=== PATIENT | male | born 1955 | race American Indian/Alaskan Native ===

== ENCOUNTER 2021-04-23 15:33 | Inpatient (IN) | payer MEDICARE ==
[2021-04-23] MEDS ORDERED: SODIUM CHLORIDE 0.9% 1000 ML 1,000 ML IV ONE (15:43)
[2021-04-23] MEDS ORDERED: cefTRIAXone/NS 1 GM/50 ML 1 GM/50 ML BAG IV ONE (15:44)
[2021-04-23] MEDS ORDERED: SODIUM CHLORIDE 0.9% 1000 ML 2,000 ML ONE (15:47)
--- NOTE | 2021-04-23 16:21 | XRay Report ---
CHEST 1 VIEW 04/23/2021 3:14 PM INDICATION / CLINICAL INFORMATION: Altered Mental Status. COMPARISON: None available. FINDINGS: SUPPORT DEVICES: None. HEART / MEDIASTINUM: No significant abnormality. LUNGS / PLEURA: Increased bilateral pulmonary vascularity. There is some prominence of the louie on th e left. No pneumothorax. ADDITIONAL FINDINGS: No significant additional findings. IMPRESSION: 1. Increased bilateral pulmonary vascularity. Mild prominence of the louie could represent pulmonary v ascularity however underlying nodule on the left left cannot be excluded. Follow-up recommended. Signer Name: Sotero Bourne MD Signed: 04/23/2021 4:16 PM Workstation Name: [id number]
[2021-04-23 16:36] LABS: Hematocrit 39.4 % (35.5-45.6); Hemoglobin 12.5 gm/dl (11.8-15.2); Mean Corpuscular HGB Conc 32 % (32-34); Mean Corpuscular Volume 81 fl (84-94); Platelet Count 96 K/mm3 (140-440); Red Blood Count 4.87 M/mm3 (3.65-5.03); Red Cell Distribution Width 15.5 % (13.2-15.2)
[2021-04-23 16:47] LABS: INR 1.12 (0.87-1.13)
[2021-04-23] MEDS ORDERED: VANCOMYCIN 1,750 MG in SODIUM CHLORIDE 0.9% 500 ML 500 ML IV ONE (16:48)
[2021-04-23 16:59] LABS: Albumin 3.4 g/dL (3.9-5); Calcium 9.7 mg/dL (8.4-10.2)
[2021-04-23] MEDS ORDERED: VANCOMYCIN PHARMACY TO DOSE IV SCH (17:00)
--- NOTE | 2021-04-23 17:10 | Emergency Department Report ---
ED Fever HPI - General Chief Complaint: Altered Mental Status Stated Complaint: SEPSIS PUI?: Yes Time Seen by Provider: 04/23/21 16:41 Source: family, EMS Exam Limitations: other (altered mental status) - History of Present Illness Initial Comments: CC: fever, altered mental status HPI: This is a 65 yo male with hx of quadriplegia, hyperlipidemia, dysphagia, GERD, major depressive disorder, seborrheic dermatitis who presents with fever and altered mental status. Patient currently resides at [facility]. Reported to have hypoxia 84% on nonrebreather. Patient here is febrile 103 F. Patient is nonverbal. Normally he is verbal. I spoke with Gabi Rabago per phone. Cell number provided per SNF documentation 6 10/12/1958 [id number] Patient was admitted at [facility] from 04/18/2019 to 10/18/2019 according to [facility] records. At that time he was diagnosed with spinal injury which led to quadriplegia. He fell at home. He has been a resident at [facility] since October 2019. He has not had recent hospitalizations. He has been vaccinated against COVID-19. Timing/Duration: other (At least 1 day of illness) Fever Severity/Quality: greater than 102 F Fever Therapy PUBLIC HEALTH CLINICAL NURSE SPECIALIST: none Associated Symptoms: other (Hypoxia) ED Review of Systems ROS: Stated complaint: SEPSIS Other details as noted in HPI Comment: Unobtainable due to pts medical conditions (Altered mental status) ED Past Medical Hx - Past Medical History Previous Medical History?: Yes Additional medical history: Major depressive disorder, quadriplegia, spinal cord injury - Surgical History Past Surgical History?: Yes Additional Surgical History: Spine surgery - Social History Smoking Status: Former Smoker Substance Use Type: None ED Physical Exam - General Limitations: Altered Mental Status General appearance: lethargic, other (Ill-appearing very warm to touch withdrawal some pain, yells out during transfer to) - Head Head exam: Present: atraumatic, normocephalic - Eye Eye exam: Present: normal appearance. Absent: scleral icterus, conjunctival injection, nystagmus, periorbital swelling, periorbital tenderness - ENT ENT exam: Present: mucous membranes dry, other (Poor dental hygiene) - Neck Neck exam: Present: normal inspection, full ROM. Absent: tenderness, meningismus - Respiratory Respiratory exam: Present: rhonchi, decreased breath sounds, other (Loud rales rhonchi heard loudest on the right side.). Absent: wheezes, rales, chest wall tenderness, accessory muscle use - Cardiovascular Cardiovascular Exam: Present: normal rhythm, tachycardia, normal heart sounds. Absent: systolic murmur, diastolic murmur, rubs, gallop - GI/Abdominal GI/Abdominal exam: Present: soft, normal bowel sounds. Absent: distended, tenderness, guarding, rebound - Rectal Rectal exam: Present: deferred - Extremities Exam Extremities exam: Present: normal inspection, other (heel cushions in place without skin breakdown) - Back Exam Back exam: Present: normal inspection, other (healed sacral decubitus wound) - Neurological Exam Neurological exam: Present: altered - Psychiatric Psychiatric exam: Present: flat affect - Skin Skin exam: Present: intact, other ED Course Vital Signs 04/23/21 04/23/21 04/23/21 15:38 17:28 17:30 Temperature 103 F H Pulse Rate 112 H 108 H 105 H Respiratory 16 17 20 Rate Blood Pressure 59/36 59/36 Blood Pressure 61/37 [Right] O2 Sat by Pulse 98 99 100 Oximetry 04/23/21 04/23/21 04/23/21 17:46 17:51 18:24 Temperature Pulse Rate 109 H 115 H Respiratory 17 18 Rate Blood Pressure 72/47 Blood Pressure [Right] O2 Sat by Pulse 100 100 100 Oximetry 04/23/21 04/23/21 04/23/21 18:30 18:46 19:00 Temperature Pulse Rate 115 H 104 H 103 H Respiratory 18 15 16 Rate Blood Pressure 81/43 71/39 Blood Pressure [Right] O2 Sat by Pulse 99 100 100 Oximetry 04/23/21 19:16 Temperature Pulse Rate 103 H Respiratory 18 Rate Blood Pressure 68/26 Blood Pressure [Right] O2 Sat by Pulse 99 Oximetry ED Medical Decision Making - Lab Data Result diagrams: 04/23/21 15:58 04/23/21 17:30 - Radiology Data Radiology results: report reviewed Study Comments [facility] [address] [place] [address] Cat Scan Report Signed Patient: NEO RABAGO MR#: [id number] 2 : 1955 Acct:[id number] Age/Sex: 65 / M ADM Date: 04/23/21 Loc: ED Attending Dr: Ordering Physician: Gela Lassiter MD Date of Service: 04/23/21 Procedure(s): CT chest wo con Accession Number(s): [id number] cc: Gela Lassiter MD CT CHEST WITHOUT CONTRAST INDICATION / CLINICAL INFORMATION: septic shock fever hypoxia. TECHNIQUE: Axial CT images were obtained through the chest without contrast. All CT scans at this location are performed using CT dose reduction for ALARA by means of automated exposure con trol. COMPARISON: None available. FINDINGS: Mild increased interstitial prominence within the lungs. There is bilateral lower lung atelectasis with some dependent atelectasis noted. No dominant nodule or mass heart and aorta appear normal. No definite mediastinal or hilar adenopathy. Visualized portions of the upper abdomen appear normal. Advanced degenerative change with dish like changes throughout the spine. IMPRESSION: 1. Mild increased interstitial prominence within the lungs. Density/atelectasis in the right lung..Lower lobe atelectasis is noted. 2. [facility] like changes throughout the spine with degenerative change throughout Signer Name: Sotero Bourne MD Signed: 04/23/2021 6:24 PM Workstation Name: [id number] Transcribed By: CW Dictated By: VALDEZ BOURNE MD Electronically Authenticated By: VALDEZ BOURNE MD Signed Date/Time: 04/23/211823 Other Patient ID My Comment(s) Study Comments [facility] [address] [place] [address] Cat Scan Report Signed Patient: NEO RABAGO MR#: [id number] 2 : 1955 Acct:[id number] Age/Sex: 65 / M ADM Date: 04/23/21 Loc: CC1 [id number]: REJI COLEMAN MD Ordering Physician: Gela Lassiter MD Date of Service: 04/23/21 Procedure(s): CT abdomen pelvis wo con Accession Number(s): [id number] cc: Gela Lassiter MD CT ABDOMEN AND PELVIS WITHOUT CONTRAST HISTORY: septic shock abnormal liver function. COMPARISON: None. TECHNIQUE: CT images of the abdomen and pelvis were obtained without administration of intravenous contrast. All CT scans at this location are performed using CT dose reduction for ALARA by means of automated exposure control. FINDINGS: Lungs/bones: There is atelectasis in bilateral lower lungs Abdomen/pelvis: Within limits of a noncontrast examination the liver, spleen, adrenal glands, pancreas and gallbladder appear normal. Distention of the bowel loops seen. There is marked distention of the sigmoid colon into the rectum with fecal material and gas. Thickening of the distal sigmoid colon and rectum. Contrast is seen in bilateral kidneys. No fluid collection or abscess is definitely seen. Mild inflammation retroperitoneum without focal collection. [facility] like changes are seen throughout spine. No subluxation. There is slight changes are most significant in the thoracic spine urinary bladder wall appears thickened sclerosis and fusion SI joints. IMPRESSION: 1. Bilateral lower lobe atelectasis 2. There is marked dilatation of the distal descending colon and sigmoid colon measuring up to 11 cm. There is marked thickening of the distal sigmoid colon and rectal wall. No perforation is seen in this time however follow-up colonoscopy GI is recommended 3. Mild inflammation of the retroperitoneum however no fluid collection or abscess is seen Signer Name: Sotero Bourne MD Signed: 04/23/2021 7:32 PM Workstation Name: [id number] Transcribed By: CW Dictated By: VALDEZ BOURNE MD Electronically Authenticated By: VALDEZ BOURNE MD Signed Date/Time: 04/23/211931 DD/DT: DD/ 18 - Medical Decision Making 1. Acute respiratory failure hypoxia with septic shock due to healthcare associated pneumonia and UTI: Treatment in the ED included IV broad-spectrum antibiotics cefepime vancomycin, 30mL/kg/min, normal saline bolus, sepsis protocol. Patient is vaccinated against COVID-19. Will need to rule out COVID- 19 infection. Suspect bacterial organism as the cause of pneumonia with significant leukocytosis and septic shock. 2. Acute toxic metabolic encephalopathy due to sepsis and hypoxia. I expect lethargy to resolve once patient is resuscitated and treated for infection. Do not suspect meningitis at this time. 3. Acute kidney injury: Vasomotor nephropathy due to septic shock lack of perfusion. IVF resuscitation initiated with sepsis protocol 4. Type II NSTEMI due to demand ischemia, will trend troponin 5. Abnormal hepatic panel: CT abdomen pelvis ordered to rule out biliary obstruction and infectious process 6. Patient has both healthcare associated pneumonia and urinary tract infection 7. colitis: ddx: ileus, impaction, diverticulitis, malignancy, will need GI evaluation I have kept informed. Work-up notable for UTI downtrending lactic acid, elevated COVID markers including D-dimer ferritin LDH CRP. D-dimer will need to be trended in order to rule in or rule out VTE. Critical Care Time: Yes Critical care time in (mins) excluding proc time.: 40 Critical care attestation.: If time is entered above; I have spent that time in minutes in the direct care of this critically ill patient, excluding procedure time. 40 minutes of critical care time excluding procedures were used in the care of the patient. I came immediately to the bedside upon patient's arrival. I discussed treatment plan with the nursing team members. I reviewed electronic record. I kept Gabi Rabago informed. Patient required multiple interventions and reassessments. ED Disposition Clinical Impression: Acute respiratory failure with hypoxia, Acute metabolic encephalopathy, Septic shock, HCAP (healthcare-associated pneumonia), Suspected COVID-19 virus infection, Acute kidney injury, Non-ST elevation NH (NSTEMI), Urinary tract infection, Colitis Disposition: ADMITTED INPATIENT Is pt being admited?: Yes Does the pt Need Aspirin: No Condition: Critical
--- NOTE | 2021-04-23 17:16 | History and Physical Report ---
History of Present Illness Chief complaint: He is weak and now is not talking History of present illness: 65 YO Male [facility] Resident at [facility] with MDD, GERD, HLD, Quadraplegia S/P Spine Injury, Seborrheic Dermatitis, Encephalopathy presents to ED for evaluation. Patient has diminished cognition at the time of my evaluation and is unable to provide history. Patient history taken from EMS staff, ED staff, as well as retirement facility staff. As per staff the patient has experienced increased weakness and decreased responsiveness over the past 3 days. Patient was found to be febrile to 103 F. EMS was notified and upon arrival the patient was found to be in distress and subsequent transported to [facility] for further care and evaluation of the aforementioned symptoms. The patient was seen and evaluated in the emergency department. All lab and imaging studies reviewed. The patient was found to have a pulse oximetry of 84% on nonrebreather mask which is consistent with acute hypoxemic respiratory failure. Chest x-ray reveals evidence of pneumonia. Patient also found to have sepsis complicated by shock as well as shock liver, acute kidney injury, metabolic acidosis, toxic metabolic encephalopathy. Patient found to be critically ill and admitted to ICU and initiated on sepsis protocol, pneumonia protocol as well as coronavirus protocol. No further history is obtainable. No prior admission for review. No medication listed at time of admission for reconciliation. Advanced care planning conducted in the ED. Critical care team consulted in ED. Past History Past Medical History: GERD, hyperlipidemia, other (See HPI) Past Surgical History: Other (Spine surgery) Social history: . denies: smoking, alcohol abuse, prescription drug abuse Family history: diabetes, hypertension Medications and Allergies Allergies Allergy/AdvReac Type Severity Reaction Status Date / Time No Known Allergies Allergy Verified 04/23/21 17:09 Active Meds: Active Medications Dexamethasone (Dexamethasone 4 Mg/Ml Vial) 6 mg IV ONCE ONE Stop: 04/23/21 16:53 Vancomycin HCl 1,750 mg/ (Sodium Chloride) 535 mls @ 333 mls/hr IV ONCE ONE; Protocol Stop: 04/23/21 18:24 Cefepime HCl (Cefepime/Ns 2 Gm/100 Ml) 2 gm in 100 mls @ 200 mls/hr IV ONCE ONE; Protocol Stop: 04/23/21 17:17 Sodium Chloride (Sodium Chloride 0.9% 1000 Ml Iv Soln) 2,720 ml 30 ml/kg (2720 ml) IV ONCE ONE Stop: 04/23/21 16:49 Review of Systems ROS unobtainable: due to mental status Exam - Constitutional Vitals: Temp Pulse Resp BP Pulse Ox 103 F H 112 H 16 61/37 98 04/23/21 15:38 04/23/21 15:38 04/23/21 15:38 04/23/21 15:38 04/23/21 15:38 General appearance: Present: severe distress - EENT Eyes: Present: PERRL ENT: clear oral mucosa, hearing decreased - Neck Neck: Present: supple, normal ROM - Respiratory Respiratory effort: labored Respiratory: bilateral: diminished - Cardiovascular Rhythm: other (Tachycardia) - Extremities Extremities: pulses symmetrical Extremity abnormal: edema Peripheral Pulses: abnormal (Capillary refill greater than 3.5 seconds) - Abdominal General gastrointestinal: Present: soft, non-tender, non-distended, normal bowel sounds Male genitourinary: Present: normal - Integumentary Integumentary: Present: clear, dry, clammy, decreased turgor - Musculoskeletal Musculoskeletal: generalized weakness - Psychiatric Psychiatric: no appropriate mood/affect, no intact judgment & insight, no memory intact - Neurologic Neurologic: CNII-XII intact, focal deficits, no moves all extremities, no gait normal HEART Score - HEART Score Troponin: Troponin T 0.124 ng/mL (0.00-0.029) H* 04/23/21 15:58 Results - Labs CBC & Chem 7: 04/23/21 15:58 04/23/21 17:30 Labs: Abnormal lab results 04/23/21 04/23/21 04/23/21 Range/Units 15:58 15:58 15:58 WBC 17.9 H (4.5-11.0) K/mm3 MCV 81 L (84-94) fl MCH 26 L (28-32) pg RDW 15.5 H (13.2-15.2) % Plt Count 96 L (140-440) K/mm3 PT 15.6 H (12.2-14.9) Sec. Potassium (3.6-5.0) mmol/L BUN (9-20) mg/dL Creatinine (0.8-1.3) mg/dL Glucose (75-100) mg/dL Lactic Acid 2.50 H* (0.7-2.0) mmol/L Total Bilirubin (0.1-1.2) mg/dL AST (5-40) units/L ALT (7-56) units/L Alkaline Phosphatase (35-129) units/L Total Creatine Kinase (55-170) units/L Troponin T (0.00-0.029) ng/mL Albumin (3.9-5) g/dL 04/23/21 Range/Units 15:58 WBC (4.5-11.0) K/mm3 MCV (84-94) fl MCH (28-32) pg RDW (13.2-15.2) % Plt Count (140-440) K/mm3 PT (12.2-14.9) Sec. Potassium 3.4 L (3.6-5.0) mmol/L BUN 38 H (9-20) mg/dL Creatinine 2.8 H (0.8-1.3) mg/dL Glucose 117 H (75-100) mg/dL Lactic Acid (0.7-2.0) mmol/L Total Bilirubin 3.10 H (0.1-1.2) mg/dL AST 340 H (5-40) units/L ALT 360 H (7-56) units/L Alkaline Phosphatase 345 H (35-129) units/L Total Creatine Kinase 1763 H (55-170) units/L Troponin T 0.124 H* (0.00-0.029) ng/mL Albumin 3.4 L (3.9-5) g/dL Assessment and Plan - Patient Problems (1) Septic shock Current Visit: No Status: Acute Plan to address problem: Sepsis protocol: CBC, CMP, IV fluid resuscitation therapy, IV antibiotic therapy, serial lactic acid level, maintain mean arterial pressure greater than or equal to 65, IV pressor support as clinically indicated, monitor fluid balance, blood culture, chest x-ray, urinalysis. The high probability of a clinically significant, sudden or life threatening deterioration of the [cardiac, pulmonary, renal, infectious disease, pulmonary] system(s) required my full and direct attention, intervention and personal management. The aggregate critical care time was [95] minutes. This time is in addition to time spent performing reported procedures but includes the foll owing: [x] Data Review and interpretation [x] Patient assessment and monitoring of vital signs [x] Documentation [x] Medication orders and management (2) Acute kidney injury Current Visit: No Status: Acute Plan to address problem: IV fluid resuscitation therapy, BMP, repeat BMP in a.m. to monitor serum creatinine as well as GFR. (3) Acute metabolic encephalopathy Current Visit: No Status: Acute Plan to address problem: Supportive care, treat sepsis, neuro check (4) Acute respiratory failure with hypoxia Current Visit: No Status: Acute Plan to address problem: Chest x-ray, supplemental oxygen, supplemental oxygen via nonrebreather mask. Will consider noninvasive positive pressure ventilation if patient is unable to maintain pulse oximetry on supplemental oxygen as currently delivered on nonreb reather mask. (5) HCAP (healthcare-associated pneumonia) Current Visit: No Status: Acute Plan to address problem: CBC, chest x-ray, IV antibiotic therapy, supplemental oxygen, pulse oximetry, nebulizer therapy, supportive care. (6) Suspected COVID-19 virus infection Current Visit: No Status: Acute Plan to address problem: Coronavirus protocol: IV antibiotic therapy, IV steroid therapy, vitamin C therapy, vitamin D therapy, zinc therapy, supplemental oxygen, pulse oximetry, pulmonary toilet. Prophylactic anticoagulation. (7) DVT prophylaxis Current Visit: No Status: Acute Plan to address problem: SCDs bilateral lower extremities while in bed, prophylactic anticoagulation (8) Advance care planning Current Visit: No Status: Acute Plan to address problem: Disease education conducted, care plan discussed, diagnosis discussed, prognosis discussed, patient is full code, +30 minutes.
[2021-04-23] MEDS ORDERED: oxyCODONE /ACETAMINOPHEN 5-325MG TAB PO PRN (17:18)
[2021-04-23] MEDS ORDERED: ALBUTEROL 2.5 MG/3 ML NEBU IH PRN (17:18)
[2021-04-23] MEDS ORDERED: HYDROmorphone 1 MG/1 ML INJ IV PRN ×2 (17:18)
[2021-04-23] MEDS ORDERED: ACETAMINOPHEN 325 MG TAB PO PRN (17:18)
[2021-04-23 17:29] LABS: Band Neutrophils # (Manual) 1.4 K/mm3; Basophils % (Manual) 0 % (0.0-1.8); Eosinophils % (Manual) 0 % (0.0-4.3); Total Cells Counted 100
[2021-04-23 17:30] LABS: Anisocytosis 1+; Dohle Bodies Rare; Platelet Estimate Consistent w Auto; Toxic Granulation 2+; Toxic Vacuolation 1+
[2021-04-23] MEDS ORDERED: SODIUM CHLORIDE 0.9% 1000 ML IV SOLN IV ONE (17:52)
--- NOTE | 2021-04-23 17:53 | XRay Report ---
CHEST 1 VIEW 04/23/2021 5:14 PM INDICATION / CLINICAL INFORMATION: central line placement. COMPARISON: 04/23/2021, 1601 hours FINDINGS: SUPPORT DEVICES: Right neck central venous line tip projects the level the superior aspect of the sup erior vena cava HEART / MEDIASTINUM: Unchanged LUNGS / PLEURA: There are patchy airspace opacities noted in the lung bases. There is mild venous con gestion. No pneumothorax. ADDITIONAL FINDINGS: No significant additional findings. IMPRESSION: 1. Central line in expected position. Signer Name: Ross Barker MD Signed: 04/23/2021 5:49 PM Workstation Name: [id number]
[2021-04-23] MEDS ORDERED: CEFEPIME/NS 2 GM/100 ML 2 GM/100 ML BAG IV SCH (18:00)
[2021-04-23] MEDS ORDERED: methylPREDNISolone Sod Succinate 40 MG/1 ML INJ IV SCH (18:00)
[2021-04-23] MEDS ORDERED: dexAMETHasone 4 MG/ML VIAL IV ONE (18:00)
[2021-04-23] MEDS ORDERED: CEFEPIME/NS 2 GM/100 ML 2 GM/100 ML BAG IV ONE (18:00)
[2021-04-23 18:18] LABS: Bacteria,Urine 2+ /HPF (Negative); Bilirubin,Urine NEG (Negative); Blood,Urine LG (Negative); Color,Urine Amber (Yellow); Mucus,Urine FEW /HPF; Protein,Urine >500 mg/dL (Negative); Urobilinogen,Urine < 2.0 mg/dL (<2.0); WBC,Urine > 182.0 /HPF (0.0-6.0)
[2021-04-23] MEDS: NORepinephrine/NS 8 MG-250 ML 8 MG/250 ML INFUS..BTL IV SCH (18:27)
--- NOTE | 2021-04-23 18:28 | Cat Scan Report ---
CT CHEST WITHOUT CONTRAST INDICATION / CLINICAL INFORMATION: septic shock fever hypoxia. TECHNIQUE: Axial CT images were obtained through the chest without contrast. All CT scans at this location are p erformed using CT dose reduction for ALARA by means of automated exposure control. COMPARISON: None available. FINDINGS: Mild increased interstitial prominence within the lungs. There is bilateral lower lung atelectasis wi th some dependent atelectasis noted. No dominant nodule or mass heart and aorta appear normal. No def inite mediastinal or hilar adenopathy. Visualized portions of the upper abdomen appear normal. Advanced degenerative change with dish like changes throughout the spine. IMPRESSION: 1. Mild increased interstitial prominence within the lungs. Density/atelectasis in the right lung..Lo wer lobe atelectasis is noted. 2. [facility] like changes throughout the spine with degenerative change throughout Signer Name: Sotero Bourne MD Signed: 04/23/2021 6:24 PM Workstation Name: [id number]
[2021-04-23] MEDS ORDERED: VANCOMYCIN/NS 1 GM/250 ML 1 GM/250 ML BAG IV SCH (18:30)
--- NOTE | 2021-04-23 19:36 | Cat Scan Report ---
CT ABDOMEN AND PELVIS WITHOUT CONTRAST HISTORY: septic shock abnormal liver function. COMPARISON: None. TECHNIQUE: CT images of the abdomen and pelvis were obtained without administration of intravenous co ntrast. All CT scans at this location are performed using CT dose reduction for ALARA by means of au tomated exposure control. FINDINGS: Lungs/bones: There is atelectasis in bilateral lower lungs Abdomen/pelvis: Within limits of a noncontrast examination the liver, spleen, adrenal glands, pancre as and gallbladder appear normal. Distention of the bowel loops seen. There is marked distention of t he sigmoid colon into the rectum with fecal material and gas. Thickening of the distal sigmoid colon and rectum. Contrast is seen in bilateral kidneys. No fluid collection or abscess is definitely seen. Mild inflammation retroperitoneum without focal collection. [facility] like changes are seen throughout sp ine. No subluxation. There is slight changes are most significant in the thoracic spine urinary bladd er wall appears thickened sclerosis and fusion SI joints. IMPRESSION: 1. Bilateral lower lobe atelectasis 2. There is marked dilatation of the distal descending colon and sigmoid colon measuring up to 11 cm. There is marked thickening of the distal sigmoid colon and rectal wall. No perforation is seen in th is time however follow-up colonoscopy GI is recommended 3. Mild inflammation of the retroperitoneum however no fluid collection or abscess is seen Signer Name: Sotero Bourne MD Signed: 04/23/2021 7:32 PM Workstation Name: [id number]
--- NOTE | 2021-04-23 21:01 | Procedure Note ---
Date of procedure: 04/23/21 Pre-op diagnosis: Sepsis Post-op diagnosis: same Procedure: Right internal jugular vein triple-lumen catheter. Under ultrasound guidance A timeout was taken to verify the correct patient, procedure, and correct operative site. Patient nurse at bedside to witness. The patient was prepped and draped in the usual sterile fashion. Local anesthesia was obtained with 1% lidocaine. The Seldinger technique was utilized to access the right internal jugular vein under ultrasound guidance. A seeker needle was utilized to access the right internal jugular vein under ultrasound guidance without difficulty. A guidewire was then advanced through the seeker needle into the right internal jugular vein without difficulty and the seeker needle subsequently removed over the guidewire. A scalpel was used to incise the skin. A dilator was then dilated over the guidewire into the right internal jugular vein and subsequently removed. A preflush triple-lumen catheter was then placed into the right internal jugular vein and the guidewire removed from the triple-lumen catheter. All 3 ports flush and drawl with ease. A Biopatch was placed at the insertion site. 3-0 nylon suture was utilized to secure the triple-lumen catheter in place. Estimated blood loss minimal, specimens none, complications none. Postoperative chest x-ray revealed triple-lumen catheter in good position in the superior vena cava without evidence of pneumothorax. Anesthesia: local Estimated blood loss: minimal Pathology: none Condition: critical Disposition: ICU
[2021-04-23] MEDS: ZINC SULFATE 220 MG CAP PO SCH (22:54)
[2021-04-23] MEDS: ASCORBIC ACID 500 MG TAB PO SCH (22:54)
[2021-04-23] MEDS: HEPARIN 5,000 UNIT/1 ML VIAL SUB-Q SCH (22:57)
[2021-04-23] MEDS: methylPREDNISolone Sod Succinate 40 MG/1 ML INJ IV SCH (22:57)
[2021-04-24 05:35] LABS: Hematocrit 35.5 % (35.5-45.6); Hemoglobin 10.9 gm/dl (11.8-15.2); Mean Corpuscular HGB Conc 31 % (32-34); Mean Corpuscular Volume 81 fl (84-94); Red Blood Count 4.36 M/mm3 (3.65-5.03); Red Cell Distribution Width 15.9 % (13.2-15.2)
[2021-04-24 05:38] LABS: Platelet Count 93 K/mm3 (140-440)
[2021-04-24 05:55] LABS: Albumin 3.4 g/dL (3.9-5); Calcium 8.5 mg/dL (8.4-10.2)
[2021-04-24] MEDS ORDERED: CEFEPIME/NS 2 GM/100 ML 2 GM/100 ML BAG IV SCH (06:00)
[2021-04-24] MEDS: NORepinephrine/NS 8 MG-250 ML 8 MG/250 ML INFUS..BTL IV SCH (06:11)
[2021-04-24 06:21] LABS: Basophils % (Manual) 0 % (0.0-1.8); Eosinophils % (Manual) 0 % (0.0-4.3); Monocytes % (Manual) 0 % (0.0-7.3); Total Cells Counted 100
[2021-04-24 06:22] LABS: Anisocytosis 1+; Platelet Estimate Consistent w Auto
[2021-04-24] MEDS: methylPREDNISolone Sod Succinate 40 MG/1 ML INJ IV SCH ×3 (07:15→22:03)
--- NOTE | 2021-04-24 07:18 | Consultation ---
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 Patient has diminished cognition at the time of my evaluation and is unable to provide histo ry. Patient history taken from EMS staff, ED staff, as well as [facility]. As per staff the patient has experienced increased weakness and decreased responsiveness over the past 3 days. Patient was found to be febrile to 103 F. EMS was notified and upon arrival the patient was found to be in distress and subsequent transported to [facility] for further care and evaluation of the aforementioned symptoms. Patient was admitted at [facility] from 04/18/2019 to 10/18/2019 according to SNF records. At that time he was diagnosed with spinal injury which led to quadriplegia. He fell at home. He has been a resident at [facility] since October 2019. He has not had recent hospitalizations. He has been vaccinated against COVID-19. The patient was found to have a pulse oximetry of 84% on nonrebreather mask which is consistent with acute hypoxemic respiratory failure. Chest x-ray reveals evidence of pneumonia. Patient also found to have sepsis complicated by shock as well as shock liver, acute kidney injury, metabolic acidosis, toxic metabolic encephalopathy. Patient found to be critically ill and admitted to ICU and initiated on sepsis protocol, pneumonia protocol as well as coronavirus protocol. A critical care consult was placed for septic shock. Patient seen and examined in the ED. He is on Norepinephrine with blood pressure of 160/100- notified RN to discontinue vasopressor support. The patient is mumbling Past History Past Medical History: GERD, hyperlipidemia, other (See HPI) Past Surgical History: Other (Spine surgery) Social history: . denies: smoking, alcohol abuse, prescription drug abuse Family history: diabetes, hypertension Medications and Allergies Allergies Allergy/AdvReac Type Severity Reaction Status Date / Time No Known Allergies Allergy Verified 04/23/21 17:09 Active Meds: Active Medications Acetaminophen (Acetaminophen 325 Mg Tab) 650 mg PO Q6H PRN PRN Reason: Pain, Mild (1-3) Albuterol (Albuterol 2.5 Mg/3 Ml Nebu) 2.5 mg IH Q3HRT PRN PRN Reason: Shortness Of Breath Ascorbic Acid (Ascorbic Acid 500 Mg Tab) 500 mg PO BID [facility] Last Admin: 04/23/21 22:54 Dose: 500 mg Cholecalciferol (Cholecalciferol (Vit D3) 1000 Unit (25 Mcg) Tab) 1,000 unit PO QDAY [facility] Heparin Sodium (Porcine) (Heparin 5,000 Unit/1 Ml Vial) 5,000 unit SUB-Q Q12HR [facility] Last Admin: 04/23/21 22:57 Dose: 5,000 unit Hydromorphone HCl (Hydromorphone 1 Mg/1 Ml Inj) 0.25 mg IV Q4H PRN PRN Reason: Pain, Moderate (4-6) Hydromorphone HCl (Hydromorphone 1 Mg/1 Ml Inj) 0.5 mg IV Q23H PRN PRN Reason: Pain , Severe (7-10) NORepinephrine/NS 8 MG-250 ML (Norepinephrine/Ns 8 Mg-250 Ml (Double Conc)) 8 mg in 250 mls @ 3.75 mls/hr IV TITRATE [facility]; Protocol Last Titration: 04/24/21 06:11 Dose: 10 mcg/min, 18.75 mls/hr Vancomycin HCl (Vancomycin/Ns 1 Gm/250 Ml) 1 gm in 250 mls @ 155.602 mls/hr IV Q24H [facility]; Protocol Last Infusion: 04/23/21 22:57 Dose: Infused Cefepime HCl (Cefepime/Ns 2 Gm/100 Ml) 2 gm in 100 mls @ 200 mls/hr IV Q12H [facility]; Protocol Methylprednisolone Sodium Succinate (Methylprednisolone Sod Succinate 40 Mg/1 Ml Inj) 40 mg IV Q8HR [facility] Last Admin: 04/23/21 22:57 Dose: 40 mg Oxycodone/Acetaminophen (Oxycodone /Acetaminophen 5-325mg Tab) 1 tab PO Q16H PRN PRN Reason: Pain, Moderate (4-6) Sodium Chloride (Sodium Chloride 0.9% 10 Ml Flush Syringe) 10 ml IV BID [facility] Last Admin: 04/23/21 22:55 Dose: 10 ml Sodium Chloride (Sodium Chloride 0.9% 10 Ml Flush Syringe) 10 ml IV PRN PRN PRN Reason: LINE FLUSH Zinc Sulfate (Zinc Sulfate 220 Mg Cap) 220 mg PO BID [facility] Last Admin: 04/23/21 22:54 Dose: Not Given Review of Systems ROS unobtainable: due to mental status Physical Examination Vital signs: Vital Signs Temp Pulse Resp BP Pulse Ox 103 F H 112 H 16 61/37 98 04/23/21 15:38 04/23/21 15:38 04/23/21 15:38 04/23/21 15:38 04/23/21 15:38 General appearance: no acute distress, other (chronically ill looking, RIJ CVL) Eyes: non-icteric ENT: oropharynx dry Neck: supple, no lymphadenopathy, no JVD Effort: mildly labored Ascultation: Bilateral: diminished breath sounds Cardiovascular: regular rate and rhythm, other (S1,S2) Gastrointestinal: normoactive bowel sounds, soft, non-tender, non-distended Integumentary: normal Extremities: no cyanosis, no edema pupils equal and round Results - Laboratory Findings CBC and BMP: 04/24/21 04:48 04/24/21 04:48 PT/INR, D-dimer PT 15.6 Sec. (12.2-14.9) H 04/23/21 15:58 INR 1.12 (0.87-1.13) 04/23/21 15:58 D-Dimer 6397.32 ng/mlDDU (0-234) H 04/23/21 17:30 Abnormal lab findings: Abnormal Labs 04/23/21 04/23/21 04/23/21 15:58 15:58 15:58 WBC 17.9 H Hgb MCV 81 L MCH 26 L MCHC RDW 15.5 H Plt Count 96 L Seg Neuts % (Manual) 88.0 H Lymphocytes % (Manual) 2.0 L Seg Neutrophils # Man 15.8 H Lymphocytes # (Manual) 0.4 L PT 15.6 H D-Dimer Sodium Potassium Chloride Carbon Dioxide BUN Creatinine Glucose Lactic Acid 2.50 H* Ferritin Total Bilirubin AST ALT Alkaline Phosphatase Lactate Dehydrogenase Total Creatine Kinase Troponin T C-Reactive Protein Albumin Urine pH Urine WBC (Auto) 04/23/21 04/23/21 04/23/21 15:58 17:30 17:30 WBC Hgb MCV MCH MCHC RDW Plt Count Seg Neuts % (Manual) Lymphocytes % (Manual) Seg Neutrophils # Man Lymphocytes # (Manual) PT D-Dimer 6397.32 H Sodium Potassium 3.4 L Chloride Carbon Dioxide BUN 38 H Creatinine 2.8 H Glucose 117 H 116 H Lactic Acid Ferritin Total Bilirubin 3.10 H AST 340 H ALT 360 H Alkaline Phosphatase 345 H Lactate Dehydrogenase 346 H Total Creatine Kinase 1763 H Troponin T 0.124 H* C-Reactive Protein 27.00 H Albumin 3.4 L Urine pH Urine WBC (Auto) 04/23/21 04/23/21 04/24/21 17:30 Unknown 04:48 WBC 19.7 H Hgb 10.9 L MCV 81 L MCH 25 L MCHC 31 L RDW 15.9 H Plt Count 93 L Seg Neuts % (Manual) 99.0 H Lymphocytes % (Manual) 1.0 L Seg Neutrophils # Man 19.5 H Lymphocytes # (Manual) 0.2 L PT D-Dimer Sodium Potassium Chloride Carbon Dioxide BUN Creatinine Glucose Lactic Acid Ferritin 812.8 H Total Bilirubin AST ALT Alkaline Phosphatase Lactate Dehydrogenase Total Creatine Kinase Troponin T C-Reactive Protein Albumin Urine pH 8.0 H Urine WBC (Auto) > 182.0 H 04/24/21 04:48 WBC Hgb MCV MCH MCHC RDW Plt Count Seg Neuts % (Manual) Lymphocytes % (Manual) Seg Neutrophils # Man Lymphocytes # (Manual) PT D-Dimer Sodium 148 H Potassium 3.3 L Chloride 109.7 H Carbon Dioxide 19 L BUN 45 H Creatinine 3.0 H Glucose 123 H Lactic Acid Ferritin Total Bilirubin 2.70 H AST 171 H ALT 233 H Alkaline Phosphatase 294 H Lactate Dehydrogenase Total Creatine Kinase Troponin T C-Reactive Protein Albumin 3.4 L Urine pH Urine WBC (Auto) - Diagnostic Findings Chest x-ray: image reviewed (Bilateral infiltrates, large stomach bubble, RIJ in good position) CT scan - chest: image reviewed (Basilar atelectasis) Assessment and Plan Septic shock (resolving) COVID positive Acute kidney injury Acute metabolic encephalopathy Acute respiratory failure with hypoxia (resolved) HCAP (healthcare-associated pneumonia) Hypernatremia Transaminitis -Wean vasopressor support for MAP>65, once he is off vasopressor support - he will no longer need ICU admission -Titrate supplemental oxygen to keep SPo2 88-90% -Empiric antibiotics for HAP- deescalate based on culture data and clinical response -Volume resuscitate per sepsis protocol guidelines -Avoid nephrotoxins, adjust all medications fro CrCL and GFR -VTE prophylaxis-Heparin -Mobility, off loading, frequent turning per facility protocol to prevent pressure ulcers -Avoid delirium, maintain sleep-wake cycle -[employer] ENGINEER to evaluate for dysphagia -Aspiration precautions -Trend temperature curve and WCC -Isolation precautions for COVID per facility protocol -Currently not hypoxic, no indication for Dexamethasone. -With acute renal failure, monitor renal function- may start Remdesivir in the next 24 hours -Trend liver enzymes, avoid hepatotoxins -Get MRSA nasal PCR, if negative can discontinue Vancomcyin Discussed care plan with RN and with the hospital medicine service The high probability of a clinically significant, sudden or life threatening deterioration of the cardiovascular, pulmonary, renal system(s) required my full and direct attention, intervention and personal management. The aggregate critical care time was 35 minutes. This time is in addition to time spent performing reported procedures but includes the following: [x] Data Review and interpretation [x] Patient assessment and monitoring of vital signs [x] Documentation [x] Medication orders and management
--- NOTE | 2021-04-24 07:57 | Progress Note ---
Assessment and Plan Assessment and plan: History of present illness: 65 YO Male Intermediate Facility Resident at [facility] Intermediate Facility with MDD, GERD, HLD, Quadraplegia S/P Spine Injury, Seborrheic Dermatitis, Encephalopathy presents to ED for evaluation. Patient has diminished cognition at the time of my evaluation and is unable to provide history. Patient history taken from EMS staff, ED staff, as well as [facility] facility staff. As per staff the patient has experienced increased weakness and decreased responsiveness over the past 3 days. Patient was found to be febrile to 103 F. EMS was notified and upon arrival the patient was found to be in distress and subsequent transported to [facility] for further care and evaluation of the aforementioned symptoms. The patient was seen and evaluated in the emergency department. All lab and imaging studies reviewed. The patient was found to have a pulse oximetry of 84% on nonrebreather mask which is consistent with acute hypoxemic respiratory failure. Chest x-ray reveals evidence of pneumonia. Patient also found to have sepsis complicated by shock as well as shock liver, acute kidney injury, metabolic acidosis, toxic metabolic encephalopathy. Patient found to be critically ill and admitted to ICU and initiated on sepsis protocol, pneumonia protocol as well as coronavirus protocol. No further history is obtainable. No prior admission for review. No medication listed at time of admission for reconciliation. Advanced care planning conducted in the ED. Critical care team consulted in ED. DISPO: MED/SURG bed Hospital Course: 04/24: Remains altered, likely secondary to sepsis. BP improved, off of levophed gtt. Currently on RA. COVID +, continue Cefepime IV, steroids. ID following. Nephrology following. Will follow [facility] recs. Downgrade to MED/SURG floor. Assessment and Plan: (1) Septic shock (resolving) Current Visit: No Status: Acute Plan to address problem: - WBC: 19K, Tmax: 103 F, source likely pulmonary - COVID RT PCR + - BCx; GNR 2/4 - UCx pending - Cefepime IV, d/c vanco IV - Solumedrol - off of levophed gtt (2) Acute kidney injury Current Visit: No Status: Acute Plan to address problem: Cr: 2.8 on admission, worsening IVF Monitor UOP Avoid nephrotoxic agents, renally adjust [facility] nephrology consultation (3) Acute metabolic encephalopathy Current Visit: No Status: Acute Plan to address problem: Supportive care, treat sepsis, neuro checks If no improvement, imaging+neuro work up/consultation (4) Acute respiratory failure with hypoxia (resolved) Current Visit: No Status: Acute Plan to address problem: - was on supplmental O2, now on room air (5) HCAP (healthcare-associated pneumonia) Current Visit: No Status: Acute Plan to address problem: CBC, chest x-ray, IV antibiotic therapy, supplemental oxygen, pulse oximetry, nebulizer therapy, supportive care. (6) Covid 19 pneumonia Current Visit: No Status: Acute Plan to address problem: Coronavirus protocol: IV antibiotic therapy, IV steroid therapy, vitamin C therapy, vitamin D therapy, zinc therapy, supplemental oxygen, pulse oximetry, pulmonary toilet. Prophylactic anticoagulation. RT PCR Positive (6) Transaminitis Current Visit: No Status: Acute Plan to address problem: Likely 2/2 to sepsis Trend on daily hepatic panel (7) DVT prophylaxis Current Visit: No Status: Acute Plan to address problem: SCDs bilateral lower extremities while in bed, prophylactic anticoagulation (8) Advance care planning Current Visit: No Status: Acute Plan to address problem: Disease education conducted, care plan discussed, diagnosis discussed, prognosis discussed, patient is full code, +30 minutes. The high probability of a clinically significant, sudden or life threatening deterioration of the [cardiac, pulmonary, renal, infectious disease, pulmonary] system(s) required my full and direct attention, intervention and personal management. The aggregate critical care time was [60] minutes. This time is in addition to time spent performing reported procedures but includes the following: [x] Data Review and interpretation [x] Patient assessment and monitoring of vital signs [x] Documentation [x] Medication orders and management History Interval history: ALtered on examination. On levophed, MAP improved. Hospitalist Physical - Physical exam Narrative exam: General appearance: Present: severe distress - EENT Eyes: Present: PERRL ENT: clear oral mucosa, hearing decreased - Neck Neck: Present: supple, normal ROM - Respiratory Respiratory effort: labored Respiratory: bilateral: diminished - Cardiovascular Rhythm: other (Tachycardia) - Extremities Extremities: pulses symmetrical Extremity abnormal: edema Peripheral Pulses: abnormal (Capillary refill greater than 3.5 seconds) - Abdominal General gastrointestinal: Present: soft, non-tender, non-distended, normal bowel sounds Male genitourinary: Present: normal - Integumentary Integumentary: Present: clear, dry, clammy, decreased turgor - Musculoskeletal Musculoskeletal: generalized weakness - Psychiatric Psychiatric: no appropriate mood/affect, no intact judgment & insight, no memory intact - Neurologic Neurologic: CNII-XII intact, focal deficits, no moves all extremities, no gait normal - Constitutional Vitals: Temp Pulse Resp BP Pulse Ox 103 F H 105 H 12 149/91 99 04/23/21 15:38 04/24/21 06:30 04/24/21 06:30 04/24/21 06:30 04/24/21 06:30 General appearance: Present: severe distress HEART Score - HEART Score Troponin: Troponin T 0.124 ng/mL (0.00-0.029) H* 04/23/21 15:58 Results - Labs CBC & Chem 7: 04/24/21 04:48 04/24/21 04:48 Labs: Laboratory Last Values WBC 19.7 K/mm3 (4.5-11.0) H 04/24/21 04:48 RBC 4.36 M/mm3 (3.65-5.03) 04/24/21 04:48 Hgb 10.9 gm/dl (11.8-15.2) L 04/24/21 04:48 Hct 35.5 % (35.5-45.6) 04/24/21 04:48 MCV 81 fl (84-94) L 04/24/21 04:48 MCH 25 pg (28-32) L 04/24/21 04:48 MCHC 31 % (32-34) L 04/24/21 04:48 RDW 15.9 % (13.2-15.2) H 04/24/21 04:48 Plt Count 93 K/mm3 (140-440) L 04/24/21 04:48 Add Manual Diff Complete 04/24/21 04:48 Total Counted 100 04/24/21 04:48 Seg Neutrophils % [employer] 04/24/21 04:48 Seg Neuts % (Manual) 99.0 % (40.0-70.0) H 04/24/21 04:48 Band Neutrophils % 0 % 04/24/21 04:48 Lymphocytes % (Manual) 1.0 % (13.4-35.0) L 04/24/21 04:48 Reactive Lymphs % (Man) 0 % 04/24/21 04:48 Monocytes % (Manual) 0 % (0.0-7.3) 04/24/21 04:48 Eosinophils % (Manual) 0 % (0.0-4.3) 04/24/21 04:48 Basophils % (Manual) 0 % (0.0-1.8) 04/24/21 04:48 Metamyelocytes % 0 % 04/24/21 04:48 Myelocytes % 0 % 04/24/21 04:48 Promyelocytes % 0 % 04/24/21 04:48 Blast Cells % 0 % 04/24/21 04:48 Nucleated RBC % Not Reportable 04/24/21 04:48 Seg Neutrophils # Man 19.5 K/mm3 (1.8-7.7) H 04/24/21 04:48 Band Neutrophils # 0.0 K/mm3 04/24/21 04:48 Lymphocytes # (Manual) 0.2 K/mm3 (1.2-5.4) L 04/24/21 04:48 Abs React Lymphs (Man) 0.0 K/mm3 04/24/21 04:48 Monocytes # (Manual) 0.0 K/mm3 (0.0-0.8) 04/24/21 04:48 Eosinophils # (Manual) 0.0 K/mm3 (0.0-0.4) 04/24/21 04:48 Basophils # (Manual) 0.0 K/mm3 (0.0-0.1) 04/24/21 04:48 Metamyelocytes # 0.0 K/mm3 04/24/21 04:48 Myelocytes # 0.0 K/mm3 04/24/21 04:48 Promyelocytes # 0.0 K/mm3 04/24/21 04:48 Blast Cells # 0.0 K/mm3 04/24/21 04:48 WBC Morphology Not Reportable 04/24/21 04:48 Hypersegmented Neuts Not Reportable 04/24/21 04:48 Hyposegmented Neuts Not Reportable 04/24/21 04:48 Hypogranular Neuts Not Reportable 04/24/21 04:48 Smudge Cells Not Reportable 04/24/21 04:48 Toxic Granulation Not Reportable 04/24/21 04:48 Toxic Vacuolation Not Reportable 04/24/21 04:48 Dohle Bodies Not Reportable 04/24/21 04:48 Pelger-Huet Anomaly Not Reportable 04/24/21 04:48 Perry Rods Not Reportable 04/24/21 04:48 Platelet Estimate Consistent w auto 04/24/21 04:48 Clumped Platelets Not Reportable 04/24/21 04:48 Plt Clumps, EDTA Not Reportable 04/24/21 04:48 Large Platelets Not Reportable 04/24/21 04:48 Giant Platelets Not Reportable 04/24/21 04:48 Platelet Satelliting Not Reportable 04/24/21 04:48 Plt Morphology Comment Not Reportable 04/24/21 04:48 RBC Morphology Not Reportable 04/24/21 04:48 Dimorphic RBCs Not Reportable 04/24/21 04:48 Polychromasia Not Reportable 04/24/21 04:48 Hypochromasia Not Reportable 04/24/21 04:48 Poikilocytosis Not Reportable 04/24/21 04:48 Anisocytosis 1+ 04/24/21 04:48 Microcytosis Not Reportable 04/24/21 04:48 Macrocytosis Not Reportable 04/24/21 04:48 Spherocytes Not Reportable 04/24/21 04:48 Pappenheimer Bodies Not Reportable 04/24/21 04:48 Sickle Cells Not Reportable 04/24/21 04:48 Target Cells Not Reportable 04/24/21 04:48 Tear Drop Cells Not Reportable 04/24/21 04:48 Ovalocytes Not Reportable 04/24/21 04:48 Helmet Cells Not Reportable 04/24/21 04:48 [place] Bodies Not Reportable 04/24/21 04:48 [place] Rings Not Reportable 04/24/21 04:48 [place] Cells Not Reportable 04/24/21 04:48 Bite Cells Not Reportable 04/24/21 04:48 Crenated Cell Not Reportable 04/24/21 04:48 Elliptocytes Not Reportable 04/24/21 04:48 Acanthocytes (Spur) Not Reportable 04/24/21 04:48 Rouleaux Not Reportable 04/24/21 04:48 Hemoglobin C Crystals Not Reportable 04/24/21 04:48 Schistocytes Not Reportable 04/24/21 04:48 Malaria parasites Not Reportable 04/24/21 04:48 [place] Bodies Not Reportable 04/24/21 04:48 Hem Pathologist Commnt No 04/24/21 04:48 PT 15.6 Sec. (12.2-14.9) H 04/23/21 15:58 INR 1.12 (0.87-1.13) 04/23/21 15:58 APTT 35.0 Sec. (24.2-36.6) 04/23/21 15:58 D-Dimer 6397.32 ng/mlDDU (0-234) H 04/23/21 17:30 Sodium 148 mmol/L (137-145) H 04/24/21 04:48 Potassium 3.3 mmol/L (3.6-5.0) L 04/24/21 04:48 Chloride 109.7 mmol/L (98-107) H 04/24/21 04:48 Carbon Dioxide 19 mmol/L (22-30) L 04/24/21 04:48 Anion Gap 23 mmol/L 04/24/21 04:48 BUN 45 mg/dL (9-20) H 04/24/21 04:48 Creatinine 3.0 mg/dL (0.8-1.3) H 04/24/21 04:48 Estimated GFR 26 ml/min 04/24/21 04:48 BUN/Creatinine Ratio 15 % 04/24/21 04:48 Glucose 123 mg/dL (75-100) H 04/24/21 04:48 Lactic Acid 1.20 mmol/L (0.7-2.0) 04/24/21 01:01 Calcium 8.5 mg/dL (8.4-10.2) 04/24/21 04:48 Ferritin 812.8 ng/mL (30.0-300.0) H 04/23/21 17:30 Total Bilirubin 2.70 mg/dL (0.1-1.2) H 04/24/21 04:48 AST 171 units/L (5-40) H 04/24/21 04:48 ALT 233 units/L (7-56) H 04/24/21 04:48 Alkaline Phosphatase 294 units/L (35-129) H 04/24/21 04:48 Ammonia 26.0 umol/L (25-60) 04/23/21 15:58 Lactate Dehydrogenase 346 units/L (91-180) H 04/23/21 17:30 Total Creatine Kinase 1763 units/L (55-170) H 04/23/21 15:58 Troponin T 0.124 ng/mL (0.00-0.029) H* 04/23/21 15:58 C-Reactive Protein 27.00 mg/dL (0.00-1.30) H 04/23/21 17:30 Total Protein 6.6 g/dL (6.3-8.2) 04/24/21 04:48 Albumin 3.4 g/dL (3.9-5) L 04/24/21 04:48 Albumin/Globulin Ratio 1.1 % 04/24/21 04:48 Urine Color Jacque (Yellow) 04/23/21 Unknown Urine Turbidity Cloudy (Clear) 04/23/21 Unknown Urine pH 8.0 (5.0-7.0) H 04/23/21 Unknown Ur Specific [place] 1.012 (1.003-1.030) 04/23/21 Unknown Urine Protein >500 mg/dL (Negative) 04/23/21 Unknown Urine Glucose (UA) Neg mg/dL (Negative) 04/23/21 Unknown Urine Ketones Neg mg/dL (Negative) 04/23/21 Unknown Urine Blood Lg (Negative) 04/23/21 Unknown Urine Nitrite Neg (Negative) 04/23/21 Unknown Urine Bilirubin Neg (Negative) 04/23/21 Unknown Urine Urobilinogen < 2.0 mg/dL (<2.0) 04/23/21 Unknown Ur Leukocyte Esterase Lg (Negative) 04/23/21 Unknown Urine WBC (Auto) > 182.0 /HPF (0.0-6.0) H 04/23/21 Unknown Urine RBC (Auto) 93.0 /HPF (0.0-6.0) 04/23/21 Unknown U Epithel Cells (Auto) 4.0 /HPF (0-13.0) 04/23/21 Unknown Urine Bacteria (Auto) 2+ /HPF (Negative) 04/23/21 Unknown Urine Mucus Few /HPF 04/23/21 Unknown Microbiology: Microbiology 04/23/21 16:01 Peripheral/Venous Blood Culture - Preliminary Culture in Progress 04/23/21 15:58 Peripheral/Venous Blood Culture - Preliminary Culture in Progress Active Medications - Current Medications Current Medications: Generic Name Dose Route Start Last Admin Trade Name Freq PRN Reason Stop Dose Admin Acetaminophen 650 mg 04/23/21 17:18 Acetaminophen 325 Mg Tab PO Q6H PRN Pain, Mild (1-3) Albuterol 2.5 mg 04/23/21 17:18 Albuterol 2.5 Mg/3 Ml Nebu IH Q3HRT PRN Shortness Of Breath Ascorbic Acid 500 mg 04/23/21 22:00 04/23/21 22:54 Ascorbic Acid 500 Mg Tab PO 500 mg BID [facility] Administration Cholecalciferol 1,000 unit 04/24/21 10:00 Cholecalciferol (Vit D3) 1000 Unit (25 Mcg) Tab PO QDAY [facility] Heparin Sodium (Porcine) 5,000 unit 04/23/21 22:00 04/23/21 22:57 Heparin 5,000 Unit/1 Ml Vial SUB-Q 5,000 unit Q12HR [facility] Administration Hydromorphone HCl 0.25 mg 04/23/21 17:18 Hydromorphone 1 Mg/1 Ml Inj IV Q4H PRN Pain, Moderate (4-6) Hydromorphone HCl 0.5 mg 04/23/21 17:18 Hydromorphone 1 Mg/1 Ml Inj IV Q23H PRN Pain , Severe (7-10) NORepinephrine/NS 8 MG-250 ML 8 mg in 250 mls @ 3.75 mls/hr 04/23/21 18:00 04/24/21 06:11 Norepinephrine/Ns 8 Mg-250 Ml (Double Conc) IV 10 mcg/min TITRATE [facility] 18.75 mls/hr Titration Protocol 2 MCG/MIN Vancomycin HCl 1 gm in 250 mls @ 155.602 mls/hr 04/23/21 18:30 04/23/21 22:57 Vancomycin/Ns 1 Gm/250 Ml IV Infused Q24H [facility] Infusion Protocol Cefepime HCl 2 gm in 100 mls @ 200 mls/hr 04/24/21 06:00 Cefepime/Ns 2 Gm/100 Ml IV Q12H [facility] Protocol Methylprednisolone Sodium Succinate 40 mg 04/23/21 22:00 04/23/21 22:57 Methylprednisolone Sod Succinate 40 Mg/1 Ml Inj IV 40 mg Q8HR [facility] Administration Oxycodone/Acetaminophen 1 tab 04/23/21 17:18 Oxycodone /Acetaminophen 5-325mg Tab PO Q16H PRN Pain, Moderate (4-6) Sodium Chloride 10 ml 04/23/21 22:00 04/23/21 22:55 Sodium Chloride 0.9% 10 Ml Flush Syringe IV 10 ml BID [facility] Administration Sodium Chloride 10 ml 04/23/21 17:18 Sodium Chloride 0.9% 10 Ml Flush Syringe IV PRN PRN LINE FLUSH Zinc Sulfate 220 mg 04/23/21 22:00 04/23/21 22:54 Zinc Sulfate 220 Mg Cap PO Not Given BID [facility]
--- NOTE | 2021-04-24 09:55 | Progress Note ---
Assessment and Plan Impression: * Acute kidney injury secondary to prerenal azotemia vs sepsis related ATN * Septic shock * Acute hypoxic respiratory failure secondary to PNA * COVID 19 PNA * Hypokalemia * Metabolic acidosis * Quadriplegia Plan: * Resume IVF - NS 100ml/hour * Abd/Pelvis CT reviewed - no hydro * Management of COVID 19 per primary team/ID * Obtain urine lytes * Strict I/O ordered * Dose medications for renal function * Avoid potential nephrotoxins Subjective Date of service: 04/24/21 Interval history: This is a 65 yo male with hx of quadriplegia, hyperlipidemia, dysphagia, GERD, major depressive disorder, seborrheic dermatitis who presents with fever and altered mental status. Patient currently resides at [facility]. Reported to have hypoxia 84% on nonrebreather. Patient here is febrile 103 F. Patient is nonverbal. Normally he is verbal. Objective - Vital Signs Vital signs: Vital Signs - 12hr 04/23/21 04/23/21 04/23/21 22:00 22:16 22:30 Pulse Rate 120 H 122 H 119 H Respiratory 16 16 15 Rate Blood Pressure 125/62 132/63 126/60 O2 Sat by Pulse 97 98 98 Oximetry 04/23/21 04/23/21 04/23/21 22:46 22:50 23:00 Pulse Rate 108 H 105 H 113 H Respiratory 17 16 19 Rate Blood Pressure 123/57 110/47 114/39 O2 Sat by Pulse 97 98 98 Oximetry 04/23/21 04/23/21 04/23/21 23:16 23:30 23:46 Pulse Rate 112 H 102 H 88 Respiratory 21 18 14 Rate Blood Pressure 106/42 109/39 109/43 O2 Sat by Pulse 99 99 98 Oximetry 04/24/21 04/24/21 04/24/21 00:00 00:16 00:30 Pulse Rate 115 H 106 H 97 H Respiratory 23 19 21 Rate Blood Pressure 143/63 128/55 108/42 O2 Sat by Pulse 97 98 99 Oximetry 04/24/21 04/24/21 04/24/21 00:46 01:00 01:16 Pulse Rate 97 H 97 H 114 H Respiratory 16 21 21 Rate Blood Pressure 118/46 119/46 147/65 O2 Sat by Pulse 99 99 97 Oximetry 04/24/21 04/24/21 04/24/21 01:30 01:46 02:00 Pulse Rate 113 H 111 H 99 H Respiratory 17 19 16 Rate Blood Pressure 148/62 139/59 143/60 O2 Sat by Pulse 97 96 97 Oximetry 04/24/21 04/24/21 04/24/21 02:16 02:30 02:46 Pulse Rate 100 H 99 H 94 H Respiratory 20 18 18 Rate Blood Pressure 135/56 130/55 129/55 O2 Sat by Pulse 98 98 98 Oximetry 04/24/21 04/24/21 04/24/21 03:00 03:16 03:30 Pulse Rate 92 H 115 H 113 H Respiratory 18 15 16 Rate Blood Pressure 129/59 131/59 158/80 O2 Sat by Pulse 99 98 97 Oximetry 04/24/21 04/24/21 04/24/21 03:46 04:00 04:16 Pulse Rate 111 H 116 H 100 H Respiratory 18 15 19 Rate Blood Pressure 158/84 117/67 124/71 O2 Sat by Pulse 97 96 96 Oximetry 04/24/21 04/24/21 04/24/21 04:30 04:46 05:00 Pulse Rate 98 H 89 106 H Respiratory 11 L 19 15 Rate Blood Pressure 150/76 126/65 161/83 O2 Sat by Pulse 96 98 97 Oximetry 04/24/21 04/24/21 04/24/21 05:16 05:30 05:46 Pulse Rate 105 H 106 H 101 H Respiratory 14 13 14 Rate Blood Pressure 162/79 164/82 163/80 O2 Sat by Pulse 98 97 96 Oximetry 04/24/21 04/24/21 04/24/21 06:00 06:16 06:30 Pulse Rate 101 H 104 H 105 H Respiratory 15 21 12 Rate Blood Pressure 160/95 147/89 149/91 O2 Sat by Pulse 98 98 99 Oximetry - General Appearance General appearance: frail EENT: ATNC Respiratory: Present: Clear to Ascultation Cardiology: regular, S1S2 Gastrointestinal: no tenderness, no distended Neurologic: other (oriented to person) Musculoskeletal: other (no edema) - Lab 04/24/21 04:48 04/24/21 04:48 Most recent lab results Calcium 8.5 mg/dL (8.4-10.2) 04/24/21 04:48 Medications & Allergies - Medications Allergies/Adverse Reactions: Allergies No Known Allergies Allergy (Verified 04/23/21 17:09) Active Medications: Generic Name Dose Route Start Last Admin Trade Name Freq PRN Reason Stop Dose Admin Acetaminophen 650 mg 04/23/21 17:18 Acetaminophen 325 Mg Tab PO Q6H PRN Pain, Mild (1-3) Albuterol 2.5 mg 04/23/21 17:18 Albuterol 2.5 Mg/3 Ml Nebu IH Q3HRT PRN Shortness Of Breath Ascorbic Acid 500 mg 04/23/21 22:00 04/23/21 22:54 Ascorbic Acid 500 Mg Tab PO 500 mg BID CARROL Administration Cholecalciferol 1,000 unit 04/24/21 10:00 Cholecalciferol (Vit D3) 1000 Unit (25 Mcg) Tab PO QDAY CARROL Heparin Sodium (Porcine) 5,000 unit 04/23/21 22:00 04/23/21 22:57 Heparin 5,000 Unit/1 Ml Vial SUB-Q 5,000 unit Q12HR CARROL Administration Hydromorphone HCl 0.25 mg 04/23/21 17:18 Hydromorphone 1 Mg/1 Ml Inj IV Q4H PRN Pain, Moderate (4-6) Hydromorphone HCl 0.5 mg 04/23/21 17:18 Hydromorphone 1 Mg/1 Ml Inj IV Q23H PRN Pain , Severe (7-10) NORepinephrine/NS 8 MG-250 ML 8 mg in 250 mls @ 3.75 mls/hr 04/23/21 18:00 04/24/21 08:51 Norepinephrine/Ns 8 Mg-250 Ml (Double Conc) IV 6 mcg/min TITRATE CARROL 11.25 mls/hr Titration Protocol 2 MCG/MIN Vancomycin HCl 1 gm in 250 mls @ 155.602 mls/hr 04/23/21 18:30 04/23/21 22:57 Vancomycin/Ns 1 Gm/250 Ml IV Infused Q24H CARROL Infusion Protocol Cefepime HCl 2 gm in 100 mls @ 200 mls/hr 04/24/21 06:00 Cefepime/Ns 2 Gm/100 Ml IV Q12H CARROL Protocol Methylprednisolone Sodium Succinate 40 mg 04/23/21 22:00 04/23/21 22:57 Methylprednisolone Sod Succinate 40 Mg/1 Ml Inj IV 40 mg Q8HR CARROL Administration Oxycodone/Acetaminophen 1 tab 04/23/21 17:18 Oxycodone /Acetaminophen 5-325mg Tab PO Q16H PRN Pain, Moderate (4-6) Sodium Chloride 10 ml 04/23/21 22:00 04/23/21 22:55 Sodium Chloride 0.9% 10 Ml Flush Syringe IV 10 ml BID CARROL Administration Sodium Chloride 10 ml 04/23/21 17:18 Sodium Chloride 0.9% 10 Ml Flush Syringe IV PRN PRN LINE FLUSH Zinc Sulfate 220 mg 04/23/21 22:00 04/23/21 22:54 Zinc Sulfate 220 Mg Cap PO Not Given BID CARROL
[2021-04-24] MEDS: ZINC SULFATE 220 MG CAP PO SCH ×2 (10:00→22:03)
[2021-04-24] MEDS ORDERED: SODIUM CHLORIDE 0.9% 1000 ML 1,000 ML IV SCH (10:00)
[2021-04-24] MEDS: ASCORBIC ACID 500 MG TAB PO SCH ×2 (10:00→22:03)
[2021-04-24] MEDS: CHOLECALCIFEROL (VIT D3) 1000 UNIT (25 mcg) TAB PO SCH (10:00)
[2021-04-24] MEDS: HEPARIN 5,000 UNIT/1 ML VIAL SUB-Q SCH ×2 (10:00→22:03)
[2021-04-25] MEDS ORDERED: CEFEPIME/NS 2 GM/100 ML 2 GM/100 ML BAG IV SCH (06:00)
[2021-04-25] MEDS: methylPREDNISolone Sod Succinate 40 MG/1 ML INJ IV SCH ×3 (06:14→23:41)
--- NOTE | 2021-04-25 07:49 | Consultation ---
History of Present Illness - Reason for Consult Consult date: 04/24/21 acute renal failure - History of Present Illness This is a 65 yo male with hx of quadriplegia, hyperlipidemia, dysphagia, GERD, major depressive disorder, seborrheic dermatitis who presents with fever and altered mental status. Patient currently resides at [facility]. Reported to have hypoxia 84% on nonrebreather. Patient here is febrile 103 F. Patient is nonverbal. Normally he is verbal. Past History Past Medical History: GERD, hyperlipidemia, other (See HPI) Past Surgical History: Other (Spine surgery) Social history: . denies: smoking, alcohol abuse, prescription drug abuse Family history: diabetes, hypertension Medications and Allergies Allergies Allergy/AdvReac Type Severity Reaction Status Date / Time No Known Allergies Allergy Verified 04/23/21 17:09 Active Meds: Active Medications Acetaminophen (Acetaminophen 325 Mg Tab) 650 mg PO Q6H PRN PRN Reason: Pain, Mild (1-3) Albuterol (Albuterol 2.5 Mg/3 Ml Nebu) 2.5 mg IH Q3HRT PRN PRN Reason: Shortness Of Breath Ascorbic Acid (Ascorbic Acid 500 Mg Tab) 500 mg PO BID [facility] Last Admin: 04/24/21 22:03 Dose: 500 mg Cholecalciferol (Cholecalciferol (Vit D3) 1000 Unit (25 Mcg) Tab) 1,000 unit PO QDAY [facility] Last Admin: 04/24/21 10:00 Dose: 1,000 unit Heparin Sodium (Porcine) (Heparin 5,000 Unit/1 Ml Vial) 5,000 unit SUB-Q Q12HR [facility] Last Admin: 04/24/21 22:03 Dose: 5,000 unit Hydromorphone HCl (Hydromorphone 1 Mg/1 Ml Inj) 0.25 mg IV Q4H PRN PRN Reason: Pain, Moderate (4-6) Hydromorphone HCl (Hydromorphone 1 Mg/1 Ml Inj) 0.5 mg IV Q23H PRN PRN Reason: Pain , Severe (7-10) NORepinephrine/NS 8 MG-250 ML (Norepinephrine/Ns 8 Mg-250 Ml (Double Conc)) 8 mg in 250 mls @ 3.75 mls/hr IV TITRATE CARROL; Protocol Last Titration: 04/24/21 11:44 Dose: 0 mcg/min, 0 mls/hr Sodium Chloride (Nacl 0.9% 1000 Ml) 1,000 mls @ 100 mls/hr IV DIRECT [facility] Last Admin: 04/25/21 03:02 Dose: 100 mls/hr Cefepime HCl (Cefepime/Ns 2 Gm/100 Ml) 2 gm in 100 mls @ 200 mls/hr IV Q24H [facility]; Protocol Last Admin: 04/25/21 06:13 Dose: 200 mls/hr Methylprednisolone Sodium Succinate (Methylprednisolone Sod Succinate 40 Mg/1 Ml Inj) 40 mg IV Q8HR [facility] Last Admin: 04/25/21 06:14 Dose: 40 mg Oxycodone/Acetaminophen (Oxycodone /Acetaminophen 5-325mg Tab) 1 tab PO Q16H PRN PRN Reason: Pain, Moderate (4-6) Sodium Chloride (Sodium Chloride 0.9% 10 Ml Flush Syringe) 10 ml IV BID [facility] Last Admin: 04/24/21 22:03 Dose: 10 ml Sodium Chloride (Sodium Chloride 0.9% 10 Ml Flush Syringe) 10 ml IV PRN PRN PRN Reason: LINE FLUSH Zinc Sulfate (Zinc Sulfate 220 Mg Cap) 220 mg PO BID [facility] Last Admin: 04/24/21 22:03 Dose: 220 mg Review of Systems ROS unobtainable: due to mental status Exam - Vital Signs Vital signs: Vital Signs Temp Pulse Resp BP Pulse Ox 103 F H 112 H 16 61/37 98 04/23/21 15:38 04/23/21 15:38 04/23/21 15:38 04/23/21 15:38 04/23/21 15:38 - Physical Exam Narrative exam: General appearance: frail EENT: ATNC Respiratory: Present: Clear to Ascultation Cardiology: regular, S1S2 Gastrointestinal: no tenderness, no distended Neurologic: other (oriented to person) Musculoskeletal: other (no edema) Results - Lab Results 04/24/21 04:48 04/24/21 04:48 Most recent lab results Calcium 8.5 mg/dL (8.4-10.2) 04/24/21 04:48 Assessment and Plan Impression: * Acute kidney injury secondary to prerenal azotemia vs sepsis related ATN * Septic shock * Acute hypoxic respiratory failure secondary to PNA * COVID 19 PNA * Hypokalemia * Metabolic acidosis * Quadriplegia Plan: * Resume IVF - NS 100ml/hour * Abd/Pelvis CT reviewed - no hydro * Management of COVID 19 per primary team/ID * Obtain urine lytes * Strict I/O ordered * Dose medications for renal function * Avoid potential nephrotoxins
--- NOTE | 2021-04-25 07:51 | Progress Note ---
Assessment and Plan Impression: * Acute kidney injury secondary to prerenal azotemia vs sepsis related ATN * Septic shock * Acute hypoxic respiratory failure secondary to PNA * COVID 19 PNA * Hypokalemia * Metabolic acidosis * Quadriplegia Plan: * AM labs are pending at time of visit * Continue NS 100ml/hour * Blood pressure is now elevated - start Amlodipine 5mg daily * Abd/Pelvis CT reviewed - no hydro * Management of COVID 19 per primary team/ID * Await urine lytes - * Strict I/O ordered * Dose medications for renal function * Avoid potential nephrotoxins Subjective Date of service: 04/25/21 Interval history: Chart, vitals,labs reviewed Objective - Exam Narrative Exam: To reduce transmission in setting of pandemic, physical exam deferred. - Vital Signs Vital signs: Vital Signs - 12hr 04/24/21 04/24/21 04/24/21 20:01 20:31 20:51 Pulse Rate 95 H 99 H 88 Respiratory 15 18 16 Rate Blood Pressure 157/101 168/111 168/111 O2 Sat by Pulse 96 98 98 Oximetry 04/24/21 04/24/21 04/24/21 21:01 21:31 22:01 Pulse Rate 88 95 H 100 H Respiratory 14 15 11 L Rate Blood Pressure 163/109 160/105 159/109 O2 Sat by Pulse 97 97 97 Oximetry 04/24/21 04/24/21 04/24/21 22:31 23:01 23:31 Pulse Rate 91 H 89 92 H Respiratory 14 13 15 Rate Blood Pressure 169/106 158/109 169/106 O2 Sat by Pulse 97 97 97 Oximetry 04/25/21 04/25/21 04/25/21 00:01 00:31 01:01 Pulse Rate 89 91 H 91 H Respiratory 14 11 L 13 Rate Blood Pressure 168/109 164/104 167/112 O2 Sat by Pulse 96 95 96 Oximetry 04/25/21 03:10 Pulse Rate Respiratory Rate Blood Pressure O2 Sat by Pulse 98 Oximetry - Lab 04/26/21 05:15 04/26/21 05:15 Most recent lab results Calcium 8.5 mg/dL (8.4-10.2) 04/24/21 04:48 Medications & Allergies - Medications Allergies/Adverse Reactions: Allergies No Known Allergies Allergy (Verified 04/23/21 17:09) Home Medications: Home Medications Medication Instructions Recorded Confirmed Last Taken Type No Known Home Medications [No 04/25/21 04/25/21 Unknown History Reported Home Medications] Active Medications: Generic Name Dose Route Start Last Admin Trade Name Med PRN Reason Stop Dose Admin Acetaminophen 650 mg 04/23/21 17:18 Acetaminophen 325 Mg Tab PO Q6H PRN Pain, Mild (1-3) Albuterol 2.5 mg 04/23/21 17:18 Albuterol 2.5 Mg/3 Ml Nebu IH Q3HRT PRN Shortness Of Breath Ascorbic Acid 500 mg 04/23/21 22:00 04/24/21 22:03 Ascorbic Acid 500 Mg Tab PO 500 mg BID CARROL Administration Cholecalciferol 1,000 unit 04/24/21 10:00 04/24/21 10:00 Cholecalciferol (Vit D3) 1000 Unit (25 Mcg) Tab PO 1,000 unit QDAY CARROL Administration Heparin Sodium (Porcine) 5,000 unit 04/23/21 22:00 04/24/21 22:03 Heparin 5,000 Unit/1 Ml Vial SUB-Q 5,000 unit Q12HR CARROL Administration Hydromorphone HCl 0.25 mg 04/23/21 17:18 Hydromorphone 1 Mg/1 Ml Inj IV Q4H PRN Pain, Moderate (4-6) Hydromorphone HCl 0.5 mg 04/23/21 17:18 Hydromorphone 1 Mg/1 Ml Inj IV Q23H PRN Pain , Severe (7-10) NORepinephrine/NS 8 MG-250 ML 8 mg in 250 mls @ 3.75 mls/hr 04/23/21 18:00 0 04/24/21 11:44 Norepinephrine/Ns 8 Mg-250 Ml (Double Conc) IV 0 mcg/min TITRATE CARROL 0 mls/hr Titration Protocol 2 MCG/MIN Sodium Chloride 1,000 mls @ 100 mls/hr 04/24/21 10:00 04/25/21 03:02 Nacl 0.9% 1000 Ml IV 100 mls/hr DIRECT CARROL Administration Cefepime HCl 2 gm in 100 mls @ 200 mls/hr 04/25/21 06:00 04/25/21 06:13 Cefepime/Ns 2 Gm/100 Ml IV 200 mls/hr Q24H CARROL Administration Protocol Methylprednisolone Sodium Succinate 40 mg 04/23/21 22:00 04/25/21 06:14 Methylprednisolone Sod Succinate 40 Mg/1 Ml Inj IV 40 mg Q8HR CARROL Administration Oxycodone/Acetaminophen 1 tab 04/23/21 17:18 Oxycodone /Acetaminophen 5-325mg Tab PO Q16H PRN Pain, Moderate (4-6) Sodium Chloride 10 ml 04/23/21 22:00 04/24/21 22:03 Sodium Chloride 0.9% 10 Ml Flush Syringe IV 10 ml BID CARROL Administration Sodium Chloride 10 ml 04/23/21 17:18 Sodium Chloride 0.9% 10 Ml Flush Syringe IV PRN PRN LINE FLUSH Zinc Sulfate 220 mg 04/23/21 22:00 04/24/21 22:03 Zinc Sulfate 220 Mg Cap PO 220 mg BID CARROL Administration
--- NOTE | 2021-04-25 08:01 | Progress Note ---
Assessment and Plan Assessment and plan: #Septic shock-resolved #Gram-negative bacteremia -Longer requiring pressors -Blood cultures 04/23 4/ GNR; repeat collected -continue cefepime, vancomycin discontinued -Likely secondary pneumonia versus gram-negative bacteremia #Acute kidney injury -Creatinine downtrending, currently 1.8 -Nephrology following, assistance appreciated -Likely secondary to vasomotor nephropathy from hypotension #Acute metabolic encephalopathy -Resolved, likely secondary to shock #Healthcare associated pneumonia #COVID-19 pneumonia -CT chest showed prominence bilaterally with atelectasis -Patient is from care home -Treated empirically with Vanco and cefepime, vancomycin discontinued -COVID PCR positive 04/24 #Elevated liver enzymes -Secondary to shock #Elevated D-dimer -VQ scan ordered to evaluate for PE #Hypokalemia -will replete and monitor #Quadriplegia s/p spinal injury -Bedbound and resident of [facility] #Advance care planning -Disease education, care plan, diagnosis, prognosis discussed with next of kin. Family understands and acknowledges current plan. -Time: +30 minutes Disposition Plan: continue medical management History Interval history: Patient reports feeling comfortable but hungry. No complaints at this time. Hospitalist Physical - Physical exam Narrative exam: GENERAL: Well-developed well-nourished. In no acute distress. HEENT: Normocephalic. Atraumatic. NECK: Right IJ triple-lumen catheter in place. CHEST/LUNGS: CTAB on room air HEART/CARDIOVASCULAR: Tachycardic. No murmur, rubs or gallops appreciated. ABDOMEN: +BS. NT/ND. NEURO: Quadriplegic EXTREMITIES: No cyanosis, clubbing or edema. PSYCH: Cooperative. - Constitutional Vitals: Temp Pulse Resp BP Pulse Ox 99.8 F H 91 H 13 167/112 98 04/24/21 18:35 04/25/21 01:01 04/25/21 01:01 04/25/21 01:01 04/25/21 03:10 General appearance: Present: severe distress HEART Score - HEART Score Troponin: Troponin T 0.124 ng/mL (0.00-0.029) H* 04/23/21 15:58 Results - Labs CBC & Chem 7: 04/26/21 05:15 04/26/21 05:15 Labs: Laboratory Last Values WBC 19.7 K/mm3 (4.5-11.0) H 04/24/21 04:48 RBC 4.36 M/mm3 (3.65-5.03) 04/24/21 04:48 Hgb 10.9 gm/dl (11.8-15.2) L 04/24/21 04:48 Hct 35.5 % (35.5-45.6) 04/24/21 04:48 MCV 81 fl (84-94) L 04/24/21 04:48 MCH 25 pg (28-32) L 04/24/21 04:48 MCHC 31 % (32-34) L 04/24/21 04:48 RDW 15.9 % (13.2-15.2) H 04/24/21 04:48 Plt Count 93 K/mm3 (140-440) L 04/24/21 04:48 Add Manual Diff Complete 04/24/21 04:48 Total Counted 100 04/24/21 04:48 Seg Neutrophils % Delivery Agent 04/24/21 04:48 Seg Neuts % (Manual) 99.0 % (40.0-70.0) H 04/24/21 04:48 Band Neutrophils % 0 % 04/24/21 04:48 Lymphocytes % (Manual) 1.0 % (13.4-35.0) L 04/24/21 04:48 Reactive Lymphs % (Man) 0 % 04/24/21 04:48 Monocytes % (Manual) 0 % (0.0-7.3) 04/24/21 04:48 Eosinophils % (Manual) 0 % (0.0-4.3) 04/24/21 04:48 Basophils % (Manual) 0 % (0.0-1.8) 04/24/21 04:48 Metamyelocytes % 0 % 04/24/21 04:48 Myelocytes % 0 % 04/24/21 04:48 Promyelocytes % 0 % 04/24/21 04:48 Blast Cells % 0 % 04/24/21 04:48 Nucleated RBC % Not Reportable 04/24/21 04:48 Seg Neutrophils # Man 19.5 K/mm3 (1.8-7.7) H 04/24/21 04:48 Band Neutrophils # 0.0 K/mm3 04/24/21 04:48 Lymphocytes # (Manual) 0.2 K/mm3 (1.2-5.4) L 04/24/21 04:48 Abs React Lymphs (Man) 0.0 K/mm3 04/24/21 04:48 Monocytes # (Manual) 0.0 K/mm3 (0.0-0.8) 04/24/21 04:48 Eosinophils # (Manual) 0.0 K/mm3 (0.0-0.4) 04/24/21 04:48 Basophils # (Manual) 0.0 K/mm3 (0.0-0.1) 04/24/21 04:48 Metamyelocytes # 0.0 K/mm3 04/24/21 04:48 Myelocytes # 0.0 K/mm3 04/24/21 04:48 Promyelocytes # 0.0 K/mm3 04/24/21 04:48 Blast Cells # 0.0 K/mm3 04/24/21 04:48 WBC Morphology Not Reportable 04/24/21 04:48 Hypersegmented Neuts Not Reportable 04/24/21 04:48 Hyposegmented Neuts Not Reportable 04/24/21 04:48 Hypogranular Neuts Not Reportable 04/24/21 04:48 Smudge Cells Not Reportable 04/24/21 04:48 Toxic Granulation Not Reportable 04/24/21 04:48 Toxic Vacuolation Not Reportable 04/24/21 04:48 Dohle Bodies Not Reportable 04/24/21 04:48 Pelger-Huet Anomaly Not Reportable 04/24/21 04:48 Perry Rods Not Reportable 04/24/21 04:48 Platelet Estimate Consistent w auto 04/24/21 04:48 Clumped Platelets Not Reportable 04/24/21 04:48 Plt Clumps, EDTA Not Reportable 04/24/21 04:48 Large Platelets Not Reportable 04/24/21 04:48 Giant Platelets Not Reportable 04/24/21 04:48 Platelet Satelliting Not Reportable 04/24/21 04:48 Plt Morphology Comment Not Reportable 04/24/21 04:48 RBC Morphology Not Reportable 04/24/21 04:48 Dimorphic RBCs Not Reportable 04/24/21 04:48 Polychromasia Not Reportable 04/24/21 04:48 Hypochromasia Not Reportable 04/24/21 04:48 Poikilocytosis Not Reportable 04/24/21 04:48 Anisocytosis 1+ 04/24/21 04:48 Microcytosis Not Reportable 04/24/21 04:48 Macrocytosis Not Reportable 04/24/21 04:48 Spherocytes Not Reportable 04/24/21 04:48 Pappenheimer Bodies Not Reportable 04/24/21 04:48 Sickle Cells Not Reportable 04/24/21 04:48 Target Cells Not Reportable 04/24/21 04:48 Tear Drop Cells Not Reportable 04/24/21 04:48 Ovalocytes Not Reportable 04/24/21 04:48 Helmet Cells Not Reportable 04/24/21 04:48 Morel-Woodfin Bodies Not Reportable 04/24/21 04:48 [place]field Rings Not Reportable 04/24/21 04:48 Esau Cells Not Reportable 04/24/21 04:48 Bite Cells Not Reportable 04/24/21 04:48 Crenated Cell Not Reportable 04/24/21 04:48 Elliptocytes Not Reportable 04/24/21 04:48 Acanthocytes (Spur) Not Reportable 04/24/21 04:48 Rouleaux Not Reportable 04/24/21 04:48 Hemoglobin C Crystals Not Reportable 04/24/21 04:48 Schistocytes Not Reportable 04/24/21 04:48 Malaria parasites Not Reportable 04/24/21 04:48 Joshua Bodies Not Reportable 04/24/21 04:48 Hem Pathologist Commnt No 04/24/21 04:48 PT 15.6 Sec. (12.2-14.9) H 04/23/21 15:58 INR 1.12 (0.87-1.13) 04/23/21 15:58 APTT 35.0 Sec. (24.2-36.6) 04/23/21 15:58 D-Dimer 6397.32 ng/mlDDU (0-234) H 04/23/21 17:30 Sodium 148 mmol/L (137-145) H 04/24/21 04:48 Potassium 3.3 mmol/L (3.6-5.0) L 04/24/21 04:48 Chloride 109.7 mmol/L (98-107) H 04/24/21 04:48 Carbon Dioxide 19 mmol/L (22-30) L 04/24/21 04:48 Anion Gap 23 mmol/L 04/24/21 04:48 BUN 45 mg/dL (9-20) H 04/24/21 04:48 Creatinine 3.0 mg/dL (0.8-1.3) H 04/24/21 04:48 Estimated GFR 26 ml/min 04/24/21 04:48 BUN/Creatinine Ratio 15 % 04/24/21 04:48 Glucose 123 mg/dL (75-100) H 04/24/21 04:48 Lactic Acid 1.20 mmol/L (0.7-2.0) 04/24/21 01:01 Calcium 8.5 mg/dL (8.4-10.2) 04/24/21 04:48 Ferritin 812.8 ng/mL (30.0-300.0) H 04/23/21 17:30 Total Bilirubin 2.70 mg/dL (0.1-1.2) H 04/24/21 04:48 AST 171 units/L (5-40) H 04/24/21 04:48 ALT 233 units/L (7-56) H 04/24/21 04:48 Alkaline Phosphatase 294 units/L (35-129) H 04/24/21 04:48 Ammonia 26.0 umol/L (25-60) 04/23/21 15:58 Lactate Dehydrogenase 346 units/L (91-180) H 04/23/21 17:30 Total Creatine Kinase 1763 units/L (55-170) H 04/23/21 15:58 Troponin T 0.124 ng/mL (0.00-0.029) H* 04/23/21 15:58 C-Reactive Protein 27.00 mg/dL (0.00-1.30) H 04/23/21 17:30 Total Protein 6.6 g/dL (6.3-8.2) 04/24/21 04:48 Albumin 3.4 g/dL (3.9-5) L 04/24/21 04:48 Albumin/Globulin Ratio 1.1 % 04/24/21 04:48 Procalcitonin > 200.00 ng/mL (<0.15) 04/23/21 17:37 Urine Color Jacque (Yellow) 04/23/21 Unknown Urine Turbidity Cloudy (Clear) 04/23/21 Unknown Urine pH 8.0 (5.0-7.0) H 04/23/21 Unknown Ur Specific Davis 1.012 (1.003-1.030) 04/23/21 Unknown Urine Protein >500 mg/dL (Negative) 04/23/21 Unknown Urine Glucose (UA) Neg mg/dL (Negative) 04/23/21 Unknown Urine Ketones Neg mg/dL (Negative) 04/23/21 Unknown Urine Blood Lg (Negative) 04/23/21 Unknown Urine Nitrite Neg (Negative) 04/23/21 Unknown Urine Bilirubin Neg (Negative) 04/23/21 Unknown Urine Urobilinogen < 2.0 mg/dL (<2.0) 04/23/21 Unknown Ur Leukocyte Esterase Lg (Negative) 04/23/21 Unknown Urine WBC (Auto) > 182.0 /HPF (0.0-6.0) H 04/23/21 Unknown Urine RBC (Auto) 93.0 /HPF (0.0-6.0) 04/23/21 Unknown U Epithel Cells (Auto) 4.0 /HPF (0-13.0) 04/23/21 Unknown Urine Bacteria (Auto) 2+ /HPF (Negative) 04/23/21 Unknown Urine Mucus Few /HPF 04/23/21 Unknown Coronavirus (PCR) Positive (Negative) A 04/24/21 08:00 Microbiology: Microbiology 04/24/21 20:23 Peripheral/Venous Blood Culture - Preliminary Culture in Progress 04/24/21 20:23 Peripheral/Venous Blood Culture - Preliminary Culture in Progress 04/23/21 16:01 Peripheral/Venous Blood Culture - Preliminary Gram Negative Tyler 04/23/21 15:58 Peripheral/Venous Blood Culture - Preliminary Active Medications - Current Medications Current Medications: Generic Name Dose Route Start Last Admin Trade Name Freq PRN Reason Stop Dose Admin Acetaminophen 650 mg 04/23/21 17:18 Acetaminophen 325 Mg Tab PO Q6H PRN Pain, Mild (1-3) Albuterol 2.5 mg 04/23/21 17:18 Albuterol 2.5 Mg/3 Ml Nebu IH Q3HRT PRN Shortness Of Breath Amlodipine Besylate 5 mg 04/25/21 10:00 Amlodipine 5 Mg Tab PO QDAY CARROL Ascorbic Acid 500 mg 04/23/21 22:00 01/19/22 22:03 Ascorbic Acid 500 Mg Tab PO 500 mg BID CARROL Administration Cholecalciferol 1,000 unit 04/24/21 10:00 04/24/21 10:00 Cholecalciferol (Vit D3) 1000 Unit (25 Mcg) Tab PO 1,000 unit QDAY CARROL Administration Heparin Sodium (Porcine) 5,000 unit 04/23/21 22:00 04/24/21 22:03 Heparin 5,000 Unit/1 Ml Vial SUB-Q 5,000 unit Q12HR CARROL Administration Hydromorphone HCl 0.25 mg 04/23/21 17:18 Hydromorphone 1 Mg/1 Ml Inj IV Q4H PRN Pain, Moderate (4-6) Hydromorphone HCl 0.5 mg 04/23/21 17:18 Hydromorphone 1 Mg/1 Ml Inj IV Q23H PRN Pain , Severe (7-10) Sodium Chloride 1,000 mls @ 100 mls/hr 04/24/21 10:00 04/25/21 03:02 Nacl 0.9% 1000 Ml IV 100 mls/hr DIRECT CARROL Administration Cefepime HCl 2 gm in 100 mls @ 200 mls/hr 04/25/21 06:00 04/25/21 06:13 Cefepime/Ns 2 Gm/100 Ml IV 200 mls/hr Q24H CARROL Administration Protocol Methylprednisolone Sodium Succinate 40 mg 04/23/21 22:00 04/25/21 06:14 Methylprednisolone Sod Succinate 40 Mg/1 Ml Inj IV 40 mg Q8HR CARROL Administration Oxycodone/Acetaminophen 1 tab 04/23/21 17:18 Oxycodone /Acetaminophen 5-325mg Tab PO Q16H PRN Pain, Moderate (4-6) Sodium Chloride 10 ml 04/23/21 22:00 04/24/21 22:03 Sodium Chloride 0.9% 10 Ml Flush Syringe IV 10 ml BID CARROL Administration Sodium Chloride 10 ml 04/23/21 17:18 Sodium Chloride 0.9% 10 Ml Flush Syringe IV PRN PRN LINE FLUSH Zinc Sulfate 220 mg 04/23/21 22:00 04/24/21 22:03 Zinc Sulfate 220 Mg Cap PO 220 mg BID CARROL Administration
--- NOTE | 2021-04-25 08:09 | Progress Note ---
Assessment and Plan Septic shock (resolving) COVID positive Acute kidney injury Acute metabolic encephalopathy Acute respiratory failure with hypoxia (resolved) HCAP (healthcare-associated pneumonia) Hypernatremia Transaminitis Speech language pathologist to evaluate for dysphasia prior to initiation of oral feeding. 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 -With acute renal failure, monitor renal function -Trend liver enzymes, avoid hepatotoxins -Follow up MRSA nasal PCR, if negative can discontinue Vancomcyin Discussed care plan with RN and with the hospital medicine service Subjective Date of service: 04/25/21 Interval history: Follow up: Septic shock (resolving); COVID positive; Acute kidney injury; Acute metabolic encephalopathy; HCAP (healthcare-associated pneumonia) Seen and examined. Vitals, labs, medications, chart reviewed. He is awake and alert, interactive with appropriate responses to questions No adverse overnight events. Discussed with respiratory and nursing care staff. He remains off supplemental oxygen Objective Vital Signs - 12hr 04/24/21 04/24/21 04/24/21 20:31 20:51 21:01 Pulse Rate 99 H 88 88 Respiratory 18 16 14 Rate Blood Pressure 168/111 168/111 163/109 O2 Sat by Pulse 98 98 97 Oximetry 04/24/21 04/24/21 04/24/21 21:31 22:01 22:31 Pulse Rate 95 H 100 H 91 H Respiratory 15 11 L 14 Rate Blood Pressure 160/105 159/109 169/106 O2 Sat by Pulse 97 97 97 Oximetry 04/24/21 04/24/21 04/25/21 23:01 23:31 00:01 Pulse Rate 89 92 H 89 Respiratory 13 15 14 Rate Blood Pressure 158/109 169/106 168/109 O2 Sat by Pulse 97 97 96 Oximetry 04/25/21 04/25/21 04/25/21 00:31 01:01 03:10 Pulse Rate 91 H 91 H Respiratory 11 L 13 Rate Blood Pressure 164/104 167/112 O2 Sat by Pulse 95 96 98 Oximetry Constitutional: no acute distress, other (chronically ill looking, RIJ CVL) Eyes: non-icteric ENT: oropharynx dry Neck: supple, no lymphadenopathy, no JVD Effort: mildly labored Ascultation: Bilateral: diminished breath sounds Cardiovascular: regular rate and rhythm, other (S1,S2) Gastrointestinal: normoactive bowel sounds, soft, non-tender, non-distended Integumentary: normal Extremities: no cyanosis, no edema, other (bilateral hand splints) Neurologic: pupils equal and round, other (bilateral lower extemity and upper extremity weakness) Psychiatric: mood appropriate, affect normal CBC and BMP: 04/26/21 05:15 04/26/21 05:15 ABG, PT/INR, D-dimer: PT/INR, D-dimer PT 15.6 Sec. (12.2-14.9) H 04/23/21 15:58 INR 1.12 (0.87-1.13) 04/23/21 15:58 D-Dimer 6397.32 ng/mlDDU (0-234) H 04/23/21 17:30 Abnormal lab findings: Abnormal Labs 04/23/21 04/23/21 04/23/21 15:58 15:58 15:58 WBC 17.9 H Hgb MCV 81 L MCH 26 L MCHC RDW 15.5 H Plt Count 96 L Seg Neuts % (Manual) 88.0 H Lymphocytes % (Manual) 2.0 L Seg Neutrophils # Man 15.8 H Lymphocytes # (Manual) 0.4 L PT 15.6 H D-Dimer Sodium Potassium Chloride Carbon Dioxide BUN Creatinine Glucose Lactic Acid 2.50 H* Ferritin Total Bilirubin AST ALT Alkaline Phosphatase Lactate Dehydrogenase Total Creatine Kinase Troponin T C-Reactive Protein Albumin Urine pH Urine WBC (Auto) Coronavirus (PCR) 04/23/21 04/23/21 04/23/21 15:58 17:30 17:30 WBC Hgb MCV MCH MCHC RDW Plt Count Seg Neuts % (Manual) Lymphocytes % (Manual) Seg Neutrophils # Man Lymphocytes # (Manual) PT D-Dimer 6397.32 H Sodium Potassium 3.4 L Chloride Carbon Dioxide BUN 38 H Creatinine 2.8 H Glucose 117 H 116 H Lactic Acid Ferritin Total Bilirubin 3.10 H AST 340 H ALT 360 H Alkaline Phosphatase 345 H Lactate Dehydrogenase 346 H Total Creatine Kinase 1763 H Troponin T 0.124 H* C-Reactive Protein 27.00 H Albumin 3.4 L Urine pH Urine WBC (Auto) Coronavirus (PCR) 04/23/21 04/23/21 04/24/21 17:30 Unknown 04:48 WBC 19.7 H Hgb 10.9 L MCV 81 L MCH 25 L MCHC 31 L RDW 15.9 H Plt Count 93 L Seg Neuts % (Manual) 99.0 H Lymphocytes % (Manual) 1.0 L Seg Neutrophils # Man 19.5 H Lymphocytes # (Manual) 0.2 L PT D-Dimer Sodium Potassium Chloride Carbon Dioxide BUN Creatinine Glucose Lactic Acid Ferritin 812.8 H Total Bilirubin AST ALT Alkaline Phosphatase Lactate Dehydrogenase Total Creatine Kinase Troponin T C-Reactive Protein Albumin Urine pH 8.0 H Urine WBC (Auto) > 182.0 H Coronavirus (PCR) 04/24/21 04/24/21 04:48 08:00 WBC Hgb MCV MCH MCHC RDW Plt Count Seg Neuts % (Manual) Lymphocytes % (Manual) Seg Neutrophils # Man Lymphocytes # (Manual) PT D-Dimer Sodium 148 H Potassium 3.3 L Chloride 109.7 H Carbon Dioxide 19 L BUN 45 H Creatinine 3.0 H Glucose 123 H Lactic Acid Ferritin Total Bilirubin 2.70 H AST 171 H ALT 233 H Alkaline Phosphatase 294 H Lactate Dehydrogenase Total Creatine Kinase Troponin T C-Reactive Protein Albumin 3.4 L Urine pH Urine WBC (Auto) Coronavirus (PCR) Positive A Chest x-ray: image reviewed
[2021-04-25 09:12] LABS: Hematocrit 36.9 % (35.5-45.6); Hemoglobin 11.4 gm/dl (11.8-15.2); Mean Corpuscular HGB Conc 31 % (32-34); Mean Corpuscular Volume 81 fl (84-94); Platelet Count 106 K/mm3 (140-440); Red Blood Count 4.58 M/mm3 (3.65-5.03); Red Cell Distribution Width 15.9 % (13.2-15.2)
[2021-04-25 09:26] LABS: Calcium 9.3 mg/dL (8.4-10.2)
[2021-04-25] MEDS: HEPARIN 5,000 UNIT/1 ML VIAL SUB-Q SCH ×2 (10:00→23:41)
[2021-04-25] MEDS: ZINC SULFATE 220 MG CAP PO SCH ×2 (10:00→23:41)
[2021-04-25] MEDS ORDERED: amLODIPine 5 MG TAB PO SCH (10:00)
[2021-04-25] MEDS: CHOLECALCIFEROL (VIT D3) 1000 UNIT (25 mcg) TAB PO SCH (10:00)
[2021-04-25] MEDS: ASCORBIC ACID 500 MG TAB PO SCH ×2 (10:00→23:40)
[2021-04-25 12:05] LABS: Total Cells Counted 100
[2021-04-25 12:06] LABS: Anisocytosis 1+; Basophils % (Manual) 0 % (0.0-1.8); Eosinophils % (Manual) 0 % (0.0-4.3); Hypochromasia 1+; Platelet Estimate Consistent w Auto; Poikilocytosis 1+
[2021-04-25] MEDS: CEFEPIME/NS 2 GM/100 ML 2 GM/100 ML BAG IV SCH (19:30)
[2021-04-26] MEDS: hydrALAZINE 20 MG/1 ML INJ IV PRN ×3 (02:57→22:09)
[2021-04-26] MEDS: methylPREDNISolone Sod Succinate 40 MG/1 ML INJ IV SCH ×2 (05:19→17:57)
[2021-04-26] MEDS: CEFEPIME/NS 2 GM/100 ML 2 GM/100 ML BAG IV SCH ×2 (05:19→17:57)
[2021-04-26 06:05] LABS: Hematocrit 38.2 % (35.5-45.6); Hemoglobin 11.9 gm/dl (11.8-15.2); Mean Corpuscular HGB Conc 31 % (32-34); Mean Corpuscular Volume 82 fl (84-94); Platelet Count 110 K/mm3 (140-440); Red Blood Count 4.69 M/mm3 (3.65-5.03); Red Cell Distribution Width 15.5 % (13.2-15.2)
[2021-04-26 06:23] LABS: BUN/Creatinine Ratio 39; Blood Urea Nitrogen 55 mg/dL (9-20); Calcium 9.9 mg/dL (8.4-10.2); Hemolysis Index 2
--- NOTE | 2021-04-26 07:08 | Progress Note ---
Assessment and Plan Impression: * Acute kidney injury secondary to prerenal azotemia vs sepsis related ATN * Septic shock * Acute hypoxic respiratory failure secondary to PNA * COVID 19 PNA * Hypokalemia * Metabolic acidosis * Quadriplegia Plan: * Na level is increasing - resume IVF - start D5W 100ml/hour * Blood pressure remains uncontrolled - increase Amlodipine 10mg daily * Renal function improved - SCr trending down * Abd/Pelvis CT reviewed - no hydro * Management of COVID 19 per primary team/ID * Await urine lytes - * Strict I/O ordered * Dose medications for renal function * Avoid potential nephrotoxins Subjective Date of service: 04/26/21 Interval history: Chart, vitals,labs reviewed Objective - Exam Narrative Exam: To reduce transmission in setting of pandemic, physical exam deferred. - Vital Signs Vital signs: Vital Signs - 12hr 04/25/21 04/25/21 04/25/21 19:10 20:35 20:41 Pulse Rate 179 H Respiratory 20 Rate Blood Pressure 113/65 113/65 O2 Sat by Pulse 77 L 94 94 Oximetry 04/25/21 04/25/21 04/25/21 20:51 21:01 21:25 Pulse Rate 182 H 141 H 150 H Respiratory 30 H 34 H 20 Rate Blood Pressure 114/76 109/60 O2 Sat by Pulse 93 94 93 Oximetry 04/25/21 04/25/21 04/25/21 21:31 21:41 21:51 Pulse Rate 155 H 164 H 130 H Respiratory 24 36 H 27 H Rate Blood Pressure O2 Sat by Pulse 94 94 93 Oximetry 04/25/21 04/25/21 04/25/21 22:00 22:01 22:11 Pulse Rate 136 H 115 H Respiratory 18 30 H 28 H Rate Blood Pressure O2 Sat by Pulse 94 90 93 Oximetry 04/25/21 04/25/21 04/25/21 22:21 22:31 22:41 Pulse Rate 119 H 140 H 178 H Respiratory 30 H 22 33 H Rate Blood Pressure O2 Sat by Pulse 89 93 94 Oximetry 04/26/21 04/26/21 02:57 06:28 Pulse Rate 89 93 H Respiratory Rate Blood Pressure 168/113 172/114 O2 Sat by Pulse Oximetry - Lab 04/26/21 05:15 04/26/21 05:15 Most recent lab results Calcium 9.9 mg/dL (8.4-10.2) 04/26/21 05:15 Medications & Allergies - Medications Allergies/Adverse Reactions: Allergies No Known Allergies Allergy (Verified 04/23/21 17:09) Home Medications: Home Medications Medication Instructions Recorded Confirmed Last Taken Type No Known Home Medications [No 04/25/21 04/25/21 Unknown History Reported Home Medications] Active Medications: Generic Name Dose Route Start Last Admin Trade Name Freq PRN Reason Stop Dose Admin Acetaminophen 650 mg 04/23/21 17:18 Acetaminophen 325 Mg Tab PO Q6H PRN Pain, Mild (1-3) Albuterol 2.5 mg 04/23/21 17:18 Albuterol 2.5 Mg/3 Ml Nebu IH Q3HRT PRN Shortness Of Breath Amlodipine Besylate 5 mg 04/25/21 10:00 04/25/21 10:00 Amlodipine 5 Mg Tab PO 5 mg QDAY CARROL Administration Ascorbic Acid 500 mg 04/23/21 22:00 04/25/21 23:40 Ascorbic Acid 500 Mg Tab PO 500 mg BID CARROL Administration Cholecalciferol 1,000 unit 04/24/21 10:00 04/25/21 10:00 Cholecalciferol (Vit D3) 1000 Unit (25 Mcg) Tab PO 1,000 unit QDAY CARROL Administration Heparin Sodium (Porcine) 5,000 unit 04/23/21 22:00 04/25/21 23:41 Heparin 5,000 Unit/1 Ml Vial SUB-Q 5,000 unit Q12HR CARROL Administration Hydralazine HCl 10 mg 04/25/21 19:36 04/26/21 06:28 Hydralazine 20 Mg/1 Ml Inj IV 10 mg Q4HR PRN Administration Blood Pressure Hydromorphone HCl 0.25 mg 04/23/21 17:18 Hydromorphone 1 Mg/1 Ml Inj IV Q4H PRN Pain, Moderate (4-6) Hydromorphone HCl 0.5 mg 04/23/21 17:18 Hydromorphone 1 Mg/1 Ml Inj IV Q23H PRN Pain , Severe (7-10) Cefepime HCl 2 gm in 100 mls @ 200 mls/hr 04/25/21 18:00 04/26/21 05:19 Cefepime/Ns 2 Gm/100 Ml IV 200 mls/hr Q12H CARROL Administration Protocol Methylprednisolone Sodium Succinate 40 mg 04/23/21 22:00 04/26/21 05:19 Methylprednisolone Sod Succinate 40 Mg/1 Ml Inj IV 40 mg Q8HR CARROL Administration Oxycodone/Acetaminophen 1 tab 04/23/21 17:18 Oxycodone /Acetaminophen 5-325mg Tab PO Q16H PRN Pain, Moderate (4-6) Sodium Chloride 10 ml 04/23/21 22:00 04/25/21 23:41 Sodium Chloride 0.9% 10 Ml Flush Syringe IV 10 ml BID CARROL Administration Sodium Chloride 10 ml 04/23/21 17:18 Sodium Chloride 0.9% 10 Ml Flush Syringe IV PRN PRN LINE FLUSH Zinc Sulfate 220 mg 04/23/21 22:00 04/25/21 23:41 Zinc Sulfate 220 Mg Cap PO 220 mg BID CARROL Administration
[2021-04-26 07:36] LABS: Band Neutrophils # (Manual) 0.2 K/mm3; Basophils % (Manual) 0 % (0.0-1.8); Eosinophils % (Manual) 0 % (0.0-4.3); Total Cells Counted 100
[2021-04-26 07:37] LABS: Anisocytosis 1+; Hypochromasia 1+; Platelet Estimate Consistent w Auto
--- NOTE | 2021-04-26 07:42 | Progress Note ---
Assessment and Plan Assessment and plan: #Septic shock-resolved #Gram-negative bacteremia -Longer requiring pressors -Blood cultures 04/23 4 GNR; repeat 04/24 no growth to date -continue cefepime, vancomycin discontinued -Likely secondary to gram-negative bacteremia #Acute kidney injury -Creatinine downtrending -Nephrology following, assistance appreciated -Likely secondary to vasomotor nephropathy from hypotension #Acute metabolic encephalopathy -Resolved, likely secondary to shock #Healthcare associated pneumonia #COVID-19 pneumonia -CT chest showed prominence bilaterally with atelectasis -Patient is from alf -Treated empirically with Vanco and cefepime, vancomycin discontinued -COVID PCR positive 04/24 #Elevated liver enzymes -Secondary to shock #Elevated D-dimer -VQ scan low probability for PE -Likely elevated secondary to COVID-19 infection #Hypokalemia -will replete and monitor #Quadriplegia s/p spinal injury -Bedbound and resident of [facility] #Advance care planning -Disease education, care plan, diagnosis, prognosis discussed with next of kin. Family understands and acknowledges current plan. -Time: +30 minutes Disposition Plan: Continue medical management History Interval history: No acute events overnight. Patient denies shortness of breath, cough and chest pain. No complaints at this time. Hospitalist Physical - Physical exam Narrative exam: GENERAL: Well-developed well-nourished. In no acute distress. HEENT: Normocephalic. Atraumatic. NECK: Right IJ triple-lumen catheter in place. CHEST/LUNGS: CTAB on room air HEART/CARDIOVASCULAR: Tachycardic. No murmur, rubs or gallops appreciated. ABDOMEN: +BS. NT/ND. NEURO: Quadriplegic EXTREMITIES: No cyanosis, clubbing or edema. PSYCH: Cooperative. - Constitutional Vitals: Temp Pulse Resp BP Pulse Ox 98.0 F 93 H 33 H 172/114 94 04/25/21 16:46 04/26/21 06:28 04/25/21 22:41 04/26/21 06:28 04/25/21 22:41 General appearance: Present: severe distress HEART Score - HEART Score Troponin: Troponin T 0.124 ng/mL (0.00-0.029) H* 04/23/21 15:58 Results - Labs CBC & Chem 7: 04/26/21 05:15 04/26/21 05:15 Labs: Laboratory Last Values WBC 16.8 K/mm3 (4.5-11.0) H 04/26/21 05:15 RBC 4.69 M/mm3 (3.65-5.03) 04/26/21 05:15 Hgb 11.9 gm/dl (11.8-15.2) 04/26/21 05:15 Hct 38.2 % (35.5-45.6) 04/26/21 05:15 MCV 82 fl (84-94) L 04/26/21 05:15 MCH 25 pg (28-32) L 04/26/21 05:15 MCHC 31 % (32-34) L 04/26/21 05:15 RDW 15.5 % (13.2-15.2) H 04/26/21 05:15 Plt Count 110 K/mm3 (140-440) L 04/26/21 05:15 Add Manual Diff Complete 04/26/21 05:15 Total Counted 100 04/26/21 05:15 Seg Neutrophils % [employer] 04/26/21 05:15 Seg Neuts % (Manual) 96.0 % (40.0-70.0) H 04/26/21 05:15 Band Neutrophils % 1.0 % 04/26/21 05:15 Lymphocytes % (Manual) 2.0 % (13.4-35.0) L 04/26/21 05:15 Reactive Lymphs % (Man) 0 % 04/26/21 05:15 Monocytes % (Manual) 1.0 % (0.0-7.3) 04/26/21 05:15 Eosinophils % (Manual) 0 % (0.0-4.3) 04/26/21 05:15 Basophils % (Manual) 0 % (0.0-1.8) 04/26/21 05:15 Metamyelocytes % 0 % 04/26/21 05:15 Myelocytes % 0 % 04/26/21 05:15 Promyelocytes % 0 % 04/26/21 05:15 Blast Cells % 0 % 04/26/21 05:15 Nucleated RBC % Not Reportable 04/26/21 05:15 Seg Neutrophils # Man 16.1 K/mm3 (1.8-7.7) H 04/26/21 05:15 Band Neutrophils # 0.2 K/mm3 04/26/21 05:15 Lymphocytes # (Manual) 0.3 K/mm3 (1.2-5.4) L 04/26/21 05:15 Abs React Lymphs (Man) 0.0 K/mm3 04/26/21 05:15 Monocytes # (Manual) 0.2 K/mm3 (0.0-0.8) 04/26/21 05:15 Eosinophils # (Manual) 0.0 K/mm3 (0.0-0.4) 04/26/21 05:15 Basophils # (Manual) 0.0 K/mm3 (0.0-0.1) 04/26/21 05:15 Metamyelocytes # 0.0 K/mm3 04/26/21 05:15 Myelocytes # 0.0 K/mm3 04/26/21 05:15 Promyelocytes # 0.0 K/mm3 04/26/21 05:15 Blast Cells # 0.0 K/mm3 04/26/21 05:15 WBC Morphology Not Reportable 04/26/21 05:15 Hypersegmented Neuts Not Reportable 04/26/21 05:15 Hyposegmented Neuts Not Reportable 04/26/21 05:15 Hypogranular Neuts Not Reportable 04/26/21 05:15 Smudge Cells Not Reportable 04/26/21 05:15 Toxic Granulation Not Reportable 04/26/21 05:15 Toxic Vacuolation Not Reportable 04/26/21 05:15 Dohle Bodies Not Reportable 04/26/21 05:15 Pelger-Huet Anomaly Not Reportable 04/26/21 05:15 Perry Rods Not Reportable 04/26/21 05:15 Platelet Estimate Consistent w auto 04/26/21 05:15 Clumped Platelets Not Reportable 04/26/21 05:15 Plt Clumps, EDTA Not Reportable 04/26/21 05:15 Large Platelets Not Reportable 04/26/21 05:15 Giant Platelets Not Reportable 04/26/21 05:15 Platelet Satelliting Not Reportable 04/26/21 05:15 Plt Morphology Comment Not Reportable 04/26/21 05:15 RBC Morphology Not Reportable 04/26/21 05:15 Dimorphic RBCs Not Reportable 04/26/21 05:15 Polychromasia Not Reportable 04/26/21 05:15 Hypochromasia 1+ 04/26/21 05:15 Poikilocytosis Not Reportable 04/26/21 05:15 Anisocytosis 1+ 04/26/21 05:15 Microcytosis Few 04/26/21 05:15 Macrocytosis Not Reportable 04/26/21 05:15 Spherocytes Not Reportable 04/26/21 05:15 Pappenheimer Bodies Not Reportable 04/26/21 05:15 Sickle Cells Not Reportable 04/26/21 05:15 Target Cells Not Reportable 04/26/21 05:15 Tear Drop Cells Not Reportable 04/26/21 05:15 Ovalocytes Not Reportable 04/26/21 05:15 Helmet Cells Not Reportable 04/26/21 05:15 [place] Bodies Not Reportable 04/26/21 05:15 [place] Rings Not Reportable 04/26/21 05:15 [place] Cells Not Reportable 04/26/21 05:15 Bite Cells Not Reportable 04/26/21 05:15 Crenated Cell Not Reportable 04/26/21 05:15 Elliptocytes Not Reportable 04/26/21 05:15 Acanthocytes (Spur) Few 04/26/21 05:15 Rouleaux Not Reportable 04/26/21 05:15 Hemoglobin C Crystals Not Reportable 04/26/21 05:15 Schistocytes Not Reportable 04/26/21 05:15 Malaria parasites Not Reportable 04/26/21 05:15 Joshua Bodies Not Reportable 04/26/21 05:15 Hem Pathologist Commnt No 04/26/21 05:15 PT 15.6 Sec. (12.2-14.9) H 04/23/21 15:58 INR 1.12 (0.87-1.13) 04/23/21 15:58 APTT 35.0 Sec. (24.2-36.6) 04/23/21 15:58 D-Dimer 6397.32 ng/mlDDU (0-234) H 04/23/21 17:30 Sodium 151 mmol/L (137-145) H 04/26/21 05:15 Potassium 3.5 mmol/L (3.6-5.0) L 04/26/21 05:15 Chloride 114.7 mmol/L (98-107) H 04/26/21 05:15 Carbon Dioxide 22 mmol/L (22-30) 04/26/21 05:15 Anion Gap 18 mmol/L 04/26/21 05:15 BUN 55 mg/dL (9-20) H 04/26/21 05:15 Creatinine 1.4 mg/dL (0.8-1.3) H 04/26/21 05:15 Estimated GFR > 60 ml/min 04/26/21 05:15 BUN/Creatinine Ratio 39 % 04/26/21 05:15 Glucose 169 mg/dL (75-100) H 04/26/21 05:15 Lactic Acid 1.20 mmol/L (0.7-2.0) 04/24/21 01:01 Calcium 9.9 mg/dL (8.4-10.2) 04/26/21 05:15 Ferritin 812.8 ng/mL (30.0-300.0) H 04/23/21 17:30 Total Bilirubin 2.70 mg/dL (0.1-1.2) H 04/24/21 04:48 AST 171 units/L (5-40) H 04/24/21 04:48 ALT 233 units/L (7-56) H 04/24/21 04:48 Alkaline Phosphatase 294 units/L (35-129) H 04/24/21 04:48 Ammonia 26.0 umol/L (25-60) 04/23/21 15:58 Lactate Dehydrogenase 346 units/L (91-180) H 04/23/21 17:30 Total Creatine Kinase 1763 units/L (55-170) H 04/23/21 15:58 Troponin T 0.124 ng/mL (0.00-0.029) H* 04/23/21 15:58 C-Reactive Protein 27.00 mg/dL (0.00-1.30) H 04/23/21 17:30 Total Protein 6.6 g/dL (6.3-8.2) 04/24/21 04:48 Albumin 3.4 g/dL (3.9-5) L 04/24/21 04:48 Albumin/Globulin Ratio 1.1 % 04/24/21 04:48 Procalcitonin > 200.00 ng/mL (<0.15) 04/23/21 17:37 Urine Color Jacque (Yellow) 04/23/21 Unknown Urine Turbidity Cloudy (Clear) 04/23/21 Unknown Urine pH 8.0 (5.0-7.0) H 04/23/21 Unknown Ur Specific [place] 1.012 (1.003-1.030) 04/23/21 Unknown Urine Protein >500 mg/dL (Negative) 04/23/21 Unknown Urine Glucose (UA) Neg mg/dL (Negative) 04/23/21 Unknown Urine Ketones Neg mg/dL (Negative) 04/23/21 Unknown Urine Blood Lg (Negative) 04/23/21 Unknown Urine Nitrite Neg (Negative) 04/23/21 Unknown Urine Bilirubin Neg (Negative) 04/23/21 Unknown Urine Urobilinogen < 2.0 mg/dL (<2.0) 04/23/21 Unknown Ur Leukocyte Esterase Lg (Negative) 04/23/21 Unknown Urine WBC (Auto) > 182.0 /HPF (0.0-6.0) H 04/23/21 Unknown Urine RBC (Auto) 93.0 /HPF (0.0-6.0) 04/23/21 Unknown U Epithel Cells (Auto) 4.0 /HPF (0-13.0) 04/23/21 Unknown Urine Bacteria (Auto) 2+ /HPF (Negative) 04/23/21 Unknown Urine Mucus Few /HPF 04/23/21 Unknown Random Vancomycin 4.2 ug/mL (0-40.0) 04/25/21 08:50 Coronavirus (PCR) Positive (Negative) A 04/24/21 08:00 Microbiology: Microbiology 04/24/21 20:23 Peripheral/Venous Blood Culture - Preliminary NO GROWTH AFTER 24 HOURS 04/24/21 20:23 Peripheral/Venous Blood Culture - Preliminary NO GROWTH AFTER 24 HOURS 04/23/21 16:01 Peripheral/Venous Blood Culture - Preliminary Gram Negative [place] 04/23/21 15:58 Peripheral/Venous Blood Culture - Preliminary Gram Negative Tyler Bobby/IV: Voiding Method Condom Catheter Active Medications - Current Medications Current Medications: Generic Name Dose Route Start Last Admin Trade Name Freq PRN Reason Stop Dose Admin Acetaminophen 650 mg 04/23/21 17:18 Acetaminophen 325 Mg Tab PO Q6H PRN Pain, Mild (1-3) Albuterol 2.5 mg 04/23/21 17:18 Albuterol 2.5 Mg/3 Ml Nebu IH Q3HRT PRN Shortness Of Breath Amlodipine Besylate 10 mg 04/26/21 10:00 Amlodipine 10 Mg Tab PO QDAY CARROL Ascorbic Acid 500 mg 04/23/21 22:00 04/25/21 23:40 Ascorbic Acid 500 Mg Tab PO 500 mg BID CARROL Administration Cholecalciferol 1,000 unit 04/24/21 10:00 04/25/21 10:00 Cholecalciferol (Vit D3) 1000 Unit (25 Mcg) Tab PO 1,000 unit QDAY CARROL Administration Heparin Sodium (Porcine) 5,000 unit 04/23/21 22:00 04/25/21 23:41 Heparin 5,000 Unit/1 Ml Vial SUB-Q 5,000 unit Q12HR CARROL Administration Hydralazine HCl 10 mg 04/25/21 19:36 04/26/21 06:28 Hydralazine 20 Mg/1 Ml Inj IV 10 mg Q4HR PRN Administration Blood Pressure Hydromorphone HCl 0.25 mg 04/23/21 17:18 Hydromorphone 1 Mg/1 Ml Inj IV Q4H PRN Pain, Moderate (4-6) Hydromorphone HCl 0.5 mg 04/23/21 17:18 Hydromorphone 1 Mg/1 Ml Inj IV Q23H PRN Pain , Severe (7-10) Cefepime HCl 2 gm in 100 mls @ 200 mls/hr 04/25/21 18:00 04/26/21 05:19 Cefepime/Ns 2 Gm/100 Ml IV 200 mls/hr Q12H [facility] Administration Protocol Dextrose 1,000 mls @ 100 mls/hr 04/26/21 08:00 D5w IV DIRECT [facility] Methylprednisolone Sodium Succinate 40 mg 04/26/21 08:00 Methylprednisolone Sod Succinate 40 Mg/1 Ml Inj IV Q12H [facility] Oxycodone/Acetaminophen 1 tab 04/23/21 17:18 Oxycodone /Acetaminophen 5-325mg Tab PO Q16H PRN Pain, Moderate (4-6) Sodium Chloride 10 ml 04/23/21 22:00 04/25/21 23:41 Sodium Chloride 0.9% 10 Ml Flush Syringe IV 10 ml BID CARROL Administration Sodium Chloride 10 ml 04/23/21 17:18 Sodium Chloride 0.9% 10 Ml Flush Syringe IV PRN PRN LINE FLUSH Zinc Sulfate 220 mg 04/23/21 22:00 04/25/21 23:41 Zinc Sulfate 220 Mg Cap PO 220 mg BID CARROL Administration
[2021-04-26] MEDS ORDERED: VANCOMYCIN PHARMACY TO DOSE IV SCH (08:00)
[2021-04-26] MEDS ORDERED: VANCOMYCIN 1,500 MG in SODIUM CHLORIDE 0.9% 500 ML 500 ML IV SCH (10:00)
--- NOTE | 2021-04-26 10:44 | Nuclear Medicine Report ---
NUCLEAR MEDICINE PERFUSION LUNG SCAN INDICATION / CLINICAL INFORMATION: Shortness of breath. Quadriplegic and positive Covid 19 TECHNIQUE: 5.2 mCi of Tc-99m MAA were given by IV. COMPARISON: Chest radiograph dated . FINDINGS: PERFUSION: No significant perfusion defects. ADDITIONAL FINDINGS: None. IMPRESSION: 1. Low probability for pulmonary embolism. Signer Name: Ross Barker MD Signed: 04/26/2021 10:39 AM Workstation Name: [id number]
[2021-04-26] MEDS: DEXTROSE 5% IN WATER 1,000 ML IV SCH ×2 (10:49→22:22)
[2021-04-26] MEDS: HEPARIN 5,000 UNIT/1 ML VIAL SUB-Q SCH ×2 (10:50→22:10)
[2021-04-26] MEDS: ZINC SULFATE 220 MG CAP PO SCH ×2 (10:51→22:10)
[2021-04-26] MEDS: amLODIPine 10 MG TAB PO SCH (10:51)
[2021-04-26] MEDS: CHOLECALCIFEROL (VIT D3) 1000 UNIT (25 mcg) TAB PO SCH (10:51)
[2021-04-26] MEDS: ASCORBIC ACID 500 MG TAB PO SCH ×2 (10:51→22:10)
--- NOTE | 2021-04-26 14:10 | Progress Note ---
Assessment and Plan Septic shock (resolving) COVID positive Acute kidney injury Acute metabolic encephalopathy Acute respiratory failure with hypoxia (resolved) HCAP (healthcare-associated pneumonia) Hypernatremia Transaminitis Place peripheral IVs and discontinue RIJ CVL -Titrate supplemental oxygen to keep SPo2 88-90% -Empiric antibiotics for HAP- deescalate based on culture data and clinical response -Avoid nephrotoxins, adjust all medications fro CrCL and GFR -VTE prophylaxis-Heparin -Mobility, off loading, frequent turning per facility protocol to prevent pressure ulcers -Avoid delirium, maintain sleep-wake cycle -Continue with aspiration precautions -Continue to trend temperature curve and WCC -Isolation precautions for COVID per facility protocol -Currently not hypoxic, no indication for Dexamethasone. -With acute renal failure, monitor renal function -Trend liver enzymes, avoid hepatotoxins -Follow up MRSA nasal PCR, if negative can discontinue Vancomcyin Subjective Date of service: 04/26/21 Interval history: Follow up: Septic shock (resolving); COVID positive; Acute kidney injury; Acute metabolic encephalopathy; HCAP (healthcare-associated pneumonia) Seen and examined. Vitals, labs, medications, chart reviewed. He is awake and alert, interactive with appropriate responses to questions No adverse overnight events. He denies any chest pain, no shortness of breath Discussed with nursing care staff. He remains off supplemental oxygen Objective Vital Signs - 12hr 04/26/21 04/26/21 04/26/21 02:57 05:43 06:28 Temperature 98.3 F Pulse Rate 89 93 H 93 H Respiratory 16 Rate Blood Pressure 168/113 172/114 172/114 O2 Sat by Pulse 97 Oximetry 04/26/21 04/26/21 10:00 12:45 Temperature 98.2 F Pulse Rate 101 H Respiratory 18 Rate Blood Pressure 156/98 O2 Sat by Pulse 97 97 Oximetry Constitutional: no acute distress, other (chronically ill looking, RIJ CVL) Eyes: non-icteric ENT: oropharynx dry Neck: supple, no lymphadenopathy, no JVD Effort: mildly labored Ascultation: Bilateral: diminished breath sounds Cardiovascular: regular rate and rhythm, other (S1,S2) Gastrointestinal: normoactive bowel sounds, soft, non-tender, non-distended Integumentary: normal Extremities: no cyanosis, no edema, other (bilateral hand splints) Neurologic: pupils equal and round, other (bilateral lower extemity and upper extremity weakness) Psychiatric: mood appropriate, affect normal CBC and BMP: 04/26/21 05:15 04/26/21 05:15 ABG, PT/INR, D-dimer: PT/INR, D-dimer PT 15.6 Sec. (12.2-14.9) H 04/23/21 15:58 INR 1.12 (0.87-1.13) 04/23/21 15:58 D-Dimer 6397.32 ng/mlDDU (0-234) H 04/23/21 17:30 Abnormal lab findings: Abnormal Labs 04/23/21 04/23/21 04/23/21 15:58 15:58 15:58 WBC 17.9 H Hgb MCV 81 L MCH 26 L MCHC RDW 15.5 H Plt Count 96 L Seg Neuts % (Manual) 88.0 H Lymphocytes % (Manual) 2.0 L Seg Neutrophils # Man 15.8 H Lymphocytes # (Manual) 0.4 L PT 15.6 H D-Dimer Sodium Potassium Chloride Carbon Dioxide BUN Creatinine Glucose Lactic Acid 2.50 H* Ferritin Total Bilirubin AST ALT Alkaline Phosphatase Lactate Dehydrogenase Total Creatine Kinase Troponin T C-Reactive Protein Albumin Urine pH Urine WBC (Auto) Coronavirus (PCR) 04/23/21 04/23/21 04/23/21 15:58 17:30 17:30 WBC Hgb MCV MCH MCHC RDW Plt Count Seg Neuts % (Manual) Lymphocytes % (Manual) Seg Neutrophils # Man Lymphocytes # (Manual) PT D-Dimer 6397.32 H Sodium Potassium 3.4 L Chloride Carbon Dioxide BUN 38 H Creatinine 2.8 H Glucose 117 H 116 H Lactic Acid Ferritin Total Bilirubin 3.10 H AST 340 H ALT 360 H Alkaline Phosphatase 345 H Lactate Dehydrogenase 346 H Total Creatine Kinase 1763 H Troponin T 0.124 H* C-Reactive Protein 27.00 H Albumin 3.4 L Urine pH Urine WBC (Auto) Coronavirus (PCR) 04/23/21 04/23/21 04/24/21 17:30 Unknown 04:48 WBC 19.7 H Hgb 10.9 L MCV 81 L MCH 25 L MCHC 31 L RDW 15.9 H Plt Count 93 L Seg Neuts % (Manual) 99.0 H Lymphocytes % (Manual) 1.0 L Seg Neutrophils # Man 19.5 H Lymphocytes # (Manual) 0.2 L PT D-Dimer Sodium Potassium Chloride Carbon Dioxide BUN Creatinine Glucose Lactic Acid Ferritin 812.8 H Total Bilirubin AST ALT Alkaline Phosphatase Lactate Dehydrogenase Total Creatine Kinase Troponin T C-Reactive Protein Albumin Urine pH 8.0 H Urine WBC (Auto) > 182.0 H Coronavirus (PCR) 04/24/21 04/24/21 04/25/21 04:48 07:54 08:50 WBC 15.7 H Hgb 11.4 L MCV 81 L MCH 25 L MCHC 31 L RDW 15.9 H Plt Count 106 L Seg Neuts % (Manual) 93.0 H Lymphocytes % (Manual) 6.0 L Seg Neutrophils # Man 14.6 H Lymphocytes # (Manual) 0.9 L PT D-Dimer Sodium 148 H Potassium 3.3 L Chloride 109.7 H Carbon Dioxide 19 L BUN 45 H Creatinine 3.0 H Glucose 123 H Lactic Acid Ferritin Total Bilirubin 2.70 H AST 171 H ALT 233 H Alkaline Phosphatase 294 H Lactate Dehydrogenase Total Creatine Kinase Troponin T C-Reactive Protein Albumin 3.4 L Urine pH Urine WBC (Auto) Coronavirus (PCR) Positive A 04/25/21 04/26/21 04/26/21 08:50 05:15 05:15 WBC 16.8 H Hgb MCV 82 L MCH 25 L MCHC 31 L RDW 15.5 H Plt Count 110 L Seg Neuts % (Manual) 96.0 H Lymphocytes % (Manual) 2.0 L Seg Neutrophils # Man 16.1 H Lymphocytes # (Manual) 0.3 L PT D-Dimer Sodium 153 H 151 H Potassium 3.4 L 3.5 L Chloride 115.3 H 114.7 H Carbon Dioxide 20 L BUN 57 H 55 H Creatinine 1.8 H 1.4 H Glucose 160 H 169 H Lactic Acid Ferritin Total Bilirubin AST ALT Alkaline Phosphatase Lactate Dehydrogenase Total Creatine Kinase Troponin T C-Reactive Protein Albumin Urine pH Urine WBC (Auto) Coronavirus (PCR) Allied health notes reviewed: nursing
[2021-04-26] MEDS ORDERED: DEXAMETHASONE 4 MG TAB PO SCH (17:00)
[2021-04-27] MEDS: CEFEPIME/NS 2 GM/100 ML 2 GM/100 ML BAG IV SCH ×2 (05:04→18:01)
[2021-04-27] MEDS: methylPREDNISolone Sod Succinate 40 MG/1 ML INJ IV SCH (05:05)
--- NOTE | 2021-04-27 05:56 | Progress Note ---
Assessment and Plan Septic shock (resolving) COVID positive Acute kidney injury Acute metabolic encephalopathy Acute respiratory failure with hypoxia (resolved) HCAP (healthcare-associated pneumonia) Hypernatremia Transaminitis Place peripheral IVs and discontinue RIJ CVL Blood cultures on 04/23 positive fro Proteus, sensitive to Cefepime and Ceftriaxone Follow up cultures 04/24 No growth to date De- escalate antibiotics- defer primary service Modified oral diet with aspiration precautions -Avoid nephrotoxins, adjust all medications fro CrCL and GFR -VTE prophylaxis-Heparin -Mobility, off loading, frequent turning per facility protocol to prevent pressure ulcers -Avoid delirium, maintain sleep-wake cycle -Continue to trend temperature curve and WCC -Isolation precautions for COVID per facility protocol -Currently not hypoxic, no indication for Dexamethasone. -With acute renal failure, monitor renal function -Trend liver enzymes, avoid hepatotoxins Subjective Date of service: 04/27/21 Interval history: Follow up: Septic shock (resolving); COVID positive; Acute kidney injury; Acute metabolic encephalopathy; HCAP (healthcare-associated pneumonia) Seen and examined. Vitals, labs, medications, chart reviewed. He is awake and alert, interactive with appropriate responses to questions No adverse overnight events. He denies any chest pain, no shortness of breath Discussed with nursing care staff. He remains off supplemental oxygen Objective Vital Signs - 12hr 04/26/21 04/26/21 22:00 22:09 Pulse Rate 99 H Blood Pressure 169/110 O2 Sat by Pulse 97 Oximetry Constitutional: no acute distress, alert, other (chronically ill looking, RIJ CVL) Eyes: non-icteric ENT: oropharynx dry Neck: supple, no lymphadenopathy, no JVD Effort: mildly labored Ascultation: Bilateral: diminished breath sounds Cardiovascular: regular rate and rhythm, other (S1,S2) Gastrointestinal: normoactive bowel sounds, soft, non-tender, non-distended Integumentary: normal Extremities: no cyanosis, no edema, other (bilateral hand splints) Neurologic: pupils equal and round, other (bilateral lower extemity and upper extremity weakness) Psychiatric: mood appropriate, affect normal CBC and BMP: 04/28/21 06:10 04/28/21 06:10 ABG, PT/INR, D-dimer: PT/INR, D-dimer PT 15.6 Sec. (12.2-14.9) H 04/23/21 15:58 INR 1.12 (0.87-1.13) 04/23/21 15:58 D-Dimer 6397.32 ng/mlDDU (0-234) H 04/23/21 17:30 Abnormal lab findings: Abnormal Labs 04/23/21 04/23/21 04/23/21 15:58 15:58 15:58 WBC 17.9 H Hgb MCV 81 L MCH 26 L MCHC RDW 15.5 H Plt Count 96 L Seg Neuts % (Manual) 88.0 H Lymphocytes % (Manual) 2.0 L Seg Neutrophils # Man 15.8 H Lymphocytes # (Manual) 0.4 L PT 15.6 H D-Dimer Sodium Potassium Chloride Carbon Dioxide BUN Creatinine Glucose Lactic Acid 2.50 H* Ferritin Total Bilirubin AST ALT Alkaline Phosphatase Lactate Dehydrogenase Total Creatine Kinase Troponin T C-Reactive Protein Albumin Urine pH Urine WBC (Auto) Coronavirus (PCR) 04/23/21 04/23/21 04/23/21 15:58 17:30 17:30 WBC Hgb MCV MCH MCHC RDW Plt Count Seg Neuts % (Manual) Lymphocytes % (Manual) Seg Neutrophils # Man Lymphocytes # (Manual) PT D-Dimer 6397.32 H Sodium Potassium 3.4 L Chloride Carbon Dioxide BUN 38 H Creatinine 2.8 H Glucose 117 H 116 H Lactic Acid Ferritin Total Bilirubin 3.10 H AST 340 H ALT 360 H Alkaline Phosphatase 345 H Lactate Dehydrogenase 346 H Total Creatine Kinase 1763 H Troponin T 0.124 H* C-Reactive Protein 27.00 H Albumin 3.4 L Urine pH Urine WBC (Auto) Coronavirus (PCR) 04/23/21 04/23/21 04/24/21 17:30 Unknown 04:48 WBC 19.7 H Hgb 10.9 L MCV 81 L MCH 25 L MCHC 31 L RDW 15.9 H Plt Count 93 L Seg Neuts % (Manual) 99.0 H Lymphocytes % (Manual) 1.0 L Seg Neutrophils # Man 19.5 H Lymphocytes # (Manual) 0.2 L PT D-Dimer Sodium Potassium Chloride Carbon Dioxide BUN Creatinine Glucose Lactic Acid Ferritin 812.8 H Total Bilirubin AST ALT Alkaline Phosphatase Lactate Dehydrogenase Total Creatine Kinase Troponin T C-Reactive Protein Albumin Urine pH 8.0 H Urine WBC (Auto) > 182.0 H Coronavirus (PCR) 04/24/21 04/24/21 04/25/21 04:48 07:54 08:50 WBC 15.7 H Hgb 11.4 L MCV 81 L MCH 25 L MCHC 31 L RDW 15.9 H Plt Count 106 L Seg Neuts % (Manual) 93.0 H Lymphocytes % (Manual) 6.0 L Seg Neutrophils # Man 14.6 H Lymphocytes # (Manual) 0.9 L PT D-Dimer Sodium 148 H Potassium 3.3 L Chloride 109.7 H Carbon Dioxide 19 L BUN 45 H Creatinine 3.0 H Glucose 123 H Lactic Acid Ferritin Total Bilirubin 2.70 H AST 171 H ALT 233 H Alkaline Phosphatase 294 H Lactate Dehydrogenase Total Creatine Kinase Troponin T C-Reactive Protein Albumin 3.4 L Urine pH Urine WBC (Auto) Coronavirus (PCR) Positive A 04/25/21 04/26/21 04/26/21 08:50 05:15 05:15 WBC 16.8 H Hgb MCV 82 L MCH 25 L MCHC 31 L RDW 15.5 H Plt Count 110 L Seg Neuts % (Manual) 96.0 H Lymphocytes % (Manual) 2.0 L Seg Neutrophils # Man 16.1 H Lymphocytes # (Manual) 0.3 L PT D-Dimer Sodium 153 H 151 H Potassium 3.4 L 3.5 L Chloride 115.3 H 114.7 H Carbon Dioxide 20 L BUN 57 H 55 H Creatinine 1.8 H 1.4 H Glucose 160 H 169 H Lactic Acid Ferritin Total Bilirubin AST ALT Alkaline Phosphatase Lactate Dehydrogenase Total Creatine Kinase Troponin T C-Reactive Protein Albumin Urine pH Urine WBC (Auto) Coronavirus (PCR) Allied health notes reviewed: nursing
[2021-04-27 05:57] LABS: Hematocrit 36.1 % (35.5-45.6); Hemoglobin 11.3 gm/dl (11.8-15.2); Mean Corpuscular HGB Conc 31 % (32-34); Mean Corpuscular Volume 81 fl (84-94); Red Blood Count 4.43 M/mm3 (3.65-5.03); Red Cell Distribution Width 15.5 % (13.2-15.2)
[2021-04-27 06:01] LABS: Platelet Count 84 K/mm3 (140-440)
[2021-04-27 06:10] LABS: BUN/Creatinine Ratio 36; Blood Urea Nitrogen 40 mg/dL (9-20); Calcium 8.9 mg/dL (8.4-10.2); Hemolysis Index 0
--- NOTE | 2021-04-27 07:40 | Progress Note ---
Assessment and Plan Assessment and plan: #Septic shock-resolved #Gram-negative bacteremia -s/p pressors -Blood cultures 04/23 07/08 proteus vulgaris ; repeat 04/24 no growth to date -continue cefepime, vancomycin -MRSA PCR pending -ID consulted, assistance appreciated -Likely secondary to gram-negative bacteremia #Acute kidney injury -Creatinine downtrending -Nephrology following, assistance appreciated -Likely secondary to vasomotor nephropathy from hypotension #Acute metabolic encephalopathy -Resolved, likely secondary to shock #Healthcare associated pneumonia #COVID-19 pneumonia -CT chest showed prominence bilaterally with atelectasis -Patient is from [facility] -Treated empirically with Vanco and cefepime, vancomycin discontinued -COVID PCR positive 04/24 #Elevated liver enzymes -Secondary to shock #Elevated D-dimer -VQ scan low probability for PE -Likely elevated secondary to COVID-19 infection #Hypokalemia -will replete and monitor #Quadriplegia s/p spinal injury -Bedbound and resident of [facility] Disposition Plan: continue medical management History Interval history: No acute events overnight. Patient denies shortness of breath, cough and chest pain. No complaints at this time. Hospitalist Physical - Physical exam Narrative exam: GENERAL: Well-developed well-nourished. In no acute distress. HEENT: Normocephalic. Atraumatic. NECK: Right IJ triple-lumen catheter in place. CHEST/LUNGS: CTAB on room air HEART/CARDIOVASCULAR: Tachycardic. No murmur, rubs or gallops appreciated. ABDOMEN: +BS. NT/ND. NEURO: Quadriplegic EXTREMITIES: No cyanosis, clubbing or edema. PSYCH: Cooperative. - Constitutional Vitals: Temp Pulse Resp BP Pulse Ox 98.2 F 99 H 18 169/110 97 04/26/21 12:45 04/26/21 22:09 04/26/21 12:45 04/26/21 22:09 04/26/21 22:00 General appearance: Present: severe distress HEART Score - HEART Score Troponin: Troponin T 0.124 ng/mL (0.00-0.029) H* 04/23/21 15:58 Results - Labs CBC & Chem 7: 04/27/21 04:00 04/27/21 04:00 Labs: Laboratory Last Values WBC 19.8 K/mm3 (4.5-11.0) H 04/27/21 04:00 RBC 4.43 M/mm3 (3.65-5.03) 04/27/21 04:00 Hgb 11.3 gm/dl (11.8-15.2) L 04/27/21 04:00 Hct 36.1 % (35.5-45.6) 04/27/21 04:00 MCV 81 fl (84-94) L 04/27/21 04:00 MCH 26 pg (28-32) L 04/27/21 04:00 MCHC 31 % (32-34) L 04/27/21 04:00 RDW 15.5 % (13.2-15.2) H 04/27/21 04:00 Plt Count 84 K/mm3 (140-440) L 04/27/21 04:00 Add Manual Diff Complete 04/26/21 05:15 Total Counted 100 04/26/21 05:15 Seg Neutrophils % Note Taker 04/27/21 04:00 Seg Neuts % (Manual) 96.0 % (40.0-70.0) H 04/26/21 05:15 Band Neutrophils % 1.0 % 04/26/21 05:15 Lymphocytes % (Manual) 2.0 % (13.4-35.0) L 04/26/21 05:15 Reactive Lymphs % (Man) 0 % 04/26/21 05:15 Monocytes % (Manual) 1.0 % (0.0-7.3) 04/26/21 05:15 Eosinophils % (Manual) 0 % (0.0-4.3) 04/26/21 05:15 Basophils % (Manual) 0 % (0.0-1.8) 04/26/21 05:15 Metamyelocytes % 0 % 04/26/21 05:15 Myelocytes % 0 % 04/26/21 05:15 Promyelocytes % 0 % 04/26/21 05:15 Blast Cells % 0 % 04/26/21 05:15 Nucleated RBC % Not Reportable 04/26/21 05:15 Seg Neutrophils # Man 16.1 K/mm3 (1.8-7.7) H 04/26/21 05:15 Band Neutrophils # 0.2 K/mm3 04/26/21 05:15 Lymphocytes # (Manual) 0.3 K/mm3 (1.2-5.4) L 04/26/21 05:15 Abs React Lymphs (Man) 0.0 K/mm3 04/26/21 05:15 Monocytes # (Manual) 0.2 K/mm3 (0.0-0.8) 04/26/21 05:15 Eosinophils # (Manual) 0.0 K/mm3 (0.0-0.4) 04/26/21 05:15 Basophils # (Manual) 0.0 K/mm3 (0.0-0.1) 04/26/21 05:15 Metamyelocytes # 0.0 K/mm3 04/26/21 05:15 Myelocytes # 0.0 K/mm3 04/26/21 05:15 Promyelocytes # 0.0 K/mm3 04/26/21 05:15 Blast Cells # 0.0 K/mm3 04/26/21 05:15 WBC Morphology Not Reportable 04/26/21 05:15 Hypersegmented Neuts Not Reportable 04/26/21 05:15 Hyposegmented Neuts Not Reportable 04/26/21 05:15 Hypogranular Neuts Not Reportable 04/26/21 05:15 Smudge Cells Not Reportable 04/26/21 05:15 Toxic Granulation Not Reportable 04/26/21 05:15 Toxic Vacuolation Not Reportable 04/26/21 05:15 Dohle Bodies Not Reportable 04/26/21 05:15 Pelger-Huet Anomaly Not Reportable 04/26/21 05:15 Perry Rods Not Reportable 04/26/21 05:15 Platelet Estimate Consistent w auto 04/26/21 05:15 Clumped Platelets Not Reportable 04/26/21 05:15 Plt Clumps, EDTA Not Reportable 04/26/21 05:15 Large Platelets Not Reportable 04/26/21 05:15 Giant Platelets Not Reportable 04/26/21 05:15 Platelet Satelliting Not Reportable 04/26/21 05:15 Plt Morphology Comment Not Reportable 04/26/21 05:15 RBC Morphology Not Reportable 04/26/21 05:15 Dimorphic RBCs Not Reportable 04/26/21 05:15 Polychromasia Not Reportable 04/26/21 05:15 Hypochromasia 1+ 04/26/21 05:15 Poikilocytosis Not Reportable 04/26/21 05:15 Anisocytosis 1+ 04/26/21 05:15 Microcytosis Few 04/26/21 05:15 Macrocytosis Not Reportable 04/26/21 05:15 Spherocytes Not Reportable 04/26/21 05:15 Pappenheimer Bodies Not Reportable 04/26/21 05:15 Sickle Cells Not Reportable 04/26/21 05:15 Target Cells Not Reportable 04/26/21 05:15 Tear Drop Cells Not Reportable 04/26/21 05:15 Ovalocytes Not Reportable 04/26/21 05:15 Helmet Cells Not Reportable 04/26/21 05:15 [place] Bodies Not Reportable 04/26/21 05:15 [place] Rings Not Reportable 04/26/21 05:15 Esau Cells Not Reportable 04/26/21 05:15 Bite Cells Not Reportable 04/26/21 05:15 Crenated Cell Not Reportable 04/26/21 05:15 Elliptocytes Not Reportable 04/26/21 05:15 Acanthocytes (Spur) Few 04/26/21 05:15 Rouleaux Not Reportable 04/26/21 05:15 Hemoglobin C Crystals Not Reportable 04/26/21 05:15 Schistocytes Not Reportable 04/26/21 05:15 Malaria parasites Not Reportable 04/26/21 05:15 Joshua Bodies Not Reportable 04/26/21 05:15 Hem Pathologist Commnt No 04/26/21 05:15 PT 15.6 Sec. (12.2-14.9) H 04/23/21 15:58 INR 1.12 (0.87-1.13) 04/23/21 15:58 APTT 35.0 Sec. (24.2-36.6) 04/23/21 15:58 D-Dimer 6397.32 ng/mlDDU (0-234) H 04/23/21 17:30 Sodium 149 mmol/L (137-145) H 04/27/21 04:00 Potassium 3.3 mmol/L (3.6-5.0) L 04/27/21 04:00 Chloride 113.0 mmol/L (98-107) H 04/27/21 04:00 Carbon Dioxide 24 mmol/L (22-30) 04/27/21 04:00 Anion Gap 15 mmol/L 04/27/21 04:00 BUN 40 mg/dL (9-20) H 04/27/21 04:00 Creatinine 1.1 mg/dL (0.8-1.3) 04/27/21 04:00 Estimated GFR > 60 ml/min 04/27/21 04:00 BUN/Creatinine Ratio 36 % 04/27/21 04:00 Glucose 196 mg/dL (75-100) H 04/27/21 04:00 Lactic Acid 1.20 mmol/L (0.7-2.0) 04/24/21 01:01 Calcium 8.9 mg/dL (8.4-10.2) 04/27/21 04:00 Ferritin 812.8 ng/mL (30.0-300.0) H 04/23/21 17:30 Total Bilirubin 2.70 mg/dL (0.1-1.2) H 04/24/21 04:48 AST 171 units/L (5-40) H 04/24/21 04:48 ALT 233 units/L (7-56) H 04/24/21 04:48 Alkaline Phosphatase 294 units/L (35-129) H 04/24/21 04:48 Ammonia 26.0 umol/L (25-60) 04/23/21 15:58 Lactate Dehydrogenase 346 units/L (91-180) H 04/23/21 17:30 Total Creatine Kinase 1763 units/L (55-170) H 04/23/21 15:58 Troponin T 0.124 ng/mL (0.00-0.029) H* 04/23/21 15:58 C-Reactive Protein 27.00 mg/dL (0.00-1.30) H 04/23/21 17:30 Total Protein 6.6 g/dL (6.3-8.2) 04/24/21 04:48 Albumin 3.4 g/dL (3.9-5) L 04/24/21 04:48 Albumin/Globulin Ratio 1.1 % 04/24/21 04:48 Procalcitonin > 200.00 ng/mL (<0.15) 04/23/21 17:37 Urine Color Jacque (Yellow) 04/23/21 Unknown Urine Turbidity Cloudy (Clear) 04/23/21 Unknown Urine pH 8.0 (5.0-7.0) H 04/23/21 Unknown Ur Specific [place] 1.012 (1.003-1.030) 04/23/21 Unknown Urine Protein >500 mg/dL (Negative) 04/23/21 Unknown Urine Glucose (UA) Neg mg/dL (Negative) 04/23/21 Unknown Urine Ketones Neg mg/dL (Negative) 04/23/21 Unknown Urine Blood Lg (Negative) 04/23/21 Unknown Urine Nitrite Neg (Negative) 04/23/21 Unknown Urine Bilirubin Neg (Negative) 04/23/21 Unknown Urine Urobilinogen < 2.0 mg/dL (<2.0) 04/23/21 Unknown Ur Leukocyte Esterase Lg (Negative) 04/23/21 Unknown Urine WBC (Auto) > 182.0 /HPF (0.0-6.0) H 04/23/21 Unknown Urine RBC (Auto) 93.0 /HPF (0.0-6.0) 04/23/21 Unknown U Epithel Cells (Auto) 4.0 /HPF (0-13.0) 04/23/21 Unknown Urine Bacteria (Auto) 2+ /HPF (Negative) 04/23/21 Unknown Urine Mucus Few /HPF 04/23/21 Unknown Random Vancomycin 4.2 ug/mL (0-40.0) 04/25/21 08:50 Coronavirus (PCR) Positive (Negative) A 04/24/21 07:54 SARS-CoV-2 (PCR) Cancelled 04/24/21 07:54 Microbiology: Microbiology 04/24/21 20:23 Peripheral/Venous Blood Culture - Preliminary NO GROWTH AFTER 48 HOURS 04/24/21 20:23 Peripheral/Venous Blood Culture - Preliminary NO GROWTH AFTER 48 HOURS 04/23/21 15:58 Peripheral/Venous Blood Culture - Final Proteus Vulgaris 04/23/21 16:01 Peripheral/Venous Blood Culture - Final Proteus Vulgaris Bobby/IV: Voiding Method Condom Catheter Active Medications - Current Medications Current Medications: Generic Name Dose Route Start Last Admin Trade Name Freq PRN Reason Stop Dose Admin Acetaminophen 650 mg 04/23/21 17:18 Acetaminophen 325 Mg Tab PO Q6H PRN Pain, Mild (1-3) Albuterol 2.5 mg 04/23/21 17:18 Albuterol 2.5 Mg/3 Ml Nebu IH Q3HRT PRN Shortness Of Breath Amlodipine Besylate 10 mg 04/26/21 10:00 04/26/21 10:51 Amlodipine 10 Mg Tab PO 10 mg QDAY CARROL Administration Ascorbic Acid 500 mg 04/23/21 22:00 04/26/21 22:10 Ascorbic Acid 500 Mg Tab PO 500 mg BID CARROL Administration Cholecalciferol 1,000 unit 04/24/21 10:00 04/26/21 10:51 Cholecalciferol (Vit D3) 1000 Unit (25 Mcg) Tab PO 1,000 unit QDAY CARROL Administration Heparin Sodium (Porcine) 5,000 unit 04/23/21 22:00 04/26/21 22:10 Heparin 5,000 Unit/1 Ml Vial SUB-Q 5,000 unit Q12HR CARROL Administration Hydralazine HCl 10 mg 04/25/21 19:36 04/26/21 22:09 Hydralazine 20 Mg/1 Ml Inj IV 10 mg Q4HR PRN Administration Blood Pressure Hydromorphone HCl 0.25 mg 04/23/21 17:18 Hydromorphone 1 Mg/1 Ml Inj IV Q4H PRN Pain, Moderate (4-6) Hydromorphone HCl 0.5 mg 04/23/21 17:18 Hydromorphone 1 Mg/1 Ml Inj IV Q23H PRN Pain , Severe (7-10) Cefepime HCl 2 gm in 100 mls @ 200 mls/hr 04/25/21 18:00 04/27/21 05:04 Cefepime/Ns 2 Gm/100 Ml IV 200 mls/hr Q12H CARROL Administration Protocol Dextrose 1,000 mls @ 100 mls/hr 04/26/21 08:00 04/26/21 22:22 D5w IV 100 mls/hr DIRECT CARROL Administration Methylprednisolone Sodium Succinate 40 mg 04/27/21 10:00 Methylprednisolone Sod Succinate 40 Mg/1 Ml Inj IV QDAY CARROL Oxycodone/Acetaminophen 1 tab 04/23/21 17:18 Oxycodone /Acetaminophen 5-325mg Tab PO Q16H PRN Pain, Moderate (4-6) Potassium Chloride 40 meq 04/27/21 08:00 Potassium Chloride Er 20 Meq Tab PO 04/27/21 12:01 Q4H CARROL Sodium Chloride 10 ml 04/23/21 22:00 04/26/21 22:10 Sodium Chloride 0.9% 10 Ml Flush Syringe IV 10 ml BID CARROL Administration Sodium Chloride 10 ml 04/23/21 17:18 Sodium Chloride 0.9% 10 Ml Flush Syringe IV PRN PRN LINE FLUSH Zinc Sulfate 220 mg 04/23/21 22:00 04/26/21 22:10 Zinc Sulfate 220 Mg Cap PO 220 mg BID CARROL Administration
[2021-04-27] MEDS: POTASSIUM CHLORIDE ER 20 MEQ TAB PO SCH ×4 (08:00→22:50)
[2021-04-27] MEDS ORDERED: methylPREDNISolone Sod Succinate 40 MG/1 ML INJ IV SCH (10:00)
[2021-04-27 11:41] LABS: Basophils % (Manual) 0 % (0.0-1.8); Eosinophils % (Manual) 0 % (0.0-4.3); Total Cells Counted 100
[2021-04-27 11:42] LABS: Platelet Estimate Consistent w Auto; Spherocytes Few; Target Cells Few
[2021-04-27] MEDS: ASCORBIC ACID 500 MG TAB PO SCH ×2 (12:13→22:50)
[2021-04-27] MEDS: CHOLECALCIFEROL (VIT D3) 1000 UNIT (25 mcg) TAB PO SCH (12:13)
[2021-04-27] MEDS: ZINC SULFATE 220 MG CAP PO SCH ×2 (12:13→22:51)
[2021-04-27] MEDS: amLODIPine 10 MG TAB PO SCH (12:13)
[2021-04-27] MEDS: HEPARIN 5,000 UNIT/1 ML VIAL SUB-Q SCH ×2 (12:13→22:51)
[2021-04-27] MEDS: DEXTROSE 5% IN WATER 1,000 ML IV SCH (14:58)
--- NOTE | 2021-04-27 15:38 | Progress Note ---
Assessment and Plan Impression: * Acute kidney injury secondary to prerenal azotemia vs sepsis related ATN * Septic shock * Acute hypoxic respiratory failure secondary to PNA * COVID 19 PNA * Hypokalemia * Metabolic acidosis * Quadriplegia Plan: * Na level improved - continue D5W 100ml/hour * Continue Amlodipine 10mg daily * Renal function improved - SCr trending down; now wnl * Abd/Pelvis CT reviewed - no hydro * Management of COVID 19 per primary team/ID * Strict I/O ordered * Dose medications for renal function * Avoid potential nephrotoxins Subjective Date of service: 04/27/21 Interval history: Chart, vitals,labs reviewed Objective - Exam Narrative Exam: To reduce transmission in setting of pandemic, physical exam deferred. - Lab 04/27/21 04:00 04/27/21 04:00 Most recent lab results Calcium 8.9 mg/dL (8.4-10.2) 04/27/21 04:00 Medications & Allergies - Medications Allergies/Adverse Reactions: Allergies No Known Allergies Allergy (Verified 04/23/21 17:09) Home Medications: Home Medications Medication Instructions Recorded Confirmed Last Taken Type No Known Home Medications [No 04/25/21 04/25/21 Unknown History Reported Home Medications] Active Medications: Generic Name Dose Route Start Last Admin Trade Name Freq PRN Reason Stop Dose Admin Acetaminophen 650 mg 04/23/21 17:18 Acetaminophen 325 Mg Tab PO Q6H PRN Pain, Mild (1-3) Albuterol 2.5 mg 04/23/21 17:18 Albuterol 2.5 Mg/3 Ml Nebu IH Q3HRT PRN Shortness Of Breath Amlodipine Besylate 10 mg 04/26/21 10:00 04/27/21 12:13 Amlodipine 10 Mg Tab PO 10 mg QDAY CARROL Administration Ascorbic Acid 500 mg 04/23/21 22:00 04/27/21 12:13 Ascorbic Acid 500 Mg Tab PO 500 mg BID CARROL Administration Cholecalciferol 1,000 unit 04/24/21 10:00 04/27/21 12:13 Cholecalciferol (Vit D3) 1000 Unit (25 Mcg) Tab PO 1,000 unit QDAY CARROL Administration Heparin Sodium (Porcine) 5,000 unit 04/23/21 22:00 04/27/21 12:13 Heparin 5,000 Unit/1 Ml Vial SUB-Q 5,000 unit Q12HR CARROL Administration Hydralazine HCl 10 mg 04/25/21 19:36 04/26/21 22:09 Hydralazine 20 Mg/1 Ml Inj IV 10 mg Q4HR PRN Administration Blood Pressure Hydromorphone HCl 0.25 mg 04/23/21 17:18 Hydromorphone 1 Mg/1 Ml Inj IV Q4H PRN Pain, Moderate (4-6) Hydromorphone HCl 0.5 mg 04/23/21 17:18 Hydromorphone 1 Mg/1 Ml Inj IV Q23H PRN Pain , Severe (7-10) Cefepime HCl 2 gm in 100 mls @ 200 mls/hr 04/25/21 18:00 04/27/21 05:04 Cefepime/Ns 2 Gm/100 Ml IV 200 mls/hr Q12H CARROL Administration Protocol Dextrose 1,000 mls @ 75 mls/hr 04/26/21 08:00 04/27/21 14:58 D5w IV 100 mls/hr DIRECT CARROL Administration Oxycodone/Acetaminophen 1 tab 04/23/21 17:18 Oxycodone /Acetaminophen 5-325mg Tab PO Q16H PRN Pain, Moderate (4-6) Potassium Chloride 40 meq 04/27/21 17:00 Potassium Chloride Er 20 Meq Tab PO 04/27/21 21:01 Q4H CARROL Sodium Chloride 10 ml 04/23/21 22:00 04/27/21 12:14 Sodium Chloride 0.9% 10 Ml Flush Syringe IV 10 ml BID CARROL Administration Sodium Chloride 10 ml 04/23/21 17:18 Sodium Chloride 0.9% 10 Ml Flush Syringe IV PRN PRN LINE FLUSH Zinc Sulfate 220 mg 04/23/21 22:00 04/27/21 12:13 Zinc Sulfate 220 Mg Cap PO 220 mg BID CARROL Administration
[2021-04-27] MEDS: hydrALAZINE 20 MG/1 ML INJ IV PRN (23:05)
[2021-04-28] MEDS: CEFEPIME/NS 2 GM/100 ML 2 GM/100 ML BAG IV SCH (05:57)
[2021-04-28] MEDS: DEXTROSE 5% IN WATER 1,000 ML IV SCH (05:59)
[2021-04-28 06:30] LABS: Basophils % (Auto) 0.1 % (0.0-1.8); Hematocrit 36.2 % (35.5-45.6); Hemoglobin 11.3 gm/dl (11.8-15.2); Lymphocytes # (Auto) 1.6 K/mm3 (1.2-5.4); Mean Corpuscular HGB Conc 31 % (32-34); Mean Corpuscular Volume 81 fl (84-94); Monocytes # (Auto) 1.1 K/mm3 (0.0-0.8); Monocytes % (Auto) 7.3 % (0.0-7.3); Red Blood Count 4.47 M/mm3 (3.65-5.03); Red Cell Distribution Width 15.7 % (13.2-15.2)
[2021-04-28 06:40] LABS: Platelet Count 96 K/mm3 (140-440)
[2021-04-28 06:45] LABS: BUN/Creatinine Ratio 38; Blood Urea Nitrogen 34 mg/dL (9-20); Calcium 9.1 mg/dL (8.4-10.2); Hemolysis Index 12
--- NOTE | 2021-04-28 08:13 | Progress Note ---
Assessment and Plan Assessment and plan: #Septic shock-resolved #Gram-negative bacteremia -s/p pressors -Blood cultures 04/23 07/08 proteus vulgaris ; repeat 04/24 no growth to date -continue cefepime, vancomycin -MRSA PCR pending -ID consulted, assistance appreciated -Likely secondary to gram-negative bacteremia #Acute kidney injury -Creatinine downtrending -Nephrology following, assistance appreciated -Likely secondary to vasomotor nephropathy from hypotension #Acute metabolic encephalopathy -Resolved, likely secondary to shock #Healthcare associated pneumonia #COVID-19 pneumonia -CT chest showed prominence bilaterally with atelectasis -Patient is from half-way -Treated empirically with Vanco and cefepime, vancomycin discontinued -COVID PCR positive 04/24 #Elevated liver enzymes -Secondary to shock #Elevated D-dimer -VQ scan low probability for PE -Likely elevated secondary to COVID-19 infection #Hypokalemia -will replete and monitor #Quadriplegia s/p spinal injury -Bedbound and resident of [facility] Disposition Plan: Return to prior facility once medically stable. History Interval history: No acute events overnight. No complaints at this time. Patient updated about current care plan, voiced understanding. Hospitalist Physical - Physical exam Narrative exam: GENERAL: Well-developed well-nourished. In no acute distress. HEENT: Normocephalic. Atraumatic. NECK: Right IJ triple-lumen catheter in place. CHEST/LUNGS: CTAB on room air HEART/CARDIOVASCULAR: Tachycardic. No murmur, rubs or gallops appreciated. ABDOMEN: +BS. NT/ND. NEURO: Quadriplegic EXTREMITIES: No cyanosis, clubbing or edema. PSYCH: Cooperative. - Constitutional Vitals: Temp Pulse Resp BP Pulse Ox 98.2 F 103 H 20 160/100 98 04/28/21 06:50 04/28/21 06:50 04/28/21 06:50 04/28/21 06:50 04/28/21 06:50 General appearance: Present: severe distress HEART Score - HEART Score Troponin: Troponin T 0.124 ng/mL (0.00-0.029) H* 04/23/21 15:58 Results - Labs CBC & Chem 7: 04/28/21 06:10 04/28/21 06:10 Labs: Laboratory Last Values WBC 15.0 K/mm3 (4.5-11.0) H 04/28/21 06:10 RBC 4.47 M/mm3 (3.65-5.03) 04/28/21 06:10 Hgb 11.3 gm/dl (11.8-15.2) L 04/28/21 06:10 Hct 36.2 % (35.5-45.6) 04/28/21 06:10 MCV 81 fl (84-94) L 04/28/21 06:10 MCH 25 pg (28-32) L 04/28/21 06:10 MCHC 31 % (32-34) L 04/28/21 06:10 RDW 15.7 % (13.2-15.2) H 04/28/21 06:10 Plt Count 96 K/mm3 (140-440) L 04/28/21 06:10 Lymph % (Auto) 11.0 % (13.4-35.0) L 04/28/21 06:10 Williams % (Auto) 7.3 % (0.0-7.3) 04/28/21 06:10 Eos % (Auto) 0.0 % (0.0-4.3) 04/28/21 06:10 Baso % (Auto) 0.1 % (0.0-1.8) 04/28/21 06:10 Lymph # (Auto) 1.6 K/mm3 (1.2-5.4) 04/28/21 06:10 [place] # (Auto) 1.1 K/mm3 (0.0-0.8) H 04/28/21 06:10 Eos # (Auto) 0.0 K/mm3 (0.0-0.4) 04/28/21 06:10 Baso # (Auto) 0.0 K/mm3 (0.0-0.1) 04/28/21 06:10 Add Manual Diff Complete 04/27/21 04:00 Total Counted 100 04/27/21 04:00 Seg Neutrophils % 81.6 % (40.0-70.0) H 04/28/21 06:10 Seg Neuts % (Manual) 96.0 % (40.0-70.0) H 04/27/21 04:00 Band Neutrophils % 0 % 04/27/21 04:00 Lymphocytes % (Manual) 3.0 % (13.4-35.0) L 04/27/21 04:00 Reactive Lymphs % (Man) 0 % 04/27/21 04:00 Monocytes % (Manual) 1.0 % (0.0-7.3) 04/27/21 04:00 Eosinophils % (Manual) 0 % (0.0-4.3) 04/27/21 04:00 Basophils % (Manual) 0 % (0.0-1.8) 04/27/21 04:00 Metamyelocytes % 0 % 04/27/21 04:00 Myelocytes % 0 % 04/27/21 04:00 Promyelocytes % 0 % 04/27/21 04:00 Blast Cells % 0 % 04/27/21 04:00 Nucleated RBC % Not Reportable 04/27/21 04:00 Seg Neutrophils # 12.3 K/mm3 (1.8-7.7) H 04/28/21 06:10 Seg Neutrophils # Man 19.0 K/mm3 (1.8-7.7) H 04/27/21 04:00 Band Neutrophils # 0.0 K/mm3 04/27/21 04:00 Lymphocytes # (Manual) 0.6 K/mm3 (1.2-5.4) L 04/27/21 04:00 Abs React Lymphs (Man) 0.0 K/mm3 04/27/21 04:00 Monocytes # (Manual) 0.2 K/mm3 (0.0-0.8) 04/27/21 04:00 Eosinophils # (Manual) 0.0 K/mm3 (0.0-0.4) 04/27/21 04:00 Basophils # (Manual) 0.0 K/mm3 (0.0-0.1) 04/27/21 04:00 Metamyelocytes # 0.0 K/mm3 04/27/21 04:00 Myelocytes # 0.0 K/mm3 04/27/21 04:00 Promyelocytes # 0.0 K/mm3 04/27/21 04:00 Blast Cells # 0.0 K/mm3 04/27/21 04:00 WBC Morphology Not Reportable 04/27/21 04:00 Hypersegmented Neuts Not Reportable 04/27/21 04:00 Hyposegmented Neuts Not Reportable 04/27/21 04:00 Hypogranular Neuts Not Reportable 04/27/21 04:00 Smudge Cells Not Reportable 04/27/21 04:00 Toxic Granulation Not Reportable 04/27/21 04:00 Toxic Vacuolation Not Reportable 04/27/21 04:00 Dohle Bodies Not Reportable 04/27/21 04:00 Pelger-Huet Anomaly Not Reportable 04/27/21 04:00 Perry Rods Not Reportable 04/27/21 04:00 Platelet Estimate Consistent w auto 04/27/21 04:00 Clumped Platelets Not Reportable 04/27/21 04:00 Plt Clumps, EDTA Not Reportable 04/27/21 04:00 Large Platelets Not Reportable 04/27/21 04:00 Giant Platelets Not Reportable 04/27/21 04:00 Platelet Satelliting Not Reportable 04/27/21 04:00 Plt Morphology Comment Not Reportable 04/27/21 04:00 RBC Morphology Not Reportable 04/27/21 04:00 Dimorphic RBCs Not Reportable 04/27/21 04:00 Polychromasia Not Reportable 04/27/21 04:00 Hypochromasia Not Reportable 04/27/21 04:00 Poikilocytosis Not Reportable 04/27/21 04:00 Anisocytosis Not Reportable 04/27/21 04:00 Microcytosis Not Reportable 04/27/21 04:00 Macrocytosis Not Reportable 04/27/21 04:00 Spherocytes Few 04/27/21 04:00 Pappenheimer Bodies Not Reportable 04/27/21 04:00 Sickle Cells Not Reportable 04/27/21 04:00 Target Cells Few 04/27/21 04:00 Tear Drop Cells Not Reportable 04/27/21 04:00 Ovalocytes Not Reportable 04/27/21 04:00 Helmet Cells Not Reportable 04/27/21 04:00 Mroel-Menasha Bodies Not Reportable 04/27/21 04:00 Baker Rings Not Reportable 04/27/21 04:00 Esau Cells Not Reportable 04/27/21 04:00 Bite Cells Not Reportable 04/27/21 04:00 Crenated Cell Not Reportable 04/27/21 04:00 Elliptocytes Not Reportable 04/27/21 04:00 Acanthocytes (Spur) Not Reportable 04/27/21 04:00 Rouleaux Not Reportable 04/27/21 04:00 Hemoglobin C Crystals Not Reportable 04/27/21 04:00 Schistocytes Not Reportable 04/27/21 04:00 Malaria parasites Not Reportable 04/27/21 04:00 Joshua Bodies Not Reportable 04/27/21 04:00 Hem Pathologist Commnt No 04/27/21 04:00 PT 15.6 Sec. (12.2-14.9) H 04/23/21 15:58 INR 1.12 (0.87-1.13) 04/23/21 15:58 APTT 35.0 Sec. (24.2-36.6) 04/23/21 15:58 D-Dimer 6397.32 ng/mlDDU (0-234) H 04/23/21 17:30 Sodium 139 mmol/L (137-145) D 04/28/21 06:10 Potassium 3.8 mmol/L (3.6-5.0) 04/28/21 06:10 Chloride 105.9 mmol/L (98-107) 04/28/21 06:10 Carbon Dioxide 23 mmol/L (22-30) 04/28/21 06:10 Anion Gap 14 mmol/L 04/28/21 06:10 BUN 34 mg/dL (9-20) H 04/28/21 06:10 Creatinine 0.9 mg/dL (0.8-1.3) 04/28/21 06:10 Estimated GFR > 60 ml/min 04/28/21 06:10 BUN/Creatinine Ratio 38 % 04/28/21 06:10 Glucose 110 mg/dL (75-100) H 04/28/21 06:10 Lactic Acid 1.20 mmol/L (0.7-2.0) 04/24/21 01:01 Calcium 9.1 mg/dL (8.4-10.2) 04/28/21 06:10 Ferritin 812.8 ng/mL (30.0-300.0) H 04/23/21 17:30 Total Bilirubin 2.70 mg/dL (0.1-1.2) H 04/24/21 04:48 AST 171 units/L (5-40) H 04/24/21 04:48 ALT 233 units/L (7-56) H 04/24/21 04:48 Alkaline Phosphatase 294 units/L (35-129) H 04/24/21 04:48 Ammonia 26.0 umol/L (25-60) 04/23/21 15:58 Lactate Dehydrogenase 346 units/L (91-180) H 04/23/21 17:30 Total Creatine Kinase 1763 units/L (55-170) H 04/23/21 15:58 Troponin T 0.124 ng/mL (0.00-0.029) H* 04/23/21 15:58 C-Reactive Protein 27.00 mg/dL (0.00-1.30) H 04/23/21 17:30 Total Protein 6.6 g/dL (6.3-8.2) 04/24/21 04:48 Albumin 3.4 g/dL (3.9-5) L 04/24/21 04:48 Albumin/Globulin Ratio 1.1 % 04/24/21 04:48 Procalcitonin > 200.00 ng/mL (<0.15) 04/23/21 17:37 Urine Color Jacque (Yellow) 04/23/21 Unknown Urine Turbidity Cloudy (Clear) 04/23/21 Unknown Urine pH 8.0 (5.0-7.0) H 04/23/21 Unknown Ur Specific [place] 1.012 (1.003-1.030) 04/23/21 Unknown Urine Protein >500 mg/dL (Negative) 04/23/21 Unknown Urine Glucose (UA) Neg mg/dL (Negative) 04/23/21 Unknown Urine Ketones Neg mg/dL (Negative) 04/23/21 Unknown Urine Blood Lg (Negative) 04/23/21 Unknown Urine Nitrite Neg (Negative) 04/23/21 Unknown Urine Bilirubin Neg (Negative) 04/23/21 Unknown Urine Urobilinogen < 2.0 mg/dL (<2.0) 04/23/21 Unknown Ur Leukocyte Esterase Lg (Negative) 04/23/21 Unknown Urine WBC (Auto) > 182.0 /HPF (0.0-6.0) H 04/23/21 Unknown Urine RBC (Auto) 93.0 /HPF (0.0-6.0) 04/23/21 Unknown U Epithel Cells (Auto) 4.0 /HPF (0-13.0) 04/23/21 Unknown Urine Bacteria (Auto) 2+ /HPF (Negative) 04/23/21 Unknown Urine Mucus Few /HPF 04/23/21 Unknown Random Vancomycin 4.2 ug/mL (0-40.0) 04/25/21 08:50 Coronavirus (PCR) Positive (Negative) A 04/24/21 07:54 SARS-CoV-2 (PCR) Cancelled 04/24/21 07:54 Microbiology: Microbiology 04/24/21 20:23 Peripheral/Venous Blood Culture - Preliminary NO GROWTH AFTER 72 HOURS 04/24/21 20:23 Peripheral/Venous Blood Culture - Preliminary NO GROWTH AFTER 72 HOURS Bobby/IV: Voiding Method Indwelling Catheter Active Medications - Current Medications Current Medications: Generic Name Dose Route Start Last Admin Trade Name Freq PRN Reason Stop Dose Admin Acetaminophen 650 mg 04/23/21 17:18 Acetaminophen 325 Mg Tab PO Q6H PRN Pain, Mild (1-3) Albuterol 2.5 mg 04/23/21 17:18 Albuterol 2.5 Mg/3 Ml Nebu IH Q3HRT PRN Shortness Of Breath Amlodipine Besylate 10 mg 04/26/21 10:00 04/27/21 12:13 Amlodipine 10 Mg Tab PO 10 mg QDAY CARROL Administration Ascorbic Acid 500 mg 04/23/21 22:00 04/27/21 22:50 Ascorbic Acid 500 Mg Tab PO 500 mg BID CARROL Administration Cholecalciferol 1,000 unit 04/24/21 10:00 04/27/21 12:13 Cholecalciferol (Vit D3) 1000 Unit (25 Mcg) Tab PO 1,000 unit QDAY CARROL Administration Heparin Sodium (Porcine) 5,000 unit 04/23/21 22:00 04/27/21 22:51 Heparin 5,000 Unit/1 Ml Vial SUB-Q 5,000 unit Q12HR CARROL Administration Hydralazine HCl 10 mg 04/25/21 19:36 04/27/21 23:05 Hydralazine 20 Mg/1 Ml Inj IV 10 mg Q4HR PRN Administration Blood Pressure Hydromorphone HCl 0.25 mg 04/23/21 17:18 Hydromorphone 1 Mg/1 Ml Inj IV Q4H PRN Pain, Moderate (4-6) Hydromorphone HCl 0.5 mg 04/23/21 17:18 Hydromorphone 1 Mg/1 Ml Inj IV Q23H PRN Pain , Severe (7-10) Cefepime HCl 2 gm in 100 mls @ 200 mls/hr 04/25/21 18:00 04/28/21 05:57 Cefepime/Ns 2 Gm/100 Ml IV 200 mls/hr Q12H CARROL Administration Protocol Dextrose 1,000 mls @ 75 mls/hr 04/26/21 08:00 04/28/21 05:59 D5w IV 75 mls/hr DIRECT CARROL Administration Oxycodone/Acetaminophen 1 tab 04/23/21 17:18 Oxycodone /Acetaminophen 5-325mg Tab PO Q16H PRN Pain, Moderate (4-6) Sodium Chloride 10 ml 04/23/21 22:00 04/27/21 22:51 Sodium Chloride 0.9% 10 Ml Flush Syringe IV 10 ml BID CARROL Administration Sodium Chloride 10 ml 04/23/21 17:18 Sodium Chloride 0.9% 10 Ml Flush Syringe IV PRN PRN LINE FLUSH Zinc Sulfate 220 mg 04/23/21 22:00 04/27/21 22:51 Zinc Sulfate 220 Mg Cap PO 220 mg BID CARROL Administration
[2021-04-28] MEDS: ZINC SULFATE 220 MG CAP PO SCH ×2 (11:56→21:12)
[2021-04-28] MEDS: CHOLECALCIFEROL (VIT D3) 1000 UNIT (25 mcg) TAB PO SCH (11:56)
[2021-04-28] MEDS: amLODIPine 10 MG TAB PO SCH (11:56)
[2021-04-28] MEDS: HEPARIN 5,000 UNIT/1 ML VIAL SUB-Q SCH ×2 (11:57→21:11)
[2021-04-28] MEDS: ASCORBIC ACID 500 MG TAB PO SCH ×2 (11:57→21:12)
--- NOTE | 2021-04-28 14:34 | Progress Note ---
Assessment and Plan Impression: * Acute kidney injury secondary to prerenal azotemia vs sepsis related ATN * Septic shock * Acute hypoxic respiratory failure secondary to PNA * COVID 19 PNA * Hypokalemia * Metabolic acidosis * Quadriplegia Plan: * Na now wnl and JENY resolved s/p D5W * IVF as needed * Continue Amlodipine 10mg daily * Abd/Pelvis CT reviewed - no hydro * Management of COVID 19 per primary team/ID * Strict I/O ordered * Dose medications for renal function * Avoid potential nephrotoxins Subjective Date of service: 04/28/21 Interval history: Chart, vitals,labs reviewed Objective - Exam Narrative Exam: To reduce transmission in setting of pandemic, physical exam deferred. - Vital Signs Vital signs: Vital Signs - 12hr 04/28/21 04/28/21 04/28/21 06:50 08:46 14:04 Temperature 98.2 F 98.2 F Pulse Rate 103 H 95 H Respiratory 20 20 Rate Blood Pressure 160/100 126/83 O2 Sat by Pulse 98 98 97 Oximetry - Lab 04/28/21 06:10 04/28/21 06:10 Most recent lab results Calcium 9.1 mg/dL (8.4-10.2) 04/28/21 06:10 Medications & Allergies - Medications Allergies/Adverse Reactions: Allergies No Known Allergies Allergy (Verified 04/23/21 17:09) Home Medications: Home Medications Medication Instructions Recorded Confirmed Last Taken Type No Known Home Medications [No 04/25/21 04/25/21 Unknown History Reported Home Medications] Active Medications: Generic Name Dose Route Start Last Admin Trade Name Freq PRN Reason Stop Dose Admin Acetaminophen 650 mg 04/23/21 17:18 Acetaminophen 325 Mg Tab PO Q6H PRN Pain, Mild (1-3) Albuterol 2.5 mg 04/23/21 17:18 Albuterol 2.5 Mg/3 Ml Nebu IH Q3HRT PRN Shortness Of Breath Amlodipine Besylate 10 mg 04/26/21 10:00 04/28/21 11:56 Amlodipine 10 Mg Tab PO 10 mg QDAY CARROL Administration Ascorbic Acid 500 mg 04/23/21 22:00 04/28/21 11:57 Ascorbic Acid 500 Mg Tab PO 500 mg BID CARROL Administration Cholecalciferol 1,000 unit 04/24/21 10:00 01/23/22 11:56 Cholecalciferol (Vit D3) 1000 Unit (25 Mcg) Tab PO 1,000 unit QDAY CARROL Administration Heparin Sodium (Porcine) 5,000 unit 04/23/21 22:00 04/28/21 11:57 Heparin 5,000 Unit/1 Ml Vial SUB-Q 5,000 unit Q12HR CARROL Administration Hydralazine HCl 10 mg 04/25/21 19:36 04/27/21 23:05 Hydralazine 20 Mg/1 Ml Inj IV 10 mg Q4HR PRN Administration Blood Pressure Hydromorphone HCl 0.25 mg 04/23/21 17:18 Hydromorphone 1 Mg/1 Ml Inj IV Q4H PRN Pain, Moderate (4-6) Hydromorphone HCl 0.5 mg 04/23/21 17:18 Hydromorphone 1 Mg/1 Ml Inj IV Q23H PRN Pain , Severe (7-10) Cefepime HCl 2 gm in 100 mls @ 200 mls/hr 04/25/21 18:00 04/28/21 05:57 Cefepime/Ns 2 Gm/100 Ml IV 200 mls/hr Q12H CARROL Administration Protocol Oxycodone/Acetaminophen 1 tab 04/23/21 17:18 Oxycodone /Acetaminophen 5-325mg Tab PO Q16H PRN Pain, Moderate (4-6) Sodium Chloride 10 ml 04/23/21 22:00 04/28/21 11:57 Sodium Chloride 0.9% 10 Ml Flush Syringe IV 10 ml BID CARROL Administration Sodium Chloride 10 ml 04/23/21 17:18 Sodium Chloride 0.9% 10 Ml Flush Syringe IV PRN PRN LINE FLUSH Zinc Sulfate 220 mg 04/23/21 22:00 04/28/21 11:56 Zinc Sulfate 220 Mg Cap PO 220 mg BID CARROL Administration
--- NOTE | 2021-04-28 19:00 | Progress Note ---
Assessment and Plan Septic shock (resolving) COVID positive Acute kidney injury Acute metabolic encephalopathy Acute respiratory failure with hypoxia (resolved) HCAP (healthcare-associated pneumonia) Hypernatremia Transaminitis Place peripheral IVs and discontinue RIJ CVL Blood cultures on 04/23 positive fro Proteus, sensitive to Cefepime and Ceftriaxone Follow up cultures 04/24 No growth to date De- escalate antibiotics- defer primary service Modified oral diet with aspiration precautions -Avoid nephrotoxins, adjust all medications fro CrCL and GFR -VTE prophylaxis-Heparin -Mobility, off loading, frequent turning per facility protocol to prevent pressure ulcers -Avoid delirium, maintain sleep-wake cycle -Continue to trend temperature curve and WCC -Isolation precautions for COVID per facility protocol -Currently not hypoxic, no indication for Dexamethasone. -With acute renal failure, monitor renal function -Trend liver enzymes, avoid hepatotoxins Subjective Date of service: 04/28/21 Interval history: Follow up: Septic shock (resolving); COVID positive; Acute kidney injury; Acute metabolic encephalopathy; HCAP (healthcare-associated pneumonia) Seen and examined. Vitals, labs, medications, chart reviewed. He is awake and alert, interactive with appropriate responses to questions No adverse overnight events. He denies any chest pain, no shortness of breath Discussed with nursing care staff. He remains off supplemental oxygen Objective Vital Signs - 12hr 04/28/21 04/28/21 08:46 14:04 Temperature 98.2 F Pulse Rate 95 H Respiratory 20 Rate Blood Pressure 126/83 O2 Sat by Pulse 98 97 Oximetry Constitutional: no acute distress, alert, other (chronically ill looking) Eyes: non-icteric ENT: oropharynx dry Neck: supple, no lymphadenopathy, no JVD Effort: mildly labored Ascultation: Bilateral: diminished breath sounds Cardiovascular: regular rate and rhythm, other (S1,S2) Gastrointestinal: normoactive bowel sounds, soft, non-tender, non-distended Integumentary: normal Extremities: no cyanosis, no edema, other (bilateral hand splints) Neurologic: pupils equal and round, other (bilateral lower extemity and upper extremity weakness) Psychiatric: mood appropriate, affect normal CBC and BMP: 04/28/21 06:10 04/28/21 06:10 ABG, PT/INR, D-dimer: PT/INR, D-dimer PT 15.6 Sec. (12.2-14.9) H 04/23/21 15:58 INR 1.12 (0.87-1.13) 04/23/21 15:58 D-Dimer 6397.32 ng/mlDDU (0-234) H 04/23/21 17:30 Abnormal lab findings: Abnormal Labs 04/23/21 04/23/21 04/23/21 15:58 15:58 15:58 WBC 17.9 H Hgb MCV 81 L MCH 26 L MCHC RDW 15.5 H Plt Count 96 L Lymph % (Auto) [place] # (Auto) Seg Neutrophils % Seg Neuts % (Manual) 88.0 H Lymphocytes % (Manual) 2.0 L Seg Neutrophils # Seg Neutrophils # Man 15.8 H Lymphocytes # (Manual) 0.4 L PT 15.6 H D-Dimer Sodium Potassium Chloride Carbon Dioxide BUN Creatinine Glucose Lactic Acid 2.50 H* Ferritin Total Bilirubin AST ALT Alkaline Phosphatase Lactate Dehydrogenase Total Creatine Kinase Troponin T C-Reactive Protein Albumin Urine pH Urine WBC (Auto) Coronavirus (PCR) 04/23/21 04/23/21 04/23/21 15:58 17:30 17:30 WBC Hgb MCV MCH MCHC RDW Plt Count Lymph % (Auto) [place] # (Auto) Seg Neutrophils % Seg Neuts % (Manual) Lymphocytes % (Manual) Seg Neutrophils # Seg Neutrophils # Man Lymphocytes # (Manual) PT D-Dimer 6397.32 H Sodium Potassium 3.4 L Chloride Carbon Dioxide BUN 38 H Creatinine 2.8 H Glucose 117 H 116 H Lactic Acid Ferritin Total Bilirubin 3.10 H AST 340 H ALT 360 H Alkaline Phosphatase 345 H Lactate Dehydrogenase 346 H Total Creatine Kinase 1763 H Troponin T 0.124 H* C-Reactive Protein 27.00 H Albumin 3.4 L Urine pH Urine WBC (Auto) Coronavirus (PCR) 04/23/21 04/23/21 04/24/21 17:30 Unknown 04:48 WBC 19.7 H Hgb 10.9 L MCV 81 L MCH 25 L MCHC 31 L RDW 15.9 H Plt Count 93 L Lymph % (Auto) [place] # (Auto) Seg Neutrophils % Seg Neuts % (Manual) 99.0 H Lymphocytes % (Manual) 1.0 L Seg Neutrophils # Seg Neutrophils # Man 19.5 H Lymphocytes # (Manual) 0.2 L PT D-Dimer Sodium Potassium Chloride Carbon Dioxide BUN Creatinine Glucose Lactic Acid Ferritin 812.8 H Total Bilirubin AST ALT Alkaline Phosphatase Lactate Dehydrogenase Total Creatine Kinase Troponin T C-Reactive Protein Albumin Urine pH 8.0 H Urine WBC (Auto) > 182.0 H Coronavirus (PCR) 04/24/21 04/24/21 04/25/21 04:48 07:54 08:50 WBC 15.7 H Hgb 11.4 L MCV 81 L MCH 25 L MCHC 31 L RDW 15.9 H Plt Count 106 L Lymph % (Auto) [place] # (Auto) Seg Neutrophils % Seg Neuts % (Manual) 93.0 H Lymphocytes % (Manual) 6.0 L Seg Neutrophils # Seg Neutrophils # Man 14.6 H Lymphocytes # (Manual) 0.9 L PT D-Dimer Sodium 148 H Potassium 3.3 L Chloride 109.7 H Carbon Dioxide 19 L BUN 45 H Creatinine 3.0 H Glucose 123 H Lactic Acid Ferritin Total Bilirubin 2.70 H AST 171 H ALT 233 H Alkaline Phosphatase 294 H Lactate Dehydrogenase Total Creatine Kinase Troponin T C-Reactive Protein Albumin 3.4 L Urine pH Urine WBC (Auto) Coronavirus (PCR) Positive A 04/25/21 04/26/21 04/26/21 08:50 05:15 05:15 WBC 16.8 H Hgb MCV 82 L MCH 25 L MCHC 31 L RDW 15.5 H Plt Count 110 L Lymph % (Auto) [place] # (Auto) Seg Neutrophils % Seg Neuts % (Manual) 96.0 H Lymphocytes % (Manual) 2.0 L Seg Neutrophils # Seg Neutrophils # Man 16.1 H Lymphocytes # (Manual) 0.3 L PT D-Dimer Sodium 153 H 151 H Potassium 3.4 L 3.5 L Chloride 115.3 H 114.7 H Carbon Dioxide 20 L BUN 57 H 55 H Creatinine 1.8 H 1.4 H Glucose 160 H 169 H Lactic Acid Ferritin Total Bilirubin AST ALT Alkaline Phosphatase Lactate Dehydrogenase Total Creatine Kinase Troponin T C-Reactive Protein Albumin Urine pH Urine WBC (Auto) Coronavirus (PCR) 04/27/21 04/27/21 04/28/21 04:00 04:00 06:10 WBC 19.8 H 15.0 H Hgb 11.3 L 11.3 L MCV 81 L 81 L MCH 26 L 25 L MCHC 31 L 31 L RDW 15.5 H 15.7 H Plt Count 84 L 96 L Lymph % (Auto) 11.0 L [place] # (Auto) 1.1 H Seg Neutrophils % 81.6 H Seg Neuts % (Manual) 96.0 H Lymphocytes % (Manual) 3.0 L Seg Neutrophils # 12.3 H Seg Neutrophils # Man 19.0 H Lymphocytes # (Manual) 0.6 L PT D-Dimer Sodium 149 H Potassium 3.3 L Chloride 113.0 H Carbon Dioxide BUN 40 H Creatinine Glucose 196 H Lactic Acid Ferritin Total Bilirubin AST ALT Alkaline Phosphatase Lactate Dehydrogenase Total Creatine Kinase Troponin T C-Reactive Protein Albumin Urine pH Urine WBC (Auto) Coronavirus (PCR) 04/28/21 06:10 WBC Hgb MCV MCH MCHC RDW Plt Count Lymph % (Auto) [place] # (Auto) Seg Neutrophils % Seg Neuts % (Manual) Lymphocytes % (Manual) Seg Neutrophils # Seg Neutrophils # Man Lymphocytes # (Manual) PT D-Dimer Sodium Potassium Chloride Carbon Dioxide BUN 34 H Creatinine Glucose 110 H Lactic Acid Ferritin Total Bilirubin AST ALT Alkaline Phosphatase Lactate Dehydrogenase Total Creatine Kinase Troponin T C-Reactive Protein Albumin Urine pH Urine WBC (Auto) Coronavirus (PCR) Allied health notes reviewed: nursing
[2021-04-29] MEDS: CEFEPIME/NS 2 GM/100 ML 2 GM/100 ML BAG IV SCH (05:00)
[2021-04-29 07:37] LABS: Hematocrit 37.1 % (35.5-45.6); Hemoglobin 11.8 gm/dl (11.8-15.2); Mean Corpuscular HGB Conc 32 % (32-34); Mean Corpuscular Volume 82 fl (84-94); Platelet Count 122 K/mm3 (140-440); Red Blood Count 4.54 M/mm3 (3.65-5.03); Red Cell Distribution Width 15.3 % (13.2-15.2)
[2021-04-29 08:06] LABS: Blood Urea Nitrogen 28 mg/dL (9-20); Calcium 9.2 mg/dL (8.4-10.2); Hemolysis Index 2
[2021-04-29 08:08] LABS: BUN/Creatinine Ratio 40
[2021-04-29 08:54] LABS: Band Neutrophils # (Manual) 0.1 K/mm3; Basophils % (Manual) 0 % (0.0-1.8); Eosinophils % (Manual) 0 % (0.0-4.3); Total Cells Counted 100
[2021-04-29 08:55] LABS: Large Platelets Few; Platelet Estimate Consistent w Auto; RBC Morphology Normal
[2021-04-29] MEDS: HEPARIN 5,000 UNIT/1 ML VIAL SUB-Q SCH ×2 (09:37→21:16)
[2021-04-29] MEDS: amLODIPine 10 MG TAB PO SCH (09:38)
[2021-04-29] MEDS: CHOLECALCIFEROL (VIT D3) 1000 UNIT (25 mcg) TAB PO SCH (09:38)
[2021-04-29] MEDS: ASCORBIC ACID 500 MG TAB PO SCH (09:38)
[2021-04-29] MEDS: ZINC SULFATE 220 MG CAP PO SCH (09:39)
--- NOTE | 2021-04-29 10:09 | Consultation ---
History of Present Illness - Reason for Consult Consult date: 04/29/21 - History of Present Illness 65-year-old male who is a resident of a long term facility with past medical history GERD, quadriplegia secondary to a spinal injury presented to hospital with altered mental status. Staff at the facility found that he was weak and decreased responsiveness for the past 3 days prior to admission. He was also noted to be febrile to 103 degrees. He has had to be hypoxic on presentation as well. He was initially admitted to the ICU, now on the floors. Febrile on admission which is since improved, white count 19.7 on admission, now normal. Covid positive. Cultures positive for Proteus vulgaris. Currently on cefepime. Now on room air. Imaging personally reviewed: Chest T: Mild increase interstitial prominence in the lungs. CT abdomen pelvis: Dilation of the descending and sigmoid colon, thickening of the distal sigmoid colon rectal wall. Review of systems: Deferred to reduce to the risk of transmission of COVID-19 Past History Past Medical History: GERD, hyperlipidemia, other (See HPI) Past Surgical History: Other (Spine surgery) Social history: . denies: smoking, alcohol abuse, prescription drug abuse Family history: diabetes, hypertension Medications and Allergies Allergies Allergy/AdvReac Type Severity Reaction Status Date / Time No Known Allergies Allergy Verified 04/23/21 17:09 Home Medications Medication Instructions Recorded Confirmed Last Taken Type No Known Home Medications [No 04/25/21 04/25/21 Unknown History Reported Home Medications] Active Meds: Active Medications Acetaminophen (Acetaminophen 325 Mg Tab) 650 mg PO Q6H PRN PRN Reason: Pain, Mild (1-3) Albuterol (Albuterol 2.5 Mg/3 Ml Nebu) 2.5 mg IH Q3HRT PRN PRN Reason: Shortness Of Breath Amlodipine Besylate (Amlodipine 10 Mg Tab) 10 mg PO QDAY [facility] Last Admin: 04/29/21 09:38 Dose: 10 mg Ascorbic Acid (Ascorbic Acid 500 Mg Tab) 500 mg PO BID [facility] Last Admin: 04/29/21 09:38 Dose: 500 mg Cholecalciferol (Cholecalciferol (Vit D3) 1000 Unit (25 Mcg) Tab) 1,000 unit PO QDAY [facility] Last Admin: 04/29/21 09:38 Dose: 1,000 unit Heparin Sodium (Porcine) (Heparin 5,000 Unit/1 Ml Vial) 5,000 unit SUB-Q Q12HR [facility] Last Admin: 04/29/21 09:37 Dose: 5,000 unit Hydralazine HCl (Hydralazine 20 Mg/1 Ml Inj) 10 mg IV Q4HR PRN PRN Reason: Blood Pressure Last Admin: 04/27/21 23:05 Dose: 10 mg Hydromorphone HCl (Hydromorphone 1 Mg/1 Ml Inj) 0.25 mg IV Q4H PRN PRN Reason: Pain, Moderate (4-6) Last Admin: 04/29/21 04:14 Dose: 0.25 mg Hydromorphone HCl (Hydromorphone 1 Mg/1 Ml Inj) 0.5 mg IV Q23H PRN PRN Reason: Pain , Severe (7-10) Cefepime HCl (Cefepime/Ns 2 Gm/100 Ml) 2 gm in 100 mls @ 200 mls/hr IV Q12H [facility]; Protocol Last Infusion: 04/29/21 06:51 Dose: Infused Oxycodone/Acetaminophen (Oxycodone /Acetaminophen 5-325mg Tab) 1 tab PO Q16H PRN PRN Reason: Pain, Moderate (4-6) Sodium Chloride (Sodium Chloride 0.9% 10 Ml Flush Syringe) 10 ml IV BID [facility] Last Admin: 04/29/21 09:38 Dose: 10 ml Sodium Chloride (Sodium Chloride 0.9% 10 Ml Flush Syringe) 10 ml IV PRN PRN PRN Reason: LINE FLUSH Zinc Sulfate (Zinc Sulfate 220 Mg Cap) 220 mg PO BID [facility] Last Admin: 04/29/21 09:39 Dose: 220 mg Physical Examination - Physical Exam Narrative exam: Physical exam deferred to reduce risk of transmission of COVID-19. Please refer to primary team's note. - Constitutional Vitals: Vital Signs Temp Pulse Resp BP Pulse Ox 98.3 F 68 20 160/100 98 04/28/21 21:12 04/29/21 09:38 04/28/21 21:12 04/28/21 21:12 04/29/21 08:44 Temperature -Last 24 Hours Temperature 98.3 F Temperature 98.2 F Results - Labs CBC & Chem 7: 04/29/21 06:49 04/29/21 04:00 Labs: Abnormal lab results 04/29/21 04/29/21 Range/Units 04:00 06:49 MCV 82 L (84-94) fl MCH 26 L (28-32) pg RDW 15.3 H (13.2-15.2) % Plt Count 122 L (140-440) K/mm3 Seg Neuts % (Manual) 84.0 H (40.0-70.0) % Lymphocytes % (Manual) 11.0 L (13.4-35.0) % Seg Neutrophils # Man 8.7 H (1.8-7.7) K/mm3 Lymphocytes # (Manual) 1.1 L (1.2-5.4) K/mm3 Potassium 3.5 L (3.6-5.0) mmol/L BUN 28 H (9-20) mg/dL Creatinine 0.7 L (0.8-1.3) mg/dL Assessment and Plan Cultures: Blood culture 04/23/2021 Proteus vulgaris Blood culture 04/24/2021 no growth A/P: 65-year-old male who is a resident of a long term facility with past medical history GERD, quadriplegia secondary to a spinal injury now with: #Acute sepsis: With fever and leukocytosis on admission, now improving. Secondary to Proteus bacteremia. #Proteus bacteremia: Likely secondary to colitis versus UTI. Resistant to fluoroquinolones #Acute UTI: With sepsis encephalopathy on admission. Unfortunately no urine culture run. #COVID-19: No hypoxia, no need to treat. #JENY: Resolved Recs: -Stop cefepime -Start ceftriaxone 2 g every 24 hours -Okay to discharge on ceftriaxone until 05/08/2021 -Case management consulted as such -Patient is a resident of [facility], okay to place midline if necessary on discharge -No need for acute Covid treatment Thank you for the consult, we will continue to follow. Yobani Gallo MD [facility] ([facility] O: [phone] F: [phone]
--- NOTE | 2021-04-29 11:03 | Progress Note ---
Assessment and Plan Assessment and plan: #Septic shock-resolved #Gram-negative bacteremia -s/p pressors -Blood cultures 04/23 07/08 proteus vulgaris ; repeat 04/24 no growth to date -discontinue cefepime, started rocephin until 05/08/2021 -will need midline prior to discharge -MRSA PCR pending -ID consulted, assistance appreciated -Likely secondary to gram-negative bacteremia #Acute kidney injury-resolved -Creatinine 0.6 -Nephrology following, assistance appreciated -Likely secondary to vasomotor nephropathy from hypotension #Acute metabolic encephalopathy -Resolved, likely secondary to shock #Healthcare associated pneumonia #COVID-19 pneumonia -CT chest showed prominence bilaterally with atelectasis -Patient is from correction -Treated empirically with Vanco and cefepime, vancomycin and cefepime discontinued -COVID PCR positive 04/24 #Elevated liver enzymes -Secondary to shock #Elevated D-dimer -VQ scan low probability for PE -Likely elevated secondary to COVID-19 infection #Hypokalemia -will replete and monitor #Quadriplegia s/p spinal injury -Bedbound and resident of [facility] Disposition Plan: return to [facility] History Interval history: No acute events overnight. Patient wanted to rest and did not participate in the interview. Hospitalist Physical - Physical exam Narrative exam: GENERAL: Well-developed well-nourished. In no acute distress. HEENT: Normocephalic. Atraumatic. NECK: Right IJ triple-lumen catheter in place. CHEST/LUNGS: CTAB on room air HEART/CARDIOVASCULAR: Tachycardic. No murmur, rubs or gallops appreciated. ABDOMEN: +BS. NT/ND. NEURO: Quadriplegic EXTREMITIES: No cyanosis, clubbing or edema. PSYCH: Cooperative. - Constitutional Vitals: Temp Pulse Resp BP Pulse Ox 98.3 F 68 20 160/100 98 04/28/21 21:12 04/29/21 09:38 04/28/21 21:12 04/28/21 21:12 04/29/21 08:44 General appearance: Present: severe distress HEART Score - HEART Score Troponin: Troponin T 0.124 ng/mL (0.00-0.029) H* 04/23/21 15:58 Results - Labs CBC & Chem 7: 04/29/21 06:49 04/29/21 04:00 Labs: Laboratory Last Values WBC 10.4 K/mm3 (4.5-11.0) 04/29/21 06:49 RBC 4.54 M/mm3 (3.65-5.03) 04/29/21 06:49 Hgb 11.8 gm/dl (11.8-15.2) 04/29/21 06:49 Hct 37.1 % (35.5-45.6) 04/29/21 06:49 MCV 82 fl (84-94) L 04/29/21 06:49 MCH 26 pg (28-32) L 04/29/21 06:49 MCHC 32 % (32-34) 04/29/21 06:49 RDW 15.3 % (13.2-15.2) H 04/29/21 06:49 Plt Count 122 K/mm3 (140-440) L 04/29/21 06:49 Lymph % (Auto) 11.0 % (13.4-35.0) L 04/28/21 06:10 [place] % (Auto) 7.3 % (0.0-7.3) 04/28/21 06:10 Eos % (Auto) 0.0 % (0.0-4.3) 04/28/21 06:10 Baso % (Auto) 0.1 % (0.0-1.8) 04/28/21 06:10 Lymph # (Auto) 1.6 K/mm3 (1.2-5.4) 04/28/21 06:10 [place] # (Auto) 1.1 K/mm3 (0.0-0.8) H 04/28/21 06:10 Eos # (Auto) 0.0 K/mm3 (0.0-0.4) 04/28/21 06:10 Baso # (Auto) 0.0 K/mm3 (0.0-0.1) 04/28/21 06:10 Add Manual Diff Complete 04/29/21 06:49 Total Counted 100 04/29/21 06:49 Seg Neutrophils % 81.6 % (40.0-70.0) H 04/28/21 06:10 Seg Neuts % (Manual) 84.0 % (40.0-70.0) H 04/29/21 06:49 Band Neutrophils % 1.0 % 04/29/21 06:49 Lymphocytes % (Manual) 11.0 % (13.4-35.0) L 04/29/21 06:49 Reactive Lymphs % (Man) 0 % 04/29/21 06:49 Monocytes % (Manual) 4.0 % (0.0-7.3) 04/29/21 06:49 Eosinophils % (Manual) 0 % (0.0-4.3) 04/29/21 06:49 Basophils % (Manual) 0 % (0.0-1.8) 04/29/21 06:49 Metamyelocytes % 0 % 04/29/21 06:49 Myelocytes % 0 % 04/29/21 06:49 Promyelocytes % 0 % 04/29/21 06:49 Blast Cells % 0 % 04/29/21 06:49 Nucleated RBC % Not Reportable 04/29/21 06:49 Seg Neutrophils # 12.3 K/mm3 (1.8-7.7) H 04/28/21 06:10 Seg Neutrophils # Man 8.7 K/mm3 (1.8-7.7) H 04/29/21 06:49 Band Neutrophils # 0.1 K/mm3 04/29/21 06:49 Lymphocytes # (Manual) 1.1 K/mm3 (1.2-5.4) L 04/29/21 06:49 Abs React Lymphs (Man) 0.0 K/mm3 04/29/21 06:49 Monocytes # (Manual) 0.4 K/mm3 (0.0-0.8) 04/29/21 06:49 Eosinophils # (Manual) 0.0 K/mm3 (0.0-0.4) 04/29/21 06:49 Basophils # (Manual) 0.0 K/mm3 (0.0-0.1) 04/29/21 06:49 Metamyelocytes # 0.0 K/mm3 04/29/21 06:49 Myelocytes # 0.0 K/mm3 04/29/21 06:49 Promyelocytes # 0.0 K/mm3 04/29/21 06:49 Blast Cells # 0.0 K/mm3 04/29/21 06:49 WBC Morphology Not Reportable 04/29/21 06:49 Hypersegmented Neuts Not Reportable 04/29/21 06:49 Hyposegmented Neuts Not Reportable 04/29/21 06:49 Hypogranular Neuts Not Reportable 04/29/21 06:49 Smudge Cells Not Reportable 04/29/21 06:49 Toxic Granulation Not Reportable 04/29/21 06:49 Toxic Vacuolation Not Reportable 04/29/21 06:49 Dohle Bodies Not Reportable 04/29/21 06:49 Pelger-Huet Anomaly Not Reportable 04/29/21 06:49 [place] Rods Not Reportable 04/29/21 06:49 Platelet Estimate Consistent w auto 04/29/21 06:49 Clumped Platelets Not Reportable 04/29/21 06:49 Plt Clumps, EDTA Not Reportable 04/29/21 06:49 Large Platelets Few 04/29/21 06:49 Giant Platelets Not Reportable 04/29/21 06:49 Platelet Satelliting Not Reportable 04/29/21 06:49 Plt Morphology Comment Not Reportable 04/29/21 06:49 RBC Morphology Normal 04/29/21 06:49 Dimorphic RBCs Not Reportable 04/29/21 06:49 Polychromasia Not Reportable 04/29/21 06:49 Hypochromasia Not Reportable 04/29/21 06:49 Poikilocytosis Not Reportable 04/29/21 06:49 Anisocytosis Not Reportable 04/29/21 06:49 Microcytosis Not Reportable 04/29/21 06:49 Macrocytosis Not Reportable 04/29/21 06:49 Spherocytes Not Reportable 04/29/21 06:49 Pappenheimer Bodies Not Reportable 04/29/21 06:49 Sickle Cells Not Reportable 04/29/21 06:49 Target Cells Not Reportable 04/29/21 06:49 Tear Drop Cells Not Reportable 04/29/21 06:49 Ovalocytes Not Reportable 04/29/21 06:49 Helmet Cells Not Reportable 04/29/21 06:49 Morel-Naselle Bodies Not Reportable 04/29/21 06:49 [place] Rings Not Reportable 04/29/21 06:49 [place] Cells Not Reportable 04/29/21 06:49 Bite Cells Not Reportable 04/29/21 06:49 Crenated Cell Not Reportable 04/29/21 06:49 Elliptocytes Not Reportable 04/29/21 06:49 Acanthocytes (Spur) Not Reportable 04/29/21 06:49 Rouleaux Not Reportable 04/29/21 06:49 Hemoglobin C Crystals Not Reportable 04/29/21 06:49 Schistocytes Not Reportable 04/29/21 06:49 Malaria parasites Not Reportable 04/29/21 06:49 Joshua Bodies Not Reportable 04/29/21 06:49 Hem Pathologist Commnt No 04/29/21 06:49 PT 15.6 Sec. (12.2-14.9) H 04/23/21 15:58 INR 1.12 (0.87-1.13) 04/23/21 15:58 APTT 35.0 Sec. (24.2-36.6) 04/23/21 15:58 D-Dimer 6397.32 ng/mlDDU (0-234) H 04/23/21 17:30 Sodium 140 mmol/L (137-145) 04/29/21 04:00 Potassium 3.5 mmol/L (3.6-5.0) L 04/29/21 04:00 Chloride 105.4 mmol/L (98-107) 04/29/21 04:00 Carbon Dioxide 25 mmol/L (22-30) 04/29/21 04:00 Anion Gap 13 mmol/L 04/29/21 04:00 BUN 28 mg/dL (9-20) H 04/29/21 04:00 Creatinine 0.7 mg/dL (0.8-1.3) L 04/29/21 04:00 Estimated GFR > 60 ml/min 04/29/21 04:00 BUN/Creatinine Ratio 40 % 04/29/21 04:00 Glucose 100 mg/dL (75-100) 04/29/21 04:00 Lactic Acid 1.20 mmol/L (0.7-2.0) 04/24/21 01:01 Calcium 9.2 mg/dL (8.4-10.2) 04/29/21 04:00 Ferritin 812.8 ng/mL (30.0-300.0) H 04/23/21 17:30 Total Bilirubin 2.70 mg/dL (0.1-1.2) H 04/24/21 04:48 AST 171 units/L (5-40) H 04/24/21 04:48 ALT 233 units/L (7-56) H 04/24/21 04:48 Alkaline Phosphatase 294 units/L (35-129) H 04/24/21 04:48 Ammonia 26.0 umol/L (25-60) 04/23/21 15:58 Lactate Dehydrogenase 346 units/L (91-180) H 04/23/21 17:30 Total Creatine Kinase 1763 units/L (55-170) H 04/23/21 15:58 Troponin T 0.124 ng/mL (0.00-0.029) H* 04/23/21 15:58 C-Reactive Protein 27.00 mg/dL (0.00-1.30) H 04/23/21 17:30 Total Protein 6.6 g/dL (6.3-8.2) 04/24/21 04:48 Albumin 3.4 g/dL (3.9-5) L 04/24/21 04:48 Albumin/Globulin Ratio 1.1 % 04/24/21 04:48 Procalcitonin > 200.00 ng/mL (<0.15) 04/23/21 17:37 Urine Color Jacque (Yellow) 04/23/21 Unknown Urine Turbidity Cloudy (Clear) 04/23/21 Unknown Urine pH 8.0 (5.0-7.0) H 04/23/21 Unknown Ur Specific [place] 1.012 (1.003-1.030) 04/23/21 Unknown Urine Protein >500 mg/dL (Negative) 04/23/21 Unknown Urine Glucose (UA) Neg mg/dL (Negative) 04/23/21 Unknown Urine Ketones Neg mg/dL (Negative) 04/23/21 Unknown Urine Blood Lg (Negative) 04/23/21 Unknown Urine Nitrite Neg (Negative) 04/23/21 Unknown Urine Bilirubin Neg (Negative) 04/23/21 Unknown Urine Urobilinogen < 2.0 mg/dL (<2.0) 04/23/21 Unknown Ur Leukocyte Esterase Lg (Negative) 04/23/21 Unknown Urine WBC (Auto) > 182.0 /HPF (0.0-6.0) H 04/23/21 Unknown Urine RBC (Auto) 93.0 /HPF (0.0-6.0) 04/23/21 Unknown U Epithel Cells (Auto) 4.0 /HPF (0-13.0) 04/23/21 Unknown Urine Bacteria (Auto) 2+ /HPF (Negative) 04/23/21 Unknown Urine Mucus Few /HPF 04/23/21 Unknown Random Vancomycin 4.2 ug/mL (0-40.0) 04/25/21 08:50 Coronavirus (PCR) Positive (Negative) A 04/24/21 07:54 SARS-CoV-2 (PCR) Cancelled 04/24/21 07:54 Microbiology: Microbiology 04/24/21 20:23 Peripheral/Venous Blood Culture - Preliminary NO GROWTH AFTER 4 DAYS 04/24/21 20:23 Peripheral/Venous Blood Culture - Preliminary NO GROWTH AFTER 4 DAYS Bobby/IV: Voiding Method Condom Catheter Active Medications - Current Medications Current Medications: Generic Name Dose Route Start Last Admin Trade Name Freq PRN Reason Stop Dose Admin Acetaminophen 650 mg 04/23/21 17:18 Acetaminophen 325 Mg Tab PO Q6H PRN Pain, Mild (1-3) Albuterol 2.5 mg 04/23/21 17:18 Albuterol 2.5 Mg/3 Ml Nebu IH Q3HRT PRN Shortness Of Breath Amlodipine Besylate 10 mg 04/26/21 10:00 04/29/21 09:38 Amlodipine 10 Mg Tab PO 10 mg QDAY [facility] Administration Ascorbic Acid 500 mg 04/23/21 22:00 04/29/21 09:38 Ascorbic Acid 500 Mg Tab PO 500 mg BID [facility] Administration Cholecalciferol 1,000 unit 04/24/21 10:00 04/29/21 09:38 Cholecalciferol (Vit D3) 1000 Unit (25 Mcg) Tab PO 1,000 unit QDAY [facility] Administration Heparin Sodium (Porcine) 5,000 unit 04/23/21 22:00 04/29/21 09:37 Heparin 5,000 Unit/1 Ml Vial SUB-Q 5,000 unit Q12HR [facility] Administration Hydralazine HCl 10 mg 04/25/21 19:36 04/27/21 23:05 Hydralazine 20 Mg/1 Ml Inj IV 10 mg Q4HR PRN Administration Blood Pressure Hydromorphone HCl 0.25 mg 04/23/21 17:18 04/29/21 04:14 Hydromorphone 1 Mg/1 Ml Inj IV 0.25 mg Q4H PRN Administration Pain, Moderate (4-6) Hydromorphone HCl 0.5 mg 04/23/21 17:18 Hydromorphone 1 Mg/1 Ml Inj IV Q23H PRN Pain , Severe (7-10) Ceftriaxone Sodium 2 gm in 100 mls @ 200 mls/hr 04/29/21 12:00 Rocephin/Ns 2 Gm/100 Ml IV 05/08/21 12:29 Q24H [facility] Protocol Oxycodone/Acetaminophen 1 tab 04/23/21 17:18 Oxycodone /Acetaminophen 5-325mg Tab PO Q16H PRN Pain, Moderate (4-6) Sodium Chloride 10 ml 04/23/21 22:00 04/29/21 09:38 Sodium Chloride 0.9% 10 Ml Flush Syringe IV 10 ml BID [facility] Administration Sodium Chloride 10 ml 04/23/21 17:18 Sodium Chloride 0.9% 10 Ml Flush Syringe IV PRN PRN LINE FLUSH Zinc Sulfate 220 mg 04/23/21 22:00 04/29/21 09:39 Zinc Sulfate 220 Mg Cap PO 220 mg BID [facility] Administration
--- NOTE | 2021-04-29 12:40 | Progress Note ---
Assessment and Plan 65 YO Male Assisted Facility Resident at [facility] with MDD, GERD, HLD, Quadraplegia S/P Spine Injury, Seborrheic Dermatitis, Encephalopathy presents to ED for evaluation. Patient has diminished cognition at the time of my evaluation and is unable to provide history. patient has experienced increased weakness and decreased responsiveness over the past 3 days. Patient was found to be febrile to 103 F. EMS was notified and upon arrival the patient was found to be in distress and subsequent transported to [facility] for further care and evaluation of the aforementioned symptoms. The patient was seen and evaluated in the emergency department. All lab and imaging studies reviewed. The patient was found to have a pulse oximetry of 84% on nonrebreather mask which is consistent with acute hypoxemic respiratory failure. Chest x-ray reveals evidence of pneumonia. Patient also found to have sepsis complicated by shock as well as shock liver, acute kidney injury, metabolic acidosis, toxic metabolic encephalopathy. Patient found to be critically ill and admitted to ICU and initiated on sepsis protocol, pneumonia protocol as well as coronavirus protocol. No further history is obtainable. According to the chart, No history of smoking, alcohol or drug abuse. Patients laguna virus PCR Positive. D dimer 6397. Ferritin 812 LDH 346 CRP 27. Patient awake and weak Resting on room air. O2 saturation 98%. Patient afebrile. No leukocytosis. Blood pressure 120/70, pulse 110, respirations 18. Chest xray done 04/23/21 reported There are patchy airspace opacities noted in the lung bases. There is mild venous congestion. No pneumothorax. Patient is on ceftriaxone and S/C Heparin. Patient was dexamethasone, cefepime and vancomycin I spent critical care time of 40 minutes, review the chart, examine the patient, review xrays and lab results, talking to the nursing staff and respiratory therapy and work out plan of treatment in this critically ill Covid 19 positive patient. - Patient Problems (1) Acute respiratory failure with hypoxia Current Visit: Yes Status: Acute Plan to address problem: Improved. Patient resting on room air. O2 saturation 98%. ABGs on room air. (2) Coronavirus infection Current Visit: Yes Status: Acute Plan to address problem: Management as per infectious diseases. Patient was on solumedrol and S/C heparin. (3) 2019 novel coronavirus-infected pneumonia (NCIP) Current Visit: Yes Status: Acute Plan to address problem: Patient presently on ceftriaxone. Antibiotics as per ID. (4) Acute metabolic encephalopathy Current Visit: Yes Status: Acute Plan to address problem: Management as per primary care. Subjective Date of service: 04/29/21 Interval history: 65 YO Male Assisted Facility Resident at [facility] with MDD, GERD, HLD, Quadraplegia S/P Spine Injury, Seborrheic Dermatitis, Encephalopathy presents to ED for evaluation. Patient has diminishe d cognition at the time of my evaluation and is unable to provide history. patient has experienced increased weakness and decreased responsiveness over the past 3 days. Patient was found to be febrile to 103 F. EMS was notified and upon arrival the patient was found to be in distress and subsequent transported to [facility] for further care and evaluation of the aforementioned symptoms. The patient was seen and evaluated in the emergency department. All lab and imaging studies reviewed. The patient was found to have a pulse oximetry of 84% on nonrebreather mask which is consistent with acute hypoxemic respiratory failure. Chest x-ray reveals evidence of pneumonia. Patient also found to have sepsis complicated by shock as well as shock liver, acute kidney injury, metabolic acidosis, toxic metabolic encephalopathy. Patient found to be critically ill and admitted to ICU and initiated on sepsis protocol, pneumonia protocol as well as coronavirus protocol. No further history is obtainable. According to the chart, No history of smoking, alcohol or drug abuse. Patients laguna virus PCR Positive. D dimer 6397. Ferritin 812 LDH 346 CRP 27. Patient awake and weak Resting on room air. O2 saturation 98%. Patient afebrile. No leukocytosis. Blood pressure 120/70, pulse 110, respirations 18. Chest xray done 04/23/21 reported There are patchy airspace opacities noted in the lung bases. There is mild venous congestion. No pneumothorax. Patient is on ceftriaxone and S/C Heparin. Patient was dexamethasone, cefepime and vancomycin Objective Vital Signs - 12hr 04/29/21 04/29/21 08:44 09:38 Pulse Rate 68 O2 Sat by Pulse 98 Oximetry Constitutional: no acute distress, alert, other (chronically ill looking) Eyes: non-icteric ENT: oropharynx dry Neck: supple, no lymphadenopathy, no JVD Effort: mildly labored Ascultation: Bilateral: diminished breath sounds Cardiovascular: regular rate and rhythm, other (S1,S2) Gastrointestinal: normoactive bowel sounds, soft, non-tender, non-distended Integumentary: normal Extremities: no cyanosis, no edema, other (bilateral hand splints) Neurologic: pupils equal and round, other (bilateral lower extemity and upper extremity weakness) Psychiatric: mood appropriate, depressed CBC and BMP: 04/30/21 04:00 04/30/21 04:00 ABG, PT/INR, D-dimer: PT/INR, D-dimer PT 15.6 Sec. (12.2-14.9) H 04/23/21 15:58 INR 1.12 (0.87-1.13) 04/23/21 15:58 D-Dimer 6397.32 ng/mlDDU (0-234) H 04/23/21 17:30 Abnormal lab findings: Abnormal Labs 04/23/21 04/23/21 04/23/21 15:58 15:58 15:58 WBC 17.9 H Hgb MCV 81 L MCH 26 L MCHC RDW 15.5 H Plt Count 96 L Lymph % (Auto) [place] # (Auto) Seg Neutrophils % Seg Neuts % (Manual) 88.0 H Lymphocytes % (Manual) 2.0 L Seg Neutrophils # Seg Neutrophils # Man 15.8 H Lymphocytes # (Manual) 0.4 L PT 15.6 H D-Dimer Sodium Potassium Chloride Carbon Dioxide BUN Creatinine Glucose Lactic Acid 2.50 H* Ferritin Total Bilirubin AST ALT Alkaline Phosphatase Lactate Dehydrogenase Total Creatine Kinase Troponin T C-Reactive Protein Albumin Urine pH Urine WBC (Auto) Coronavirus (PCR) 04/23/21 04/23/21 04/23/21 15:58 17:30 17:30 WBC Hgb MCV MCH MCHC RDW Plt Count Lymph % (Auto) [place] # (Auto) Seg Neutrophils % Seg Neuts % (Manual) Lymphocytes % (Manual) Seg Neutrophils # Seg Neutrophils # Man Lymphocytes # (Manual) PT D-Dimer 6397.32 H Sodium Potassium 3.4 L Chloride Carbon Dioxide BUN 38 H Creatinine 2.8 H Glucose 117 H 116 H Lactic Acid Ferritin Total Bilirubin 3.10 H AST 340 H ALT 360 H Alkaline Phosphatase 345 H Lactate Dehydrogenase 346 H Total Creatine Kinase 1763 H Troponin T 0.124 H* C-Reactive Protein 27.00 H Albumin 3.4 L Urine pH Urine WBC (Auto) Coronavirus (PCR) 04/23/21 04/23/21 04/24/21 17:30 Unknown 04:48 WBC 19.7 H Hgb 10.9 L MCV 81 L MCH 25 L MCHC 31 L RDW 15.9 H Plt Count 93 L Lymph % (Auto) [place] # (Auto) Seg Neutrophils % Seg Neuts % (Manual) 99.0 H Lymphocytes % (Manual) 1.0 L Seg Neutrophils # Seg Neutrophils # Man 19.5 H Lymphocytes # (Manual) 0.2 L PT D-Dimer Sodium Potassium Chloride Carbon Dioxide BUN Creatinine Glucose Lactic Acid Ferritin 812.8 H Total Bilirubin AST ALT Alkaline Phosphatase Lactate Dehydrogenase Total Creatine Kinase Troponin T C-Reactive Protein Albumin Urine pH 8.0 H Urine WBC (Auto) > 182.0 H Coronavirus (PCR) 04/24/21 04/24/21 04/25/21 04:48 07:54 08:50 WBC 15.7 H Hgb 11.4 L MCV 81 L MCH 25 L MCHC 31 L RDW 15.9 H Plt Count 106 L Lymph % (Auto) [place] # (Auto) Seg Neutrophils % Seg Neuts % (Manual) 93.0 H Lymphocytes % (Manual) 6.0 L Seg Neutrophils # Seg Neutrophils # Man 14.6 H Lymphocytes # (Manual) 0.9 L PT D-Dimer Sodium 148 H Potassium 3.3 L Chloride 109.7 H Carbon Dioxide 19 L BUN 45 H Creatinine 3.0 H Glucose 123 H Lactic Acid Ferritin Total Bilirubin 2.70 H AST 171 H ALT 233 H Alkaline Phosphatase 294 H Lactate Dehydrogenase Total Creatine Kinase Troponin T C-Reactive Protein Albumin 3.4 L Urine pH Urine WBC (Auto) Coronavirus (PCR) Positive A 04/25/21 04/26/21 04/26/21 08:50 05:15 05:15 WBC 16.8 H Hgb MCV 82 L MCH 25 L MCHC 31 L RDW 15.5 H Plt Count 110 L Lymph % (Auto) [place] # (Auto) Seg Neutrophils % Seg Neuts % (Manual) 96.0 H Lymphocytes % (Manual) 2.0 L Seg Neutrophils # Seg Neutrophils # Man 16.1 H Lymphocytes # (Manual) 0.3 L PT D-Dimer Sodium 153 H 151 H Potassium 3.4 L 3.5 L Chloride 115.3 H 114.7 H Carbon Dioxide 20 L BUN 57 H 55 H Creatinine 1.8 H 1.4 H Glucose 160 H 169 H Lactic Acid Ferritin Total Bilirubin AST ALT Alkaline Phosphatase Lactate Dehydrogenase Total Creatine Kinase Troponin T C-Reactive Protein Albumin Urine pH Urine WBC (Auto) Coronavirus (PCR) 04/27/21 04/27/21 04/28/21 04:00 04:00 06:10 WBC 19.8 H 15.0 H Hgb 11.3 L 11.3 L MCV 81 L 81 L MCH 26 L 25 L MCHC 31 L 31 L RDW 15.5 H 15.7 H Plt Count 84 L 96 L Lymph % (Auto) 11.0 L [place] # (Auto) 1.1 H Seg Neutrophils % 81.6 H Seg Neuts % (Manual) 96.0 H Lymphocytes % (Manual) 3.0 L Seg Neutrophils # 12.3 H Seg Neutrophils # Man 19.0 H Lymphocytes # (Manual) 0.6 L PT D-Dimer Sodium 149 H Potassium 3.3 L Chloride 113.0 H Carbon Dioxide BUN 40 H Creatinine Glucose 196 H Lactic Acid Ferritin Total Bilirubin AST ALT Alkaline Phosphatase Lactate Dehydrogenase Total Creatine Kinase Troponin T C-Reactive Protein Albumin Urine pH Urine WBC (Auto) Coronavirus (PCR) 04/28/21 04/29/21 04/29/21 06:10 04:00 06:49 WBC Hgb MCV 82 L MCH 26 L MCHC RDW 15.3 H Plt Count 122 L Lymph % (Auto) [place] # (Auto) Seg Neutrophils % Seg Neuts % (Manual) 84.0 H Lymphocytes % (Manual) 11.0 L Seg Neutrophils # Seg Neutrophils # Man 8.7 H Lymphocytes # (Manual) 1.1 L PT D-Dimer Sodium Potassium 3.5 L Chloride Carbon Dioxide BUN 34 H 28 H Creatinine 0.7 L Glucose 110 H Lactic Acid Ferritin Total Bilirubin AST ALT Alkaline Phosphatase Lactate Dehydrogenase Total Creatine Kinase Troponin T C-Reactive Protein Albumin Urine pH Urine WBC (Auto) Coronavirus (PCR) Chest x-ray: report reviewed, image reviewed Additional Studies: CHEST 1 VIEW 04/23/2021 5:14 PM INDICATION / CLINICAL INFORMATION: central line placement. COMPARISON: 04/23/2021, 1601 hours FINDINGS: SUPPORT DEVICES: Right neck central venous line tip projects the level the superior aspect of the superior vena cava HEART / MEDIASTINUM: Unchanged LUNGS / PLEURA: There are patchy airspace opacities noted in the lung bases. There is mild venous congestion. No pneumothorax. ADDITIONAL FINDINGS: No significant additional findings. IMPRESSION: 1. Central line in expected position. Allied health notes reviewed: nursing
--- NOTE | 2021-04-29 13:31 | Progress Note ---
Assessment and Plan Impression: * Acute kidney injury secondary to prerenal azotemia vs sepsis related ATN * Septic shock * Acute hypoxic respiratory failure secondary to PNA * COVID 19 PNA * Hypokalemia * Metabolic acidosis * Quadriplegia Plan: * Na now wnl and JENY resolved * IVF as needed * Continue Amlodipine 10mg daily * Abd/Pelvis CT reviewed - no hydro * Management of COVID 19 per primary team/ID * Strict I/O ordered * Dose medications for renal function * Avoid potential nephrotoxins * Nephrology will sign off, please do not hesitate to reconsult as needed- pl ease call [phone] as needed Subjective Date of service: 04/29/21 Interval history: Chart, vitals,labs reviewed Objective - Exam Narrative Exam: To reduce transmission in setting of pandemic, physical exam deferred. - Vital Signs Vital signs: Vital Signs - 12hr 04/29/21 04/29/21 04/29/21 08:44 09:38 11:59 Temperature 98.0 F Pulse Rate 68 105 H Respiratory 18 Rate Blood Pressure 149/99 O2 Sat by Pulse 98 96 Oximetry - Lab 04/29/21 06:49 04/29/21 04:00 Most recent lab results Calcium 9.2 mg/dL (8.4-10.2) 04/29/21 04:00 Medications & Allergies - Medications Allergies/Adverse Reactions: Allergies No Known Allergies Allergy (Verified 04/23/21 17:09) Home Medications: Home Medications Medication Instructions Recorded Confirmed Last Taken Type No Known Home Medications [No 04/25/21 04/25/21 Unknown History Reported Home Medications] Active Medications: Generic Name Dose Route Start Last Admin Trade Name Freq PRN Reason Stop Dose Admin Acetaminophen 650 mg 04/23/21 17:18 Acetaminophen 325 Mg Tab PO Q6H PRN Pain, Mild (1-3) Albuterol 2.5 mg 04/23/21 17:18 Albuterol 2.5 Mg/3 Ml Nebu IH Q3HRT PRN Shortness Of Breath Amlodipine Besylate 10 mg 04/26/21 10:00 04/29/21 09:38 Amlodipine 10 Mg Tab PO 10 mg QDAY CARROL Administration Heparin Sodium (Porcine) 5,000 unit 04/23/21 22:00 04/29/21 09:37 Heparin 5,000 Unit/1 Ml Vial SUB-Q 5,000 unit Q12HR CARROL Administration Hydralazine HCl 10 mg 04/25/21 19:36 04/27/21 23:05 Hydralazine 20 Mg/1 Ml Inj IV 10 mg Q4HR PRN Administration Blood Pressure Hydromorphone HCl 0.25 mg 04/23/21 17:18 04/29/21 04:14 Hydromorphone 1 Mg/1 Ml Inj IV 0.25 mg Q4H PRN Administration Pain, Moderate (4-6) Hydromorphone HCl 0.5 mg 04/23/21 17:18 Hydromorphone 1 Mg/1 Ml Inj IV Q23H PRN Pain , Severe (7-10) Ceftriaxone Sodium 2 gm in 100 mls @ 200 mls/hr 04/29/21 12:00 Rocephin/Ns 2 Gm/100 Ml IV 05/08/21 12:29 Q24H CARROL Protocol Oxycodone/Acetaminophen 1 tab 04/23/21 17:18 Oxycodone /Acetaminophen 5-325mg Tab PO Q16H PRN Pain, Moderate (4-6) Sodium Chloride 10 ml 04/23/21 22:00 04/29/21 09:38 Sodium Chloride 0.9% 10 Ml Flush Syringe IV 10 ml BID CARROL Administration Sodium Chloride 10 ml 04/23/21 17:18 Sodium Chloride 0.9% 10 Ml Flush Syringe IV PRN PRN LINE FLUSH
[2021-04-29] MEDS ORDERED: SODIUM CHLORIDE 0.9% 50 ML IVPB IV PRN (14:06)
[2021-04-29] MEDS: cefTRIAXone/NS 2 GM/100 ML 2 GM/100 ML BAG IV SCH ×2 (16:03→16:04)
[2021-04-30 05:01] LABS: Mean Corpuscular HGB Conc 32 % (32-34); Mean Corpuscular Volume 81 fl (84-94); Platelet Count 166 K/mm3 (140-440); Red Blood Count 4.71 M/mm3 (3.65-5.03); Red Cell Distribution Width 15.1 % (13.2-15.2)
[2021-04-30 05:09] LABS: Blood Urea Nitrogen 21 mg/dL (9-20); Calcium 9.1 mg/dL (8.4-10.2); Hemolysis Index 3
[2021-04-30 05:15] LABS: BUN/Creatinine Ratio 35
[2021-04-30 06:29] LABS: Basophils % (Manual) 0 % (0.0-1.8); Eosinophils % (Manual) 0 % (0.0-4.3); Hypochromasia 1+; Total Cells Counted 100
[2021-04-30 06:30] LABS: Platelet Estimate Consistent w Auto
[2021-04-30] MEDS ORDERED: POTASSIUM CHLORIDE ER 20 MEQ TAB PO NR (08:30)
--- NOTE | 2021-04-30 10:49 | Progress Note ---
Assessment and Plan Cultures: Blood culture 04/23/2021 Proteus vulgaris Blood culture 04/24/2021 no growth A/P: 65-year-old male who is a resident of a [place] [facility] facility with past medical history GERD, quadriplegia secondary to a spinal injury now with: #Acute sepsis: With fever and leukocytosis on admission, now improving. Secondary to Proteus bacteremia. #Proteus bacteremia: Likely secondary to colitis versus UTI. Resistant to fluoroquinolones #Acute UTI: With sepsis encephalopathy on admission. Unfortunately no urine culture run. #COVID-19: No hypoxia, no need to treat. #JENY: Resolved Recs: -Start ceftriaxone 2 g every 24 hours -Okay to discharge on ceftriaxone until 05/08/2021 -Case management consulted as such -Patient is a resident of [facility], okay to place midline if necessary on discharge -No need for acute Covid treatment Thank you for the consult, we will continue to follow. Yobani Gallo MD [facility] O: [phone] F: [phone] Subjective Date of service: 04/30/21 Interval history: Afebrile normal white count. Objective - Exam Narrative Exam: Physical exam deferred to reduce risk of transmission of COVID-19. Please refer to primary team's note. - Constitutional Vitals: Vital Signs Temp Pulse Resp BP Pulse Ox 97.5 F L 95 H 20 166/107 99 04/30/21 04:25 04/30/21 04:25 04/30/21 04:25 04/30/21 04:25 04/30/21 04:25 Temperature -Last 24 Hours Temperature 97.5 F Temperature 97.9 F Temperature 98.5 F Temperature 98.0 F - Labs CBC & Chem 7: 04/30/21 04:00 04/30/21 04:00 Labs: Abnormal lab results 04/30/21 04/30/21 Range/Units 04:00 04:00 MCV 81 L (84-94) fl MCH 26 L (28-32) pg Seg Neuts % (Manual) 84.0 H (40.0-70.0) % Lymphocytes % (Manual) 12.0 L (13.4-35.0) % Seg Neutrophils # Man 8.8 H (1.8-7.7) K/mm3 Potassium 3.5 L (3.6-5.0) mmol/L BUN 21 H (9-20) mg/dL Creatinine 0.6 L (0.8-1.3) mg/dL Glucose 111 H (75-100) mg/dL
--- NOTE | 2021-04-30 16:23 | Gastroenterology Consultation ---
History of Present Illness - Reason for Consult Consult date: 04/30/21 colon dilation Requesting physician: STEPHANIA ADEN - History of Present Illness This is a 65 yo male quadriplegic [facility] patient admitted on 04/23/2021 for sepsis. Patient being treated for gram negative bacteremia, COVID-19, penumonia. GI consulted for evaluation for colon dilation. Patient had CT a/p on 04/23/2021 which showed dilated descending and sigmoid colon along with thickening of sigmoid and rectum. Patient reports no abdominal pain, nausea/vomiting, or blood in the stools. Tolerating diet. No prior colonoscopy. Medication list reviewed. Past History Past Medical History: GERD, hyperlipidemia, other (See HPI) Past Surgical History: Other (Spine surgery) Social history: . denies: smoking, alcohol abuse, prescription drug abuse Family history: diabetes, hypertension Medications and Allergies Allergies Allergy/AdvReac Type Severity Reaction Status Date / Time No Known Allergies Allergy Verified 04/23/21 17:09 Home Medications Medication Instructions Recorded Confirmed Last Taken Type Acetaminophen [Aphen] 650 mg PO Q6H PRN 04/30/21 04/30/21 Unknown History Ammonium Lactate [Skin Treatment] 1 appful TP BID 04/30/21 04/30/21 Unknown History AtorvaSTATin [Lipitor] 40 mg PO QHS 04/30/21 04/30/21 Unknown History Baclofen 20 mg PO QID 04/30/21 04/30/21 Unknown History Bisacodyl [Laxative Suppository] 10 mg RC Q24H PRN 04/30/21 04/30/21 Unknown History Carboxymethylcellulose Sodium 2 drops OU QID 04/30/21 04/30/21 Unknown History [Artificial Tears] Cholecalciferol (Vitamin D3) 2,000 unit PO QDAY 04/30/21 04/30/21 Unknown History [Vitamin D3 2,000 UNIT CAP] Docusate Sodium [Colace] 100 mg PO BID 04/30/21 04/30/21 Unknown History Famotidine [Acid-Pep] 20 mg PO BID 04/30/21 04/30/21 Unknown History Furosemide [Lasix] 20 mg PO QDAY 04/30/21 04/30/21 Unknown History Gabapentin [Neurontin] 300 mg PO Q8HR 04/30/21 04/30/21 Unknown History Hydrocortisone 2.5% [Hytone 2.5% 1 applic TP BID 04/30/21 04/30/21 Unknown H istory CREAM] Ketoconazole 1 ml TP Q48H 04/30/21 04/30/21 Unknown History Ketoconazole 2% [Nizoral] 1 applicatio TP BID 04/30/21 04/30/21 Unknown History Mirtazapine 7.5 mg PO QHS 04/30/21 04/30/21 Unknown History Ondansetron HCl [Zofran] 4 mg PO TID PRN 04/30/21 04/30/21 Unknown History Polyethylene Glycol 3350 [Miralax] 17 gm PO QDAY 04/30/21 04/30/21 Unknown History Sennosides [Senna] 17.2 mg PO QHS 04/30/21 04/30/21 Unknown History Triamcinolone 0.1% [Kenalog 0.1% 1 applic TP BID 04/30/21 04/30/21 Unknown History CREAM] Active Meds: Active Medications Acetaminophen (Acetaminophen 325 Mg Tab) 650 mg PO Q6H PRN PRN Reason: Pain, Mild (1-3) Albuterol (Albuterol 2.5 Mg/3 Ml Nebu) 2.5 mg IH Q3HRT PRN PRN Reason: Shortness Of Breath Amlodipine Besylate (Amlodipine 10 Mg Tab) 10 mg PO QDAY [facility] Last Admin: 04/29/21 09:38 Dose: 10 mg Heparin Sodium (Porcine) (Heparin 5,000 Unit/1 Ml Vial) 5,000 unit SUB-Q Q12HR [facility] Last Admin: 04/29/21 21:16 Dose: 5,000 unit Hydralazine HCl (Hydralazine 20 Mg/1 Ml Inj) 10 mg IV Q4HR PRN PRN Reason: Blood Pressure Last Admin: 04/27/21 23:05 Dose: 10 mg Ceftriaxone Sodium (Rocephin/Ns 2 Gm/100 Ml) 2 gm in 100 mls @ 200 mls/hr IV Q24H [facility]; Protocol Stop: 05/08/21 12:29 Last Admin: 04/29/21 16:04 Dose: Not Given Sodium Chloride (Sodium Chloride 0.9% 10 Ml Flush Syringe) 10 ml IV BID [facility] Last Admin: 04/29/21 21:16 Dose: 10 ml Sodium Chloride (Sodium Chloride 0.9% 50 Ml Ivpb) 10 ml IV PRN PRN PRN Reason: INT Review of Systems - Review of Systems ROS unobtainable: due to mental status All systems: negative Constitutional: no weight loss, no weight gain Cardiovascular: no chest pain Gastrointestinal: no abdominal pain, no nausea, no vomiting, no diarrhea, no constipation Neurological: paralysis Psychiatric: no anxiety Endocrine: no cold intolerance Hematologic/Lymphatic: no easy bruising Allergic/Immunologic: no wheezing Exam - Constitutional Vital Signs: Temp Pulse Resp BP Pulse Ox 97.5 F L 95 H 20 166/107 99 04/30/21 04:25 04/30/21 04:25 04/30/21 04:25 04/30/21 04:25 04/30/21 04:25 General appearance: no acute distress - EENT Eyes: EOM intact ENT: hearing intact - Neck Neck: supple - Respiratory Respiratory effort: normal - Cardiovascular Rhythm: regular Heart Sounds: Present: S1 & S2 - Gastrointestinal General gastrointestinal: Present: non-tender, distended - Integumentary Integumentary: Present: clear, warm - Neurologic Neurological: alert and oriented x3 - Psychiatric Psychiatric: appropriate mood/affect - Labs CBC & Chem 7: 04/30/21 04:00 04/30/21 04:00 Lab Results: Laboratory Results - last 24 hr 04/27/21 04/30/21 04/30/21 07:38 04:00 04:00 WBC 10.5 RBC 4.71 Hgb 12.0 Hct 38.0 MCV 81 L MCH 26 L MCHC 32 RDW 15.1 Plt Count 166 Add Manual Diff Complete Total Counted 100 Seg Neuts % (Manual) 84.0 H Band Neutrophils % 0 Lymphocytes % (Manual) 12.0 L Reactive Lymphs % (Man) 0 Monocytes % (Manual) 4.0 Eosinophils % (Manual) 0 Basophils % (Manual) 0 Metamyelocytes % 0 Myelocytes % 0 Promyelocytes % 0 Blast Cells % 0 Nucleated RBC % Not Reportable Seg Neutrophils # Man 8.8 H Band Neutrophils # 0.0 Lymphocytes # (Manual) 1.3 Abs React Lymphs (Man) 0.0 Monocytes # (Manual) 0.4 Eosinophils # (Manual) 0.0 Basophils # (Manual) 0.0 Metamyelocytes # 0.0 Myelocytes # 0.0 Promyelocytes # 0.0 Blast Cells # 0.0 WBC Morphology Not Reportable Hypersegmented Neuts Not Reportable Hyposegmented Neuts Not Reportable Hypogranular Neuts Not Reportable Smudge Cells Not Reportable Toxic Granulation Not Reportable Toxic Vacuolation Not Reportable Dohle Bodies Not Reportable Pelger-Huet Anomaly Not Reportable [place] Rods Not Reportable Platelet Estimate Consistent w auto Clumped Platelets Not Reportable Plt Clumps, EDTA Not Reportable Large Platelets Not Reportable Giant Platelets Not Reportable Platelet Satelliting Not Reportable Plt Morphology Comment Not Reportable RBC Morphology Not Reportable Dimorphic RBCs Not Reportable Polychromasia Not Reportable Hypochromasia 1+ Poikilocytosis Not Reportable Anisocytosis Not Reportable Microcytosis Not Reportable Macrocytosis Not Reportable Spherocytes Not Reportable Pappenheimer Bodies Not Reportable Sickle Cells Not Reportable Target Cells Not Reportable Tear Drop Cells Not Reportable Ovalocytes Not Reportable Helmet Cells Not Reportable [place] Tract Bodies Not Reportable [place] Rings Not Reportable [place] Cells Not Reportable Bite Cells Not Reportable Crenated Cell Not Reportable Elliptocytes Not Reportable Acanthocytes (Spur) Not Reportable Rouleaux Not Reportable Hemoglobin C Crystals Not Reportable Schistocytes Not Reportable Malaria parasites Not Reportable Joshua Bodies Not Reportable Hem Pathologist Commnt No Sodium 140 Potassium 3.5 L Chloride 103.5 Carbon Dioxide 26 Anion Gap 14 BUN 21 H Creatinine 0.6 L Estimated GFR > 60 BUN/Creatinine Ratio 35 Glucose 111 H Calcium 9.1 Nasal Screen MRSA (PCR) Positive - Imaging CT Scan: report reviewed Assessment and Plan # Colon dilation - abnormal CT a/p - CT a/p on 04/23/2021 which showed dilated descending and sigmoid colon along with thickening of sigmoid and rectum. - patient with mildly distended abdomen. - suspect this may be chronic with h/o quadruplegia and immobility leading to constipation. rec - will repeat imaging with KUB - bowel regimen. - may need outpatient colonoscopy to rule out malignancy once acute issues resolve.
--- NOTE | 2021-04-30 17:36 | XRay Report ---
ABDOMEN 1 VIEW INDICATION / CLINICAL INFORMATION: colon dilation. COMPARISON: CT abdomen and pelvis 04/23/2021 FINDINGS: TUBES / LINES: None. BOWEL GAS PATTERN: Gaseous prominence of the bowel throughout the abdomen, most notable within the de scending colon which measures 8.2 cm in diameter. No definite evidence of obstruction. FREE AIR / EXTRALUMINAL GAS: None seen. ADDITIONAL FINDINGS: No significant additional findings. IMPRESSION: 1. Gaseous prominence of the colon and small bowel throughout the abdomen without definite evidence o f obstruction. Given differences in modality, this may be only mildly progressed in appearance compar ed to reference CT from April 23. Signer Name: Jama Tomlinson MD Signed: 04/30/2021 5:32 PM Workstation Name: [employer]
[2021-04-30] MEDS: HEPARIN 5,000 UNIT/1 ML VIAL SUB-Q SCH (21:23)
--- NOTE | 2021-04-30 23:13 | Progress Note ---
Assessment and Plan Assessment and plan: 65-year-old male who [facility] with past medical history GERD, quadriplegia secondary to a spinal injury now with: #Septic shock-resolved #Proteus bacteremia -s/p pressors -Blood cultures 04/23 07/08 proteus vulgaris ; repeat 04/24 no growth to date -discontinue cefepime, started rocephin until 05/08/2021 -will need midline prior to discharge -MRSA PCR pending -ID consulted, assistance appreciated -Etiology UTI versus colitis, urine cultures not sent. #Acute kidney injury-resolved -Creatinine 0.6 -Nephrology following, assistance appreciated -Likely secondary to vasomotor nephropathy from hypotension #Acute metabolic encephalopathy -Resolved, likely secondary to shock #Healthcare associated pneumonia #COVID-19 pneumonia -CT chest showed prominence bilaterally with atelectasis -Patient is from [place] [facility] -Treated empirically with Vanco and cefepime, vancomycin and cefepime discontinued -COVID PCR positive 04/24 #Elevated liver enzymes -Secondary to shock #Elevated D-dimer -VQ scan low probability for PE -Likely elevated secondary to COVID-19 infection #Hypokalemia -will replete and monitor Abdominal distention Significant distention of ascending colon on CT, no previous studies to compare Given history of quadriplegia, this could be chronic RN reports patient tolerating diet well when fed, no nausea, vomiting or abdominal pain reported KUB ordered and GI consulted. #Quadriplegia s/p spinal injury -Bedbound and resident of [facility] Discussed with the patient, RN and GI. Disposition: If GI cleared, possible discharge tomorrow with IV antibiotics to be administered at his [place] [facility] History Interval history: He is quadriplegic/bedbound, unable to move any extremity. He is alert, oriented and answers questions appropriately. He has no complaints. RN reports that he is eating well when fed. His abdomen is firm with significant colonic distention on CT. Patient has no abdominal pains nausea. GI consulted. Remains afebrile Rocephin. Potassium 3.5 replenished. Hospitalist Physical - Constitutional Vitals: Temp Pulse Resp BP Pulse Ox 97.9 F 110 H 18 137/94 98 04/30/21 13:20 04/30/21 16:55 04/30/21 13:20 04/30/21 13:20 04/30/21 20:08 General appearance: Present: no acute distress, other (Cardioplegic, alert and answers questions well.) - EENT Eyes: Present: PERRL, EOM intact ENT: hearing intact, other (Moist oral mucosa) - Neck Neck: Present: supple - Respiratory Respiratory effort: normal Respiratory: bilateral: diminished - Cardiovascular Rhythm: regular - Extremities Extremity abnormal: edema (2+ edema in all extremities/anasarca. Quadriplegic, unable to move extremities.) - Abdominal General gastrointestinal: non-tender, distended, other (Firm to palpation) - Integumentary Integumentary: Absent: rash - Psychiatric Psychiatric: appropriate mood/affect - Neurologic Neurologic: other (Quadriplegic, unremarkable in the extremity, orthotics in place in upper extremities, alert and answers appropriately.) HEART Score - HEART Score Troponin: Troponin T 0.124 ng/mL (0.00-0.029) H* 04/23/21 15:58 Results - Labs CBC & Chem 7: 04/30/21 04:00 04/30/21 04:00 Labs: Laboratory Last Values WBC 10.5 K/mm3 (4.5-11.0) 04/30/21 04:00 RBC 4.71 M/mm3 (3.65-5.03) 04/30/21 04:00 Hgb 12.0 gm/dl (11.8-15.2) 04/30/21 04:00 Hct 38.0 % (35.5-45.6) 04/30/21 04:00 MCV 81 fl (84-94) L 04/30/21 04:00 MCH 26 pg (28-32) L 04/30/21 04:00 MCHC 32 % (32-34) 04/30/21 04:00 RDW 15.1 % (13.2-15.2) 04/30/21 04:00 Plt Count 166 K/mm3 (140-440) 04/30/21 04:00 Lymph % (Auto) 11.0 % (13.4-35.0) L 04/28/21 06:10 Ashe % (Auto) 7.3 % (0.0-7.3) 04/28/21 06:10 Eos % (Auto) 0.0 % (0.0-4.3) 04/28/21 06:10 Baso % (Auto) 0.1 % (0.0-1.8) 04/28/21 06:10 Lymph # (Auto) 1.6 K/mm3 (1.2-5.4) 04/28/21 06:10 Ashe # (Auto) 1.1 K/mm3 (0.0-0.8) H 04/28/21 06:10 Eos # (Auto) 0.0 K/mm3 (0.0-0.4) 04/28/21 06:10 Baso # (Auto) 0.0 K/mm3 (0.0-0.1) 04/28/21 06:10 Add Manual Diff Complete 04/30/21 04:00 Total Counted 100 04/30/21 04:00 Seg Neutrophils % 81.6 % (40.0-70.0) H 04/28/21 06:10 Seg Neuts % (Manual) 84.0 % (40.0-70.0) H 04/30/21 04:00 Band Neutrophils % 0 % 04/30/21 04:00 Lymphocytes % (Manual) 12.0 % (13.4-35.0) L 04/30/21 04:00 Reactive Lymphs % (Man) 0 % 04/30/21 04:00 Monocytes % (Manual) 4.0 % (0.0-7.3) 04/30/21 04:00 Eosinophils % (Manual) 0 % (0.0-4.3) 04/30/21 04:00 Basophils % (Manual) 0 % (0.0-1.8) 04/30/21 04:00 Metamyelocytes % 0 % 04/30/21 04:00 Myelocytes % 0 % 04/30/21 04:00 Promyelocytes % 0 % 04/30/21 04:00 Blast Cells % 0 % 04/30/21 04:00 Nucleated RBC % Not Reportable 04/30/21 04:00 Seg Neutrophils # 12.3 K/mm3 (1.8-7.7) H 04/28/21 06:10 Seg Neutrophils # Man 8.8 K/mm3 (1.8-7.7) H 04/30/21 04:00 Band Neutrophils # 0.0 K/mm3 04/30/21 04:00 Lymphocytes # (Manual) 1.3 K/mm3 (1.2-5.4) 04/30/21 04:00 Abs React Lymphs (Man) 0.0 K/mm3 04/30/21 04:00 Monocytes # (Manual) 0.4 K/mm3 (0.0-0.8) 04/30/21 04:00 Eosinophils # (Manual) 0.0 K/mm3 (0.0-0.4) 04/30/21 04:00 Basophils # (Manual) 0.0 K/mm3 (0.0-0.1) 04/30/21 04:00 Metamyelocytes # 0.0 K/mm3 04/30/21 04:00 Myelocytes # 0.0 K/mm3 04/30/21 04:00 Promyelocytes # 0.0 K/mm3 04/30/21 04:00 Blast Cells # 0.0 K/mm3 04/30/21 04:00 WBC Morphology Not Reportable 04/30/21 04:00 Hypersegmented Neuts Not Reportable 04/30/21 04:00 Hyposegmented Neuts Not Reportable 04/30/21 04:00 Hypogranular Neuts Not Reportable 04/30/21 04:00 Smudge Cells Not Reportable 04/30/21 04:00 Toxic Granulation Not Reportable 04/30/21 04:00 Toxic Vacuolation Not Reportable 04/30/21 04:00 Dohle Bodies Not Reportable 04/30/21 04:00 Pelger-Huet Anomaly Not Reportable 04/30/21 04:00 Perry Rods Not Reportable 04/30/21 04:00 Platelet Estimate Consistent w auto 04/30/21 04:00 Clumped Platelets Not Reportable 04/30/21 04:00 Plt Clumps, EDTA Not Reportable 04/30/21 04:00 Large Platelets Not Reportable 04/30/21 04:00 Giant Platelets Not Reportable 04/30/21 04:00 Platelet Satelliting Not Reportable 04/30/21 04:00 Plt Morphology Comment Not Reportable 04/30/21 04:00 RBC Morphology Not Reportable 04/30/21 04:00 Dimorphic RBCs Not Reportable 04/30/21 04:00 Polychromasia Not Reportable 04/30/21 04:00 Hypochromasia 1+ 04/30/21 04:00 Poikilocytosis Not Reportable 04/30/21 04:00 Anisocytosis Not Reportable 04/30/21 04:00 Microcytosis Not Reportable 04/30/21 04:00 Macrocytosis Not Reportable 04/30/21 04:00 Spherocytes Not Reportable 04/30/21 04:00 Pappenheimer Bodies Not Reportable 04/30/21 04:00 Sickle Cells Not Reportable 04/30/21 04:00 Target Cells Not Reportable 04/30/21 04:00 Tear Drop Cells Not Reportable 04/30/21 04:00 Ovalocytes Not Reportable 04/30/21 04:00 Helmet Cells Not Reportable 04/30/21 04:00 Morel-Orwin Bodies Not Reportable 04/30/21 04:00 Edcouch Rings Not Reportable 04/30/21 04:00 Esau Cells Not Reportable 04/30/21 04:00 Bite Cells Not Reportable 04/30/21 04:00 Crenated Cell Not Reportable 04/30/21 04:00 Elliptocytes Not Reportable 04/30/21 04:00 Acanthocytes (Spur) Not Reportable 04/30/21 04:00 Rouleaux Not Reportable 04/30/21 04:00 Hemoglobin C Crystals Not Reportable 04/30/21 04:00 Schistocytes Not Reportable 04/30/21 04:00 Malaria parasites Not Reportable 04/30/21 04:00 Joshua Bodies Not Reportable 04/30/21 04:00 Hem Pathologist Commnt No 04/30/21 04:00 PT 15.6 Sec. (12.2-14.9) H 04/23/21 15:58 INR 1.12 (0.87-1.13) 04/23/21 15:58 APTT 35.0 Sec. (24.2-36.6) 04/23/21 15:58 D-Dimer 6397.32 ng/mlDDU (0-234) H 04/23/21 17:30 Sodium 140 mmol/L (137-145) 04/30/21 04:00 Potassium 3.5 mmol/L (3.6-5.0) L 04/30/21 04:00 Chloride 103.5 mmol/L (98-107) 04/30/21 04:00 Carbon Dioxide 26 mmol/L (22-30) 04/30/21 04:00 Anion Gap 14 mmol/L 04/30/21 04:00 BUN 21 mg/dL (9-20) H 04/30/21 04:00 Creatinine 0.6 mg/dL (0.8-1.3) L 04/30/21 04:00 Estimated GFR > 60 ml/min 04/30/21 04:00 BUN/Creatinine Ratio 35 % 04/30/21 04:00 Glucose 111 mg/dL (75-100) H 04/30/21 04:00 Lactic Acid 1.20 mmol/L (0.7-2.0) 04/24/21 01:01 Calcium 9.1 mg/dL (8.4-10.2) 04/30/21 04:00 Ferritin 812.8 ng/mL (30.0-300.0) H 04/23/21 17:30 Total Bilirubin 2.70 mg/dL (0.1-1.2) H 04/24/21 04:48 AST 171 units/L (5-40) H 04/24/21 04:48 ALT 233 units/L (7-56) H 04/24/21 04:48 Alkaline Phosphatase 294 units/L (35-129) H 04/24/21 04:48 Ammonia 26.0 umol/L (25-60) 04/23/21 15:58 Lactate Dehydrogenase 346 units/L (91-180) H 04/23/21 17:30 Total Creatine Kinase 1763 units/L (55-170) H 04/23/21 15:58 Troponin T 0.124 ng/mL (0.00-0.029) H* 04/23/21 15:58 C-Reactive Protein 27.00 mg/dL (0.00-1.30) H 04/23/21 17:30 Total Protein 6.6 g/dL (6.3-8.2) 04/24/21 04:48 Albumin 3.4 g/dL (3.9-5) L 04/24/21 04:48 Albumin/Globulin Ratio 1.1 % 04/24/21 04:48 Procalcitonin > 200.00 ng/mL (<0.15) 04/23/21 17:37 Urine Color Jacque (Yellow) 04/23/21 Unknown Urine Turbidity Cloudy (Clear) 04/23/21 Unknown Urine pH 8.0 (5.0-7.0) H 04/23/21 Unknown Ur Specific Hoffmeister 1.012 (1.003-1.030) 04/23/21 Unknown Urine Protein >500 mg/dL (Negative) 04/23/21 Unknown Urine Glucose (UA) Neg mg/dL (Negative) 04/23/21 Unknown Urine Ketones Neg mg/dL (Negative) 04/23/21 Unknown Urine Blood Lg (Negative) 04/23/21 Unknown Urine Nitrite Neg (Negative) 04/23/21 Unknown Urine Bilirubin Neg (Negative) 04/23/21 Unknown Urine Urobilinogen < 2.0 mg/dL (<2.0) 04/23/21 Unknown Ur Leukocyte Esterase Lg (Negative) 04/23/21 Unknown Urine WBC (Auto) > 182.0 /HPF (0.0-6.0) H 04/23/21 Unknown Urine RBC (Auto) 93.0 /HPF (0.0-6.0) 04/23/21 Unknown U Epithel Cells (Auto) 4.0 /HPF (0-13.0) 04/23/21 Unknown Urine Bacteria (Auto) 2+ /HPF (Negative) 04/23/21 Unknown Urine Mucus Few /HPF 04/23/21 Unknown Nasal Screen MRSA (PCR) Positive (Negative) 04/27/21 07:38 Random Vancomycin 4.2 ug/mL (0-40.0) 04/25/21 08:50 Coronavirus (PCR) Positive (Negative) A 04/24/21 07:54 SARS-CoV-2 (PCR) Cancelled 04/24/21 07:54 Microbiology: Microbiology 04/24/21 20:23 Peripheral/Venous Blood Culture - Final NO GROWTH AFTER 5 DAYS 04/24/21 20:23 Peripheral/Venous Blood Culture - Final NO GROWTH AFTER 5 DAYS Bobby/IV: Voiding Method Condom Catheter Active Medications - Current Medications Current Medications: Generic Name Dose Route Start Last Admin Trade Name Freq PRN Reason Stop Dose Admin Acetaminophen 650 mg 04/23/21 17:18 Acetaminophen 325 Mg Tab PO Q6H PRN Pain, Mild (1-3) Albuterol 2.5 mg 04/23/21 17:18 Albuterol 2.5 Mg/3 Ml Nebu IH Q3HRT PRN Shortness Of Breath Amlodipine Besylate 10 mg 04/26/21 10:00 04/29/21 09:38 Amlodipine 10 Mg Tab PO 10 mg QDAY CARROL Administration Heparin Sodium (Porcine) 5,000 unit 04/23/21 22:00 04/30/21 21:23 Heparin 5,000 Unit/1 Ml Vial SUB-Q 5,000 unit Q12HR CARROL Administration Hydralazine HCl 10 mg 04/25/21 19:36 04/27/21 23:05 Hydralazine 20 Mg/1 Ml Inj IV 10 mg Q4HR PRN Administration Blood Pressure Ceftriaxone Sodium 2 gm in 100 mls @ 200 mls/hr 04/29/21 12:00 04/29/21 16:04 Rocephin/Ns 2 Gm/100 Ml IV 05/08/21 12:29 Not Given Q24H CARROL Protocol Sodium Chloride 10 ml 04/23/21 22:00 04/30/21 21:23 Sodium Chloride 0.9% 10 Ml Flush Syringe IV 10 ml BID CARROL Administration Sodium Chloride 10 ml 04/29/21 14:06 Sodium Chloride 0.9% 50 Ml Ivpb IV PRN PRN INT Nutrition/Malnutrition Assess - Dietary Evaluation Nutrition/Malnutrition Findings: Nutrition Notes Start: 04/30/21 16:39 Freq: Status: Active Protocol: Document 04/30/21 16:39 CATIE (Rec: 04/30/21 16:55 CATIE [id number]) Nutrition Notes Current Diagnosis Sepsis Other Pertinent Diagnosis COVID-19, Colon dilation, Proteus bacteremia, UTI, Current Diet Regular Diet (since L 04/25). Labs/Tests 04/30: K 3.5, BUN 21, Crea 0.6 , Glu 111. Pertinent Medications 04/30: Nutritionally unremarkable. 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 Weight Status Overweight Subjective/Other Information RD consult for LOS assessment. Pt's PO intake of meals has been Neglible (0-25%), according to ADL notes. Pt is quadriplegic. Percent of energy/protein needs met: Prescribed Regular Diet provides for energy/protein needs (2,289 Kcal/89 g) during LOS; additionally, Dietary Supplements will compensate for possible poor or insufficient PO intake of meals with 1,050 Kcal and 60 g of protein. Burn Absent Trauma Absent GI Symptoms None Food Allergy No Skin Integrity/Comment Unspecified area of concern. Current % PO Negligible Minimum of two criteria No #1 Nutrition Diagnosis Inadequate protein-energy intake Etiology Uncertain at the time As Evidenced by Signs and Symptoms Neglible PO intake of meals, according to ADL notes. Is patient on ventilator? No Is Patient Ambulatory and/or Out of Bed No REE-([facility]-confined to bed) 2366.228 Calculation Used for Recommendations 70-80% of EEN Additional Notes 15-20 Kcal/Kg ABW (3782-0546 Kcal). Protein: 1.2-2 g/Kg; 83-138 g/ day. Fluids: 1 ml/Kcal, or as per MD. Nutrition Intervention Change Diet Order: Continue Regular Diet. Add Supplement/Snack (indicate name/kcal 8 fl oz Ensure Enlive; TID. /protein ) Provides kCal: 1,050 Provides Protein (gm) 60 Goal #1 Compensate, through dietary supplementation, for possible poor or insufficient PO intake of meals during LOS. Follow-Up By: 05/07/21 Additional Comments Continue monitoring food tolerance, %PO intake of meals , and BM.
--- NOTE | 2021-04-30 23:34 | Progress Note ---
Assessment and Plan Assessment and plan: 65-year-old male who [facility] with past medical history GERD, quadriplegia secondary to a spinal injury now with: #Septic shock-resolved #Proteus bacteremia -s/p pressors -Blood cultures 04/23 07/08 proteus vulgaris ; repeat 04/24 no growth to date -discontinue cefepime, started rocephin until 05/08/2021 -will need midline prior to discharge -MRSA PCR pending -ID consulted, assistance appreciated -Etiology UTI versus colitis, urine cultures not sent. #Acute kidney injury-resolved -Creatinine 0.6 -Nephrology following, assistance appreciated -Likely secondary to vasomotor nephropathy from hypotension #Acute metabolic encephalopathy -Resolved, likely secondary to shock #Healthcare associated pneumonia #COVID-19 pneumonia -CT chest showed prominence bilaterally with atelectasis -[facility] -Treated empirically with Vanco and cefepime, vancomycin and cefepime discontinued -COVID PCR positive 04/24 #Elevated liver enzymes -Secondary to shock #Elevated D-dimer -VQ scan low probability for PE -Likely elevated secondary to COVID-19 infection #Hypokalemia -will replete and monitor Abdominal distention Significant distention of ascending colon on CT, no previous studies to compare Given history of quadriplegia, this could be chronic RN reports patient tolerating diet well when fed, no nausea, vomiting or abdominal pain reported KUB ordered and GI consulted. #Quadriplegia s/p spinal injury -Bedbound and resident of [facility] Discussed with the patient, RN and GI. Disposition: If GI cleared, possible discharge tomorrow with IV antibiotics to be administered [facility] History Interval history: He is quadriplegic/bedbound, unable to move any extremity. He is alert, oriented and answers questions appropriately. He has no complaints. RN reports that he is eating well when fed. His abdomen is firm with significant colonic distention on CT. Patient has no abdominal pains nausea. GI consulted. Remains afebrile Rocephin. Potassium 3.5 replenished. Hospitalist Physical - Constitutional Vitals: Temp Pulse Resp BP Pulse Ox 97.9 F 110 H 18 137/94 98 04/30/21 13:20 04/30/21 16:55 04/30/21 13:20 04/30/21 13:20 04/30/21 20:08 General appearance: Present: no acute distress, other (Cardioplegic, alert and answers questions well.) - EENT Eyes: Present: PERRL, EOM intact ENT: other (Oral mucosa moist) - Respiratory Respiratory effort: normal Respiratory: right: wheezing, bilateral: diminished - Cardiovascular Rhythm: regular - Extremities Extremity abnormal: edema (2+ anasarca) - Abdominal General gastrointestinal: non-tender, distended, other (firm to palpation) - Psychiatric Psychiatric: appropriate mood/affect - Neurologic Neurologic: other (Quadriplegic, unable to move any extremity, orthotics placing her extremities, alert and answers appropriately.) HEART Score - HEART Score Troponin: Troponin T 0.124 ng/mL (0.00-0.029) H* 04/23/21 15:58 Results - Labs CBC & Chem 7: 04/30/21 04:00 04/30/21 04:00 Labs: Laboratory Last Values WBC 10.5 K/mm3 (4.5-11.0) 04/30/21 04:00 RBC 4.71 M/mm3 (3.65-5.03) 04/30/21 04:00 Hgb 12.0 gm/dl (11.8-15.2) 04/30/21 04:00 Hct 38.0 % (35.5-45.6) 04/30/21 04:00 MCV 81 fl (84-94) L 04/30/21 04:00 MCH 26 pg (28-32) L 04/30/21 04:00 MCHC 32 % (32-34) 04/30/21 04:00 RDW 15.1 % (13.2-15.2) 04/30/21 04:00 Plt Count 166 K/mm3 (140-440) 04/30/21 04:00 Lymph % (Auto) 11.0 % (13.4-35.0) L 04/28/21 06:10 Luce % (Auto) 7.3 % (0.0-7.3) 04/28/21 06:10 Eos % (Auto) 0.0 % (0.0-4.3) 04/28/21 06:10 Baso % (Auto) 0.1 % (0.0-1.8) 04/28/21 06:10 Lymph # (Auto) 1.6 K/mm3 (1.2-5.4) 04/28/21 06:10 Luce # (Auto) 1.1 K/mm3 (0.0-0.8) H 04/28/21 06:10 Eos # (Auto) 0.0 K/mm3 (0.0-0.4) 04/28/21 06:10 Baso # (Auto) 0.0 K/mm3 (0.0-0.1) 04/28/21 06:10 Add Manual Diff Complete 04/30/21 04:00 Total Counted 100 04/30/21 04:00 Seg Neutrophils % 81.6 % (40.0-70.0) H 04/28/21 06:10 Seg Neuts % (Manual) 84.0 % (40.0-70.0) H 04/30/21 04:00 Band Neutrophils % 0 % 04/30/21 04:00 Lymphocytes % (Manual) 12.0 % (13.4-35.0) L 04/30/21 04:00 Reactive Lymphs % (Man) 0 % 04/30/21 04:00 Monocytes % (Manual) 4.0 % (0.0-7.3) 04/30/21 04:00 Eosinophils % (Manual) 0 % (0.0-4.3) 04/30/21 04:00 Basophils % (Manual) 0 % (0.0-1.8) 04/30/21 04:00 Metamyelocytes % 0 % 04/30/21 04:00 Myelocytes % 0 % 04/30/21 04:00 Promyelocytes % 0 % 04/30/21 04:00 Blast Cells % 0 % 04/30/21 04:00 Nucleated RBC % Not Reportable 04/30/21 04:00 Seg Neutrophils # 12.3 K/mm3 (1.8-7.7) H 04/28/21 06:10 Seg Neutrophils # Man 8.8 K/mm3 (1.8-7.7) H 04/30/21 04:00 Band Neutrophils # 0.0 K/mm3 04/30/21 04:00 Lymphocytes # (Manual) 1.3 K/mm3 (1.2-5.4) 04/30/21 04:00 Abs React Lymphs (Man) 0.0 K/mm3 04/30/21 04:00 Monocytes # (Manual) 0.4 K/mm3 (0.0-0.8) 04/30/21 04:00 Eosinophils # (Manual) 0.0 K/mm3 (0.0-0.4) 04/30/21 04:00 Basophils # (Manual) 0.0 K/mm3 (0.0-0.1) 04/30/21 04:00 Metamyelocytes # 0.0 K/mm3 04/30/21 04:00 Myelocytes # 0.0 K/mm3 04/30/21 04:00 Promyelocytes # 0.0 K/mm3 04/30/21 04:00 Blast Cells # 0.0 K/mm3 04/30/21 04:00 WBC Morphology Not Reportable 04/30/21 04:00 Hypersegmented Neuts Not Reportable 04/30/21 04:00 Hyposegmented Neuts Not Reportable 04/30/21 04:00 Hypogranular Neuts Not Reportable 04/30/21 04:00 Smudge Cells Not Reportable 04/30/21 04:00 Toxic Granulation Not Reportable 04/30/21 04:00 Toxic Vacuolation Not Reportable 04/30/21 04:00 Dohle Bodies Not Reportable 04/30/21 04:00 Pelger-Huet Anomaly Not Reportable 04/30/21 04:00 Perry Rods Not Reportable 04/30/21 04:00 Platelet Estimate Consistent w auto 04/30/21 04:00 Clumped Platelets Not Reportable 04/30/21 04:00 Plt Clumps, EDTA Not Reportable 04/30/21 04:00 Large Platelets Not Reportable 04/30/21 04:00 Giant Platelets Not Reportable 04/30/21 04:00 Platelet Satelliting Not Reportable 04/30/21 04:00 Plt Morphology Comment Not Reportable 04/30/21 04:00 RBC Morphology Not Reportable 04/30/21 04:00 Dimorphic RBCs Not Reportable 04/30/21 04:00 Polychromasia Not Reportable 04/30/21 04:00 Hypochromasia 1+ 04/30/21 04:00 Poikilocytosis Not Reportable 04/30/21 04:00 Anisocytosis Not Reportable 04/30/21 04:00 Microcytosis Not Reportable 04/30/21 04:00 Macrocytosis Not Reportable 04/30/21 04:00 Spherocytes Not Reportable 04/30/21 04:00 Pappenheimer Bodies Not Reportable 04/30/21 04:00 Sickle Cells Not Reportable 04/30/21 04:00 Target Cells Not Reportable 04/30/21 04:00 Tear Drop Cells Not Reportable 04/30/21 04:00 Ovalocytes Not Reportable 04/30/21 04:00 Helmet Cells Not Reportable 04/30/21 04:00 Morel-Media Bodies Not Reportable 04/30/21 04:00 [place] Rings Not Reportable 04/30/21 04:00 Esau Cells Not Reportable 04/30/21 04:00 Bite Cells Not Reportable 04/30/21 04:00 Crenated Cell Not Reportable 04/30/21 04:00 Elliptocytes Not Reportable 04/30/21 04:00 Acanthocytes (Spur) Not Reportable 04/30/21 04:00 Rouleaux Not Reportable 04/30/21 04:00 Hemoglobin C Crystals Not Reportable 04/30/21 04:00 Schistocytes Not Reportable 04/30/21 04:00 Malaria parasites Not Reportable 04/30/21 04:00 Joshua Bodies Not Reportable 04/30/21 04:00 Hem Pathologist Commnt No 04/30/21 04:00 PT 15.6 Sec. (12.2-14.9) H 04/23/21 15:58 INR 1.12 (0.87-1.13) 04/23/21 15:58 APTT 35.0 Sec. (24.2-36.6) 04/23/21 15:58 D-Dimer 6397.32 ng/mlDDU (0-234) H 04/23/21 17:30 Sodium 140 mmol/L (137-145) 04/30/21 04:00 Potassium 3.5 mmol/L (3.6-5.0) L 04/30/21 04:00 Chloride 103.5 mmol/L (98-107) 04/30/21 04:00 Carbon Dioxide 26 mmol/L (22-30) 04/30/21 04:00 Anion Gap 14 mmol/L 04/30/21 04:00 BUN 21 mg/dL (9-20) H 04/30/21 04:00 Creatinine 0.6 mg/dL (0.8-1.3) L 04/30/21 04:00 Estimated GFR > 60 ml/min 04/30/21 04:00 BUN/Creatinine Ratio 35 % 04/30/21 04:00 Glucose 111 mg/dL (75-100) H 04/30/21 04:00 Lactic Acid 1.20 mmol/L (0.7-2.0) 04/24/21 01:01 Calcium 9.1 mg/dL (8.4-10.2) 04/30/21 04:00 Ferritin 812.8 ng/mL (30.0-300.0) H 04/23/21 17:30 Total Bilirubin 2.70 mg/dL (0.1-1.2) H 04/24/21 04:48 AST 171 units/L (5-40) H 04/24/21 04:48 ALT 233 units/L (7-56) H 04/24/21 04:48 Alkaline Phosphatase 294 units/L (35-129) H 04/24/21 04:48 Ammonia 26.0 umol/L (25-60) 04/23/21 15:58 Lactate Dehydrogenase 346 units/L (91-180) H 04/23/21 17:30 Total Creatine Kinase 1763 units/L (55-170) H 04/23/21 15:58 Troponin T 0.124 ng/mL (0.00-0.029) H* 04/23/21 15:58 C-Reactive Protein 27.00 mg/dL (0.00-1.30) H 04/23/21 17:30 Total Protein 6.6 g/dL (6.3-8.2) 04/24/21 04:48 Albumin 3.4 g/dL (3.9-5) L 04/24/21 04:48 Albumin/Globulin Ratio 1.1 % 04/24/21 04:48 Procalcitonin > 200.00 ng/mL (<0.15) 04/23/21 17:37 Urine Color Jacque (Yellow) 04/23/21 Unknown Urine Turbidity Cloudy (Clear) 04/23/21 Unknown Urine pH 8.0 (5.0-7.0) H 04/23/21 Unknown Ur Specific [place] 1.012 (1.003-1.030) 04/23/21 Unknown Urine Protein >500 mg/dL (Negative) 04/23/21 Unknown Urine Glucose (UA) Neg mg/dL (Negative) 04/23/21 Unknown Urine Ketones Neg mg/dL (Negative) 04/23/21 Unknown Urine Blood Lg (Negative) 04/23/21 Unknown Urine Nitrite Neg (Negative) 04/23/21 Unknown Urine Bilirubin Neg (Negative) 04/23/21 Unknown Urine Urobilinogen < 2.0 mg/dL (<2.0) 04/23/21 Unknown Ur Leukocyte Esterase Lg (Negative) 04/23/21 Unknown Urine WBC (Auto) > 182.0 /HPF (0.0-6.0) H 04/23/21 Unknown Urine RBC (Auto) 93.0 /HPF (0.0-6.0) 04/23/21 Unknown U Epithel Cells (Auto) 4.0 /HPF (0-13.0) 04/23/21 Unknown Urine Bacteria (Auto) 2+ /HPF (Negative) 04/23/21 Unknown Urine Mucus Few /HPF 04/23/21 Unknown Nasal Screen MRSA (PCR) Positive (Negative) 04/27/21 07:38 Random Vancomycin 4.2 ug/mL (0-40.0) 04/25/21 08:50 Coronavirus (PCR) Positive (Negative) A 04/24/21 07:54 SARS-CoV-2 (PCR) Cancelled 04/24/21 07:54 Microbiology: Microbiology 04/24/21 20:23 Peripheral/Venous Blood Culture - Final NO GROWTH AFTER 5 DAYS 04/24/21 20:23 Peripheral/Venous Blood Culture - Final NO GROWTH AFTER 5 DAYS Bobby/IV: Voiding Method Condom Catheter Active Medications - Current Medications Current Medications: Generic Name Dose Route Start Last Admin Trade Name Freq PRN Reason Stop Dose Admin Acetaminophen 650 mg 04/23/21 17:18 Acetaminophen 325 Mg Tab PO Q6H PRN Pain, Mild (1-3) Albuterol 2.5 mg 04/23/21 17:18 Albuterol 2.5 Mg/3 Ml Nebu IH Q3HRT PRN Shortness Of Breath Amlodipine Besylate 10 mg 04/26/21 10:00 04/29/21 09:38 Amlodipine 10 Mg Tab PO 10 mg QDAY CARROL Administration Heparin Sodium (Porcine) 5,000 unit 04/23/21 22:00 04/30/21 21:23 Heparin 5,000 Unit/1 Ml Vial SUB-Q 5,000 unit Q12HR CARROL Administration Hydralazine HCl 10 mg 04/25/21 19:36 04/27/21 23:05 Hydralazine 20 Mg/1 Ml Inj IV 10 mg Q4HR PRN Administration Blood Pressure Ceftriaxone Sodium 2 gm in 100 mls @ 200 mls/hr 04/29/21 12:00 04/29/21 16:04 Rocephin/Ns 2 Gm/100 Ml IV 05/08/21 12:29 Not Given Q24H CARROL Protocol Sodium Chloride 10 ml 04/23/21 22:00 04/30/21 21:23 Sodium Chloride 0.9% 10 Ml Flush Syringe IV 10 ml BID CARROL Administration Sodium Chloride 10 ml 04/29/21 14:06 Sodium Chloride 0.9% 50 Ml Ivpb IV PRN PRN INT Nutrition/Malnutrition Assess - Dietary Evaluation Nutrition/Malnutrition Findings: Nutrition Notes Start: 04/30/21 16:39 Freq: Status: Active Protocol: Document 04/30/21 16:39 CATIE (Rec: 04/30/21 16:55 CATIE [id number]) Nutrition Notes Current Diagnosis Sepsis Other Pertinent Diagnosis COVID-19, Colon dilation, Proteus bacteremia, UTI, Current Diet Regular Diet (since L 04/25). Labs/Tests 04/30: K 3.5, BUN 21, Crea 0.6 , Glu 111. Pertinent Medications 04/30: Nutritionally unremarkable. Height 6 ft 1 in Weight 90.71 kg [place] Body Weight (kg) 83.63 BMI 26.4 Intake Prior to Admission Good Weight change and time frame Pt states not having loss body weight [employer]. Weight Status Overweight Subjective/Other Information RD consult for LOS assessment. Pt's PO intake of meals has been Neglible (0-25%), according to ADL notes. Pt is quadriplegic. Percent of energy/protein needs met: Prescribed Regular Diet provides for energy/protein needs (2,289 Kcal/89 g) during LOS; additionally, Dietary Supplements will compensate for possible poor or insufficient PO intake of meals with 1,050 Kcal and 60 g of protein. Burn Absent Trauma Absent GI Symptoms None Food Allergy No Skin Integrity/Comment Unspecified area of concern. Current % PO Negligible Minimum of two criteria No #1 Nutrition Diagnosis Inadequate protein-energy intake Etiology Uncertain at the time As Evidenced by Signs and Symptoms Neglible PO intake of meals, according to ADL notes. Is patient on ventilator? No Is Patient Ambulatory and/or Out of Bed No REE-([facility]-confined to bed) 3575.228 Calculation Used for Recommendations 70-80% of EEN Additional Notes 15-20 Kcal/Kg ABW (4762-7942 Kcal). Protein: 1.2-2 g/Kg; 83-138 g/ day. Fluids: 1 ml/Kcal, or as per MD. Nutrition Intervention Change Diet Order: Continue Regular Diet. Add Supplement/Snack (indicate name/kcal 8 fl oz Ensure Enlive; TID. /protein ) Provides kCal: 1,050 Provides Protein (gm) 60 Goal #1 Compensate, through dietary supplementation, for possible poor or insufficient PO intake of meals during LOS. Follow-Up By: 05/07/21 Additional Comments Continue monitoring food tolerance, %PO intake of meals , and BM.
--- NOTE | 2021-05-01 00:11 | Progress Note ---
Assessment and Plan 65 YO Male Jail Facility Resident at [facility] with MDD, GERD, HLD, Quadraplegia S/P Spine Injury, Seborrheic Dermatitis, Encephalopathy presents to ED for evaluation. Patient has diminished cognition at the time of my evaluation and is unable to provide history. patient has experienced increased weakness and decreased responsiveness over the past 3 days. Patient was found to be febrile to 103 F. EMS was notified and upon arrival the patient was found to be in distress and subsequent transported to [facility] for further care and evaluation of the aforementioned symptoms. The patient was seen and evaluated in the emergency department. All lab and imaging studies reviewed. The patient was found to have a pulse oximetry of 84% on nonrebreather mask which is consistent with acute hypoxemic respiratory failure. Chest x-ray reveals evidence of pneumonia. Patient also found to have sepsis complicated by shock as well as shock liver, acute kidney injury, metabolic acidosis, toxic metabolic encephalopathy. Patient found to be critically ill and admitted to ICU and initiated on sepsis protocol, pneumonia protocol as well as coronavirus protocol. No further history is obtainable. According to the chart, No history of smoking, alcohol or drug abuse. Patients laguna virus PCR Positive. D dimer 6397. Ferritin 812 LDH 346 CRP 27. Patient awake and weak Resting on room air. O2 saturation 98%. Patient afebrile. No leukocytosis. Blood pressure 137/94, pulse 110, respirations 18. Chest xray done 04/23/21 reported There are patchy airspace opacities noted in the lung bases. There is mild venous congestion. No pneumothorax. Nuclear medicine perfusion lung scan done 04/26/21 reported low probabilty for pulmonary emboli. Patient is on ceftriaxone and S/C Heparin albuterol inhaler. Patient was dexamethasone, cefepime and vancomycin I spent critical care time of 35 minutes, review the chart, examine the patient, review xrays and lab results, talking to the nursing staff and respiratory therapy and work out plan of treatment in this critically ill Covid 19 positive patient. - Patient Problems (1) Acute respiratory failure with hypoxia Current Visit: Yes Status: Acute Plan to address problem: Improved. Patient resting on room air. O2 saturation 98%. ABGs on room air. (2) Coronavirus infection Current Visit: Yes Status: Acute Plan to address problem: Management as per infectious diseases. Patient was on solumedrol and S/C heparin. (3) 2019 novel coronavirus-infected pneumonia (NCIP) Current Visit: Yes Status: Acute Plan to address problem: Patient presently on ceftriaxone. Antibiotics as per ID. (4) Acute metabolic encephalopathy Current Visit: Yes Status: Acute Plan to address problem: Management as per primary care. Subjective Date of service: 04/30/21 Interval history: 65 YO Male Jail Facility Resident at [facility] with MDD, GERD, HLD, Quadraplegia S/P Spine Injury, Seborrheic Dermatitis, Encephalopathy presents to ED for evaluation. Patient has diminished cognition at the time of my evaluation and is unable to provide history. patient has experienced increased weakness and decreased responsiveness over the past 3 days. Patient was found to be febrile to 103 F. EMS was notified and upon arrival the patient was found to be in distress and subsequent transported to [facility] for further care and evaluation of the aforementioned symptoms. The patient was seen and evaluated in the emergency department. All lab and imaging studies reviewed. The patient was found to have a pulse oximetry of 84% on nonrebreather mask which is consistent with acute hypoxemic respiratory failure. Chest x-ray reveals evidence of pneumonia. Patient also found to have sepsis complicated by shock as well as shock liver, acute kidney injury, metabolic acidosis, toxic metabolic encephalopathy. Patient found to be critically ill and admitted to ICU and initiated on sepsis protocol, pneumonia protocol as well as coronavirus protocol. No further h istory is obtainable. According to the chart, No history of smoking, alcohol or drug abuse. Patients laguna virus PCR Positive. D dimer 6397. Ferritin 812 LDH 346 CRP 27. Patient awake and weak Resting on room air. O2 saturation 98%. Patient afebrile. No leukocytosis. Blood pressure 137/94, pulse 110, respirations 18. Chest xray done 04/23/21 reported There are patchy airspace opacities noted in the lung bases. There is mild venous congestion. No pneumothorax. Nuclear medicine perfusion lung scan done 04/26/21 reported low probabilty for pulmonary emboli. Patient is on ceftriaxone and S/C Heparin albuterol inhaler. Patient was dexamethasone, cefepime and vancomycin Objective Vital Signs - 12hr 04/30/21 04/30/21 04/30/21 13:20 16:55 20:00 Temperature 97.9 F Pulse Rate 104 H 110 H Respiratory 18 Rate Blood Pressure 137/94 O2 Sat by Pulse 100 100 98 Oximetry 04/30/21 20:08 Temperature Pulse Rate Respiratory Rate Blood Pressure O2 Sat by Pulse 98 Oximetry Constitutional: no acute distress, alert, other (chronically ill looking) Eyes: non-icteric ENT: oropharynx dry Neck: supple, no lymphadenopathy, no JVD Effort: mildly labored Ascultation: Bilateral: diminished breath sounds Cardiovascular: regular rate and rhythm, other (S1,S2) Gastrointestinal: normoactive bowel sounds, soft, non-tender, non-distended Integumentary: normal Extremities: no cyanosis, no edema, other (bilateral hand splints) Neurologic: normal mental status, non-focal exam, pupils equal and round, other (bilateral lower extemity and upper extremity weakness) Psychiatric: mood appropriate, depressed CBC and BMP: 04/30/21 04:00 04/30/21 04:00 ABG, PT/INR, D-dimer: PT/INR, D-dimer PT 15.6 Sec. (12.2-14.9) H 04/23/21 15:58 INR 1.12 (0.87-1.13) 04/23/21 15:58 D-Dimer 6397.32 ng/mlDDU (0-234) H 04/23/21 17:30 Abnormal lab findings: Abnormal Labs 04/23/21 04/23/21 04/23/21 15:58 15:58 15:58 WBC 17.9 H Hgb MCV 81 L MCH 26 L MCHC RDW 15.5 H Plt Count 96 L Lymph % (Auto) Leon # (Auto) Seg Neutrophils % Seg Neuts % (Manual) 88.0 H Lymphocytes % (Manual) 2.0 L Seg Neutrophils # Seg Neutrophils # Man 15.8 H Lymphocytes # (Manual) 0.4 L PT 15.6 H D-Dimer Sodium Potassium Chloride Carbon Dioxide BUN Creatinine Glucose Lactic Acid 2.50 H* Ferritin Total Bilirubin AST ALT Alkaline Phosphatase Lactate Dehydrogenase Total Creatine Kinase Troponin T C-Reactive Protein Albumin Urine pH Urine WBC (Auto) Coronavirus (PCR) 04/23/21 04/23/21 04/23/21 15:58 17:30 17:30 WBC Hgb MCV MCH MCHC RDW Plt Count Lymph % (Auto) Leon # (Auto) Seg Neutrophils % Seg Neuts % (Manual) Lymphocytes % (Manual) Seg Neutrophils # Seg Neutrophils # Man Lymphocytes # (Manual) PT D-Dimer 6397.32 H Sodium Potassium 3.4 L Chloride Carbon Dioxide BUN 38 H Creatinine 2.8 H Glucose 117 H 116 H Lactic Acid Ferritin Total Bilirubin 3.10 H AST 340 H ALT 360 H Alkaline Phosphatase 345 H Lactate Dehydrogenase 346 H Total Creatine Kinase 1763 H Troponin T 0.124 H* C-Reactive Protein 27.00 H Albumin 3.4 L Urine pH Urine WBC (Auto) Coronavirus (PCR) 04/23/21 04/23/21 04/24/21 17:30 Unknown 04:48 WBC 19.7 H Hgb 10.9 L MCV 81 L MCH 25 L MCHC 31 L RDW 15.9 H Plt Count 93 L Lymph % (Auto) Leon # (Auto) Seg Neutrophils % Seg Neuts % (Manual) 99.0 H Lymphocytes % (Manual) 1.0 L Seg Neutrophils # Seg Neutrophils # Man 19.5 H Lymphocytes # (Manual) 0.2 L PT D-Dimer Sodium Potassium Chloride Carbon Dioxide BUN Creatinine Glucose Lactic Acid Ferritin 812.8 H Total Bilirubin AST ALT Alkaline Phosphatase Lactate Dehydrogenase Total Creatine Kinase Troponin T C-Reactive Protein Albumin Urine pH 8.0 H Urine WBC (Auto) > 182.0 H Coronavirus (PCR) 04/24/21 04/24/21 04/25/21 04:48 07:54 08:50 WBC 15.7 H Hgb 11.4 L MCV 81 L MCH 25 L MCHC 31 L RDW 15.9 H Plt Count 106 L Lymph % (Auto) Leon # (Auto) Seg Neutrophils % Seg Neuts % (Manual) 93.0 H Lymphocytes % (Manual) 6.0 L Seg Neutrophils # Seg Neutrophils # Man 14.6 H Lymphocytes # (Manual) 0.9 L PT D-Dimer Sodium 148 H Potassium 3.3 L Chloride 109.7 H Carbon Dioxide 19 L BUN 45 H Creatinine 3.0 H Glucose 123 H Lactic Acid Ferritin Total Bilirubin 2.70 H AST 171 H ALT 233 H Alkaline Phosphatase 294 H Lactate Dehydrogenase Total Creatine Kinase Troponin T C-Reactive Protein Albumin 3.4 L Urine pH Urine WBC (Auto) Coronavirus (PCR) Positive A 04/25/21 04/26/21 04/26/21 08:50 05:15 05:15 WBC 16.8 H Hgb MCV 82 L MCH 25 L MCHC 31 L RDW 15.5 H Plt Count 110 L Lymph % (Auto) Leon # (Auto) Seg Neutrophils % Seg Neuts % (Manual) 96.0 H Lymphocytes % (Manual) 2.0 L Seg Neutrophils # Seg Neutrophils # Man 16.1 H Lymphocytes # (Manual) 0.3 L PT D-Dimer Sodium 153 H 151 H Potassium 3.4 L 3.5 L Chloride 115.3 H 114.7 H Carbon Dioxide 20 L BUN 57 H 55 H Creatinine 1.8 H 1.4 H Glucose 160 H 169 H Lactic Acid Ferritin Total Bilirubin AST ALT Alkaline Phosphatase Lactate Dehydrogenase Total Creatine Kinase Troponin T C-Reactive Protein Albumin Urine pH Urine WBC (Auto) Coronavirus (PCR) 04/27/21 04/27/21 04/28/21 04:00 04:00 06:10 WBC 19.8 H 15.0 H Hgb 11.3 L 11.3 L MCV 81 L 81 L MCH 26 L 25 L MCHC 31 L 31 L RDW 15.5 H 15.7 H Plt Count 84 L 96 L Lymph % (Auto) 11.0 L Leon # (Auto) 1.1 H Seg Neutrophils % 81.6 H Seg Neuts % (Manual) 96.0 H Lymphocytes % (Manual) 3.0 L Seg Neutrophils # 12.3 H Seg Neutrophils # Man 19.0 H Lymphocytes # (Manual) 0.6 L PT D-Dimer Sodium 149 H Potassium 3.3 L Chloride 113.0 H Carbon Dioxide BUN 40 H Creatinine Glucose 196 H Lactic Acid Ferritin Total Bilirubin AST ALT Alkaline Phosphatase Lactate Dehydrogenase Total Creatine Kinase Troponin T C-Reactive Protein Albumin Urine pH Urine WBC (Auto) Coronavirus (PCR) 04/28/21 04/29/21 04/29/21 06:10 04:00 06:49 WBC Hgb MCV 82 L MCH 26 L MCHC RDW 15.3 H Plt Count 122 L Lymph % (Auto) Leon # (Auto) Seg Neutrophils % Seg Neuts % (Manual) 84.0 H Lymphocytes % (Manual) 11.0 L Seg Neutrophils # Seg Neutrophils # Man 8.7 H Lymphocytes # (Manual) 1.1 L PT D-Dimer Sodium Potassium 3.5 L Chloride Carbon Dioxide BUN 34 H 28 H Creatinine 0.7 L Glucose 110 H Lactic Acid Ferritin Total Bilirubin AST ALT Alkaline Phosphatase Lactate Dehydrogenase Total Creatine Kinase Troponin T C-Reactive Protein Albumin Urine pH Urine WBC (Auto) Coronavirus (PCR) 04/30/21 04/30/21 04:00 04:00 WBC Hgb MCV 81 L MCH 26 L MCHC RDW Plt Count Lymph % (Auto) Leon # (Auto) Seg Neutrophils % Seg Neuts % (Manual) 84.0 H Lymphocytes % (Manual) 12.0 L Seg Neutrophils # Seg Neutrophils # Man 8.8 H Lymphocytes # (Manual) PT D-Dimer Sodium Potassium 3.5 L Chloride Carbon Dioxide BUN 21 H Creatinine 0.6 L Glucose 111 H Lactic Acid Ferritin Total Bilirubin AST ALT Alkaline Phosphatase Lactate Dehydrogenase Total Creatine Kinase Troponin T C-Reactive Protein Albumin Urine pH Urine WBC (Auto) Coronavirus (PCR) Additional Studies: NUCLEAR MEDICINE PERFUSION LUNG SCAN 04/26/21 INDICATION / CLINICAL INFORMATION: Shortness of breath. Quadriplegic and positive Covid 19 TECHNIQUE: 5.2 mCi of Tc-99m MAA were given by IV. COMPARISON: Chest radiograph dated . FINDINGS: PERFUSION: No significant perfusion defects. ADDITIONAL FINDINGS: None. IMPRESSION: 1. Low probability for pulmonary embolism. Allied health notes reviewed: nursing
[2021-05-01] MEDS: amLODIPine 10 MG TAB PO SCH ×2 (10:28→10:29)
[2021-05-01] MEDS: HEPARIN 5,000 UNIT/1 ML VIAL SUB-Q SCH ×2 (10:29→21:19)
--- NOTE | 2021-05-01 11:13 | Progress Note ---
Assessment and Plan Cultures: Blood culture 04/23/2021 Proteus vulgaris Blood culture 04/24/2021 no growth A/P: 65-year-old male who is a resident of a long term facility with past medical history GERD, quadriplegia secondary to a spinal injury now with: #Acute sepsis: With fever and leukocytosis on admission, now improving. Secondary to Proteus bacteremia. #Proteus bacteremia: Likely secondary to colitis versus UTI. Resistant to fluoroquinolones #Acute UTI: With sepsis encephalopathy on admission. Unfortunately no urine culture run. #COVID-19: No hypoxia, no need to treat. #JENY: Resolved Recs: -Start ceftriaxone 2 g every 24 hours -Okay to discharge on ceftriaxone until 05/08/2021 -Case management consulted as such -Patient is a resident of SNF, okay to place midline if necessary on discharge -No need for acute Covid treatment Thank you for the consult, we will continue to follow. Yobani Gallo MD [facility] O: [phone] F: [phone] Subjective Date of service: 05/01/21 Interval history: Afebrile, normal white count. Imaging personally reviewed: AXR: gas without evidence of obstruction Objective - Exam Narrative Exam: Physical exam deferred to reduce risk of transmission of COVID-19. Please refer to primary team's note. - Constitutional Vitals: Vital Signs Temp Pulse Resp BP Pulse Ox 97.9 F 110 H 18 137/94 98 04/30/21 13:20 04/30/21 16:55 04/30/21 13:20 04/30/21 13:20 04/30/21 20:08 Temperature -Last 24 Hours Temperature 97.9 F - Labs CBC & Chem 7: 04/30/21 04:00 04/30/21 04:00
[2021-05-01] MEDS: cefTRIAXone/NS 2 GM/100 ML 2 GM/100 ML BAG IV SCH ×2 (12:00)
--- NOTE | 2021-05-01 15:18 | Gastroenterology Progress Note ---
Assessment and Plan # Colon dilation - abnormal CT a/p - CT a/p on 04/23/2021 which showed dilated descending and sigmoid colon along with thickening of sigmoid and rectum. - patient with mildly distended abdomen. - KUB with dilated colon. - suspect this may be chronic with h/o quadruplegia and immobility leading to constipation. rec - will start miralax and dulcolax supp. - repeat imaging tomorrow. - may need outpatient colonoscopy to rule out malignancy once acute issues resolve. Subjective Date of service: 05/01/21 Interval history: No clinical change. Per nursing, patient has not had any BM since 04/26. Patient states "i'm fine". Says no to any symptoms. Objective - Constitutional Vitals: Temp Pulse Resp BP Pulse Ox 97.9 F 110 H 18 137/94 98 04/30/21 13:20 04/30/21 16:55 04/30/21 13:20 04/30/21 13:20 04/30/21 20:08 General appearance: no acute distress - EENT Eyes: EOM intact ENT: hearing intact - Respiratory Respiratory effort: normal - Cardiovascular Rhythm: regular Heart Sounds: Present: S1 & S2 - Gastrointestinal General gastrointestinal: Present: soft, non-tender, distended - Integumentary Integumentary: Present: clear, warm - Psychiatric Psychiatric: appropriate mood/affect - Labs CBC & Chem 7: 04/30/21 04:00 04/30/21 04:00 - Imaging x-ray: report reviewed
--- NOTE | 2021-05-01 16:04 | Progress Note ---
Assessment and Plan 65 YO Male Nursing Home Facility Resident at [facility] with MDD, GERD, HLD, Quadraplegia S/P Spine Injury, Seborrheic Dermatitis, Encephalopathy presents to ED for evaluation. Patient has diminished cognition at the time of my evaluation and is unable to provide history. patient has experienced increased weakness and decreased responsiveness over the past 3 days. Patient was found to be febrile to 103 F. EMS was notified and upon arrival the patient was found to be in distress and subsequent transported to [facility] for further care and evaluation of the aforementioned symptoms. The patient was seen and evaluated in the emergency department. All lab and imaging studies reviewed. The patient was found to have a pulse oximetry of 84% on nonrebreather mask which is consistent with acute hypoxemic respiratory failure. Chest x-ray reveals evidence of pneumonia. Patient also found to have sepsis complicated by shock as well as shock liver, acute kidney injury, metabolic acidosis, toxic metabolic encephalopathy. Patient found to be critically ill and admitted to ICU and initiated on sepsis protocol, pneumonia protocol as well as coronavirus protocol. No further history is obtainable. According to the chart, No history of smoking, alcohol or drug abuse. Patients laguna virus PCR Positive. D dimer 6397. Ferritin 812 LDH 346 CRP 27. Patient awake and weak . Patient appears confused. Patient is on room air. O2 saturation 100%. Patient afebrile. No leukocytosis. Blood pressure 137/94, pulse 110, respirations 18. Chest xray done 04/23/21 reported There are patchy airspace opacities noted in the lung bases. There is mild venous congestion. No pneumothorax. Nuclear medicine perfusion lung scan done 04/26/21 reported low probabilty for pulmonary emboli. Patient is on ceftriaxone and S/C Heparin, albuterol inhaler. Patient was on dexamethasone, cefepime and vancomycin I - Patient Problems (1) Acute respiratory failure with hypoxia Current Visit: Yes Status: Acute Plan to address problem: Improved. Patient resting on room air. O2 saturation 98%. ABGs on room air. (2) Coronavirus infection Current Visit: Yes Status: Acute Plan to address problem: Management as per infectious diseases. Patient was on solumedrol and S/C heparin. (3) 2019 novel coronavirus-infected pneumonia (NCIP) Current Visit: Yes Status: Acute Plan to address problem: Patient presently on ceftriaxone. Antibiotics as per ID. (4) Acute metabolic encephalopathy Current Visit: Yes Status: Acute Plan to address problem: Management as per primary care. Subjective Date of service: 05/01/21 Interval history: 65 YO Male Nursing Home Facility Resident at [facility] with MDD, GERD, HLD, Quadraplegia S/P Spine Injury, Seborrheic Dermatitis, Encephalopathy presents to ED for evaluation. Patient has diminished cognition at the time of my evaluation and is unable to provide history. patient has experienced increased weakness and decreased responsiveness over the past 3 days. Patient was found to be febrile to 103 F. EMS was notified and upon arrival the patient was found to be in distress and subsequent transported to [facility] for further care and evaluation of the aforementioned symptoms. The patient was seen and evaluated in the emergency department. All lab and imaging studies reviewed. The patient was found to have a pulse oximetry of 84% on nonrebreather mask which is consistent with acute hypoxemic respiratory failure. Chest x-ray reveals evidence of pneumonia. Patient also found to have sepsis complicated by shock as well as shock liver, acute kidney injury, metabolic acidosis, toxic metabolic encephalopathy. Patient found to be critically ill and admitted to ICU and initiated on sepsis protocol, pneumonia protocol as well as coronavirus protocol. No further history is obtainable. According to the chart, No history of smoking, alcohol or drug abuse. Patients laguna virus PCR Positive. D dimer 6397. Ferritin 812 LDH 346 CRP 27. Patient awake and weak . Patient appears confused. Patient is on room air. O2 saturation 100%. Patient afebrile. No leukocytosis. Blood pressure 137/94, pulse 110, respirations 18. Chest xray done 04/23/21 reported There are patchy airspace opacities noted in the lung bases. There is mild venous congestion. No pneumothorax. Nuclear medicine perfusion lung scan done 04/26/21 reported low probabilty for pulmonary emboli. Patient is on ceftriaxone and S/C Heparin , albuterol inhaler. Patient was on dexamethasone, cefepime and vancomycin Objective Constitutional: no acute distress, alert, other (chronically ill looking. Appears confused.) Eyes: non-icteric ENT: oropharynx dry Neck: supple, no lymphadenopathy, no JVD Effort: mildly labored Ascultation: Bilateral: diminished breath sounds Cardiovascular: regular rate and rhythm, other (S1,S2) Gastrointestinal: normoactive bowel sounds, soft, non-tender, non-distended Integumentary: normal Extremities: no cyanosis, no edema, other (bilateral hand splints) Neurologic: normal mental status, non-focal exam, pupils equal and round, other (bilateral lower extemity and upper extremity weakness) Psychiatric: mood appropriate, depressed CBC and BMP: 04/30/21 04:00 04/30/21 04:00 ABG, PT/INR, D-dimer: PT/INR, D-dimer PT 15.6 Sec. (12.2-14.9) H 04/23/21 15:58 INR 1.12 (0.87-1.13) 04/23/21 15:58 D-Dimer 6397.32 ng/mlDDU (0-234) H 04/23/21 17:30 Abnormal lab findings: Abnormal Labs 04/23/21 04/23/21 04/23/21 15:58 15:58 15:58 WBC 17.9 H Hgb MCV 81 L MCH 26 L MCHC RDW 15.5 H Plt Count 96 L Lymph % (Auto) [place] # (Auto) Seg Neutrophils % Seg Neuts % (Manual) 88.0 H Lymphocytes % (Manual) 2.0 L Seg Neutrophils # Seg Neutrophils # Man 15.8 H Lymphocytes # (Manual) 0.4 L PT 15.6 H D-Dimer Sodium Potassium Chloride Carbon Dioxide BUN Creatinine Glucose Lactic Acid 2.50 H* Ferritin Total Bilirubin AST ALT Alkaline Phosphatase Lactate Dehydrogenase Total Creatine Kinase Troponin T C-Reactive Protein Albumin Urine pH Urine WBC (Auto) Coronavirus (PCR) 04/23/21 04/23/21 04/23/21 15:58 17:30 17:30 WBC Hgb MCV MCH MCHC RDW Plt Count Lymph % (Auto) [place] # (Auto) Seg Neutrophils % Seg Neuts % (Manual) Lymphocytes % (Manual) Seg Neutrophils # Seg Neutrophils # Man Lymphocytes # (Manual) PT D-Dimer 6397.32 H Sodium Potassium 3.4 L Chloride Carbon Dioxide BUN 38 H Creatinine 2.8 H Glucose 117 H 116 H Lactic Acid Ferritin Total Bilirubin 3.10 H AST 340 H ALT 360 H Alkaline Phosphatase 345 H Lactate Dehydrogenase 346 H Total Creatine Kinase 1763 H Troponin T 0.124 H* C-Reactive Protein 27.00 H Albumin 3.4 L Urine pH Urine WBC (Auto) Coronavirus (PCR) 04/23/21 04/23/21 04/24/21 17:30 Unknown 04:48 WBC 19.7 H Hgb 10.9 L MCV 81 L MCH 25 L MCHC 31 L RDW 15.9 H Plt Count 93 L Lymph % (Auto) [place] # (Auto) Seg Neutrophils % Seg Neuts % (Manual) 99.0 H Lymphocytes % (Manual) 1.0 L Seg Neutrophils # Seg Neutrophils # Man 19.5 H Lymphocytes # (Manual) 0.2 L PT D-Dimer Sodium Potassium Chloride Carbon Dioxide BUN Creatinine Glucose Lactic Acid Ferritin 812.8 H Total Bilirubin AST ALT Alkaline Phosphatase Lactate Dehydrogenase Total Creatine Kinase Troponin T C-Reactive Protein Albumin Urine pH 8.0 H Urine WBC (Auto) > 182.0 H Coronavirus (PCR) 04/24/21 04/24/21 04/25/21 04:48 07:54 08:50 WBC 15.7 H Hgb 11.4 L MCV 81 L MCH 25 L MCHC 31 L RDW 15.9 H Plt Count 106 L Lymph % (Auto) [place] # (Auto) Seg Neutrophils % Seg Neuts % (Manual) 93.0 H Lymphocytes % (Manual) 6.0 L Seg Neutrophils # Seg Neutrophils # Man 14.6 H Lymphocytes # (Manual) 0.9 L PT D-Dimer Sodium 148 H Potassium 3.3 L Chloride 109.7 H Carbon Dioxide 19 L BUN 45 H Creatinine 3.0 H Glucose 123 H Lactic Acid Ferritin Total Bilirubin 2.70 H AST 171 H ALT 233 H Alkaline Phosphatase 294 H Lactate Dehydrogenase Total Creatine Kinase Troponin T C-Reactive Protein Albumin 3.4 L Urine pH Urine WBC (Auto) Coronavirus (PCR) Positive A 04/25/21 04/26/21 04/26/21 08:50 05:15 05:15 WBC 16.8 H Hgb MCV 82 L MCH 25 L MCHC 31 L RDW 15.5 H Plt Count 110 L Lymph % (Auto) [place] # (Auto) Seg Neutrophils % Seg Neuts % (Manual) 96.0 H Lymphocytes % (Manual) 2.0 L Seg Neutrophils # Seg Neutrophils # Man 16.1 H Lymphocytes # (Manual) 0.3 L PT D-Dimer Sodium 153 H 151 H Potassium 3.4 L 3.5 L Chloride 115.3 H 114.7 H Carbon Dioxide 20 L BUN 57 H 55 H Creatinine 1.8 H 1.4 H Glucose 160 H 169 H Lactic Acid Ferritin Total Bilirubin AST ALT Alkaline Phosphatase Lactate Dehydrogenase Total Creatine Kinase Troponin T C-Reactive Protein Albumin Urine pH Urine WBC (Auto) Coronavirus (PCR) 04/27/21 04/27/21 04/28/21 04:00 04:00 06:10 WBC 19.8 H 15.0 H Hgb 11.3 L 11.3 L MCV 81 L 81 L MCH 26 L 25 L MCHC 31 L 31 L RDW 15.5 H 15.7 H Plt Count 84 L 96 L Lymph % (Auto) 11.0 L Ste[place]s # (Auto) 1.1 H Seg Neutrophils % 81.6 H Seg Neuts % (Manual) 96.0 H Lymphocytes % (Manual) 3.0 L Seg Neutrophils # 12.3 H Seg Neutrophils # Man 19.0 H Lymphocytes # (Manual) 0.6 L PT D-Dimer Sodium 149 H Potassium 3.3 L Chloride 113.0 H Carbon Dioxide BUN 40 H Creatinine Glucose 196 H Lactic Acid Ferritin Total Bilirubin AST ALT Alkaline Phosphatase Lactate Dehydrogenase Total Creatine Kinase Troponin T C-Reactive Protein Albumin Urine pH Urine WBC (Auto) Coronavirus (PCR) 04/28/21 04/29/21 04/29/21 06:10 04:00 06:49 WBC Hgb MCV 82 L MCH 26 L MCHC RDW 15.3 H Plt Count 122 L Lymph % (Auto) [place] # (Auto) Seg Neutrophils % Seg Neuts % (Manual) 84.0 H Lymphocytes % (Manual) 11.0 L Seg Neutrophils # Seg Neutrophils # Man 8.7 H Lymphocytes # (Manual) 1.1 L PT D-Dimer Sodium Potassium 3.5 L Chloride Carbon Dioxide BUN 34 H 28 H Creatinine 0.7 L Glucose 110 H Lactic Acid Ferritin Total Bilirubin AST ALT Alkaline Phosphatase Lactate Dehydrogenase Total Creatine Kinase Troponin T C-Reactive Protein Albumin Urine pH Urine WBC (Auto) Coronavirus (PCR) 04/30/21 04/30/21 04:00 04:00 WBC Hgb MCV 81 L MCH 26 L MCHC RDW Plt Count Lymph % (Auto) [place] # (Auto) Seg Neutrophils % Seg Neuts % (Manual) 84.0 H Lymphocytes % (Manual) 12.0 L Seg Neutrophils # Seg Neutrophils # Man 8.8 H Lymphocytes # (Manual) PT D-Dimer Sodium Potassium 3.5 L Chloride Carbon Dioxide BUN 21 H Creatinine 0.6 L Glucose 111 H Lactic Acid Ferritin Total Bilirubin AST ALT Alkaline Phosphatase Lactate Dehydrogenase Total Creatine Kinase Troponin T C-Reactive Protein Albumin Urine pH Urine WBC (Auto) Coronavirus (PCR) Allied health notes reviewed: nursing
[2021-05-01] MEDS: POLYETHYLENE GLYCOL 3350 17 GM POWDER PO SCH ×2 (17:32→21:19)
--- NOTE | 2021-05-01 19:12 | Progress Note ---
Assessment and Plan Assessment and plan: 65-year-old male who is a resident of a senior living facility with past medical history GERD, quadriplegia secondary to a spinal injury now with: #Septic shock-resolved #Proteus bacteremia -s/p pressors -Blood cultures 04/23 07/08 proteus vulgaris ; repeat 04/24 no growth to date -discontinue cefepime, started rocephin until 05/08/2021 -will need midline prior to discharge -MRSA PCR pending -ID consulted, assistance appreciated -Etiology UTI versus colitis, urine cultures not sent. #Acute kidney injury-resolved -Creatinine 0.6 -Nephrology following, assistance appreciated -Likely secondary to vasomotor nephropathy from hypotension #Acute metabolic encephalopathy -Resolved, likely secondary to shock #Healthcare associated pneumonia #COVID-19 pneumonia -CT chest showed prominence bilaterally with atelectasis -Patient is from shelter -Treated empirically with Vanco and cefepime, vancomycin and cefepime discontinued -COVID PCR positive 04/24 #Elevated liver enzymes -Secondary to shock #Elevated D-dimer -VQ scan low probability for PE -Likely elevated secondary to COVID-19 infection #Hypokalemia -will replete and monitor Colonic distention Significant distention of descending and described: Up to 10 cm with significant thickening of buttocks and rectum on CT, no previous studies to compare Given history of quadriplegia, this could be chronic RN reports patient bleeding Check strep, started on bowel regimen on 05/01, having somebody pursue #Quadriplegia s/p spinal injury -Bedbound and resident of [facility] Discussed with the patient, RN and GI. Disposition: Most likely, patient to be discharged back to his shelter and will complete the course of Rocephin History Interval history: According to RN, patient is eating poorly, only some boost and applesauce. Abdomen appears to be more firm. started on a bowel regimen today. Had a liquid BM around the 11 AM. No vomiting. Hemodynamic stable. No fever. Good urine output via condom cath. Colonic distention no better/slightly worse on KUB. Hospitalist Physical - Constitutional Vitals: Temp Pulse Resp BP Pulse Ox 97.9 F 110 H 18 137/94 98 04/30/21 13:20 04/30/21 16:55 04/30/21 13:20 04/30/21 13:20 04/30/21 20:08 General appearance: Present: no acute distress, other (Quadriplegic, alert and answers questions well.) - EENT Eyes: Present: PERRL, EOM intact ENT: hearing intact, other (Moist oral mucosa) - Neck Neck: Present: supple - Respiratory Respiratory effort: normal Respiratory: bilateral: diminished - Cardiovascular Rhythm: regular - Extremities Extremity abnormal: edema - Abdominal General gastrointestinal: soft, distended, normal bowel sounds, other (firm) - Integumentary Integumentary: Absent: rash - Psychiatric Psychiatric: appropriate mood/affect - Neurologic Neurologic: other (Alert and fairly oriented. Answers questions appropriately. Quadriplegic.) HEART Score - HEART Score Troponin: Troponin T 0.124 ng/mL (0.00-0.029) H* 04/23/21 15:58 Results - Labs CBC & Chem 7: 04/30/21 04:00 04/30/21 04:00 Labs: Laboratory Last Values WBC 10.5 K/mm3 (4.5-11.0) 04/30/21 04:00 RBC 4.71 M/mm3 (3.65-5.03) 04/30/21 04:00 Hgb 12.0 gm/dl (11.8-15.2) 04/30/21 04:00 Hct 38.0 % (35.5-45.6) 04/30/21 04:00 MCV 81 fl (84-94) L 04/30/21 04:00 MCH 26 pg (28-32) L 04/30/21 04:00 MCHC 32 % (32-34) 04/30/21 04:00 RDW 15.1 % (13.2-15.2) 04/30/21 04:00 Plt Count 166 K/mm3 (140-440) 04/30/21 04:00 Lymph % (Auto) 11.0 % (13.4-35.0) L 04/28/21 06:10 [place] % (Auto) 7.3 % (0.0-7.3) 04/28/21 06:10 Eos % (Auto) 0.0 % (0.0-4.3) 04/28/21 06:10 Baso % (Auto) 0.1 % (0.0-1.8) 04/28/21 06:10 Lymph # (Auto) 1.6 K/mm3 (1.2-5.4) 04/28/21 06:10 [place] # (Auto) 1.1 K/mm3 (0.0-0.8) H 04/28/21 06:10 Eos # (Auto) 0.0 K/mm3 (0.0-0.4) 04/28/21 06:10 Baso # (Auto) 0.0 K/mm3 (0.0-0.1) 04/28/21 06:10 Add Manual Diff Complete 04/30/21 04:00 Total Counted 100 04/30/21 04:00 Seg Neutrophils % 81.6 % (40.0-70.0) H 04/28/21 06:10 Seg Neuts % (Manual) 84.0 % (40.0-70.0) H 04/30/21 04:00 Band Neutrophils % 0 % 04/30/21 04:00 Lymphocytes % (Manual) 12.0 % (13.4-35.0) L 04/30/21 04:00 Reactive Lymphs % (Man) 0 % 04/30/21 04:00 Monocytes % (Manual) 4.0 % (0.0-7.3) 04/30/21 04:00 Eosinophils % (Manual) 0 % (0.0-4.3) 04/30/21 04:00 Basophils % (Manual) 0 % (0.0-1.8) 04/30/21 04:00 Metamyelocytes % 0 % 04/30/21 04:00 Myelocytes % 0 % 04/30/21 04:00 Promyelocytes % 0 % 04/30/21 04:00 Blast Cells % 0 % 04/30/21 04:00 Nucleated RBC % Not Reportable 04/30/21 04:00 Seg Neutrophils # 12.3 K/mm3 (1.8-7.7) H 04/28/21 06:10 Seg Neutrophils # Man 8.8 K/mm3 (1.8-7.7) H 04/30/21 04:00 Band Neutrophils # 0.0 K/mm3 04/30/21 04:00 Lymphocytes # (Manual) 1.3 K/mm3 (1.2-5.4) 04/30/21 04:00 Abs React Lymphs (Man) 0.0 K/mm3 04/30/21 04:00 Monocytes # (Manual) 0.4 K/mm3 (0.0-0.8) 04/30/21 04:00 Eosinophils # (Manual) 0.0 K/mm3 (0.0-0.4) 04/30/21 04:00 Basophils # (Manual) 0.0 K/mm3 (0.0-0.1) 04/30/21 04:00 Metamyelocytes # 0.0 K/mm3 04/30/21 04:00 Myelocytes # 0.0 K/mm3 04/30/21 04:00 Promyelocytes # 0.0 K/mm3 04/30/21 04:00 Blast Cells # 0.0 K/mm3 04/30/21 04:00 WBC Morphology Not Reportable 04/30/21 04:00 Hypersegmented Neuts Not Reportable 04/30/21 04:00 Hyposegmented Neuts Not Reportable 04/30/21 04:00 Hypogranular Neuts Not Reportable 04/30/21 04:00 Smudge Cells Not Reportable 04/30/21 04:00 Toxic Granulation Not Reportable 04/30/21 04:00 Toxic Vacuolation Not Reportable 04/30/21 04:00 Dohle Bodies Not Reportable 04/30/21 04:00 Pelger-Huet Anomaly Not Reportable 04/30/21 04:00 Perry Rods Not Reportable 04/30/21 04:00 Platelet Estimate Consistent w auto 04/30/21 04:00 Clumped Platelets Not Reportable 04/30/21 04:00 Plt Clumps, EDTA Not Reportable 04/30/21 04:00 Large Platelets Not Reportable 04/30/21 04:00 Giant Platelets Not Reportable 04/30/21 04:00 Platelet Satelliting Not Reportable 04/30/21 04:00 Plt Morphology Comment Not Reportable 04/30/21 04:00 RBC Morphology Not Reportable 04/30/21 04:00 Dimorphic RBCs Not Reportable 04/30/21 04:00 Polychromasia Not Reportable 04/30/21 04:00 Hypochromasia 1+ 04/30/21 04:00 Poikilocytosis Not Reportable 04/30/21 04:00 Anisocytosis Not Reportable 04/30/21 04:00 Microcytosis Not Reportable 04/30/21 04:00 Macrocytosis Not Reportable 04/30/21 04:00 Spherocytes Not Reportable 04/30/21 04:00 Pappenheimer Bodies Not Reportable 04/30/21 04:00 Sickle Cells Not Reportable 04/30/21 04:00 Target Cells Not Reportable 04/30/21 04:00 Tear Drop Cells Not Reportable 04/30/21 04:00 Ovalocytes Not Reportable 04/30/21 04:00 Helmet Cells Not Reportable 04/30/21 04:00 [place] Bodies Not Reportable 04/30/21 04:00 [place] Rings Not Reportable 04/30/21 04:00 [place] Cells Not Reportable 04/30/21 04:00 Bite Cells Not Reportable 04/30/21 04:00 Crenated Cell Not Reportable 04/30/21 04:00 Elliptocytes Not Reportable 04/30/21 04:00 Acanthocytes (Spur) Not Reportable 04/30/21 04:00 Rouleaux Not Reportable 04/30/21 04:00 Hemoglobin C Crystals Not Reportable 04/30/21 04:00 Schistocytes Not Reportable 04/30/21 04:00 Malaria parasites Not Reportable 04/30/21 04:00 Joshua Bodies Not Reportable 04/30/21 04:00 Hem Pathologist Commnt No 04/30/21 04:00 PT 15.6 Sec. (12.2-14.9) H 04/23/21 15:58 INR 1.12 (0.87-1.13) 04/23/21 15:58 APTT 35.0 Sec. (24.2-36.6) 04/23/21 15:58 D-Dimer 6397.32 ng/mlDDU (0-234) H 04/23/21 17:30 Sodium 140 mmol/L (137-145) 04/30/21 04:00 Potassium 3.5 mmol/L (3.6-5.0) L 04/30/21 04:00 Chloride 103.5 mmol/L (98-107) 04/30/21 04:00 Carbon Dioxide 26 mmol/L (22-30) 04/30/21 04:00 Anion Gap 14 mmol/L 04/30/21 04:00 BUN 21 mg/dL (9-20) H 04/30/21 04:00 Creatinine 0.6 mg/dL (0.8-1.3) L 04/30/21 04:00 Estimated GFR > 60 ml/min 04/30/21 04:00 BUN/Creatinine Ratio 35 % 04/30/21 04:00 Glucose 111 mg/dL (75-100) H 04/30/21 04:00 Lactic Acid 1.20 mmol/L (0.7-2.0) 04/24/21 01:01 Calcium 9.1 mg/dL (8.4-10.2) 04/30/21 04:00 Ferritin 812.8 ng/mL (30.0-300.0) H 04/23/21 17:30 Total Bilirubin 2.70 mg/dL (0.1-1.2) H 04/24/21 04:48 AST 171 units/L (5-40) H 04/24/21 04:48 ALT 233 units/L (7-56) H 04/24/21 04:48 Alkaline Phosphatase 294 units/L (35-129) H 04/24/21 04:48 Ammonia 26.0 umol/L (25-60) 04/23/21 15:58 Lactate Dehydrogenase 346 units/L (91-180) H 04/23/21 17:30 Total Creatine Kinase 1763 units/L (55-170) H 04/23/21 15:58 Troponin T 0.124 ng/mL (0.00-0.029) H* 04/23/21 15:58 C-Reactive Protein 27.00 mg/dL (0.00-1.30) H 04/23/21 17:30 Total Protein 6.6 g/dL (6.3-8.2) 04/24/21 04:48 Albumin 3.4 g/dL (3.9-5) L 04/24/21 04:48 Albumin/Globulin Ratio 1.1 % 04/24/21 04:48 Procalcitonin > 200.00 ng/mL (<0.15) 04/23/21 17:37 Urine Color Jacque (Yellow) 04/23/21 Unknown Urine Turbidity Cloudy (Clear) 04/23/21 Unknown Urine pH 8.0 (5.0-7.0) H 04/23/21 Unknown Ur Specific [place] 1.012 (1.003-1.030) 04/23/21 Unknown Urine Protein >500 mg/dL (Negative) 04/23/21 Unknown Urine Glucose (UA) Neg mg/dL (Negative) 04/23/21 Unknown Urine Ketones Neg mg/dL (Negative) 04/23/21 Unknown Urine Blood Lg (Negative) 04/23/21 Unknown Urine Nitrite Neg (Negative) 04/23/21 Unknown Urine Bilirubin Neg (Negative) 04/23/21 Unknown Urine Urobilinogen < 2.0 mg/dL (<2.0) 04/23/21 Unknown Ur Leukocyte Esterase Lg (Negative) 04/23/21 Unknown Urine WBC (Auto) > 182.0 /HPF (0.0-6.0) H 04/23/21 Unknown Urine RBC (Auto) 93.0 /HPF (0.0-6.0) 04/23/21 Unknown U Epithel Cells (Auto) 4.0 /HPF (0-13.0) 04/23/21 Unknown Urine Bacteria (Auto) 2+ /HPF (Negative) 04/23/21 Unknown Urine Mucus Few /HPF 04/23/21 Unknown Nasal Screen MRSA (PCR) Positive (Negative) 04/27/21 07:38 Random Vancomycin 4.2 ug/mL (0-40.0) 04/25/21 08:50 Coronavirus (PCR) Positive (Negative) A 04/24/21 07:54 SARS-CoV-2 (PCR) Cancelled 04/24/21 07:54 Bobby/IV: Voiding Method Condom Catheter Active Medications - Current Medications Current Medications: Generic Name Dose Route Start Last Admin Trade Name Freq PRN Reason Stop Dose Admin Acetaminophen 650 mg 04/23/21 17:18 Acetaminophen 325 Mg Tab PO Q6H PRN Pain, Mild (1-3) Albuterol 2.5 mg 04/23/21 17:18 Albuterol 2.5 Mg/3 Ml Nebu IH Q3HRT PRN Shortness Of Breath Amlodipine Besylate 10 mg 04/26/21 10:00 05/01/21 10:29 Amlodipine 10 Mg Tab PO 10 mg QDAY CARROL Administration Bisacodyl 10 mg 05/01/21 16:00 05/01/21 17:32 Bisacodyl 10 Mg Rect Supp MT 10 mg QDAY CARROL Administration Heparin Sodium (Porcine) 5,000 unit 04/23/21 22:00 05/01/21 10:29 Heparin 5,000 Unit/1 Ml Vial SUB-Q 5,000 unit Q12HR CARROL Administration Hydralazine HCl 10 mg 04/25/21 19:36 04/27/21 23:05 Hydralazine 20 Mg/1 Ml Inj IV 10 mg Q4HR PRN Administration Blood Pressure Ceftriaxone Sodium 2 gm in 100 mls @ 200 mls/hr 04/29/21 12:00 05/01/21 12:00 Rocephin/Ns 2 Gm/100 Ml IV 05/08/21 12:29 200 mls/hr Q24H CARROL Administration Protocol Polyethylene Glycol 17 gm 05/01/21 16:00 05/01/21 17:32 Polyethylene Glycol 3350 17 Gm Powder PO 17 gm BID CARROL Administration Sodium Chloride 10 ml 04/23/21 22:00 05/01/21 10:31 Sodium Chloride 0.9% 10 Ml Flush Syringe IV 10 ml BID CARROL Administration Sodium Chloride 10 ml 04/29/21 14:06 Sodium Chloride 0.9% 50 Ml Ivpb IV PRN PRN INT Nutrition/Malnutrition Assess - Dietary Evaluation Nutrition/Malnutrition Findings: Nutrition Notes Start: 04/30/21 16:39 Freq: Status: Active Protocol: Document 04/30/21 16:39 CATIE (Rec: 04/30/21 16:55 CATIE [id number]) Nutrition Notes Current Diagnosis Sepsis Other Pertinent Diagnosis COVID-19, Colon dilation, Proteus bacteremia, UTI, Current Diet Regular Diet (since L 04/25). Labs/Tests 04/30: K 3.5, BUN 21, Crea 0.6 , Glu 111. Pertinent Medications 04/30: Nutritionally unremarkable. 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 Pt's PO intake of meals has been Neglible (0-25%), according to ADL notes. Pt is quadriplegic. Percent of energy/protein needs met: Prescribed Regular Diet provides for energy/protein needs (2,289 Kcal/89 g) during LOS; additionally, Dietary Supplements will compensate for possible poor or insufficient PO intake of meals with 1,050 Kcal and 60 g of protein. Burn Absent Trauma Absent GI Symptoms None Food Allergy No Skin Integrity/Comment Unspecified area of concern. Current % PO Negligible Minimum of two criteria No #1 Nutrition Diagnosis Inadequate protein-energy intake Etiology Uncertain at the time As Evidenced by Signs and Symptoms Neglible PO intake of meals, according to ADL notes. Is patient on ventilator? No Is Patient Ambulatory and/or Out of Bed No REE-([facility]-confined to bed) 7038.228 Calculation Used for Recommendations 70-80% of EEN Additional Notes 15-20 Kcal/Kg ABW (4213-0917 Kcal). Protein: 1.2-2 g/Kg; 83-138 g/ day. Fluids: 1 ml/Kcal, or as per MD. Nutrition Intervention Change Diet Order: Continue Regular Diet. Add Supplement/Snack (indicate name/kcal 8 fl oz Ensure Enlive; TID. /protein ) Provides kCal: 1,050 Provides Protein (gm) 60 Goal #1 Compensate, through dietary supplementation, for possible poor or insufficient PO intake of meals during LOS. Follow-Up By: 05/07/21 Additional Comments Continue monitoring food tolerance, %PO intake of meals , and BM.
[2021-05-02 06:29] LABS: Basophils # (Auto) 0.1 K/mm3 (0.0-0.1); Basophils % (Auto) 0.6 % (0.0-1.8); Eosinophils % (Auto) 0.3 % (0.0-4.3); Hematocrit 33.7 % (35.5-45.6); Hemoglobin 10.7 gm/dl (11.8-15.2); Lymphocytes # (Auto) 1.9 K/mm3 (1.2-5.4); Lymphocytes % (Auto) 16.7 % (13.4-35.0); Mean Corpuscular HGB Conc 32 % (32-34); Mean Corpuscular Volume 80 fl (84-94); Monocytes % (Auto) 8.6 % (0.0-7.3); Platelet Count 269 K/mm3 (140-440); Red Blood Count 4.19 M/mm3 (3.65-5.03)
[2021-05-02 06:44] LABS: Alanine Aminotransferase 32 units/L (7-56); Albumin 3.3 g/dL (3.9-5); Blood Urea Nitrogen 18 mg/dL (9-20); Calcium 8.9 mg/dL (8.4-10.2); Hemolysis Index 2
[2021-05-02 06:46] LABS: BUN/Creatinine Ratio 30
[2021-05-02] MEDS ORDERED: POTASSIUM CHLORIDE ER 20 MEQ TAB PO SCH (10:00)
[2021-05-02] MEDS: amLODIPine 10 MG TAB PO SCH (10:36)
[2021-05-02] MEDS: POLYETHYLENE GLYCOL 3350 17 GM POWDER PO SCH ×3 (10:37→21:08)
[2021-05-02] MEDS: HEPARIN 5,000 UNIT/1 ML VIAL SUB-Q SCH ×2 (10:37→21:08)
[2021-05-02] MEDS: POTASSIUM CHLORIDE 10 MEQ 10 MEQ/100 ML BAG IV SCH ×4 (11:00→15:10)
--- NOTE | 2021-05-02 11:19 | Progress Note ---
Assessment and Plan Cultures: Blood culture 04/23/2021 Proteus vulgaris Blood culture 04/24/2021 no growth A/P: 65-year-old male who is a resident of a long term facility with past medical history GERD, quadriplegia secondary to a spinal injury now with: #Acute sepsis: With fever and leukocytosis on admission, now improving. Secondary to Proteus bacteremia. #Proteus bacteremia: Likely secondary to colitis versus UTI. Resistant to fluoroquinolones #Acute UTI: With sepsis encephalopathy on admission. Unfortunately no urine culture run. #COVID-19: No hypoxia, no need to treat. #JENY: Resolved Recs: -Start ceftriaxone 2 g every 24 hours -Okay to discharge on ceftriaxone until 05/08/2021 -Case management consulted as such -Patient is a resident of [facility], okay to place midline if necessary on discharge -No need for acute Covid treatment Thank you for the consult, we will continue to follow. Yobani Gallo MD [facility] O: [phone] F: [phone] Subjective Date of service: 05/02/21 Interval history: Afebrile, white count slightly elevated today. No other acute change. Objective - Exam Narrative Exam: Physical exam deferred to reduce risk of transmission of COVID-19. Please refer to primary team's note. - Constitutional Vitals: Vital Signs Temp Pulse Resp BP Pulse Ox 98.3 F 101 H 20 136/68 97 05/02/21 10:29 05/02/21 10:29 05/02/21 10:29 05/02/21 10:36 05/02/21 10:29 Temperature -Last 24 Hours Temperature 98.3 F Temperature 97.8 F - Labs CBC & Chem 7: 05/02/21 05:45 05/02/21 05:45 Labs: Abnormal lab results 05/02/21 05/02/21 Range/Units 05:45 05:45 WBC 11.6 H (4.5-11.0) K/mm3 Hgb 10.7 L (11.8-15.2) gm/dl Hct 33.7 L (35.5-45.6) % MCV 80 L (84-94) fl MCH 26 L (28-32) pg Gray % (Auto) 8.6 H (0.0-7.3) % Gray # (Auto) 1.0 H (0.0-0.8) K/mm3 Seg Neutrophils % 73.8 H (40.0-70.0) % Seg Neutrophils # 8.5 H (1.8-7.7) K/mm3 Potassium 3.0 L (3.6-5.0) mmol/L Creatinine 0.6 L (0.8-1.3) mg/dL Alkaline Phosphatase 164 H (35-129) units/L Albumin 3.3 L (3.9-5) g/dL
[2021-05-02] MEDS ORDERED: MAGNESIUM SULFATE 4 GM/100 ML BAG IV ONE (12:00)
--- NOTE | 2021-05-02 12:04 | XRay Report ---
ABDOMEN 1 VIEW(S) INDICATION / CLINICAL INFORMATION: Abdominal distention. COMPARISON: None available. FINDINGS: TUBES / LINES: None. BOWEL GAS PATTERN: Moderate gaseous distention of small and large bowel loops throughout the abdomen is unchanged. There is decreased fecal matter in the distal colon. FREE AIR / EXTRALUMINAL GAS: None seen. ADDITIONAL FINDINGS: No significant additional findings. IMPRESSION: There is decreased fecal matter in the distal colon, otherwise no overwhelming change. These findings may represent an ileus. Signer Name: Kirby Gates Jr, MD Signed: 05/02/2021 11:59 AM Workstation Name: [id number]
--- NOTE | 2021-05-02 12:53 | Progress Note ---
Assessment and Plan Septic shock COVID positive Acute kidney injury Acute metabolic encephalopathy Acute respiratory failure with hypoxia (resolved) HCAP (healthcare-associated pneumonia) Hypernatremia Transaminitis - get bilateral lower extremity dopplers re: COVID infection and leg swelling - continue care as below otherwise; - prn supplemental oxygen to keep O2 sats > 90% - prm bronchodilators (ALPESH & LABA) with pulm hygiene per RT - continue rocephin; de-escalate per ID recommendations - continue to avoid nephrotoxins, renally dose all medications - continue mobility protocols to prevent pressure ulcers - PT/OT as tolerated - Wound care per RN/WCT- prn analgesia per pain score - continue accuchecks with glycemic control per SSI for target blood glucose < 180 mg/dL - Tobacco abstinence counseling at the bedside - home oxygen evaluation at discharge - GI & VTE prophylaxis - Flu & pneumovax per protocol - follow repeat COVID tests results - zinc and vitamin C supplementation - Continue contact and airborne isolation - continue other care per attending / other consultants ... re-evaluate in am & prn Subjective Date of service: 05/02/21 Principal diagnosis: Septic shock; COVID positive; JENY; AMS; AHRF; HCAP; Transaminitis Interval history: Patient is seen today for: Septic shock; COVID positive; JENY; AMS; AHRF; HCAP; Transaminitis Seen and examined at bedside; 24hour events reviewed; nursing and respiratory care staff consulted; no adverse overnight events reported to me; resting in bed; denies acute chest pain; denies N/V/F/C Objective Vital Signs - 12hr 05/02/21 05/02/21 05/02/21 06:36 07:24 10:29 Temperature 97.8 F 98.3 F Pulse Rate 92 H 101 H Respiratory 20 20 Rate Blood Pressure 153/99 134/74 O2 Sat by Pulse 99 96 97 Oximetry 05/02/21 10:36 Temperature Pulse Rate Respiratory Rate Blood Pressure 136/68 O2 Sat by Pulse Oximetry Constitutional: no acute distress, alert, other (chronically ill looking male with normal respiratory effort at rest) Eyes: non-icteric ENT: oropharynx dry Neck: supple, no lymphadenopathy, no JVD Effort: mildly labored Ascultation: Bilateral: clear, diminished breath sounds Percussion: Bilateral: not dull Cardiovascular: regular rate and rhythm, other (S1,S2) Gastrointestinal: normoactive bowel sounds, soft, non-tender, non-distended Integumentary: normal Extremities: no cyanosis, no edema, other (bilateral hand splints) Neurologic: normal mental status, non-focal exam, pupils equal and round, other (bilateral lower extemity and upper extremity weakness) Psychiatric: mood appropriate, affect normal CBC and BMP: 05/02/21 05:45 05/02/21 05:45 ABG, PT/INR, D-dimer: PT/INR, D-dimer PT 15.6 Sec. (12.2-14.9) H 04/23/21 15:58 INR 1.12 (0.87-1.13) 04/23/21 15:58 D-Dimer 6397.32 ng/mlDDU (0-234) H 04/23/21 17:30 Abnormal lab findings: Abnormal Labs 04/23/21 04/23/21 04/23/21 15:58 15:58 15:58 WBC 17.9 H Hgb Hct MCV 81 L MCH 26 L MCHC RDW 15.5 H Plt Count 96 L Lymph % (Auto) [place] % (Auto) [place] # (Auto) Seg Neutrophils % Seg Neuts % (Manual) 88.0 H Lymphocytes % (Manual) 2.0 L Seg Neutrophils # Seg Neutrophils # Man 15.8 H Lymphocytes # (Manual) 0.4 L PT 15.6 H D-Dimer Sodium Potassium Chloride Carbon Dioxide BUN Creatinine Glucose Lactic Acid 2.50 H* Ferritin Total Bilirubin AST ALT Alkaline Phosphatase Lactate Dehydrogenase Total Creatine Kinase Troponin T C-Reactive Protein Albumin Urine pH Urine WBC (Auto) Coronavirus (PCR) 04/23/21 04/23/21 04/23/21 15:58 17:30 17:30 WBC Hgb Hct MCV MCH MCHC RDW Plt Count Lymph % (Auto) [place] % (Auto) [place] # (Auto) Seg Neutrophils % Seg Neuts % (Manual) Lymphocytes % (Manual) Seg Neutrophils # Seg Neutrophils # Man Lymphocytes # (Manual) PT D-Dimer 6397.32 H Sodium Potassium 3.4 L Chloride Carbon Dioxide BUN 38 H Creatinine 2.8 H Glucose 117 H 116 H Lactic Acid Ferritin Total Bilirubin 3.10 H AST 340 H ALT 360 H Alkaline Phosphatase 345 H Lactate Dehydrogenase 346 H Total Creatine Kinase 1763 H Troponin T 0.124 H* C-Reactive Protein 27.00 H Albumin 3.4 L Urine pH Urine WBC (Auto) Coronavirus (PCR) 04/23/21 04/23/21 04/24/21 17:30 Unknown 04:48 WBC 19.7 H Hgb 10.9 L Hct MCV 81 L MCH 25 L MCHC 31 L RDW 15.9 H Plt Count 93 L Lymph % (Auto) [place] % (Auto) [place] # (Auto) Seg Neutrophils % Seg Neuts % (Manual) 99.0 H Lymphocytes % (Manual) 1.0 L Seg Neutrophils # Seg Neutrophils # Man 19.5 H Lymphocytes # (Manual) 0.2 L PT D-Dimer Sodium Potassium Chloride Carbon Dioxide BUN Creatinine Glucose Lactic Acid Ferritin 812.8 H Total Bilirubin AST ALT Alkaline Phosphatase Lactate Dehydrogenase Total Creatine Kinase Troponin T C-Reactive Protein Albumin Urine pH 8.0 H Urine WBC (Auto) > 182.0 H Coronavirus (PCR) 04/24/21 04/24/21 04/25/21 04:48 07:54 08:50 WBC 15.7 H Hgb 11.4 L Hct MCV 81 L MCH 25 L MCHC 31 L RDW 15.9 H Plt Count 106 L Lymph % (Auto) [place] % (Auto) [place] # (Auto) Seg Neutrophils % Seg Neuts % (Manual) 93.0 H Lymphocytes % (Manual) 6.0 L Seg Neutrophils # Seg Neutrophils # Man 14.6 H Lymphocytes # (Manual) 0.9 L PT D-Dimer Sodium 148 H Potassium 3.3 L Chloride 109.7 H Carbon Dioxide 19 L BUN 45 H Creatinine 3.0 H Glucose 123 H Lactic Acid Ferritin Total Bilirubin 2.70 H AST 171 H ALT 233 H Alkaline Phosphatase 294 H Lactate Dehydrogenase Total Creatine Kinase Troponin T C-Reactive Protein Albumin 3.4 L Urine pH Urine WBC (Auto) Coronavirus (PCR) Positive A 04/25/21 04/26/21 04/26/21 08:50 05:15 05:15 WBC 16.8 H Hgb Hct MCV 82 L MCH 25 L MCHC 31 L RDW 15.5 H Plt Count 110 L Lymph % (Auto) [place] % (Auto) [place] # (Auto) Seg Neutrophils % Seg Neuts % (Manual) 96.0 H Lymphocytes % (Manual) 2.0 L Seg Neutrophils # Seg Neutrophils # Man 16.1 H Lymphocytes # (Manual) 0.3 L PT D-Dimer Sodium 153 H 151 H Potassium 3.4 L 3.5 L Chloride 115.3 H 114.7 H Carbon Dioxide 20 L BUN 57 H 55 H Creatinine 1.8 H 1.4 H Glucose 160 H 169 H Lactic Acid Ferritin Total Bilirubin AST ALT Alkaline Phosphatase Lactate Dehydrogenase Total Creatine Kinase Troponin T C-Reactive Protein Albumin Urine pH Urine WBC (Auto) Coronavirus (PCR) 04/27/21 04/27/21 04/28/21 04:00 04:00 06:10 WBC 19.8 H 15.0 H Hgb 11.3 L 11.3 L Hct MCV 81 L 81 L MCH 26 L 25 L MCHC 31 L 31 L RDW 15.5 H 15.7 H Plt Count 84 L 96 L Lymph % (Auto) 11.0 L [place] % (Auto) [place] # (Auto) 1.1 H Seg Neutrophils % 81.6 H Seg Neuts % (Manual) 96.0 H Lymphocytes % (Manual) 3.0 L Seg Neutrophils # 12.3 H Seg Neutrophils # Man 19.0 H Lymphocytes # (Manual) 0.6 L PT D-Dimer Sodium 149 H Potassium 3.3 L Chloride 113.0 H Carbon Dioxide BUN 40 H Creatinine Glucose 196 H Lactic Acid Ferritin Total Bilirubin AST ALT Alkaline Phosphatase Lactate Dehydrogenase Total Creatine Kinase Troponin T C-Reactive Protein Albumin Urine pH Urine WBC (Auto) Coronavirus (PCR) 04/28/21 04/29/21 04/29/21 06:10 04:00 06:49 WBC Hgb Hct MCV 82 L MCH 26 L MCHC RDW 15.3 H Plt Count 122 L Lymph % (Auto) [place] % (Auto) [place] # (Auto) Seg Neutrophils % Seg Neuts % (Manual) 84.0 H Lymphocytes % (Manual) 11.0 L Seg Neutrophils # Seg Neutrophils # Man 8.7 H Lymphocytes # (Manual) 1.1 L PT D-Dimer Sodium Potassium 3.5 L Chloride Carbon Dioxide BUN 34 H 28 H Creatinine 0.7 L Glucose 110 H Lactic Acid Ferritin Total Bilirubin AST ALT Alkaline Phosphatase Lactate Dehydrogenase Total Creatine Kinase Troponin T C-Reactive Protein Albumin Urine pH Urine WBC (Auto) Coronavirus (PCR) 04/30/21 04/30/21 05/02/21 04:00 04:00 05:45 WBC 11.6 H Hgb 10.7 L Hct 33.7 L MCV 81 L 80 L MCH 26 L 26 L MCHC RDW Plt Count Lymph % (Auto) [place] % (Auto) 8.6 H [place] # (Auto) 1.0 H Seg Neutrophils % 73.8 H Seg Neuts % (Manual) 84.0 H Lymphocytes % (Manual) 12.0 L Seg Neutrophils # 8.5 H Seg Neutrophils # Man 8.8 H Lymphocytes # (Manual) PT D-Dimer Sodium Potassium 3.5 L Chloride Carbon Dioxide BUN 21 H Creatinine 0.6 L Glucose 111 H Lactic Acid Ferritin Total Bilirubin AST ALT Alkaline Phosphatase Lactate Dehydrogenase Total Creatine Kinase Troponin T C-Reactive Protein Albumin Urine pH Urine WBC (Auto) Coronavirus (PCR) 05/02/21 05:45 WBC Hgb Hct MCV MCH MCHC RDW Plt Count Lymph % (Auto) [place] % (Auto) [place] # (Auto) Seg Neutrophils % Seg Neuts % (Manual) Lymphocytes % (Manual) Seg Neutrophils # Seg Neutrophils # Man Lymphocytes # (Manual) PT D-Dimer Sodium Potassium 3.0 L Chloride Carbon Dioxide BUN Creatinine 0.6 L Glucose Lactic Acid Ferritin Total Bilirubin AST ALT Alkaline Phosphatase 164 H Lactate Dehydrogenase Total Creatine Kinase Troponin T C-Reactive Protein Albumin 3.3 L Urine pH Urine WBC (Auto) Coronavirus (PCR) Allied health notes reviewed: nursing
--- NOTE | 2021-05-02 12:56 | Gastroenterology Progress Note ---
Assessment and Plan # Colon dilation - abnormal CT a/p - CT a/p on 04/23/2021 which showed dilated descending and sigmoid colon along with thickening of sigmoid and rectum. - patient with mildly distended abdomen. - KUB with dilated colon. - suspect this may be chronic with h/o quadruplegia and immobility leading to constipation. - suspect ileus. - repeat xray shows mild improvement in bowel dilation. - multiple stools overnight and this morning. rec - continue with miralax and dulcolax supp. - may need outpatient colonoscopy to rule out malignancy once acute issues resolve. Subjective Date of service: 05/02/21 Interval history: Patient had multiple stools overnight and this morning. Feels better. No nausea/vomiting. Objective - Constitutional Vitals: Temp Pulse Resp BP Pulse Ox 98.3 F 101 H 20 136/68 97 05/02/21 10:29 05/02/21 10:29 05/02/21 10:29 05/02/21 10:36 05/02/21 10:29 General appearance: no acute distress - EENT Eyes: EOM intact ENT: hearing intact - Respiratory Respiratory effort: normal - Cardiovascular Rhythm: regular Heart Sounds: Present: S1 & S2 - Extremities Extremities: No edema - Gastrointestinal General gastrointestinal: Present: soft, non-tender, distended, hypoactive bowel sounds - Integumentary Integumentary: Present: clear, warm - Neurologic Neurological: alert and oriented x3 - Psychiatric Psychiatric: appropriate mood/affect - Labs CBC & Chem 7: 05/02/21 05:45 05/02/21 05:45 Labs: Laboratory Results - last 24 hr 05/02/21 05/02/21 05:45 05:45 WBC 11.6 H RBC 4.19 Hgb 10.7 L Hct 33.7 L MCV 80 L MCH 26 L MCHC 32 RDW 15.0 Plt Count 269 Lymph % (Auto) 16.7 Sharp % (Auto) 8.6 H Eos % (Auto) 0.3 Baso % (Auto) 0.6 Lymph # (Auto) 1.9 Sharp # (Auto) 1.0 H Eos # (Auto) 0.0 Baso # (Auto) 0.1 Seg Neutrophils % 73.8 H Seg Neutrophils # 8.5 H Sodium 142 Potassium 3.0 L Chloride 104.7 Carbon Dioxide 25 Anion Gap 15 BUN 18 Creatinine 0.6 L Estimated GFR > 60 BUN/Creatinine Ratio 30 Glucose 92 Calcium 8.9 Magnesium 1.70 Total Bilirubin 0.60 AST 21 ALT 32 Alkaline Phosphatase 164 H Total Protein 6.7 Albumin 3.3 L Albumin/Globulin Ratio 1.0 - Imaging x-ray: report reviewed
[2021-05-02] MEDS: cefTRIAXone/NS 2 GM/100 ML 2 GM/100 ML BAG IV SCH (16:00)
--- NOTE | 2021-05-02 16:37 | Vascular Lab Report ---
DUPLEX DOPPLER LOWER EXTREMITY VEINS, BILATERAL INDICATION / CLINICAL INFORMATION: swelling. TECHNIQUE: Duplex doppler imaging was performed through the veins of both lower extremities using venous aura valdemar and other maneuvers. COMPARISON: None available. FINDINGS: RIGHT COMMON FEMORAL VEIN: Negative. RIGHT FEMORAL VEIN: Negative. RIGHT POPLITEAL VEIN: Negative. RIGHT CALF VEINS: Negative. LEFT COMMON FEMORAL VEIN: Negative. LEFT FEMORAL VEIN: Negative. LEFT POPLITEAL VEIN: Negative. LEFT CALF VEINS: Negative. ADDITIONAL FINDINGS: None. IMPRESSION: 1. No sonographic evidence for DVT in either lower extremity. Signer Name: Jerzy Walker MD Signed: 05/02/2021 4:33 PM Workstation Name: [id number]
--- NOTE | 2021-05-02 18:35 | Progress Note ---
Assessment and Plan Assessment and plan: 65-year-old male who is a [facility] a [facility] with past medical history GERD, quadriplegia secondary to a spinal injury now with: #Septic shock-resolved #Proteus bacteremia -s/p pressors -Blood cultures 04/23 07/08 proteus vulgaris ; repeat 04/24 no growth to date -discontinue cefepime, started rocephin to be continued until 05/08/2021 -will need midline prior to discharge -MRSA PCR pending -ID consulted, assistance appreciated -Etiology UTI versus colitis, urine cultures not sent. #Acute kidney injury-resolved -Creatinine 0.6 -Nephrology following, assistance appreciated -Likely secondary to vasomotor nephropathy from hypotension #Acute metabolic encephalopathy -Resolved, likely secondary to shock #Healthcare associated pneumonia #COVID-19 pneumonia -CT chest showed prominence bilaterally with atelectasis -Patient is from alf -Treated empirically with Vanco and cefepime, vancomycin and cefepime discontinued -COVID PCR positive 04/24 #Elevated liver enzymes -Secondary to shock, resolved #Elevated D-dimer -VQ scan low probability for PE and ultrasound negative for a DVT in lower extremities -Likely elevated secondary to COVID-19 infection #Hypokalemia -will replete and monitor Small bowel and large bowel distention, likely adynamic ileus With significant distention of descending colon: Up to 11 cm and significant thickening of sigmoid and rectum on CT, no previous studies to compare. Significant amount of stool present. Given history of quadriplegia, this could be chronic GI consulted and started on bowel regimen on 05/01, having multiple loose BMs with improvement of abdominal distention and food intake. Persistent hypokalemia This could exacerbate ileus. Replenishing aggressively intravenously #Quadriplegia s/p spinal injury -Bedbound and resident of [facility] Discussed with the patient, RN, CM and GI. Disposition:patient to be discharged back to his alf and will complete the course of Rocephin through 05/08/2021 History Interval history: RN reported patient had several BMs since started on bowel regimen yesterday. Abdomen softer today. KUB shows reduced stool in the distal colon. Moderate distention of small or large bowel. RN reports that patient is eating better today, 4% of his breakfast. Potassium remains persistently low, 3.0 and mag is 1.7. Both replenished intravenously. Hospitalist Physical - Constitutional Vitals: Temp Pulse Resp BP Pulse Ox 98.3 F 101 H 20 136/68 97 05/02/21 10:29 05/02/21 10:29 05/02/21 10:29 05/02/21 10:36 05/02/21 10:29 General appearance: Present: no acute distress, other (Quadriplegic, alert and confused but able to answer simple questions well.) - EENT Eyes: Present: PERRL, EOM intact ENT: hearing intact, other (Moist oral mucosa) - Respiratory Respiratory effort: normal Respiratory: bilateral: diminished - Cardiovascular Rhythm: regular - Extremities Extremity abnormal: edema - Abdominal General gastrointestinal: soft, non-tender, other (Abdomen is distended and soft today) - Integumentary Integumentary: Absent: rash - Psychiatric Psychiatric: cooperative - Neurologic Neurologic: other (Alert, fairly fluent speech, confused but able to answer simple questions. Quadriplegic) HEART Score - HEART Score Troponin: Troponin T 0.124 ng/mL (0.00-0.029) H* 04/23/21 15:58 Results - Labs CBC & Chem 7: 05/02/21 05:45 05/02/21 23:06 Labs: Laboratory Last Values WBC 11.6 K/mm3 (4.5-11.0) H 05/02/21 05:45 RBC 4.19 M/mm3 (3.65-5.03) 05/02/21 05:45 Hgb 10.7 gm/dl (11.8-15.2) L 05/02/21 05:45 Hct 33.7 % (35.5-45.6) L 05/02/21 05:45 MCV 80 fl (84-94) L 05/02/21 05:45 MCH 26 pg (28-32) L 05/02/21 05:45 MCHC 32 % (32-34) 05/02/21 05:45 RDW 15.0 % (13.2-15.2) 05/02/21 05:45 Plt Count 269 K/mm3 (140-440) 05/02/21 05:45 Lymph % (Auto) 16.7 % (13.4-35.0) 05/02/21 05:45 [place] % (Auto) 8.6 % (0.0-7.3) H 05/02/21 05:45 Eos % (Auto) 0.3 % (0.0-4.3) 05/02/21 05:45 Baso % (Auto) 0.6 % (0.0-1.8) 05/02/21 05:45 Lymph # (Auto) 1.9 K/mm3 (1.2-5.4) 05/02/21 05:45 [place] # (Auto) 1.0 K/mm3 (0.0-0.8) H 05/02/21 05:45 Eos # (Auto) 0.0 K/mm3 (0.0-0.4) 05/02/21 05:45 Baso # (Auto) 0.1 K/mm3 (0.0-0.1) 05/02/21 05:45 Add Manual Diff Complete 04/30/21 04:00 Total Counted 100 04/30/21 04:00 Seg Neutrophils % 73.8 % (40.0-70.0) H 05/02/21 05:45 Seg Neuts % (Manual) 84.0 % (40.0-70.0) H 04/30/21 04:00 Band Neutrophils % 0 % 04/30/21 04:00 Lymphocytes % (Manual) 12.0 % (13.4-35.0) L 04/30/21 04:00 Reactive Lymphs % (Man) 0 % 04/30/21 04:00 Monocytes % (Manual) 4.0 % (0.0-7.3) 04/30/21 04:00 Eosinophils % (Manual) 0 % (0.0-4.3) 04/30/21 04:00 Basophils % (Manual) 0 % (0.0-1.8) 04/30/21 04:00 Metamyelocytes % 0 % 04/30/21 04:00 Myelocytes % 0 % 04/30/21 04:00 Promyelocytes % 0 % 04/30/21 04:00 Blast Cells % 0 % 04/30/21 04:00 Nucleated RBC % Not Reportable 04/30/21 04:00 Seg Neutrophils # 8.5 K/mm3 (1.8-7.7) H 05/02/21 05:45 Seg Neutrophils # Man 8.8 K/mm3 (1.8-7.7) H 04/30/21 04:00 Band Neutrophils # 0.0 K/mm3 04/30/21 04:00 Lymphocytes # (Manual) 1.3 K/mm3 (1.2-5.4) 04/30/21 04:00 Abs React Lymphs (Man) 0.0 K/mm3 04/30/21 04:00 Monocytes # (Manual) 0.4 K/mm3 (0.0-0.8) 04/30/21 04:00 Eosinophils # (Manual) 0.0 K/mm3 (0.0-0.4) 04/30/21 04:00 Basophils # (Manual) 0.0 K/mm3 (0.0-0.1) 04/30/21 04:00 Metamyelocytes # 0.0 K/mm3 04/30/21 04:00 Myelocytes # 0.0 K/mm3 04/30/21 04:00 Promyelocytes # 0.0 K/mm3 04/30/21 04:00 Blast Cells # 0.0 K/mm3 04/30/21 04:00 WBC Morphology Not Reportable 04/30/21 04:00 Hypersegmented Neuts Not Reportable 04/30/21 04:00 Hyposegmented Neuts Not Reportable 04/30/21 04:00 Hypogranular Neuts Not Reportable 04/30/21 04:00 Smudge Cells Not Reportable 04/30/21 04:00 Toxic Granulation Not Reportable 04/30/21 04:00 Toxic Vacuolation Not Reportable 04/30/21 04:00 Dohle Bodies Not Reportable 04/30/21 04:00 Pelger-Huet Anomaly Not Reportable 04/30/21 04:00 [place] Rods Not Reportable 04/30/21 04:00 Platelet Estimate Consistent w auto 04/30/21 04:00 Clumped Platelets Not Reportable 04/30/21 04:00 Plt Clumps, EDTA Not Reportable 04/30/21 04:00 Large Platelets Not Reportable 04/30/21 04:00 Giant Platelets Not Reportable 04/30/21 04:00 Platelet Satelliting Not Reportable 04/30/21 04:00 Plt Morphology Comment Not Reportable 04/30/21 04:00 RBC Morphology Not Reportable 04/30/21 04:00 Dimorphic RBCs Not Reportable 04/30/21 04:00 Polychromasia Not Reportable 04/30/21 04:00 Hypochromasia 1+ 04/30/21 04:00 Poikilocytosis Not Reportable 04/30/21 04:00 Anisocytosis Not Reportable 04/30/21 04:00 Microcytosis Not Reportable 04/30/21 04:00 Macrocytosis Not Reportable 04/30/21 04:00 Spherocytes Not Reportable 04/30/21 04:00 Pappenheimer Bodies Not Reportable 04/30/21 04:00 Sickle Cells Not Reportable 04/30/21 04:00 Target Cells Not Reportable 04/30/21 04:00 Tear Drop Cells Not Reportable 04/30/21 04:00 Ovalocytes Not Reportable 04/30/21 04:00 Helmet Cells Not Reportable 04/30/21 04:00 [place] Bodies Not Reportable 04/30/21 04:00 [place] Rings Not Reportable 04/30/21 04:00 [place] Cells Not Reportable 04/30/21 04:00 Bite Cells Not Reportable 04/30/21 04:00 Crenated Cell Not Reportable 04/30/21 04:00 Elliptocytes Not Reportable 04/30/21 04:00 Acanthocytes (Spur) Not Reportable 04/30/21 04:00 Rouleaux Not Reportable 04/30/21 04:00 Hemoglobin C Crystals Not Reportable 04/30/21 04:00 Schistocytes Not Reportable 04/30/21 04:00 Malaria parasites Not Reportable 04/30/21 04:00 [place] Bodies Not Reportable 04/30/21 04:00 Hem Pathologist Commnt No 04/30/21 04:00 PT 15.6 Sec. (12.2-14.9) H 04/23/21 15:58 INR 1.12 (0.87-1.13) 04/23/21 15:58 APTT 35.0 Sec. (24.2-36.6) 04/23/21 15:58 D-Dimer 6397.32 ng/mlDDU (0-234) H 04/23/21 17:30 Sodium 142 mmol/L (137-145) 05/02/21 05:45 Potassium 3.0 mmol/L (3.6-5.0) L 05/02/21 05:45 Chloride 104.7 mmol/L (98-107) 05/02/21 05:45 Carbon Dioxide 25 mmol/L (22-30) 05/02/21 05:45 Anion Gap 15 mmol/L 05/02/21 05:45 BUN 18 mg/dL (9-20) 05/02/21 05:45 Creatinine 0.6 mg/dL (0.8-1.3) L 05/02/21 05:45 Estimated GFR > 60 ml/min 05/02/21 05:45 BUN/Creatinine Ratio 30 % 05/02/21 05:45 Glucose 92 mg/dL (75-100) 05/02/21 05:45 Lactic Acid 1.20 mmol/L (0.7-2.0) 04/24/21 01:01 Calcium 8.9 mg/dL (8.4-10.2) 05/02/21 05:45 Magnesium 1.70 mg/dL (1.7-2.3) 05/02/21 05:45 Ferritin 812.8 ng/mL (30.0-300.0) H 04/23/21 17:30 Total Bilirubin 0.60 mg/dL (0.1-1.2) 05/02/21 05:45 AST 21 units/L (5-40) 05/02/21 05:45 ALT 32 units/L (7-56) 05/02/21 05:45 Alkaline Phosphatase 164 units/L (35-129) H 05/02/21 05:45 Ammonia 26.0 umol/L (25-60) 04/23/21 15:58 Lactate Dehydrogenase 346 units/L (91-180) H 04/23/21 17:30 Total Creatine Kinase 1763 units/L (55-170) H 04/23/21 15:58 Troponin T 0.124 ng/mL (0.00-0.029) H* 04/23/21 15:58 C-Reactive Protein 27.00 mg/dL (0.00-1.30) H 04/23/21 17:30 Total Protein 6.7 g/dL (6.3-8.2) 05/02/21 05:45 Albumin 3.3 g/dL (3.9-5) L 05/02/21 05:45 Albumin/Globulin Ratio 1.0 % 05/02/21 05:45 Procalcitonin > 200.00 ng/mL (<0.15) 04/23/21 17:37 Urine Color [place] (Yellow) 04/23/21 Unknown Urine Turbidity Cloudy (Clear) 04/23/21 Unknown Urine pH 8.0 (5.0-7.0) H 04/23/21 Unknown Ur Specific [place] 1.012 (1.003-1.030) 04/23/21 Unknown Urine Protein >500 mg/dL (Negative) 04/23/21 Unknown Urine Glucose (UA) Neg mg/dL (Negative) 04/23/21 Unknown Urine Ketones Neg mg/dL (Negative) 04/23/21 Unknown Urine Blood Lg (Negative) 04/23/21 Unknown Urine Nitrite Neg (Negative) 04/23/21 Unknown Urine Bilirubin Neg (Negative) 04/23/21 Unknown Urine Urobilinogen < 2.0 mg/dL (<2.0) 04/23/21 Unknown Ur Leukocyte Esterase Lg (Negative) 04/23/21 Unknown Urine WBC (Auto) > 182.0 /HPF (0.0-6.0) H 04/23/21 Unknown Urine RBC (Auto) 93.0 /HPF (0.0-6.0) 04/23/21 Unknown U Epithel Cells (Auto) 4.0 /HPF (0-13.0) 04/23/21 Unknown Urine Bacteria (Auto) 2+ /HPF (Negative) 04/23/21 Unknown Urine Mucus Few /HPF 04/23/21 Unknown Nasal Screen MRSA (PCR) Positive (Negative) 04/27/21 07:38 Random Vancomycin 4.2 ug/mL (0-40.0) 04/25/21 08:50 Coronavirus (PCR) Positive (Negative) A 04/24/21 07:54 SARS-CoV-2 (PCR) Cancelled 04/24/21 07:54 Bobby/IV: Voiding Method Condom Catheter Active Medications - Current Medications Current Medications: Generic Name Dose Route Start Last Admin Trade Name Freq PRN Reason Stop Dose Admin Acetaminophen 650 mg 04/23/21 17:18 Acetaminophen 325 Mg Tab PO Q6H PRN Pain, Mild (1-3) Albuterol 2.5 mg 04/23/21 17:18 Albuterol 2.5 Mg/3 Ml Nebu IH Q3HRT PRN Shortness Of Breath Amlodipine Besylate 10 mg 04/26/21 10:00 05/02/21 10:36 Amlodipine 10 Mg Tab PO 10 mg QDAY CARROL Administration Bisacodyl 10 mg 05/01/21 16:00 05/02/21 10:36 Bisacodyl 10 Mg Rect Supp WI 10 mg QDAY CARROL Administration Heparin Sodium (Porcine) 5,000 unit 04/23/21 22:00 05/02/21 10:37 Heparin 5,000 Unit/1 Ml Vial SUB-Q 5,000 unit Q12HR CARROL Administration Hydralazine HCl 10 mg 04/25/21 19:36 04/27/21 23:05 Hydralazine 20 Mg/1 Ml Inj IV 10 mg Q4HR PRN Administration Blood Pressure Ceftriaxone Sodium 2 gm in 100 mls @ 200 mls/hr 04/29/21 12:00 05/02/21 16:00 Rocephin/Ns 2 Gm/100 Ml IV 05/08/21 12:29 200 mls/hr Q24H CARROL Administration Protocol Polyethylene Glycol 17 gm 05/01/21 16:00 05/02/21 10:37 Polyethylene Glycol 3350 17 Gm Powder PO 17 gm BID CARROL Administration Sodium Chloride 10 ml 04/23/21 22:00 05/02/21 12:23 Sodium Chloride 0.9% 10 Ml Flush Syringe IV 10 ml BID CARROL Administration Sodium Chloride 10 ml 04/29/21 14:06 Sodium Chloride 0.9% 50 Ml Ivpb IV PRN PRN INT Nutrition/Malnutrition Assess - Dietary Evaluation Nutrition/Malnutrition Findings: Nutrition Notes Start: 04/30/21 16:39 Freq: Status: Active Protocol: Document 04/30/21 16:39 CATIE (Rec: 04/30/21 16:55 CATIE [email or web address]) Nutrition Notes Current Diagnosis Sepsis Other Pertinent Diagnosis COVID-19, Colon dilation, Proteus bacteremia, UTI, Current Diet Regular Diet (since L 04/25). Labs/Tests 04/30: K 3.5, BUN 21, Crea 0.6 , Glu 111. Pertinent Medications 04/30: Nutritionally unremarkable. 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 Weight Status Overweight Subjective/Other Information RD consult for LOS assessment. Pt's PO intake of meals has been Neglible (0-25%), according to ADL notes. Pt is quadriplegic. Percent of energy/protein needs met: Prescribed Regular Diet provides for energy/protein needs (2,289 Kcal/89 g) during LOS; additionally, Dietary Supplements will compensate for possible poor or insufficient PO intake of meals with 1,050 Kcal and 60 g of protein. Burn Absent Trauma Absent GI Symptoms None Food Allergy No Skin Integrity/Comment Unspecified area of concern. Current % PO Negligible Minimum of two criteria No #1 Nutrition Diagnosis Inadequate protein-energy intake Etiology Uncertain at the time As Evidenced by Signs and Symptoms Neglible PO intake of meals, according to ADL notes. Is patient on ventilator? No Is Patient Ambulatory and/or Out of Bed No REE-([facility]-confined to bed) [phone] Calculation Used for Recommendations 70-80% of EEN Additional Notes 15-20 Kcal/Kg ABW (6274-0735 Kcal). Protein: 1.2-2 g/Kg; 83-138 g/ day. Fluids: 1 ml/Kcal, or as per MD. Nutrition Intervention Change Diet Order: Continue Regular Diet. Add Supplement/Snack (indicate name/kcal 8 fl oz Ensure Enlive; TID. /protein ) Provides kCal: 1,050 Provides Protein (gm) 60 Goal #1 Compensate, through dietary supplementation, for possible poor or insufficient PO intake of meals during LOS. Follow-Up By: 05/07/21 Additional Comments Continue monitoring food tolerance, %PO intake of meals , and BM.
[2021-05-03 06:45] LABS: BUN/Creatinine Ratio 26; Blood Urea Nitrogen 13 mg/dL (9-20); Hemolysis Index 2
[2021-05-03] MEDS ORDERED: POTASSIUM CHLORIDE ER 20 MEQ TAB PO NR (09:00)
--- NOTE | 2021-05-03 10:20 | Progress Note ---
Assessment and Plan Cultures: Blood culture 04/23/2021 Proteus vulgaris Blood culture 04/24/2021 no growth A/P: 65-year-old male who is a resident of a halfway facility with past medical history GERD, quadriplegia secondary to a spinal injury now with: #Acute sepsis: With fever and leukocytosis on admission, now improving. Secondary to Proteus bacteremia. #Proteus bacteremia: Likely secondary to colitis versus UTI. Resistant to fluoroquinolones #Acute UTI: With sepsis encephalopathy on admission. Unfortunately no urine culture run. #COVID-19: No hypoxia, no need to treat. #JENY: Resolved Recs: -Start ceftriaxone 2 g every 24 hours -Okay to discharge on ceftriaxone until 05/08/2021 -Case management consulted as such -Patient is a resident of [facility], okay to place midline if necessary on discharge -No need for acute Covid treatment Thank you for the consult, we will continue to follow. Yobani Gallo MD [facility] O: [phone] F: [phone] Subjective Date of service: 05/03/21 Principal diagnosis: Septic shock; COVID positive; JENY; AMS; AHRF; HCAP; Transaminitis Interval history: Afebrile, no acute change. Imaging personally reviewed: Dopplers: no evidence of DVT Objective - Exam Narrative Exam: Physical exam deferred to reduce risk of transmission of COVID-19. Please refer to primary team's note. - Constitutional Vitals: Vital Signs Temp Pulse Resp BP Pulse Ox 98.2 F 100 H 18 138/86 98 05/03/21 06:06 05/03/21 06:06 05/03/21 06:06 05/03/21 06:06 05/03/21 06:06 Temperature -Last 24 Hours Temperature 98.2 F Temperature 98.2 F Temperature 98.3 F - Labs CBC & Chem 7: 05/02/21 05:45 05/03/21 06:04 Labs: Abnormal lab results 05/03/21 Range/Units 06:04 Potassium 3.3 L (3.6-5.0) mmol/L Creatinine 0.5 L (0.8-1.3) mg/dL Glucose 104 H (75-100) mg/dL
[2021-05-03] MEDS: amLODIPine 10 MG TAB PO SCH (10:42)
[2021-05-03] MEDS: POLYETHYLENE GLYCOL 3350 17 GM POWDER PO SCH ×2 (10:43→21:30)
[2021-05-03] MEDS: HEPARIN 5,000 UNIT/1 ML VIAL SUB-Q SCH ×2 (10:43→21:29)
[2021-05-03] MEDS: POTASSIUM CHLORIDE 10 MEQ 10 MEQ/100 ML BAG IV SCH ×4 (10:43→14:18)
[2021-05-03] MEDS: cefTRIAXone/NS 2 GM/100 ML 2 GM/100 ML BAG IV SCH (13:04)
--- NOTE | 2021-05-03 13:24 | Progress Note ---
Assessment and Plan Septic shock COVID positive Acute kidney injury Acute metabolic encephalopathy Acute respiratory failure with hypoxia (resolved) HCAP (healthcare-associated pneumonia) Hypernatremia Transaminitis - get bilateral lower extremity dopplers re: COVID infection and leg swelling - continue care as below otherwise; - prn supplemental oxygen to keep O2 sats > 90% - prm bronchodilators (ALPESH & LABA) with pulm hygiene per RT - continue rocephin; de-escalate per ID recommendations - continue to avoid nephrotoxins, renally dose all medications - continue mobility protocols to prevent pressure ulcers - PT/OT as tolerated - Wound care per RN/WCT- prn analgesia per pain score - continue accuchecks with glycemic control per SSI for target blood glucose < 180 mg/dL - Tobacco abstinence counseling at the bedside - home oxygen evaluation at discharge - GI & VTE prophylaxis - Flu & pneumovax per protocol - follow repeat COVID tests results - zinc and vitamin C supplementation - Continue contact and airborne isolation - continue other care per attending / other consultants ... re-evaluate in am & prn Subjective Date of service: 05/03/21 Principal diagnosis: Septic shock; COVID positive; JENY; AMS; AHRF; HCAP; Transaminitis Interval history: Patient is seen today for: Septic shock; COVID positive; JENY; AMS; AHRF; HCAP; Transaminitis Seen and examined at bedside; 24hour events reviewed; nursing and respiratory care staff consulted; no adverse overnight events reported to me; resting in bed; dopplers negative for DVT bilaterally; Objective Vital Signs - 12hr 05/03/21 05/03/21 06:06 07:44 Temperature 98.2 F 97.5 F L Pulse Rate 100 H 95 H Respiratory 18 15 Rate Blood Pressure 138/86 Blood Pressure 145/102 [Right] O2 Sat by Pulse 98 100 Oximetry Constitutional: no acute distress, alert, other (chronically ill looking male with normal respiratory effort at rest) Eyes: non-icteric ENT: oropharynx dry Neck: supple, no lymphadenopathy, no JVD Effort: mildly labored Ascultation: Bilateral: clear, diminished breath sounds Percussion: Bilateral: not dull Cardiovascular: regular rate and rhythm, other (S1,S2) Gastrointestinal: normoactive bowel sounds, soft, non-tender, non-distended Integumentary: normal Extremities: no cyanosis, no edema, other (bilateral hand splints) Neurologic: normal mental status, non-focal exam, pupils equal and round, other (bilateral lower extemity and upper extremity weakness) Psychiatric: mood appropriate, affect normal CBC and BMP: 05/02/21 05:45 05/03/21 06:04 ABG, PT/INR, D-dimer: PT/INR, D-dimer PT 15.6 Sec. (12.2-14.9) H 04/23/21 15:58 INR 1.12 (0.87-1.13) 04/23/21 15:58 D-Dimer 6397.32 ng/mlDDU (0-234) H 04/23/21 17:30 Abnormal lab findings: Abnormal Labs 04/23/21 04/23/21 04/23/21 15:58 15:58 15:58 WBC 17.9 H Hgb Hct MCV 81 L MCH 26 L MCHC RDW 15.5 H Plt Count 96 L Lymph % (Auto) [place] % (Auto) [place] # (Auto) Seg Neutrophils % Seg Neuts % (Manual) 88.0 H Lymphocytes % (Manual) 2.0 L Seg Neutrophils # Seg Neutrophils # Man 15.8 H Lymphocytes # (Manual) 0.4 L PT 15.6 H D-Dimer Sodium Potassium Chloride Carbon Dioxide BUN Creatinine Glucose Lactic Acid 2.50 H* Ferritin Total Bilirubin AST ALT Alkaline Phosphatase Lactate Dehydrogenase Total Creatine Kinase Troponin T C-Reactive Protein Albumin Urine pH Urine WBC (Auto) Coronavirus (PCR) 04/23/21 04/23/21 04/23/21 15:58 17:30 17:30 WBC Hgb Hct MCV MCH MCHC RDW Plt Count Lymph % (Auto) [place] % (Auto) [place] # (Auto) Seg Neutrophils % Seg Neuts % (Manual) Lymphocytes % (Manual) Seg Neutrophils # Seg Neutrophils # Man Lymphocytes # (Manual) PT D-Dimer 6397.32 H Sodium Potassium 3.4 L Chloride Carbon Dioxide BUN 38 H Creatinine 2.8 H Glucose 117 H 116 H Lactic Acid Ferritin Total Bilirubin 3.10 H AST 340 H ALT 360 H Alkaline Phosphatase 345 H Lactate Dehydrogenase 346 H Total Creatine Kinase 1763 H Troponin T 0.124 H* C-Reactive Protein 27.00 H Albumin 3.4 L Urine pH Urine WBC (Auto) Coronavirus (PCR) 04/23/21 04/23/21 04/24/21 17:30 Unknown 04:48 WBC 19.7 H Hgb 10.9 L Hct MCV 81 L MCH 25 L MCHC 31 L RDW 15.9 H Plt Count 93 L Lymph % (Auto) [place] % (Auto) [place] # (Auto) Seg Neutrophils % Seg Neuts % (Manual) 99.0 H Lymphocytes % (Manual) 1.0 L Seg Neutrophils # Seg Neutrophils # Man 19.5 H Lymphocytes # (Manual) 0.2 L PT D-Dimer Sodium Potassium Chloride Carbon Dioxide BUN Creatinine Glucose Lactic Acid Ferritin 812.8 H Total Bilirubin AST ALT Alkaline Phosphatase Lactate Dehydrogenase Total Creatine Kinase Troponin T C-Reactive Protein Albumin Urine pH 8.0 H Urine WBC (Auto) > 182.0 H Coronavirus (PCR) 04/24/21 04/24/21 04/25/21 04:48 07:54 08:50 WBC 15.7 H Hgb 11.4 L Hct MCV 81 L MCH 25 L MCHC 31 L RDW 15.9 H Plt Count 106 L Lymph % (Auto) [place] % (Auto) [place] # (Auto) Seg Neutrophils % Seg Neuts % (Manual) 93.0 H Lymphocytes % (Manual) 6.0 L Seg Neutrophils # Seg Neutrophils # Man 14.6 H Lymphocytes # (Manual) 0.9 L PT D-Dimer Sodium 148 H Potassium 3.3 L Chloride 109.7 H Carbon Dioxide 19 L BUN 45 H Creatinine 3.0 H Glucose 123 H Lactic Acid Ferritin Total Bilirubin 2.70 H AST 171 H ALT 233 H Alkaline Phosphatase 294 H Lactate Dehydrogenase Total Creatine Kinase Troponin T C-Reactive Protein Albumin 3.4 L Urine pH Urine WBC (Auto) Coronavirus (PCR) Positive A 04/25/21 04/26/21 04/26/21 08:50 05:15 05:15 WBC 16.8 H Hgb Hct MCV 82 L MCH 25 L MCHC 31 L RDW 15.5 H Plt Count 110 L Lymph % (Auto) [place] % (Auto) [place] # (Auto) Seg Neutrophils % Seg Neuts % (Manual) 96.0 H Lymphocytes % (Manual) 2.0 L Seg Neutrophils # Seg Neutrophils # Man 16.1 H Lymphocytes # (Manual) 0.3 L PT D-Dimer Sodium 153 H 151 H Potassium 3.4 L 3.5 L Chloride 115.3 H 114.7 H Carbon Dioxide 20 L BUN 57 H 55 H Creatinine 1.8 H 1.4 H Glucose 160 H 169 H Lactic Acid Ferritin Total Bilirubin AST ALT Alkaline Phosphatase Lactate Dehydrogenase Total Creatine Kinase Troponin T C-Reactive Protein Albumin Urine pH Urine WBC (Auto) Coronavirus (PCR) 04/27/21 04/27/21 04/28/21 04:00 04:00 06:10 WBC 19.8 H 15.0 H Hgb 11.3 L 11.3 L Hct MCV 81 L 81 L MCH 26 L 25 L MCHC 31 L 31 L RDW 15.5 H 15.7 H Plt Count 84 L 96 L Lymph % (Auto) 11.0 L [place] % (Auto) [place] # (Auto) 1.1 H Seg Neutrophils % 81.6 H Seg Neuts % (Manual) 96.0 H Lymphocytes % (Manual) 3.0 L Seg Neutrophils # 12.3 H Seg Neutrophils # Man 19.0 H Lymphocytes # (Manual) 0.6 L PT D-Dimer Sodium 149 H Potassium 3.3 L Chloride 113.0 H Carbon Dioxide BUN 40 H Creatinine Glucose 196 H Lactic Acid Ferritin Total Bilirubin AST ALT Alkaline Phosphatase Lactate Dehydrogenase Total Creatine Kinase Troponin T C-Reactive Protein Albumin Urine pH Urine WBC (Auto) Coronavirus (PCR) 04/28/21 04/29/21 04/29/21 06:10 04:00 06:49 WBC Hgb Hct MCV 82 L MCH 26 L MCHC RDW 15.3 H Plt Count 122 L Lymph % (Auto) [place] % (Auto) [place] # (Auto) Seg Neutrophils % Seg Neuts % (Manual) 84.0 H Lymphocytes % (Manual) 11.0 L Seg Neutrophils # Seg Neutrophils # Man 8.7 H Lymphocytes # (Manual) 1.1 L PT D-Dimer Sodium Potassium 3.5 L Chloride Carbon Dioxide BUN 34 H 28 H Creatinine 0.7 L Glucose 110 H Lactic Acid Ferritin Total Bilirubin AST ALT Alkaline Phosphatase Lactate Dehydrogenase Total Creatine Kinase Troponin T C-Reactive Protein Albumin Urine pH Urine WBC (Auto) Coronavirus (PCR) 04/30/21 04/30/21 05/02/21 04:00 04:00 05:45 WBC 11.6 H Hgb 10.7 L Hct 33.7 L MCV 81 L 80 L MCH 26 L 26 L MCHC RDW Plt Count Lymph % (Auto) [place] % (Auto) 8.6 H [place] # (Auto) 1.0 H Seg Neutrophils % 73.8 H Seg Neuts % (Manual) 84.0 H Lymphocytes % (Manual) 12.0 L Seg Neutrophils # 8.5 H Seg Neutrophils # Man 8.8 H Lymphocytes # (Manual) PT D-Dimer Sodium Potassium 3.5 L Chloride Carbon Dioxide BUN 21 H Creatinine 0.6 L Glucose 111 H Lactic Acid Ferritin Total Bilirubin AST ALT Alkaline Phosphatase Lactate Dehydrogenase Total Creatine Kinase Troponin T C-Reactive Protein Albumin Urine pH Urine WBC (Auto) Coronavirus (PCR) 05/02/21 05/03/21 05:45 06:04 WBC Hgb Hct MCV MCH MCHC RDW Plt Count Lymph % (Auto) [place] % (Auto) [place] # (Auto) Seg Neutrophils % Seg Neuts % (Manual) Lymphocytes % (Manual) Seg Neutrophils # Seg Neutrophils # Man Lymphocytes # (Manual) PT D-Dimer Sodium Potassium 3.0 L 3.3 L Chloride Carbon Dioxide BUN Creatinine 0.6 L 0.5 L Glucose 104 H Lactic Acid Ferritin Total Bilirubin AST ALT Alkaline Phosphatase 164 H Lactate Dehydrogenase Total Creatine Kinase Troponin T C-Reactive Protein Albumin 3.3 L Urine pH Urine WBC (Auto) Coronavirus (PCR) Allied health notes reviewed: nursing
--- NOTE | 2021-05-03 15:32 | Gastroenterology Progress Note ---
Assessment and Plan # Colon dilation - abnormal CT a/p - CT a/p on 04/23/2021 which showed dilated descending and sigmoid colon along with thickening of sigmoid and rectum. - patient with mildly distended abdomen. - KUB with dilated colon. - suspect this may be chronic with h/o quadruplegia and immobility leading to constipation and dysmotility. - suspect ileus. - repeat xray shows mild improvement in bowel dilation. - multiple stools overnight and this morning. rec - continue with miralax and dulcolax supp. - recommend rectal tube placement to relieve pressure and for rectal output. - may need outpatient colonoscopy to rule out malignancy once acute issues resolve. Subjective Date of service: 05/03/21 Principal diagnosis: Septic shock; COVID positive; JENY; AMS; AHRF; HCAP; Transaminitis Interval history: No clinical change. Patient denies abdominal pain. Objective - Constitutional Vitals: Temp Pulse Resp BP Pulse Ox 98.5 F 104 H 20 128/78 97 05/03/21 13:41 05/03/21 13:41 05/03/21 13:41 05/03/21 13:41 05/03/21 13:41 General appearance: no acute distress - EENT Eyes: EOM intact ENT: hearing intact - Respiratory Respiratory effort: normal - Cardiovascular Rhythm: regular Heart Sounds: Present: S1 & S2 - Gastrointestinal General gastrointestinal: Present: soft, tender, distended - Integumentary Integumentary: Present: clear, warm - Neurologic Neurological: alert and oriented x3 - Psychiatric Psychiatric: appropriate mood/affect - Labs CBC & Chem 7: 05/02/21 05:45 05/03/21 06:04 Labs: Laboratory Results - last 24 hr 05/02/21 05/03/21 23:06 06:04 Sodium 138 Potassium 3.8 D 3.3 L Chloride 102.0 Carbon Dioxide 26 Anion Gap 13 BUN 13 Creatinine 0.5 L Estimated GFR > 60 BUN/Creatinine Ratio 26 Glucose 104 H Calcium 9.0 Magnesium 2.30 2.10
--- NOTE | 2021-05-03 18:22 | Progress Note ---
Assessment and Plan Assessment and plan: 65-year-old male who is a resident of a long term facility with past medical history GERD, quadriplegia secondary to a spinal injury now with: #Septic shock-resolved #Proteus bacteremia -s/p pressors -Blood cultures 04/23 07/08 proteus vulgaris ; repeat 04/24 no growth to date -discontinue cefepime, started rocephin to be continued until 05/08/2021 -will need midline prior to discharge -MRSA PCR pending -ID consulted, assistance appreciated -Etiology UTI versus colitis, urine cultures not sent. #Acute kidney injury-resolved -Creatinine 0.6 -Nephrology following, assistance appreciated -Likely secondary to vasomotor nephropathy from hypotension #Acute metabolic encephalopathy -Resolved, likely secondary to shock #Healthcare associated pneumonia #COVID-19 pneumonia -CT chest showed prominence bilaterally with atelectasis -Patient is from [facility] -Treated empirically with Vanco and cefepime, vancomycin and cefepime discontinued -COVID PCR positive 04/24 #Elevated liver enzymes -Secondary to shock, resolved #Elevated D-dimer -VQ scan low probability for PE and ultrasound negative for a DVT in lower extremities -Likely elevated secondary to COVID-19 infection #Hypokalemia, persistent -will replete and monitor Small bowel and large bowel distention, likely adynamic ileus With significant distention of descending colon: Up to 11 cm and significant thickening of sigmoid and rectum on CT, no previous studies to compare. Significant amount of stool present. Given history of quadriplegia, this could be chronic GI consulted and started on bowel regimen with MiraLAX twice daily and Dulcolax on 05/01, having multiple loose BMs with improvement of abdominal distention and food intake.. GI recommends rectal tube placement since stool is leaking continuously and also for gaseous distention. Persistent hypokalemia This could exacerbate ileus. Replenishing aggressively intravenously #Quadriplegia s/p spinal injury -Bedbound and resident of [facility] Discussed with the patient, RN, and CM Disposition:patient to be discharged back when ileus and hypokalemia improves to his [facility] and will complete the course of Rocephin through 05/08/2021 History Interval history: Nurse reported patient having continuous loose stool leading me since yesterday, on MiraLAX and Dulcolax. Is tolerating some diet. Patient has no complaints. Is quadriplegic. Potassium remains low, 3.2 today in spite of IV replacement. Hospitalist Physical - Constitutional Vitals: Temp Pulse Resp BP Pulse Ox 98.5 F 104 H 20 128/78 97 05/03/21 13:41 05/03/21 13:41 05/03/21 13:41 05/03/21 13:41 05/03/21 13:41 General appearance: Present: no acute distress, other (Quadriplegic, alert and confused but able to answer simple questions well.) - EENT Eyes: Present: PERRL ENT: other (Moist oral mucosa) - Respiratory Respiratory effort: normal Respiratory: bilateral: diminished - Cardiovascular Rhythm: regular - Extremities Extremity abnormal: edema - Abdominal General gastrointestinal: other (Abdomen is mildly distended,, but soft today, BS present, nontender) - Integumentary Integumentary: Absent: rash - Psychiatric Psychiatric: cooperative - Neurologic Neurologic: other (Awake, verbal, somewhat confused, Cardiologic) HEART Score - HEART Score Troponin: Troponin T 0.124 ng/mL (0.00-0.029) H* 04/23/21 15:58 Results - Labs CBC & Chem 7: 05/02/21 05:45 05/03/21 06:04 Labs: Laboratory Last Values WBC 11.6 K/mm3 (4.5-11.0) H 05/02/21 05:45 RBC 4.19 M/mm3 (3.65-5.03) 05/02/21 05:45 Hgb 10.7 gm/dl (11.8-15.2) L 05/02/21 05:45 Hct 33.7 % (35.5-45.6) L 05/02/21 05:45 MCV 80 fl (84-94) L 05/02/21 05:45 MCH 26 pg (28-32) L 05/02/21 05:45 MCHC 32 % (32-34) 05/02/21 05:45 RDW 15.0 % (13.2-15.2) 05/02/21 05:45 Plt Count 269 K/mm3 (140-440) 05/02/21 05:45 Lymph % (Auto) 16.7 % (13.4-35.0) 05/02/21 05:45 [place] % (Auto) 8.6 % (0.0-7.3) H 05/02/21 05:45 Eos % (Auto) 0.3 % (0.0-4.3) 05/02/21 05:45 Baso % (Auto) 0.6 % (0.0-1.8) 05/02/21 05:45 Lymph # (Auto) 1.9 K/mm3 (1.2-5.4) 05/02/21 05:45 [place] # (Auto) 1.0 K/mm3 (0.0-0.8) H 05/02/21 05:45 Eos # (Auto) 0.0 K/mm3 (0.0-0.4) 05/02/21 05:45 Baso # (Auto) 0.1 K/mm3 (0.0-0.1) 05/02/21 05:45 Add Manual Diff Complete 04/30/21 04:00 Total Counted 100 04/30/21 04:00 Seg Neutrophils % 73.8 % (40.0-70.0) H 05/02/21 05:45 Seg Neuts % (Manual) 84.0 % (40.0-70.0) H 04/30/21 04:00 Band Neutrophils % 0 % 04/30/21 04:00 Lymphocytes % (Manual) 12.0 % (13.4-35.0) L 04/30/21 04:00 Reactive Lymphs % (Man) 0 % 04/30/21 04:00 Monocytes % (Manual) 4.0 % (0.0-7.3) 04/30/21 04:00 Eosinophils % (Manual) 0 % (0.0-4.3) 04/30/21 04:00 Basophils % (Manual) 0 % (0.0-1.8) 04/30/21 04:00 Metamyelocytes % 0 % 04/30/21 04:00 Myelocytes % 0 % 04/30/21 04:00 Promyelocytes % 0 % 04/30/21 04:00 Blast Cells % 0 % 04/30/21 04:00 Nucleated RBC % Not Reportable 04/30/21 04:00 Seg Neutrophils # 8.5 K/mm3 (1.8-7.7) H 05/02/21 05:45 Seg Neutrophils # Man 8.8 K/mm3 (1.8-7.7) H 04/30/21 04:00 Band Neutrophils # 0.0 K/mm3 04/30/21 04:00 Lymphocytes # (Manual) 1.3 K/mm3 (1.2-5.4) 04/30/21 04:00 Abs React Lymphs (Man) 0.0 K/mm3 04/30/21 04:00 Monocytes # (Manual) 0.4 K/mm3 (0.0-0.8) 04/30/21 04:00 Eosinophils # (Manual) 0.0 K/mm3 (0.0-0.4) 04/30/21 04:00 Basophils # (Manual) 0.0 K/mm3 (0.0-0.1) 04/30/21 04:00 Metamyelocytes # 0.0 K/mm3 04/30/21 04:00 Myelocytes # 0.0 K/mm3 04/30/21 04:00 Promyelocytes # 0.0 K/mm3 04/30/21 04:00 Blast Cells # 0.0 K/mm3 04/30/21 04:00 WBC Morphology Not Reportable 04/30/21 04:00 Hypersegmented Neuts Not Reportable 04/30/21 04:00 Hyposegmented Neuts Not Reportable 04/30/21 04:00 Hypogranular Neuts Not Reportable 04/30/21 04:00 Smudge Cells Not Reportable 04/30/21 04:00 Toxic Granulation Not Reportable 04/30/21 04:00 Toxic Vacuolation Not Reportable 04/30/21 04:00 Dohle Bodies Not Reportable 04/30/21 04:00 Pelger-Huet Anomaly Not Reportable 04/30/21 04:00 Perry Rods Not Reportable 04/30/21 04:00 Platelet Estimate Consistent w auto 04/30/21 04:00 Clumped Platelets Not Reportable 04/30/21 04:00 Plt Clumps, EDTA Not Reportable 04/30/21 04:00 Large Platelets Not Reportable 04/30/21 04:00 Giant Platelets Not Reportable 04/30/21 04:00 Platelet Satelliting Not Reportable 04/30/21 04:00 Plt Morphology Comment Not Reportable 04/30/21 04:00 RBC Morphology Not Reportable 04/30/21 04:00 Dimorphic RBCs Not Reportable 04/30/21 04:00 Polychromasia Not Reportable 04/30/21 04:00 Hypochromasia 1+ 04/30/21 04:00 Poikilocytosis Not Reportable 04/30/21 04:00 Anisocytosis Not Reportable 04/30/21 04:00 Microcytosis Not Reportable 04/30/21 04:00 Macrocytosis Not Reportable 04/30/21 04:00 Spherocytes Not Reportable 04/30/21 04:00 Pappenheimer Bodies Not Reportable 04/30/21 04:00 Sickle Cells Not Reportable 04/30/21 04:00 Target Cells Not Reportable 04/30/21 04:00 Tear Drop Cells Not Reportable 04/30/21 04:00 Ovalocytes Not Reportable 04/30/21 04:00 Helmet Cells Not Reportable 04/30/21 04:00 Morel-Grimes Bodies Not Reportable 04/30/21 04:00 [place]ram Rings Not Reportable 04/30/21 04:00 Esau Cells Not Reportable 04/30/21 04:00 Bite Cells Not Reportable 04/30/21 04:00 Crenated Cell Not Reportable 04/30/21 04:00 Elliptocytes Not Reportable 04/30/21 04:00 Acanthocytes (Spur) Not Reportable 04/30/21 04:00 Rouleaux Not Reportable 04/30/21 04:00 Hemoglobin C Crystals Not Reportable 04/30/21 04:00 Schistocytes Not Reportable 04/30/21 04:00 Malaria parasites Not Reportable 04/30/21 04:00 Joshua Bodies Not Reportable 04/30/21 04:00 Hem Pathologist Commnt No 04/30/21 04:00 PT 15.6 Sec. (12.2-14.9) H 04/23/21 15:58 INR 1.12 (0.87-1.13) 04/23/21 15:58 APTT 35.0 Sec. (24.2-36.6) 04/23/21 15:58 D-Dimer 6397.32 ng/mlDDU (0-234) H 04/23/21 17:30 Sodium 138 mmol/L (137-145) 05/03/21 06:04 Potassium 3.3 mmol/L (3.6-5.0) L 05/03/21 06:04 Chloride 102.0 mmol/L (98-107) 05/03/21 06:04 Carbon Dioxide 26 mmol/L (22-30) 05/03/21 06:04 Anion Gap 13 mmol/L 05/03/21 06:04 BUN 13 mg/dL (9-20) 05/03/21 06:04 Creatinine 0.5 mg/dL (0.8-1.3) L 05/03/21 06:04 Estimated GFR > 60 ml/min 05/03/21 06:04 BUN/Creatinine Ratio 26 % 05/03/21 06:04 Glucose 104 mg/dL (75-100) H 05/03/21 06:04 Lactic Acid 1.20 mmol/L (0.7-2.0) 04/24/21 01:01 Calcium 9.0 mg/dL (8.4-10.2) 05/03/21 06:04 Magnesium 2.10 mg/dL (1.7-2.3) 05/03/21 06:04 Ferritin 812.8 ng/mL (30.0-300.0) H 04/23/21 17:30 Total Bilirubin 0.60 mg/dL (0.1-1.2) 05/02/21 05:45 AST 21 units/L (5-40) 05/02/21 05:45 ALT 32 units/L (7-56) 05/02/21 05:45 Alkaline Phosphatase 164 units/L (35-129) H 05/02/21 05:45 Ammonia 26.0 umol/L (25-60) 04/23/21 15:58 Lactate Dehydrogenase 346 units/L (91-180) H 04/23/21 17:30 Total Creatine Kinase 1763 units/L (55-170) H 04/23/21 15:58 Troponin T 0.124 ng/mL (0.00-0.029) H* 04/23/21 15:58 C-Reactive Protein 27.00 mg/dL (0.00-1.30) H 04/23/21 17:30 Total Protein 6.7 g/dL (6.3-8.2) 05/02/21 05:45 Albumin 3.3 g/dL (3.9-5) L 05/02/21 05:45 Albumin/Globulin Ratio 1.0 % 05/02/21 05:45 Procalcitonin > 200.00 ng/mL (<0.15) 04/23/21 17:37 Urine Color Jacque (Yellow) 04/23/21 Unknown Urine Turbidity Cloudy (Clear) 04/23/21 Unknown Urine pH 8.0 (5.0-7.0) H 04/23/21 Unknown Ur Specific [place] 1.012 (1.003-1.030) 04/23/21 Unknown Urine Protein >500 mg/dL (Negative) 04/23/21 Unknown Urine Glucose (UA) Neg mg/dL (Negative) 04/23/21 Unknown Urine Ketones Neg mg/dL (Negative) 04/23/21 Unknown Urine Blood Lg (Negative) 04/23/21 Unknown Urine Nitrite Neg (Negative) 04/23/21 Unknown Urine Bilirubin Neg (Negative) 04/23/21 Unknown Urine Urobilinogen < 2.0 mg/dL (<2.0) 04/23/21 Unknown Ur Leukocyte Esterase Lg (Negative) 04/23/21 Unknown Urine WBC (Auto) > 182.0 /HPF (0.0-6.0) H 04/23/21 Unknown Urine RBC (Auto) 93.0 /HPF (0.0-6.0) 04/23/21 Unknown U Epithel Cells (Auto) 4.0 /HPF (0-13.0) 04/23/21 Unknown Urine Bacteria (Auto) 2+ /HPF (Negative) 04/23/21 Unknown Urine Mucus Few /HPF 04/23/21 Unknown Nasal Screen MRSA (PCR) Positive (Negative) 04/27/21 07:38 Random Vancomycin 4.2 ug/mL (0-40.0) 04/25/21 08:50 Coronavirus (PCR) Positive (Negative) A 04/24/21 07:54 SARS-CoV-2 (PCR) Cancelled 04/24/21 07:54 Bobby/IV: Voiding Method Condom Catheter Active Medications - Current Medications Current Medications: Generic Name Dose Route Start Last Admin Trade Name Freq PRN Reason Stop Dose Admin Acetaminophen 650 mg 04/23/21 17:18 05/03/21 13:05 Acetaminophen 325 Mg Tab PO 650 mg Q6H PRN Administration Pain, Mild (1-3) Albuterol 2.5 mg 04/23/21 17:18 Albuterol 2.5 Mg/3 Ml Nebu IH Q3HRT PRN Shortness Of Breath Amlodipine Besylate 10 mg 04/26/21 10:00 05/03/21 10:42 Amlodipine 10 Mg Tab PO 10 mg QDAY CARROL Administration Bisacodyl 10 mg 05/01/21 16:00 05/03/21 10:38 Bisacodyl 10 Mg Rect Supp IA 10 mg QDAY CARROL Administration Heparin Sodium (Porcine) 5,000 unit 04/23/21 22:00 05/03/21 10:43 Heparin 5,000 Unit/1 Ml Vial SUB-Q 5,000 unit Q12HR CARROL Administration Hydralazine HCl 10 mg 04/25/21 19:36 04/27/21 23:05 Hydralazine 20 Mg/1 Ml Inj IV 10 mg Q4HR PRN Administration Blood Pressure Ceftriaxone Sodium 2 gm in 100 mls @ 200 mls/hr 04/29/21 12:00 05/03/21 13:04 Rocephin/Ns 2 Gm/100 Ml IV 05/08/21 12:29 200 mls/hr Q24H CARROL Administration Protocol Polyethylene Glycol 17 gm 05/01/21 16:00 05/03/21 10:43 Polyethylene Glycol 3350 17 Gm Powder PO 17 gm BID CARROL Administration Sodium Chloride 10 ml 04/23/21 22:00 05/02/21 21:09 Sodium Chloride 0.9% 10 Ml Flush Syringe IV 10 ml BID CARROL Administration Sodium Chloride 10 ml 04/29/21 14:06 Sodium Chloride 0.9% 50 Ml Ivpb IV PRN PRN INT Nutrition/Malnutrition Assess - Dietary Evaluation Nutrition/Malnutrition Findings: Nutrition Notes Start: 04/30/21 16:39 Freq: Status: Active Protocol: Document 04/30/21 16:39 CATIE (Rec: 04/30/21 16:55 CATIE [id number]) Nutrition Notes Current Diagnosis Sepsis Other Pertinent Diagnosis COVID-19, Colon dilation, Proteus bacteremia, UTI, Current Diet Regular Diet (since L 04/25). Labs/Tests 04/30: K 3.5, BUN 21, Crea 0.6 , Glu 111. Pertinent Medications 04/30: Nutritionally unremarkable. Height 6 ft 1 in Weight 90.71 kg [place] Body Weight (kg) 83.63 BMI 26.4 Intake Prior to Admission Good Weight change and time frame Pt states not having loss body weight [employer]. Weight Status Overweight Subjective/Other Information RD consult for LOS assessment. Pt's PO intake of meals has been Neglible (0-25%), according to ADL notes. Pt is quadriplegic. Percent of energy/protein needs met: Prescribed Regular Diet provides for energy/protein needs (2,289 Kcal/89 g) during LOS; additionally, Dietary Supplements will compensate for possible poor or insufficient PO intake of meals with 1,050 Kcal and 60 g of protein. Burn Absent Trauma Absent GI Symptoms None Food Allergy No Skin Integrity/Comment Unspecified area of concern. Current % PO Negligible Minimum of two criteria No #1 Nutrition Diagnosis Inadequate protein-energy intake Etiology Uncertain at the time As Evidenced by Signs and Symptoms Neglible PO intake of meals, according to ADL notes. Is patient on ventilator? No Is Patient Ambulatory and/or Out of Bed No REE-([facility]-confined to bed) [phone] Calculation Used for Recommendations 70-80% of EEN Additional Notes 15-20 Kcal/Kg ABW (6144-4701 Kcal). Protein: 1.2-2 g/Kg; 83-138 g/ day. Fluids: 1 ml/Kcal, or as per MD. Nutrition Intervention Change Diet Order: Continue Regular Diet. Add Supplement/Snack (indicate name/kcal 8 fl oz Ensure Enlive; TID. /protein ) Provides kCal: 1,050 Provides Protein (gm) 60 Goal #1 Compensate, through dietary supplementation, for possible poor or insufficient PO intake of meals during LOS. Follow-Up By: 05/07/21 Additional Comments Continue monitoring food tolerance, %PO intake of meals , and BM.
[2021-05-04 06:36] LABS: Basophils % (Auto) 0.2 % (0.0-1.8); Eosinophils % (Auto) 0.6 % (0.0-4.3); Hematocrit 28.8 % (35.5-45.6); Hemoglobin 9.2 gm/dl (11.8-15.2); Lymphocytes # (Auto) 1.4 K/mm3 (1.2-5.4); Lymphocytes % (Auto) 22.1 % (13.4-35.0); Mean Corpuscular HGB Conc 32 % (32-34); Mean Corpuscular Volume 81 fl (84-94); Monocytes # (Auto) 0.6 K/mm3 (0.0-0.8); Monocytes % (Auto) 8.9 % (0.0-7.3); Platelet Count 279 K/mm3 (140-440); Red Blood Count 3.54 M/mm3 (3.65-5.03); Red Cell Distribution Width 15.3 % (13.2-15.2)
[2021-05-04 06:58] LABS: Blood Urea Nitrogen 11 mg/dL (9-20); Calcium 8.5 mg/dL (8.4-10.2); Hemolysis Index 3
[2021-05-04 07:05] LABS: BUN/Creatinine Ratio 18
--- NOTE | 2021-05-04 11:05 | Progress Note ---
Assessment and Plan 65 YO Male [facility] Facility Resident at [facility] with MDD, GERD, HLD, Quadraplegia S/P Spine Injury, Seborrheic Dermatitis, Encephalopathy presents to ED for evaluation. Patient has diminished cognition at the time of my evaluation and is unable to provide history. patient has experienced increased weakness and decreased responsiveness over the past 3 days. Patient was found to be febrile to 103 F. EMS was notified and upon arrival the patient was found to be in distress and subsequent transported to [facility] for further care and evaluation of the aforementioned symptoms. The patient was seen and evaluated in the emergency department. All lab and imaging studies reviewed. The patient was found to have a pulse oximetry of 84% on nonrebreather mask which is consistent with acute hypoxemic respiratory failure. Chest x-ray reveals evidence of pneumonia. Patient also found to have sepsis complicated by shock as well as shock liver, acute kidney injury, metabolic acidosis, toxic metabolic encephalopathy. Patient found to be critically ill and admitted to ICU and initiated on sepsis protocol, pneumonia protocol as well as coronavirus protocol. No further history is obtainable. According to the chart, No history of smoking, alcohol or drug abuse. Patients laguna virus PCR Positive. D dimer 6397. Ferritin 812 LDH 346 CRP 27. Patient awake and weak . Patient appears confused. Patient is on room air. O2 saturation 97%. Patient running low grade temp at times.. No leukocytosis. Blood pressure 106/66, pulse 104, respirations 20. Chest xray done 04/23/21 reported There are patchy airspace opacities noted in the lung bases. There is mild venous congestion. No pneumothorax. Nuclear medicine perfusion lung scan done 04/26/21 reported low probabilty for pulmonary emboli. Bilateral lower extremity Duplex studies reported No sonographic evidence for DVT in either lower extremity. Patient is on ceftriaxone and S/C Heparin , albuterol inhaler. Patient was on dexamethasone, cefepime and vancomycin I - Patient Problems (1) Acute respiratory failure with hypoxia Current Visit: Yes Status: Acute Plan to address problem: Improved. Patient resting on room air. O2 saturation 97%. Recommend ABGs on room air. (2) Coronavirus infection Current Visit: Yes Status: Acute Plan to address problem: Management as per infectious diseases. Patient was on solumedrol and S/C heparin. (3) 2019 novel coronavirus-infected pneumonia (NCIP) Current Visit: Yes Status: Acute Plan to address problem: Patient presently on ceftriaxone. Antibiotics as per ID. (4) Acute metabolic encephalopathy Current Visit: Yes Status: Acute Plan to address problem: Management as per primary care. Subjective Date of service: 05/04/21 Principal diagnosis: Septic shock; COVID positive; JENY; AMS; AHRF; HCAP; Transaminitis Interval history: 65 YO Male Prison Facility Resident at [facility] with MDD, GERD, HLD, Quadraplegia S/P Spine Injury, Seborrheic Dermatitis, Encephalopathy presents to ED for evaluation. Patient has diminished cognition at the time of my evaluation and is unable to provide history. patient has experienced increased weakness and decreased responsiveness over the past 3 days. Patient was found to be febrile to 103 F. EMS was notified and upon arrival the patient was found to be in distress and subsequent transported to [facility] for further care and evaluation of the aforementioned symptoms. The patient was seen and evaluated in the emergency department. All lab and imaging studies reviewed. The patient was found to have a pulse oximetry of 84% on nonrebreather mask which is consistent with acute hypoxemic respiratory failure. Chest x-ray reveals evidence of pneumonia. Patient also found to have sepsis complicated by shock as well as shock liver, acute kidney injury, metabolic acidosis, toxic metabolic encephalopathy. Pat ient found to be critically ill and admitted to ICU and initiated on sepsis protocol, pneumonia protocol as well as coronavirus protocol. No further history is obtainable. According to the chart, No history of smoking, alcohol or drug abuse. Patients laguna virus PCR Positive. D dimer 6397. Ferritin 812 LDH 346 CRP 27. Patient awake and weak . Patient appears confused. Patient is on room air. O2 saturation 97%. Patient running low grade temp at times.. No leukocytosis. Blood pressure 106/66, pulse 104, respirations 20. Chest xray done 04/23/21 reported There are patchy airspace opacities noted in the lung bases. There is mild venous congestion. No pneumothorax. Nuclear medicine perfusion lung scan done 04/26/21 reported low probabilty for pulmonary emboli. Bilateral lower extremity Duplex studies reported No sonographic evidence for DVT in either lower extremity. Patient is on ceftriaxone and S/C Heparin , albuterol inhaler. Patient was on dexamethasone, cefepime and vancomycin Objective Vital Signs - 12hr 05/04/21 05/04/21 05:51 10:27 Temperature 99.3 F 98.8 F Pulse Rate 104 H 104 H Respiratory 18 20 Rate Blood Pressure 116/70 106/66 O2 Sat by Pulse 94 97 Oximetry Constitutional: no acute distress, alert, other (chronically ill looking male with normal respiratory effort at rest) Eyes: non-icteric ENT: oropharynx dry Neck: supple, no lymphadenopathy, no JVD Effort: mildly labored Ascultation: Bilateral: diminished breath sounds Percussion: Bilateral: not dull Cardiovascular: regular rate and rhythm, other (S1,S2) Gastrointestinal: normoactive bowel sounds, soft, non-tender, non-distended Integumentary: normal Extremities: no cyanosis, no edema, other (bilateral hand splints) Neurologic: normal mental status, non-focal exam, pupils equal and round, other (bilateral lower extemity and upper extremity weakness) Psychiatric: mood appropriate, affect normal CBC and BMP: 05/04/21 06:25 05/04/21 06:25 ABG, PT/INR, D-dimer: PT/INR, D-dimer PT 15.6 Sec. (12.2-14.9) H 04/23/21 15:58 INR 1.12 (0.87-1.13) 04/23/21 15:58 D-Dimer 6397.32 ng/mlDDU (0-234) H 04/23/21 17:30 Abnormal lab findings: Abnormal Labs 04/23/21 04/23/21 04/23/21 15:58 15:58 15:58 WBC 17.9 H RBC Hgb Hct MCV 81 L MCH 26 L MCHC RDW 15.5 H Plt Count 96 L Lymph % (Auto) Laporte % (Auto) Laporte # (Auto) Seg Neutrophils % Seg Neuts % (Manual) 88.0 H Lymphocytes % (Manual) 2.0 L Seg Neutrophils # Seg Neutrophils # Man 15.8 H Lymphocytes # (Manual) 0.4 L PT 15.6 H D-Dimer Sodium Potassium Chloride Carbon Dioxide BUN Creatinine Glucose Lactic Acid 2.50 H* Ferritin Total Bilirubin AST ALT Alkaline Phosphatase Lactate Dehydrogenase Total Creatine Kinase Troponin T C-Reactive Protein Albumin Urine pH Urine WBC (Auto) Coronavirus (PCR) 04/23/21 04/23/21 04/23/21 15:58 17:30 17:30 WBC RBC Hgb Hct MCV MCH MCHC RDW Plt Count Lymph % (Auto) Laporte % (Auto) [place]orte # (Auto) Seg Neutrophils % Seg Neuts % (Manual) Lymphocytes % (Manual) Seg Neutrophils # Seg Neutrophils # Man Lymphocytes # (Manual) PT D-Dimer 6397.32 H Sodium Potassium 3.4 L Chloride Carbon Dioxide BUN 38 H Creatinine 2.8 H Glucose 117 H 116 H Lactic Acid Ferritin Total Bilirubin 3.10 H AST 340 H ALT 360 H Alkaline Phosphatase 345 H Lactate Dehydrogenase 346 H Total Creatine Kinase 1763 H Troponin T 0.124 H* C-Reactive Protein 27.00 H Albumin 3.4 L Urine pH Urine WBC (Auto) Coronavirus (PCR) 04/23/21 04/23/21 04/24/21 17:30 Unknown 04:48 WBC 19.7 H RBC Hgb 10.9 L Hct MCV 81 L MCH 25 L MCHC 31 L RDW 15.9 H Plt Count 93 L Lymph % (Auto) Laporte % (Auto) [place] # (Auto) Seg Neutrophils % Seg Neuts % (Manual) 99.0 H Lymphocytes % (Manual) 1.0 L Seg Neutrophils # Seg Neutrophils # Man 19.5 H Lymphocytes # (Manual) 0.2 L PT D-Dimer Sodium Potassium Chloride Carbon Dioxide BUN Creatinine Glucose Lactic Acid Ferritin 812.8 H Total Bilirubin AST ALT Alkaline Phosphatase Lactate Dehydrogenase Total Creatine Kinase Troponin T C-Reactive Protein Albumin Urine pH 8.0 H Urine WBC (Auto) > 182.0 H Coronavirus (PCR) 04/24/21 04/24/21 04/25/21 04:48 07:54 08:50 WBC 15.7 H RBC Hgb 11.4 L Hct MCV 81 L MCH 25 L MCHC 31 L RDW 15.9 H Plt Count 106 L Lymph % (Auto) Lap[place] % (Auto) [place] # (Auto) Seg Neutrophils % Seg Neuts % (Manual) 93.0 H Lymphocytes % (Manual) 6.0 L Seg Neutrophils # Seg Neutrophils # Man 14.6 H Lymphocytes # (Manual) 0.9 L PT D-Dimer Sodium 148 H Potassium 3.3 L Chloride 109.7 H Carbon Dioxide 19 L BUN 45 H Creatinine 3.0 H Glucose 123 H Lactic Acid Ferritin Total Bilirubin 2.70 H AST 171 H ALT 233 H Alkaline Phosphatase 294 H Lactate Dehydrogenase Total Creatine Kinase Troponin T C-Reactive Protein Albumin 3.4 L Urine pH Urine WBC (Auto) Coronavirus (PCR) Positive A 04/25/21 04/26/21 04/26/21 08:50 05:15 05:15 WBC 16.8 H RBC Hgb Hct MCV 82 L MCH 25 L MCHC 31 L RDW 15.5 H Plt Count 110 L Lymph % (Auto) Lap[place] % (Auto) [place] # (Auto) Seg Neutrophils % Seg Neuts % (Manual) 96.0 H Lymphocytes % (Manual) 2.0 L Seg Neutrophils # Seg Neutrophils # Man 16.1 H Lymphocytes # (Manual) 0.3 L PT D-Dimer Sodium 153 H 151 H Potassium 3.4 L 3.5 L Chloride 115.3 H 114.7 H Carbon Dioxide 20 L BUN 57 H 55 H Creatinine 1.8 H 1.4 H Glucose 160 H 169 H Lactic Acid Ferritin Total Bilirubin AST ALT Alkaline Phosphatase Lactate Dehydrogenase Total Creatine Kinase Troponin T C-Reactive Protein Albumin Urine pH Urine WBC (Auto) Coronavirus (PCR) 04/27/21 04/27/21 04/28/21 04:00 04:00 06:10 WBC 19.8 H 15.0 H RBC Hgb 11.3 L 11.3 L Hct MCV 81 L 81 L MCH 26 L 25 L MCHC 31 L 31 L RDW 15.5 H 15.7 H Plt Count 84 L 96 L Lymph % (Auto) 11.0 L Laporte % (Auto) Laporte # (Auto) 1.1 H Seg Neutrophils % 81.6 H Seg Neuts % (Manual) 96.0 H Lymphocytes % (Manual) 3.0 L Seg Neutrophils # 12.3 H Seg Neutrophils # Man 19.0 H Lymphocytes # (Manual) 0.6 L PT D-Dimer Sodium 149 H Potassium 3.3 L Chloride 113.0 H Carbon Dioxide BUN 40 H Creatinine Glucose 196 H Lactic Acid Ferritin Total Bilirubin AST ALT Alkaline Phosphatase Lactate Dehydrogenase Total Creatine Kinase Troponin T C-Reactive Protein Albumin Urine pH Urine WBC (Auto) Coronavirus (PCR) 04/28/21 04/29/21 04/29/21 06:10 04:00 06:49 WBC RBC Hgb Hct MCV 82 L MCH 26 L MCHC RDW 15.3 H Plt Count 122 L Lymph % (Auto) Laporte % (Auto) [place] # (Auto) Seg Neutrophils % Seg Neuts % (Manual) 84.0 H Lymphocytes % (Manual) 11.0 L Seg Neutrophils # Seg Neutrophils # Man 8.7 H Lymphocytes # (Manual) 1.1 L PT D-Dimer Sodium Potassium 3.5 L Chloride Carbon Dioxide BUN 34 H 28 H Creatinine 0.7 L Glucose 110 H Lactic Acid Ferritin Total Bilirubin AST ALT Alkaline Phosphatase Lactate Dehydrogenase Total Creatine Kinase Troponin T C-Reactive Protein Albumin Urine pH Urine WBC (Auto) Coronavirus (PCR) 04/30/21 04/30/21 05/02/21 04:00 04:00 05:45 WBC 11.6 H RBC Hgb 10.7 L Hct 33.7 L MCV 81 L 80 L MCH 26 L 26 L MCHC RDW Plt Count Lymph % (Auto) Laporte % (Auto) 8.6 H [place] # (Auto) 1.0 H Seg Neutrophils % 73.8 H Seg Neuts % (Manual) 84.0 H Lymphocytes % (Manual) 12.0 L Seg Neutrophils # 8.5 H Seg Neutrophils # Man 8.8 H Lymphocytes # (Manual) PT D-Dimer Sodium Potassium 3.5 L Chloride Carbon Dioxide BUN 21 H Creatinine 0.6 L Glucose 111 H Lactic Acid Ferritin Total Bilirubin AST ALT Alkaline Phosphatase Lactate Dehydrogenase Total Creatine Kinase Troponin T C-Reactive Protein Albumin Urine pH Urine WBC (Auto) Coronavirus (PCR) 05/02/21 05/03/21 05/04/21 05:45 06:04 06:25 WBC RBC 3.54 L Hgb 9.2 L Hct 28.8 L MCV 81 L MCH 26 L MCHC RDW 15.3 H Plt Count Lymph % (Auto) Lap[place] % (Auto) 8.9 H [place] # (Auto) Seg Neutrophils % Seg Neuts % (Manual) Lymphocytes % (Manual) Seg Neutrophils # Seg Neutrophils # Man Lymphocytes # (Manual) PT D-Dimer Sodium Potassium 3.0 L 3.3 L Chloride Carbon Dioxide BUN Creatinine 0.6 L 0.5 L Glucose 104 H Lactic Acid Ferritin Total Bilirubin AST ALT Alkaline Phosphatase 164 H Lactate Dehydrogenase Total Creatine Kinase Troponin T C-Reactive Protein Albumin 3.3 L Urine pH Urine WBC (Auto) Coronavirus (PCR) 05/04/21 06:25 WBC RBC Hgb Hct MCV MCH MCHC RDW Plt Count Lymph % (Auto) Laporte % (Auto) [place] # (Auto) Seg Neutrophils % Seg Neuts % (Manual) Lymphocytes % (Manual) Seg Neutrophils # Seg Neutrophils # Man Lymphocytes # (Manual) PT D-Dimer Sodium Potassium 3.5 L Chloride Carbon Dioxide BUN Creatinine 0.6 L Glucose Lactic Acid Ferritin Total Bilirubin AST ALT Alkaline Phosphatase Lactate Dehydrogenase Total Creatine Kinase Troponin T C-Reactive Protein Albumin Urine pH Urine WBC (Auto) Coronavirus (PCR) Prior PFT's, U/S of legs: report reviewed, image reviewed Additional Studies: DUPLEX DOPPLER LOWER EXTREMITY VEINS, BILATERAL 05/02/21 INDICATION / CLINICAL INFORMATION: swelling. TECHNIQUE: Duplex doppler imaging was performed through the veins of both lower extremities using venous compression and other maneuvers. COMPARISON: None available. FINDINGS: RIGHT COMMON FEMORAL VEIN: Negative. RIGHT FEMORAL VEIN: Negative. RIGHT POPLITEAL VEIN: Negative. RIGHT CALF VEINS: Negative. LEFT COMMON FEMORAL VEIN: Negative. LEFT FEMORAL VEIN: Negative. LEFT POPLITEAL VEIN: Negative. LEFT CALF VEINS: Negative. ADDITIONAL FINDINGS: None. IMPRESSION: 1. No sonographic evidence for DVT in either lower extremity. Allied health notes reviewed: nursing
[2021-05-04] MEDS ORDERED: MAGNESIUM SULFATE 2 GM/50 ML BAG IV ONE (11:20)
[2021-05-04] MEDS: HEPARIN 5,000 UNIT/1 ML VIAL SUB-Q SCH ×2 (12:25→21:42)
[2021-05-04] MEDS: POLYETHYLENE GLYCOL 3350 17 GM POWDER PO SCH ×2 (12:25→21:42)
[2021-05-04] MEDS: amLODIPine 10 MG TAB PO SCH (12:25)
[2021-05-04] MEDS: cefTRIAXone/NS 2 GM/100 ML 2 GM/100 ML BAG IV SCH (12:25)
--- NOTE | 2021-05-04 13:19 | Gastroenterology Progress Note ---
Assessment and Plan # Colon dilation - abnormal CT a/p - CT a/p on 04/23/2021 which showed dilated descending and sigmoid colon along with thickening of sigmoid and rectum. - patient with mildly distended abdomen. - KUB with dilated colon. - suspect this may be chronic with h/o quadruplegia and immobility leading to constipation and dysmotility. - suspect ileus. - repeat xray shows mild improvement in bowel dilation. - s/p rectal tube on 05/04 without much output. rec - continue with miralax - cont with rectal tube. - will add dulcolax PO - may need golytely if no improvement. - may need outpatient colonoscopy to rule out malignancy once acute issues resolve. Subjective Date of service: 05/04/21 Principal diagnosis: Septic shock; COVID positive; JENY; AMS; AHRF; HCAP; Tr ansaminitis Interval history: Patient had rectal tube placed and not much output per nursing. Patient denies any abdominal pain. Objective - Constitutional Vitals: Temp Pulse Resp BP Pulse Ox 98.8 F 104 H 20 106/66 97 05/04/21 10:27 05/04/21 10:27 05/04/21 10:27 05/04/21 10:27 05/04/21 10:27 General appearance: no acute distress - EENT ENT: hearing intact - Respiratory Respiratory effort: normal - Cardiovascular Rhythm: regular Heart Sounds: Present: S1 & S2 - Gastrointestinal General gastrointestinal: Present: tender, distended, normal bowel sounds - Integumentary Integumentary: Present: clear, warm - Neurologic Neurological: alert and oriented x3 - Psychiatric Psychiatric: cooperative - Allied health notes Allied health notes reviewed: nursing - Labs CBC & Chem 7: 05/04/21 06:25 05/04/21 06:25 Labs: Laboratory Results - last 24 hr 05/04/21 05/04/21 06:25 06:25 WBC 6.4 RBC 3.54 L Hgb 9.2 L Hct 28.8 L MCV 81 L MCH 26 L MCHC 32 RDW 15.3 H Plt Count 279 Lymph % (Auto) 22.1 Cecil % (Auto) 8.9 H Eos % (Auto) 0.6 Baso % (Auto) 0.2 Lymph # (Auto) 1.4 Cecil # (Auto) 0.6 Eos # (Auto) 0.0 Baso # (Auto) 0.0 Seg Neutrophils % 68.2 Seg Neutrophils # 4.4 Sodium 140 Potassium 3.5 L Chloride 104.1 Carbon Dioxide 28 Anion Gap 11 BUN 11 Creatinine 0.6 L Estimated GFR > 60 BUN/Creatinine Ratio 18 Glucose 99 Calcium 8.5 Magnesium 1.80 - Imaging x-ray: report reviewed
--- NOTE | 2021-05-04 16:06 | XRay Report ---
ABDOMEN 1 VIEW(S) INDICATION / CLINICAL INFORMATION: colon dilation. COMPARISON: 2 days prior FINDINGS: TUBES / LINES: None. BOWEL GAS PATTERN: There is diffuse gaseous distention of both small and large bowel, similar to the prior. Gas is noted in the rectum. FREE AIR / EXTRALUMINAL GAS: None seen. ADDITIONAL FINDINGS: No significant additional findings. IMPRESSION: 1. No significant change. Probable adynamic ileus. Incompletely included on this exam, there appears to be gaseous distention of the stomach as well. Signer Name: Jerzy Walker MD Signed: 05/04/2021 4:02 PM Workstation Name: [id number]
[2021-05-04] MEDS: POTASSIUM CHLORIDE 10 MEQ 10 MEQ/100 ML BAG IV SCH ×4 (16:30→20:12)
[2021-05-04] MEDS: K-LYTE 25 MEQ TABLET EFF PO SCH (16:30)
--- NOTE | 2021-05-04 18:54 | Progress Note ---
Assessment and Plan Assessment and plan: 65-year-old male who is a [facility] a [facility] with past medical history GERD, quadriplegia secondary to a spinal injury now with: #Septic shock-resolved #Proteus bacteremia -s/p pressors -Blood cultures 04/23 07/08 proteus vulgaris ; repeat 04/24 no growth to date -discontinue cefepime, started rocephin to be continued until 05/08/2021 -will need midline prior to discharge -MRSA PCR pending -ID consulted, assistance appreciated -Etiology UTI versus colitis, urine cultures not sent. #Acute kidney injury-resolved -Creatinine 0.6 -Nephrology following, assistance appreciated -Likely secondary to vasomotor nephropathy from hypotension #Acute metabolic encephalopathy -Resolved, likely secondary to shock #Healthcare associated pneumonia #COVID-19 pneumonia -CT chest showed prominence bilaterally with atelectasis -[facility] -Treated empirically with Vanco and cefepime and discontinued -COVID PCR positive 04/24 #Elevated liver enzymes -Secondary to shock, resolved #Elevated D-dimer -VQ scan low probability for PE and ultrasound negative for a DVT in lower extremities -Likely elevated secondary to COVID-19 infection #Hypokalemia, persistent -will replete and monitor Abdominal distention with small bowel and large bowel distention, likely adynamic ileus With significant distention of descending colon: Up to 11 cm and significant thickening of sigmoid and rectum on CT, no previous studies to compare. Significant amount of stool present. Given history of quadriplegia, this could be chronic GI consulted and started on bowel regimen with MiraLAX twice daily and Dulcolax on 05/01, having multiple loose BMs with improvement of abdominal distention and food intake.. GI recommends rectal tube placement since stool is leaking continuously and also for gaseous distention. Abdominal distention resolved with rectal tube in place Persistent hypokalemia This could exacerbate ileus. Replenishing aggressively intravenously #Quadriplegia s/p spinal injury -Bedbound and resident of [facility] Discussed with the patient and RN Disposition: patient to be [facility] back [facility] when ileus and hypokalemia improve and will complete the course of Rocephin through 05/08/2021 History Interval history: Abdominal distention mostly resolved after placement of rectal tube yesterday. Has liquid stools on Dulcolax and MiraLAX PAD. Remains hypokalemic with aggressive replenishment intravenously as well as orally, potassium today is 3.5. Hemodynamically remained stable. Patient does not complain. Is awake and tolerating diet when fed. He is chronically immobile from quadriplegia. Hospitalist Physical - Constitutional Vitals: Temp Pulse Resp BP Pulse Ox 98.8 F 104 H 20 106/66 97 05/04/21 10:27 05/04/21 10:27 05/04/21 10:27 05/04/21 10:27 05/04/21 10:27 General appearance: Present: no acute distress, other (Quadriplegic, alert and some confused but able to answer simple questions well.) - EENT Eyes: Present: PERRL, EOM intact ENT: hearing intact, clear oral mucosa, other (Moist) - Neck Neck: Present: supple - Respiratory Respiratory effort: normal Respiratory: bilateral: CTA - Cardiovascular Rhythm: regular - Extremities Extremity abnormal: edema (2+) - Abdominal General gastrointestinal: soft, non-tender, non-distended (Abdominal distention now resolved with rectal tube in place), normal bowel sounds - Integumentary Integumentary: Absent: rash - Psychiatric Psychiatric: cooperative - Neurologic Neurologic: other (Awake, some confused but able to answer simple questions. Immobile with quadriplegia.) HEART Score - HEART Score Troponin: Troponin T 0.124 ng/mL (0.00-0.029) H* 04/23/21 15:58 Results - Labs CBC & Chem 7: 05/04/21 06:25 05/04/21 06:25 Labs: Laboratory Last Values WBC 6.4 K/mm3 (4.5-11.0) 05/04/21 06:25 RBC 3.54 M/mm3 (3.65-5.03) L 05/04/21 06:25 Hgb 9.2 gm/dl (11.8-15.2) L 05/04/21 06:25 Hct 28.8 % (35.5-45.6) L 05/04/21 06:25 MCV 81 fl (84-94) L 05/04/21 06:25 MCH 26 pg (28-32) L 05/04/21 06:25 MCHC 32 % (32-34) 05/04/21 06:25 RDW 15.3 % (13.2-15.2) H 05/04/21 06:25 Plt Count 279 K/mm3 (140-440) 05/04/21 06:25 Lymph % (Auto) 22.1 % (13.4-35.0) 05/04/21 06:25 Maverick % (Auto) 8.9 % (0.0-7.3) H 05/04/21 06:25 Eos % (Auto) 0.6 % (0.0-4.3) 05/04/21 06:25 Baso % (Auto) 0.2 % (0.0-1.8) 05/04/21 06:25 Lymph # (Auto) 1.4 K/mm3 (1.2-5.4) 05/04/21 06:25 Maverick # (Auto) 0.6 K/mm3 (0.0-0.8) 05/04/21 06:25 Eos # (Auto) 0.0 K/mm3 (0.0-0.4) 05/04/21 06:25 Baso # (Auto) 0.0 K/mm3 (0.0-0.1) 05/04/21 06:25 Add Manual Diff Complete 04/30/21 04:00 Total Counted 100 04/30/21 04:00 Seg Neutrophils % 68.2 % (40.0-70.0) 05/04/21 06:25 Seg Neuts % (Manual) 84.0 % (40.0-70.0) H 04/30/21 04:00 Band Neutrophils % 0 % 04/30/21 04:00 Lymphocytes % (Manual) 12.0 % (13.4-35.0) L 04/30/21 04:00 Reactive Lymphs % (Man) 0 % 04/30/21 04:00 Monocytes % (Manual) 4.0 % (0.0-7.3) 04/30/21 04:00 Eosinophils % (Manual) 0 % (0.0-4.3) 04/30/21 04:00 Basophils % (Manual) 0 % (0.0-1.8) 04/30/21 04:00 Metamyelocytes % 0 % 04/30/21 04:00 Myelocytes % 0 % 04/30/21 04:00 Promyelocytes % 0 % 04/30/21 04:00 Blast Cells % 0 % 04/30/21 04:00 Nucleated RBC % Not Reportable 04/30/21 04:00 Seg Neutrophils # 4.4 K/mm3 (1.8-7.7) 05/04/21 06:25 Seg Neutrophils # Man 8.8 K/mm3 (1.8-7.7) H 04/30/21 04:00 Band Neutrophils # 0.0 K/mm3 04/30/21 04:00 Lymphocytes # (Manual) 1.3 K/mm3 (1.2-5.4) 04/30/21 04:00 Abs React Lymphs (Man) 0.0 K/mm3 04/30/21 04:00 Monocytes # (Manual) 0.4 K/mm3 (0.0-0.8) 04/30/21 04:00 Eosinophils # (Manual) 0.0 K/mm3 (0.0-0.4) 04/30/21 04:00 Basophils # (Manual) 0.0 K/mm3 (0.0-0.1) 04/30/21 04:00 Metamyelocytes # 0.0 K/mm3 04/30/21 04:00 Myelocytes # 0.0 K/mm3 04/30/21 04:00 Promyelocytes # 0.0 K/mm3 04/30/21 04:00 Blast Cells # 0.0 K/mm3 04/30/21 04:00 WBC Morphology Not Reportable 04/30/21 04:00 Hypersegmented Neuts Not Reportable 04/30/21 04:00 Hyposegmented Neuts Not Reportable 04/30/21 04:00 Hypogranular Neuts Not Reportable 04/30/21 04:00 Smudge Cells Not Reportable 04/30/21 04:00 Toxic Granulation Not Reportable 04/30/21 04:00 Toxic Vacuolation Not Reportable 04/30/21 04:00 Dohle Bodies Not Reportable 04/30/21 04:00 Pelger-Huet Anomaly Not Reportable 04/30/21 04:00 Perry Rods Not Reportable 04/30/21 04:00 Platelet Estimate Consistent w auto 04/30/21 04:00 Clumped Platelets Not Reportable 04/30/21 04:00 Plt Clumps, EDTA Not Reportable 04/30/21 04:00 Large Platelets Not Reportable 04/30/21 04:00 Giant Platelets Not Reportable 04/30/21 04:00 Platelet Satelliting Not Reportable 04/30/21 04:00 Plt Morphology Comment Not Reportable 04/30/21 04:00 RBC Morphology Not Reportable 04/30/21 04:00 Dimorphic RBCs Not Reportable 04/30/21 04:00 Polychromasia Not Reportable 04/30/21 04:00 Hypochromasia 1+ 04/30/21 04:00 Poikilocytosis Not Reportable 04/30/21 04:00 Anisocytosis Not Reportable 04/30/21 04:00 Microcytosis Not Reportable 04/30/21 04:00 Macrocytosis Not Reportable 04/30/21 04:00 Spherocytes Not Reportable 04/30/21 04:00 Pappenheimer Bodies Not Reportable 04/30/21 04:00 Sickle Cells Not Reportable 04/30/21 04:00 Target Cells Not Reportable 04/30/21 04:00 Tear Drop Cells Not Reportable 04/30/21 04:00 Ovalocytes Not Reportable 04/30/21 04:00 Helmet Cells Not Reportable 04/30/21 04:00 Morel-Vanduser Bodies Not Reportable 04/30/21 04:00 [place] Rings Not Reportable 04/30/21 04:00 Esau Cells Not Reportable 04/30/21 04:00 Bite Cells Not Reportable 04/30/21 04:00 Crenated Cell Not Reportable 04/30/21 04:00 Elliptocytes Not Reportable 04/30/21 04:00 Acanthocytes (Spur) Not Reportable 04/30/21 04:00 Rouleaux Not Reportable 04/30/21 04:00 Hemoglobin C Crystals Not Reportable 04/30/21 04:00 Schistocytes Not Reportable 04/30/21 04:00 Malaria parasites Not Reportable 04/30/21 04:00 Joshua Bodies Not Reportable 04/30/21 04:00 Hem Pathologist Commnt No 04/30/21 04:00 PT 15.6 Sec. (12.2-14.9) H 04/23/21 15:58 INR 1.12 (0.87-1.13) 04/23/21 15:58 APTT 35.0 Sec. (24.2-36.6) 04/23/21 15:58 D-Dimer 6397.32 ng/mlDDU (0-234) H 04/23/21 17:30 Sodium 140 mmol/L (137-145) 05/04/21 06:25 Potassium 3.5 mmol/L (3.6-5.0) L 05/04/21 06:25 Chloride 104.1 mmol/L (98-107) 05/04/21 06:25 Carbon Dioxide 28 mmol/L (22-30) 05/04/21 06:25 Anion Gap 11 mmol/L 05/04/21 06:25 BUN 11 mg/dL (9-20) 05/04/21 06:25 Creatinine 0.6 mg/dL (0.8-1.3) L 05/04/21 06:25 Estimated GFR > 60 ml/min 05/04/21 06:25 BUN/Creatinine Ratio 18 % 05/04/21 06:25 Glucose 99 mg/dL (75-100) 05/04/21 06:25 Lactic Acid 1.20 mmol/L (0.7-2.0) 04/24/21 01:01 Calcium 8.5 mg/dL (8.4-10.2) 05/04/21 06:25 Magnesium 1.80 mg/dL (1.7-2.3) 05/04/21 06:25 Ferritin 812.8 ng/mL (30.0-300.0) H 04/23/21 17:30 Total Bilirubin 0.60 mg/dL (0.1-1.2) 05/02/21 05:45 AST 21 units/L (5-40) 05/02/21 05:45 ALT 32 units/L (7-56) 05/02/21 05:45 Alkaline Phosphatase 164 units/L (35-129) H 05/02/21 05:45 Ammonia 26.0 umol/L (25-60) 04/23/21 15:58 Lactate Dehydrogenase 346 units/L (91-180) H 04/23/21 17:30 Total Creatine Kinase 1763 units/L (55-170) H 04/23/21 15:58 Troponin T 0.124 ng/mL (0.00-0.029) H* 04/23/21 15:58 C-Reactive Protein 27.00 mg/dL (0.00-1.30) H 04/23/21 17:30 Total Protein 6.7 g/dL (6.3-8.2) 05/02/21 05:45 Albumin 3.3 g/dL (3.9-5) L 05/02/21 05:45 Albumin/Globulin Ratio 1.0 % 05/02/21 05:45 Procalcitonin > 200.00 ng/mL (<0.15) 04/23/21 17:37 Urine Color Jacque (Yellow) 04/23/21 Unknown Urine Turbidity Cloudy (Clear) 04/23/21 Unknown Urine pH 8.0 (5.0-7.0) H 04/23/21 Unknown Ur Specific Ketchum 1.012 (1.003-1.030) 04/23/21 Unknown Urine Protein >500 mg/dL (Negative) 04/23/21 Unknown Urine Glucose (UA) Neg mg/dL (Negative) 04/23/21 Unknown Urine Ketones Neg mg/dL (Negative) 04/23/21 Unknown Urine Blood Lg (Negative) 04/23/21 Unknown Urine Nitrite Neg (Negative) 04/23/21 Unknown Urine Bilirubin Neg (Negative) 04/23/21 Unknown Urine Urobilinogen < 2.0 mg/dL (<2.0) 04/23/21 Unknown Ur Leukocyte Esterase Lg (Negative) 04/23/21 Unknown Urine WBC (Auto) > 182.0 /HPF (0.0-6.0) H 04/23/21 Unknown Urine RBC (Auto) 93.0 /HPF (0.0-6.0) 04/23/21 Unknown U Epithel Cells (Auto) 4.0 /HPF (0-13.0) 04/23/21 Unknown Urine Bacteria (Auto) 2+ /HPF (Negative) 04/23/21 Unknown Urine Mucus Few /HPF 04/23/21 Unknown Nasal Screen MRSA (PCR) Positive (Negative) 04/27/21 07:38 Random Vancomycin 4.2 ug/mL (0-40.0) 04/25/21 08:50 Coronavirus (PCR) Positive (Negative) A 04/24/21 07:54 SARS-CoV-2 (PCR) Cancelled 04/24/21 07:54 Bobby/IV: Voiding Method Condom Catheter Active Medications - Current Medications Current Medications: Generic Name Dose Route Start Last Admin Trade Name Freq PRN Reason Stop Dose Admin Acetaminophen 650 mg 04/23/21 17:18 05/03/21 13:05 Acetaminophen 325 Mg Tab PO 650 mg Q6H PRN Administration Pain, Mild (1-3) Albuterol 2.5 mg 04/23/21 17:18 Albuterol 2.5 Mg/3 Ml Nebu IH Q3HRT PRN Shortness Of Breath Amlodipine Besylate 10 mg 04/26/21 10:00 05/04/21 12:25 Amlodipine 10 Mg Tab PO 10 mg QDAY CARROL Administration Bisacodyl 10 mg 05/05/21 10:00 Bisacodyl 5 Mg Tab PO QDAY CARROL Heparin Sodium (Porcine) 5,000 unit 04/23/21 22:00 05/04/21 12:25 Heparin 5,000 Unit/1 Ml Vial SUB-Q 5,000 unit Q12HR CARROL Administration Hydralazine HCl 10 mg 04/25/21 19:36 04/27/21 23:05 Hydralazine 20 Mg/1 Ml Inj IV 10 mg Q4HR PRN Administration Blood Pressure Ceftriaxone Sodium 2 gm in 100 mls @ 200 mls/hr 04/29/21 12:00 05/04/21 12:25 Rocephin/Ns 2 Gm/100 Ml IV 05/08/21 12:29 200 mls/hr Q24H CARROL Administration Protocol Polyethylene Glycol 17 gm 05/01/21 16:00 05/04/21 12:25 Polyethylene Glycol 3350 17 Gm Powder PO 17 gm BID CARROL Administration Potassium Bicarbonate 25 meq 05/04/21 12:00 05/04/21 16:30 K-Lyte 25 Meq Tablet Eff PO 25 meq QDAY CARROL Administration Sodium Chloride 10 ml 04/23/21 22:00 05/04/21 10:00 Sodium Chloride 0.9% 10 Ml Flush Syringe IV 10 ml BID CARROL Administration Sodium Chloride 10 ml 04/29/21 14:06 Sodium Chloride 0.9% 50 Ml Ivpb IV PRN PRN INT Nutrition/Malnutrition Assess - Dietary Evaluation Nutrition/Malnutrition Findings: Nutrition Notes Start: 04/30/21 16:39 Freq: Status: Active Protocol: Document 04/30/21 16:39 CATIE (Rec: 04/30/21 16:55 CATIE [id number]) Nutrition Notes Current Diagnosis Sepsis Other Pertinent Diagnosis COVID-19, Colon dilation, Proteus bacteremia, UTI, Current Diet Regular Diet (since L 04/25). Labs/Tests 04/30: K 3.5, BUN 21, Crea 0.6 , Glu 111. Pertinent Medications 04/30: Nutritionally unremarkable. Height 6 ft 1 in Weight 90.71 kg [place] Body Weight (kg) 83.63 BMI 26.4 Intake Prior to Admission Good Weight change and time frame Pt states not having loss body weight [employer]. Weight Status Overweight Subjective/Other Information RD consult for LOS assessment. Pt's PO intake of meals has been Neglible (0-25%), according to ADL notes. Pt is quadriplegic. Percent of energy/protein needs met: Prescribed Regular Diet provides for energy/protein needs (2,289 Kcal/89 g) during LOS; additionally, Dietary Supplements will compensate for possible poor or insufficient PO intake of meals with 1,050 Kcal and 60 g of protein. Burn Absent Trauma Absent GI Symptoms None Food Allergy No Skin Integrity/Comment Unspecified area of concern. Current % PO Negligible Minimum of two criteria No #1 Nutrition Diagnosis Inadequate protein-energy intake Etiology Uncertain at the time As Evidenced by Signs and Symptoms Neglible PO intake of meals, according to ADL notes. Is patient on ventilator? No Is Patient Ambulatory and/or Out of Bed No REE-([facility]-confined to bed) 6660.228 Calculation Used for Recommendations 70-80% of EEN Additional Notes 15-20 Kcal/Kg ABW (3574-7968 Kcal). Protein: 1.2-2 g/Kg; 83-138 g/ day. Fluids: 1 ml/Kcal, or as per MD. Nutrition Intervention Change Diet Order: Continue Regular Diet. Add Supplement/Snack (indicate name/kcal 8 fl oz Ensure Enlive; TID. /protein ) Provides kCal: 1,050 Provides Protein (gm) 60 Goal #1 Compensate, through dietary supplementation, for possible poor or insufficient PO intake of meals during LOS. Follow-Up By: 05/07/21 Additional Comments Continue monitoring food tolerance, %PO intake of meals , and BM.
[2021-05-05 08:00] LABS: Blood Urea Nitrogen 11 mg/dL (9-20); Calcium 9.1 mg/dL (8.4-10.2); Hemolysis Index 22
[2021-05-05 08:02] LABS: BUN/Creatinine Ratio 18
[2021-05-05] MEDS ORDERED: K-LYTE 25 MEQ TABLET EFF PO SCH (10:00)
[2021-05-05] MEDS: HEPARIN 5,000 UNIT/1 ML VIAL SUB-Q SCH ×2 (10:50→21:13)
[2021-05-05] MEDS: K-LYTE 25 MEQ TABLET EFF PO SCH (10:50)
[2021-05-05] MEDS ORDERED: POLYETHYLENE GLYCOL/ELECT SOLN 4000 ML PO ONE (11:30)
--- NOTE | 2021-05-05 11:33 | Gastroenterology Progress Note ---
Assessment and Plan # Colon dilation , abnormal CT colon - suspect this may be chronic with h/o immobility, patient is not clinically obstructed therefore giving GoLYTELY to drink and cleanse the colon - may need outpatient colonoscopy to rule out malignancy once acute issues resolve. - Patient Problems (1) Ileus Current Visit: Yes Status: Acute (2) Abdominal distention Current Visit: Yes Status: Acute (3) Abdominal pain Current Visit: Yes Status: Acute (4) Suspected COVID-19 virus infection Current Visit: Yes Status: Acute Subjective Date of service: 05/05/21 Principal diagnosis: Septic shock; COVID positive; JENY; AMS; AHRF; HCAP; Transaminitis Interval history: Patient reports still with no bowel movements though denies significant abdominal pain Objective - Constitutional Vitals: Temp Pulse Resp BP Pulse Ox 98.0 F 98 H 18 127/82 97 05/05/21 06:25 05/05/21 06:25 05/05/21 06:25 05/05/21 06:25 05/05/21 06:25 General appearance: no acute distress, obese - EENT Eyes: EOM intact ENT: hearing intact - Respiratory Respiratory effort: normal - Gastrointestinal General gastrointestinal: Present: other (Decreased bowel sounds, denies tenderness to palpation) - Labs CBC & Chem 7: 05/04/21 06:25 05/05/21 06:30 Labs: Laboratory Results - last 24 hr 05/05/21 06:30 Sodium 142 Potassium 3.7 Chloride 103.6 Carbon Dioxide 27 Anion Gap 15 BUN 11 Creatinine 0.6 L Estimated GFR > 60 BUN/Creatinine Ratio 18 Glucose 91 Calcium 9.1 Magnesium 1.90
--- NOTE | 2021-05-05 12:39 | Progress Note ---
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 Patient has diminished cognition at the time of my evaluation and is unable to provide history. patient has experienced increased weakness and decreased responsiveness over the past 3 days. Patient was found to be febrile to 103 F. EMS was notified and upon arrival the patient was found to be in distress and subsequent transported to [facility] for further care and evaluation of the aforementioned symptoms. The patient was seen and evaluated in the emergency department. All lab and imaging studies reviewed. The patient was found to have a pulse oximetry of 84% on nonrebreather mask which is consistent with acute hypoxemic respiratory failure. Chest x-ray reveals evidence of pneumonia. Patient also found to have sepsis complicated by shock as well as shock liver, acute kidney injury, metabolic acidosis, toxic metabolic encephalopathy. Patient found to be critically ill and admitted to ICU and initiated on sepsis protocol, pneumonia protocol as well as coronavirus protocol. No further history is obtainable. According to the chart, No history of smoking, alcohol or drug abuse. Patients laguna virus PCR Positive. D dimer 6397. Ferritin 812 LDH 346 CRP 27. Patient awake, Patient is still on high flow O2, Vapotherm FIO2 60%. No acute shortness of breath at rest. O2 saturation 92%. afebrile. No leukocytosis. blood pressure 125/79, Pulse 98, respirations 18. Chest xray done 04/23/21 reported There are patchy airspace opacities noted in the lung bases. There is mild venous congestion. No pneumothorax. Nuclear medicine perfusion lung scan done 04/26/21 reported low probabilty for pulmonary emboli. Bilateral lower extremity Duplex studies reported No sonographic evidence for DVT in either lower extremity. Patient is on ceftriaxone and S/C Heparin , albuterol inhaler. Patient was on dexamethasone, cefepime and vancomycin I - Patient Problems (1) Acute respiratory failure with hypoxia Current Visit: Yes Status: Acute Plan to address problem: Improved. Patient resting on room air. O2 saturation 100%. Recommend ABGs on room air. (2) Coronavirus infection Current Visit: Yes Status: Acute Plan to address problem: Management as per infectious diseases. Patient was on solumedrol and S/C heparin. (3) 2019 novel coronavirus-infected pneumonia (NCIP) Current Visit: Yes Status: Acute Plan to address problem: Patient presently on ceftriaxone. Antibiotics as per ID. (4) Acute metabolic encephalopathy Current Visit: Yes Status: Acute Plan to address problem: Management as per primary care. 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 Patient has diminished cognition at the time of my evaluation and is unable to provide history. patient has experienced increased weakness and decreased responsiveness over the past 3 days. Patient was found to be febrile to 103 F. EMS was notified and upon arrival the patient was found to be in distress and subsequent transported to [facility] for further care and evaluation of the aforementioned symptoms. The patient was seen and evaluated in the emergency department. All lab and imaging studies reviewed. The patient was found to have a pulse oximetry of 84% on nonrebreather mask which is consistent with acute hypoxemic respiratory failure. Chest x-ray reveals evidence of pneumonia. Patient also found to have sepsis complicated by shock as well as shock liver, acute kidney injury, metabolic acidosis, toxic metabolic encephalopathy. P atient found to be critically ill and admitted to ICU and initiated on sepsis protocol, pneumonia protocol as well as coronavirus protocol. No further history is obtainable. According to the chart, No history of smoking, alcohol or drug abuse. Patients laguna virus PCR Positive. D dimer 6397. Ferritin 812 LDH 346 CRP 27. Patient awake, Patient is still on high flow O2, Vapotherm FIO2 60%. No acute shortness of breath at rest. O2 saturation 92%. afebrile. No leukocytosis. blood pressure 125/79, Pulse 98, respirations 18. Chest xray done 04/23/21 reported There are patchy airspace opacities noted in the lung bases. There is mild venous congestion. No pneumothorax. Nuclear medicine perfusion lung scan done 04/26/21 reported low probabilty for pulmonary emboli. Bilateral lower extremity Duplex studies reported No sonographic evidence for DVT in either lower extremity. Patient is on ceftriaxone and S/C Heparin , albuterol inhaler. Patient was on dexamethasone, cefepime and vancomycin Objective Vital Signs - 12hr 05/05/21 06:25 Temperature 98.0 F Pulse Rate 98 H Respiratory 18 Rate Blood Pressure 127/82 O2 Sat by Pulse 97 Oximetry Constitutional: no acute distress, alert, other (chronically ill looking male with normal respiratory effort at rest) Eyes: non-icteric ENT: oropharynx dry Neck: supple, no lymphadenopathy, no JVD Effort: mildly labored Ascultation: Bilateral: diminished breath sounds Percussion: Bilateral: not dull Cardiovascular: regular rate and rhythm, other (S1,S2) Gastrointestinal: normoactive bowel sounds, soft, non-tender, non-distended Integumentary: normal Extremities: no cyanosis, no edema, other (bilateral hand splints) Neurologic: normal mental status, non-focal exam, pupils equal and round, other (bilateral lower extemity and upper extremity weakness) Psychiatric: mood appropriate, affect normal CBC and BMP: 05/04/21 06:25 05/06/21 07:00 ABG, PT/INR, D-dimer: PT/INR, D-dimer PT 15.6 Sec. (12.2-14.9) H 04/23/21 15:58 INR 1.12 (0.87-1.13) 04/23/21 15:58 D-Dimer 6397.32 ng/mlDDU (0-234) H 04/23/21 17:30 Abnormal lab findings: Abnormal Labs 04/23/21 04/23/21 04/23/21 15:58 15:58 15:58 WBC 17.9 H RBC Hgb Hct MCV 81 L MCH 26 L MCHC RDW 15.5 H Plt Count 96 L Lymph % (Auto) [place] % (Auto) C[place] # (Auto) Seg Neutrophils % Seg Neuts % (Manual) 88.0 H Lymphocytes % (Manual) 2.0 L Seg Neutrophils # Seg Neutrophils # Man 15.8 H Lymphocytes # (Manual) 0.4 L PT 15.6 H D-Dimer Sodium Potassium Chloride Carbon Dioxide BUN Creatinine Glucose Lactic Acid 2.50 H* Ferritin Total Bilirubin AST ALT Alkaline Phosphatase Lactate Dehydrogenase Total Creatine Kinase Troponin T C-Reactive Protein Albumin Urine pH Urine WBC (Auto) Coronavirus (PCR) 04/23/21 04/23/21 04/23/21 15:58 17:30 17:30 WBC RBC Hgb Hct MCV MCH MCHC RDW Plt Count Lymph % (Auto) [place] % (Auto) [place] # (Auto) Seg Neutrophils % Seg Neuts % (Manual) Lymphocytes % (Manual) Seg Neutrophils # Seg Neutrophils # Man Lymphocytes # (Manual) PT D-Dimer 6397.32 H Sodium Potassium 3.4 L Chloride Carbon Dioxide BUN 38 H Creatinine 2.8 H Glucose 117 H 116 H Lactic Acid Ferritin Total Bilirubin 3.10 H AST 340 H ALT 360 H Alkaline Phosphatase 345 H Lactate Dehydrogenase 346 H Total Creatine Kinase 1763 H Troponin T 0.124 H* C-Reactive Protein 27.00 H Albumin 3.4 L Urine pH Urine WBC (Auto) Coronavirus (PCR) 04/23/21 04/23/21 04/24/21 17:30 Unknown 04:48 WBC 19.7 H RBC Hgb 10.9 L Hct MCV 81 L MCH 25 L MCHC 31 L RDW 15.9 H Plt Count 93 L Lymph % (Auto) [place] % (Auto) [place] # (Auto) Seg Neutrophils % Seg Neuts % (Manual) 99.0 H Lymphocytes % (Manual) 1.0 L Seg Neutrophils # Seg Neutrophils # Man 19.5 H Lymphocytes # (Manual) 0.2 L PT D-Dimer Sodium Potassium Chloride Carbon Dioxide BUN Creatinine Glucose Lactic Acid Ferritin 812.8 H Total Bilirubin AST ALT Alkaline Phosphatase Lactate Dehydrogenase Total Creatine Kinase Troponin T C-Reactive Protein Albumin Urine pH 8.0 H Urine WBC (Auto) > 182.0 H Coronavirus (PCR) 04/24/21 04/24/21 04/25/21 04:48 07:54 08:50 WBC 15.7 H RBC Hgb 11.4 L Hct MCV 81 L MCH 25 L MCHC 31 L RDW 15.9 H Plt Count 106 L Lymph % (Auto) [place] % (Auto) [place] # (Auto) Seg Neutrophils % Seg Neuts % (Manual) 93.0 H Lymphocytes % (Manual) 6.0 L Seg Neutrophils # Seg Neutrophils # Man 14.6 H Lymphocytes # (Manual) 0.9 L PT D-Dimer Sodium 148 H Potassium 3.3 L Chloride 109.7 H Carbon Dioxide 19 L BUN 45 H Creatinine 3.0 H Glucose 123 H Lactic Acid Ferritin Total Bilirubin 2.70 H AST 171 H ALT 233 H Alkaline Phosphatase 294 H Lactate Dehydrogenase Total Creatine Kinase Troponin T C-Reactive Protein Albumin 3.4 L Urine pH Urine WBC (Auto) Coronavirus (PCR) Positive A 04/25/21 04/26/21 04/26/21 08:50 05:15 05:15 WBC 16.8 H RBC Hgb Hct MCV 82 L MCH 25 L MCHC 31 L RDW 15.5 H Plt Count 110 L Lymph % (Auto) [place] % (Auto) [place] # (Auto) Seg Neutrophils % Seg Neuts % (Manual) 96.0 H Lymphocytes % (Manual) 2.0 L Seg Neutrophils # Seg Neutrophils # Man 16.1 H Lymphocytes # (Manual) 0.3 L PT D-Dimer Sodium 153 H 151 H Potassium 3.4 L 3.5 L Chloride 115.3 H 114.7 H Carbon Dioxide 20 L BUN 57 H 55 H Creatinine 1.8 H 1.4 H Glucose 160 H 169 H Lactic Acid Ferritin Total Bilirubin AST ALT Alkaline Phosphatase Lactate Dehydrogenase Total Creatine Kinase Troponin T C-Reactive Protein Albumin Urine pH Urine WBC (Auto) Coronavirus (PCR) 04/27/21 04/27/21 04/28/21 04:00 04:00 06:10 WBC 19.8 H 15.0 H RBC Hgb 11.3 L 11.3 L Hct MCV 81 L 81 L MCH 26 L 25 L MCHC 31 L 31 L RDW 15.5 H 15.7 H Plt Count 84 L 96 L Lymph % (Auto) 11.0 L C[place]ra % (Auto) C[place] # (Auto) 1.1 H Seg Neutrophils % 81.6 H Seg Neuts % (Manual) 96.0 H Lymphocytes % (Manual) 3.0 L Seg Neutrophils # 12.3 H Seg Neutrophils # Man 19.0 H Lymphocytes # (Manual) 0.6 L PT D-Dimer Sodium 149 H Potassium 3.3 L Chloride 113.0 H Carbon Dioxide BUN 40 H Creatinine Glucose 196 H Lactic Acid Ferritin Total Bilirubin AST ALT Alkaline Phosphatase Lactate Dehydrogenase Total Creatine Kinase Troponin T C-Reactive Protein Albumin Urine pH Urine WBC (Auto) Coronavirus (PCR) 04/28/21 04/29/21 04/29/21 06:10 04:00 06:49 WBC RBC Hgb Hct MCV 82 L MCH 26 L MCHC RDW 15.3 H Plt Count 122 L Lymph % (Auto) [place] % (Auto) [place] # (Auto) Seg Neutrophils % Seg Neuts % (Manual) 84.0 H Lymphocytes % (Manual) 11.0 L Seg Neutrophils # Seg Neutrophils # Man 8.7 H Lymphocytes # (Manual) 1.1 L PT D-Dimer Sodium Potassium 3.5 L Chloride Carbon Dioxide BUN 34 H 28 H Creatinine 0.7 L Glucose 110 H Lactic Acid Ferritin Total Bilirubin AST ALT Alkaline Phosphatase Lactate Dehydrogenase Total Creatine Kinase Troponin T C-Reactive Protein Albumin Urine pH Urine WBC (Auto) Coronavirus (PCR) 04/30/21 04/30/21 05/02/21 04:00 04:00 05:45 WBC 11.6 H RBC Hgb 10.7 L Hct 33.7 L MCV 81 L 80 L MCH 26 L 26 L MCHC RDW Plt Count Lymph % (Auto) [place] % (Auto) 8.6 H [place] # (Auto) 1.0 H Seg Neutrophils % 73.8 H Seg Neuts % (Manual) 84.0 H Lymphocytes % (Manual) 12.0 L Seg Neutrophils # 8.5 H Seg Neutrophils # Man 8.8 H Lymphocytes # (Manual) PT D-Dimer Sodium Potassium 3.5 L Chloride Carbon Dioxide BUN 21 H Creatinine 0.6 L Glucose 111 H Lactic Acid Ferritin Total Bilirubin AST ALT Alkaline Phosphatase Lactate Dehydrogenase Total Creatine Kinase Troponin T C-Reactive Protein Albumin Urine pH Urine WBC (Auto) Coronavirus (PCR) 05/02/21 05/03/21 05/04/21 05:45 06:04 06:25 WBC RBC 3.54 L Hgb 9.2 L Hct 28.8 L MCV 81 L MCH 26 L MCHC RDW 15.3 H Plt Count Lymph % (Auto) [place] % (Auto) 8.9 H [place] # (Auto) Seg Neutrophils % Seg Neuts % (Manual) Lymphocytes % (Manual) Seg Neutrophils # Seg Neutrophils # Man Lymphocytes # (Manual) PT D-Dimer Sodium Potassium 3.0 L 3.3 L Chloride Carbon Dioxide BUN Creatinine 0.6 L 0.5 L Glucose 104 H Lactic Acid Ferritin Total Bilirubin AST ALT Alkaline Phosphatase 164 H Lactate Dehydrogenase Total Creatine Kinase Troponin T C-Reactive Protein Albumin 3.3 L Urine pH Urine WBC (Auto) Coronavirus (PCR) 05/04/21 05/05/21 06:25 06:30 WBC RBC Hgb Hct MCV MCH MCHC RDW Plt Count Lymph % (Auto) [place] % (Auto) [place] # (Auto) Seg Neutrophils % Seg Neuts % (Manual) Lymphocytes % (Manual) Seg Neutrophils # Seg Neutrophils # Man Lymphocytes # (Manual) PT D-Dimer Sodium Potassium 3.5 L Chloride Carbon Dioxide BUN Creatinine 0.6 L 0.6 L Glucose Lactic Acid Ferritin Total Bilirubin AST ALT Alkaline Phosphatase Lactate Dehydrogenase Total Creatine Kinase Troponin T C-Reactive Protein Albumin Urine pH Urine WBC (Auto) Coronavirus (PCR) Allied health notes reviewed: nursing
[2021-05-05] MEDS: cefTRIAXone/NS 2 GM/100 ML 2 GM/100 ML BAG IV SCH (13:48)
--- NOTE | 2021-05-05 16:54 | Progress Note ---
Assessment and Plan Assessment and plan: 65-year-old male who is a [facility] with past medical history GERD, quadriplegia secondary to a spinal injury now with: #Septic shock-resolved #Proteus bacteremia -s/p pressors -Blood cultures 04/23 07/08 proteus vulgaris ; repeat 04/24 no growth to date -discontinue cefepime, started rocephin to be continued until 05/08/2021 -will need midline prior to discharge -MRSA PCR pending -ID consulted, assistance appreciated -Etiology UTI versus colitis, urine cultures not sent. #Acute kidney injury-resolved -Creatinine 0.6 -Nephrology following, assistance appreciated -Likely secondary to vasomotor nephropathy from hypotension #Acute metabolic encephalopathy -Resolved, likely secondary to shock #Healthcare associated pneumonia #COVID-19 pneumonia -CT chest showed prominence bilaterally with atelectasis -Patient is from long-term -Treated empirically with Vanco and cefepime and discontinued -COVID PCR positive 04/24 #Elevated liver enzymes -Secondary to shock, resolved #Elevated D-dimer -VQ scan low probability for PE and ultrasound negative for a DVT in lower extremities -Likely elevated secondary to COVID-19 infection #Hypokalemia, persistent - replete and monitor Abdominal distention with small bowel and large bowel distention, likely adynamic ileus With significant distention of descending colon: Up to 11 cm and significant thickening of sigmoid and rectum on CT, no previous studies to compare. Significant amount of stool present. Given history of quadriplegia, this could be chronic GI consulted and started on bowel regimen with MiraLAX twice daily and Dulcolax on 05/01, having multiple loose BMs with improvement of abdominal distention and food intake.. GI recommends rectal tube placement since stool is leaking continuously and also for gaseous distention. Abdominal distention resolved with rectal tube in place Persistent hypokalemia This could exacerbate ileus. Replenishing aggressively intravenously #Quadriplegia s/p spinal injury -Bedbound and resident of [facility] Discussed with the patient and RN Disposition: Anticipating discharge back to his long-term tomorrow and he will complete the course of Rocephin through 05/08/2021 History Interval history: Patient remains hemodynamically stable. Rectal tube in place. Clear watery output in rectal back. Abdomen is mildly distended and a bit firmer. GI orde red GoLYTELY today for stool retention. Potassium borderline, receiving oral supplement. Hospitalist Physical - Constitutional Vitals: Temp Pulse Resp BP Pulse Ox 98.0 F 98 H 18 127/82 98 05/05/21 06:25 05/05/21 06:25 05/05/21 06:25 05/05/21 06:25 05/05/21 10:00 General appearance: Present: no acute distress, other (Quadriplegic, alert and some confused but able to answer simple questions well.) - EENT Eyes: Present: PERRL, EOM intact - Neck Neck: Present: supple - Respiratory Respiratory effort: normal Respiratory: bilateral: diminished - Cardiovascular Rhythm: regular - Extremities Extremity abnormal: edema (2+) - Abdominal General gastrointestinal: other (Abdomen, mildly distended, a bit firm) - Integumentary Integumentary: Absent: rash - Psychiatric Psychiatric: cooperative - Neurologic Neurologic: other (Blood, verbal, answers questions appropriately, quadriplegic) HEART Score - HEART Score Troponin: Troponin T 0.124 ng/mL (0.00-0.029) H* 04/23/21 15:58 Results - Labs CBC & Chem 7: 05/04/21 06:25 05/05/21 06:30 Labs: Laboratory Last Values WBC 6.4 K/mm3 (4.5-11.0) 05/04/21 06:25 RBC 3.54 M/mm3 (3.65-5.03) L 05/04/21 06:25 Hgb 9.2 gm/dl (11.8-15.2) L 05/04/21 06:25 Hct 28.8 % (35.5-45.6) L 05/04/21 06:25 MCV 81 fl (84-94) L 05/04/21 06:25 MCH 26 pg (28-32) L 05/04/21 06:25 MCHC 32 % (32-34) 05/04/21 06:25 RDW 15.3 % (13.2-15.2) H 05/04/21 06:25 Plt Count 279 K/mm3 (140-440) 05/04/21 06:25 Lymph % (Auto) 22.1 % (13.4-35.0) 05/04/21 06:25 [place] % (Auto) 8.9 % (0.0-7.3) H 05/04/21 06:25 Eos % (Auto) 0.6 % (0.0-4.3) 05/04/21 06:25 Baso % (Auto) 0.2 % (0.0-1.8) 05/04/21 06:25 Lymph # (Auto) 1.4 K/mm3 (1.2-5.4) 05/04/21 06:25 [place] # (Auto) 0.6 K/mm3 (0.0-0.8) 05/04/21 06:25 Eos # (Auto) 0.0 K/mm3 (0.0-0.4) 05/04/21 06:25 Baso # (Auto) 0.0 K/mm3 (0.0-0.1) 05/04/21 06:25 Add Manual Diff Complete 04/30/21 04:00 Total Counted 100 04/30/21 04:00 Seg Neutrophils % 68.2 % (40.0-70.0) 05/04/21 06:25 Seg Neuts % (Manual) 84.0 % (40.0-70.0) H 04/30/21 04:00 Band Neutrophils % 0 % 04/30/21 04:00 Lymphocytes % (Manual) 12.0 % (13.4-35.0) L 04/30/21 04:00 Reactive Lymphs % (Man) 0 % 04/30/21 04:00 Monocytes % (Manual) 4.0 % (0.0-7.3) 04/30/21 04:00 Eosinophils % (Manual) 0 % (0.0-4.3) 04/30/21 04:00 Basophils % (Manual) 0 % (0.0-1.8) 04/30/21 04:00 Metamyelocytes % 0 % 04/30/21 04:00 Myelocytes % 0 % 04/30/21 04:00 Promyelocytes % 0 % 04/30/21 04:00 Blast Cells % 0 % 04/30/21 04:00 Nucleated RBC % Not Reportable 04/30/21 04:00 Seg Neutrophils # 4.4 K/mm3 (1.8-7.7) 05/04/21 06:25 Seg Neutrophils # Man 8.8 K/mm3 (1.8-7.7) H 04/30/21 04:00 Band Neutrophils # 0.0 K/mm3 04/30/21 04:00 Lymphocytes # (Manual) 1.3 K/mm3 (1.2-5.4) 04/30/21 04:00 Abs React Lymphs (Man) 0.0 K/mm3 04/30/21 04:00 Monocytes # (Manual) 0.4 K/mm3 (0.0-0.8) 04/30/21 04:00 Eosinophils # (Manual) 0.0 K/mm3 (0.0-0.4) 04/30/21 04:00 Basophils # (Manual) 0.0 K/mm3 (0.0-0.1) 04/30/21 04:00 Metamyelocytes # 0.0 K/mm3 04/30/21 04:00 Myelocytes # 0.0 K/mm3 04/30/21 04:00 Promyelocytes # 0.0 K/mm3 04/30/21 04:00 Blast Cells # 0.0 K/mm3 04/30/21 04:00 WBC Morphology Not Reportable 04/30/21 04:00 Hypersegmented Neuts Not Reportable 04/30/21 04:00 Hyposegmented Neuts Not Reportable 04/30/21 04:00 Hypogranular Neuts Not Reportable 04/30/21 04:00 Smudge Cells Not Reportable 04/30/21 04:00 Toxic Granulation Not Reportable 04/30/21 04:00 Toxic Vacuolation Not Reportable 04/30/21 04:00 Dohle Bodies Not Reportable 04/30/21 04:00 Pelger-Huet Anomaly Not Reportable 04/30/21 04:00 Perry Rods Not Reportable 04/30/21 04:00 Platelet Estimate Consistent w auto 04/30/21 04:00 Clumped Platelets Not Reportable 04/30/21 04:00 Plt Clumps, EDTA Not Reportable 04/30/21 04:00 Large Platelets Not Reportable 04/30/21 04:00 Giant Platelets Not Reportable 04/30/21 04:00 Platelet Satelliting Not Reportable 04/30/21 04:00 Plt Morphology Comment Not Reportable 04/30/21 04:00 RBC Morphology Not Reportable 04/30/21 04:00 Dimorphic RBCs Not Reportable 04/30/21 04:00 Polychromasia Not Reportable 04/30/21 04:00 Hypochromasia 1+ 04/30/21 04:00 Poikilocytosis Not Reportable 04/30/21 04:00 Anisocytosis Not Reportable 04/30/21 04:00 Microcytosis Not Reportable 04/30/21 04:00 Macrocytosis Not Reportable 04/30/21 04:00 Spherocytes Not Reportable 04/30/21 04:00 Pappenheimer Bodies Not Reportable 04/30/21 04:00 Sickle Cells Not Reportable 04/30/21 04:00 Target Cells Not Reportable 04/30/21 04:00 Tear Drop Cells Not Reportable 04/30/21 04:00 Ovalocytes Not Reportable 04/30/21 04:00 Helmet Cells Not Reportable 04/30/21 04:00 [place] Bodies Not Reportable 04/30/21 04:00 [place] Rings Not Reportable 04/30/21 04:00 [place] Cells Not Reportable 04/30/21 04:00 Bite Cells Not Reportable 04/30/21 04:00 Crenated Cell Not Reportable 04/30/21 04:00 Elliptocytes Not Reportable 04/30/21 04:00 Acanthocytes (Spur) Not Reportable 04/30/21 04:00 Rouleaux Not Reportable 04/30/21 04:00 Hemoglobin C Crystals Not Reportable 04/30/21 04:00 Schistocytes Not Reportable 04/30/21 04:00 Malaria parasites Not Reportable 04/30/21 04:00 Joshua Bodies Not Reportable 04/30/21 04:00 Hem Pathologist Commnt No 04/30/21 04:00 PT 15.6 Sec. (12.2-14.9) H 04/23/21 15:58 INR 1.12 (0.87-1.13) 04/23/21 15:58 APTT 35.0 Sec. (24.2-36.6) 04/23/21 15:58 D-Dimer 6397.32 ng/mlDDU (0-234) H 04/23/21 17:30 Sodium 142 mmol/L (137-145) 05/05/21 06:30 Potassium 3.7 mmol/L (3.6-5.0) 05/05/21 06:30 Chloride 103.6 mmol/L (98-107) 05/05/21 06:30 Carbon Dioxide 27 mmol/L (22-30) 05/05/21 06:30 Anion Gap 15 mmol/L 05/05/21 06:30 BUN 11 mg/dL (9-20) 05/05/21 06:30 Creatinine 0.6 mg/dL (0.8-1.3) L 05/05/21 06:30 Estimated GFR > 60 ml/min 05/05/21 06:30 BUN/Creatinine Ratio 18 % 05/05/21 06:30 Glucose 91 mg/dL (75-100) 05/05/21 06:30 Lactic Acid 1.20 mmol/L (0.7-2.0) 04/24/21 01:01 Calcium 9.1 mg/dL (8.4-10.2) 05/05/21 06:30 Magnesium 1.90 mg/dL (1.7-2.3) 05/05/21 06:30 Ferritin 812.8 ng/mL (30.0-300.0) H 04/23/21 17:30 Total Bilirubin 0.60 mg/dL (0.1-1.2) 05/02/21 05:45 AST 21 units/L (5-40) 05/02/21 05:45 ALT 32 units/L (7-56) 05/02/21 05:45 Alkaline Phosphatase 164 units/L (35-129) H 05/02/21 05:45 Ammonia 26.0 umol/L (25-60) 04/23/21 15:58 Lactate Dehydrogenase 346 units/L (91-180) H 04/23/21 17:30 Total Creatine Kinase 1763 units/L (55-170) H 04/23/21 15:58 Troponin T 0.124 ng/mL (0.00-0.029) H* 04/23/21 15:58 C-Reactive Protein 27.00 mg/dL (0.00-1.30) H 04/23/21 17:30 Total Protein 6.7 g/dL (6.3-8.2) 05/02/21 05:45 Albumin 3.3 g/dL (3.9-5) L 05/02/21 05:45 Albumin/Globulin Ratio 1.0 % 05/02/21 05:45 Procalcitonin > 200.00 ng/mL (<0.15) 04/23/21 17:37 Urine Color [place]que (Yellow) 04/23/21 Unknown Urine Turbidity Cloudy (Clear) 04/23/21 Unknown Urine pH 8.0 (5.0-7.0) H 04/23/21 Unknown Ur Specific [place] 1.012 (1.003-1.030) 04/23/21 Unknown Urine Protein >500 mg/dL (Negative) 04/23/21 Unknown Urine Glucose (UA) Neg mg/dL (Negative) 04/23/21 Unknown Urine Ketones Neg mg/dL (Negative) 04/23/21 Unknown Urine Blood Lg (Negative) 04/23/21 Unknown Urine Nitrite Neg (Negative) 04/23/21 Unknown Urine Bilirubin Neg (Negative) 04/23/21 Unknown Urine Urobilinogen < 2.0 mg/dL (<2.0) 04/23/21 Unknown Ur Leukocyte Esterase Lg (Negative) 04/23/21 Unknown Urine WBC (Auto) > 182.0 /HPF (0.0-6.0) H 04/23/21 Unknown Urine RBC (Auto) 93.0 /HPF (0.0-6.0) 04/23/21 Unknown U Epithel Cells (Auto) 4.0 /HPF (0-13.0) 04/23/21 Unknown Urine Bacteria (Auto) 2+ /HPF (Negative) 04/23/21 Unknown Urine Mucus Few /HPF 04/23/21 Unknown Nasal Screen MRSA (PCR) Positive (Negative) 04/27/21 07:38 Random Vancomycin 4.2 ug/mL (0-40.0) 04/25/21 08:50 Coronavirus (PCR) Positive (Negative) A 04/24/21 07:54 SARS-CoV-2 (PCR) Cancelled 04/24/21 07:54 Bobby/IV: Voiding Method Condom Catheter Active Medications - Current Medications Current Medications: Generic Name Dose Route Start Last Admin Trade Name Freq PRN Reason Stop Dose Admin Acetaminophen 650 mg 04/23/21 17:18 05/03/21 13:05 Acetaminophen 325 Mg Tab PO 650 mg Q6H PRN Administration Pain, Mild (1-3) Albuterol 2.5 mg 04/23/21 17:18 Albuterol 2.5 Mg/3 Ml Nebu IH Q3HRT PRN Shortness Of Breath Heparin Sodium (Porcine) 5,000 unit 04/23/21 22:00 05/05/21 10:50 Heparin 5,000 Unit/1 Ml Vial SUB-Q 5,000 unit Q12HR CARROL Administration Hydralazine HCl 10 mg 04/25/21 19:36 04/27/21 23:05 Hydralazine 20 Mg/1 Ml Inj IV 10 mg Q4HR PRN Administration Blood Pressure Ceftriaxone Sodium 2 gm in 100 mls @ 200 mls/hr 04/29/21 12:00 05/05/21 13:48 Rocephin/Ns 2 Gm/100 Ml IV 05/08/21 12:29 200 mls/hr Q24H CARROL Administration Protocol Polyethylene Glycol 17 gm 05/06/21 10:00 Polyethylene Glycol 3350 17 Gm Powder PO DAILY CARROL Potassium Bicarbonate 25 meq 05/04/21 12:00 05/05/21 10:50 K-Lyte 25 Meq Tablet Eff PO 25 meq QDAY CARROL Administration Potassium Bicarbonate 25 meq 05/05/21 10:00 K-Lyte 25 Meq Tablet Eff PO DAILY CARROL Sodium Chloride 10 ml 04/23/21 22:00 05/05/21 10:52 Sodium Chloride 0.9% 10 Ml Flush Syringe IV 10 ml BID CARROL Administration Sodium Chloride 10 ml 04/29/21 14:06 Sodium Chloride 0.9% 50 Ml Ivpb IV PRN PRN INT Nutrition/Malnutrition Assess - Dietary Evaluation Nutrition/Malnutrition Findings: Nutrition Notes Start: 04/30/21 16:39 Freq: Status: Active Protocol: Document 04/30/21 16:39 CATIE (Rec: 04/30/21 16:55 CATIE [id number]) Nutrition Notes Current Diagnosis Sepsis Other Pertinent Diagnosis COVID-19, Colon dilation, Proteus bacteremia, UTI, Current Diet Regular Diet (since L 04/25). Labs/Tests 04/30: K 3.5, BUN 21, Crea 0.6 , Glu 111. Pertinent Medications 04/30: Nutritionally unremarkable. Height 6 ft 1 in Weight 90.71 kg [place] Body Weight (kg) 83.63 BMI 26.4 Intake Prior to Admission Good Weight change and time frame Pt states not having loss body weight [employer] ATTEND[employer]. Weight Status Overweight Subjective/Other Information RD consult for LOS assessment. Pt's PO intake of meals has been Neglible (0-25%), according to ADL notes. Pt is quadriplegic. Percent of energy/protein needs met: Prescribed Regular Diet provides for energy/protein needs (2,289 Kcal/89 g) during LOS; additionally, Dietary Supplements will compensate for possible poor or insufficient PO intake of meals with 1,050 Kcal and 60 g of protein. Burn Absent Trauma Absent GI Symptoms None Food Allergy No Skin Integrity/Comment Unspecified area of concern. Current % PO Negligible Minimum of two criteria No #1 Nutrition Diagnosis Inadequate protein-energy intake Etiology Uncertain at the time As Evidenced by Signs and Symptoms Neglible PO intake of meals, according to ADL notes. Is patient on ventilator? No Is Patient Ambulatory and/or Out of Bed No REE-([facility]-confined to bed) 8625.228 Calculation Used for Recommendations 70-80% of EEN Additional Notes 15-20 Kcal/Kg ABW (0991-7010 Kcal). Protein: 1.2-2 g/Kg; 83-138 g/ day. Fluids: 1 ml/Kcal, or as per MD. Nutrition Intervention Change Diet Order: Continue Regular Diet. Add Supplement/Snack (indicate name/kcal 8 fl oz Ensure Enlive; TID. /protein ) Provides kCal: 1,050 Provides Protein (gm) 60 Goal #1 Compensate, through dietary supplementation, for possible poor or insufficient PO intake of meals during LOS. Follow-Up By: 05/07/21 Additional Comments Continue monitoring food tolerance, %PO intake of meals , and BM.
[2021-05-06 08:03] LABS: Blood Urea Nitrogen 13 mg/dL (9-20); Calcium 9.6 mg/dL (8.4-10.2); Hemolysis Index 14
[2021-05-06 08:18] LABS: BUN/Creatinine Ratio 22
--- NOTE | 2021-05-06 08:31 | Gastroenterology Progress Note ---
Assessment and Plan # Colon dilation , abnormal CT colon - suspect this may be chronic with h/o immobility, patient with sig abd distension despite rectal tube but no evidence for complete obstruction therefore will order enemas and prokinetics - Patient Problems (1) Ileus Current Visit: Yes Status: Acute (2) Abdominal distention Current Visit: Yes Status: Acute (3) Abdominal pain Current Visit: Yes Status: Acute (4) Suspected COVID-19 virus infection Current Visit: Yes Status: Acute Subjective Date of service: 05/06/21 Principal diagnosis: Septic shock; COVID positive; JENY; AMS; AHRF; HCAP; Trans aminitis Interval history: Patient annoyed that I woke him up and wants to go back to sleep Says he is "feeling fine" Spoke with his nurse, no significant amount of bowel movements through rectal tube since yesterday Unclear how much GoLYTELY he drank Objective - Constitutional Vitals: Temp Pulse Resp BP Pulse Ox 98.7 F 102 H 18 148/100 97 05/06/21 05:39 05/06/21 05:39 05/06/21 05:39 05/06/21 05:39 05/06/21 05:39 General appearance: no acute distress - EENT Eyes: EOM intact - Neck Neck: supple - Respiratory Respiratory effort: normal - Gastrointestinal General gastrointestinal: Present: distended, hypoactive bowel sounds - Labs CBC & Chem 7: 05/04/21 06:25 05/06/21 07:00 Labs: Laboratory Results - last 24 hr 05/06/21 07:00 Sodium 140 Potassium 3.6 Chloride 100.0 Carbon Dioxide 28 Anion Gap 16 BUN 13 Creatinine 0.6 L Estimated GFR > 60 BUN/Creatinine Ratio 22 Glucose 99 Calcium 9.6 Magnesium 1.90
[2021-05-06] MEDS ORDERED: POLYETHYLENE GLYCOL 3350 17 GM POWDER PO SCH (10:00)
[2021-05-06] MEDS ORDERED: K-LYTE 25 MEQ TABLET EFF PO SCH (10:00)
[2021-05-06] MEDS ORDERED: METOCLOPRAMIDE 10 MG TAB PO NR (10:30)
[2021-05-06] MEDS: cefTRIAXone/NS 2 GM/100 ML 2 GM/100 ML BAG IV SCH (11:04)
[2021-05-06] MEDS: HEPARIN 5,000 UNIT/1 ML VIAL SUB-Q SCH (11:04)
--- NOTE | 2021-05-06 11:32 | Progress Note ---
Assessment and Plan Cultures: Blood culture 04/23/2021 Proteus vulgaris Blood culture 04/24/2021 no growth A/P: 65-year-old male who is a resident of a longterm facility with past medical history GERD, quadriplegia secondary to a spinal injury now with: #Acute sepsis: With fever and leukocytosis on admission, now improving. Secondary to Proteus bacteremia. #Proteus bacteremia: Likely secondary to colitis versus UTI. Resistant to fluoroquinolones #Acute UTI: With sepsis encephalopathy on admission. Unfortunately no urine culture run. #COVID-19: No hypoxia, no need to treat. #JENY: Resolved Recs: -Start ceftriaxone 2 g every 24 hours -Okay to discharge on ceftriaxone until 05/08/2021 -Case management consulted as such -Patient is a resident of [facility], okay to place midline if necessary on discharge -No need for acute Covid treatment Thank you for the consult, we will continue to follow. Yobani Gallo MD [facility], [place], [facility] O: [phone] F: [phone] Subjective Date of service: 05/06/21 Principal diagnosis: Septic shock; COVID positive; JENY; AMS; AHRF; HCAP; Transaminitis Interval history: Afebrile, normal white count. Objective - Exam Narrative Exam: Physical exam deferred to reduce risk of transmission of COVID-19. Please refer to primary team's note. - Constitutional Vitals: Vital Signs Temp Pulse Resp BP Pulse Ox 98.7 F 102 H 18 148/100 97 05/06/21 05:39 05/06/21 05:39 05/06/21 05:39 05/06/21 05:39 05/06/21 05:39 Temperature -Last 24 Hours Temperature 98.7 F Temperature 99.2 F Temperature 99.2 F - Labs CBC & Chem 7: 05/04/21 06:25 05/06/21 07:00 Labs: Abnormal lab results 05/06/21 Range/Units 07:00 Creatinine 0.6 L (0.8-1.3) mg/dL
[2021-05-06 12:54] VITALS: BP 134/87
--- NOTE | 2021-05-06 13:03 | Progress Note ---
Assessment and Plan 65 YO Male Jail Facility Resident at [facility] with MDD, GERD, HLD, Quadraplegia S/P Spine Injury, Seborrheic Dermatitis, Encephalopathy presents to ED for evaluation. Patient has diminished cognition at the time of my evaluation and is unable to provide history. patient has experienced increased weakness and decreased responsiveness over the past 3 days. Patient was found to be febrile to 103 F. EMS was notified and upon arrival the patient was found to be in distress and subsequent transported to [facility] for further care and evaluation of the aforementioned symptoms. The patient was seen and evaluated in the emergency department. All lab and imaging studies reviewed. The patient was found to have a pulse oximetry of 84% on nonrebreather mask which is consistent with acute hypoxemic respiratory failure. Chest x-ray reveals evidence of pneumonia. Patient also found to have sepsis complicated by shock as well as shock liver, acute kidney injury, metabolic acidosis, toxic metabolic encephalopathy. Patient found to be critically ill and admitted to ICU and initiated on sepsis protocol, pneumonia protocol as well as coronavirus protocol. No further history is obtainable. According to the chart, No history of smoking, alcohol or drug abuse. Patients laguna virus PCR Positive. D dimer 6397. Ferritin 812 LDH 346 CRP 27. Patient awake. weak. confused. No acute respiratory distrss on room air. O2 saturation 99%. Afebrile. No leukocytosis. Blood pressure 134/87, Pulse 106, respirations 24 Chest xray done 04/23/21 reported There are patchy airspace opacities noted in t he lung bases. There is mild venous congestion. No pneumothorax. Nuclear medicine perfusion lung scan done 04/26/21 reported low probabilty for pulmonary emboli. Bilateral lower extremity Duplex studies reported No sonographic evidence for DVT in either lower extremity. Patient is on ceftriaxone and S/C Heparin , albuterol inhaler. Patient was on dexamethasone, cefepime and vancomycin I - Patient Problems (1) Acute respiratory failure with hypoxia Current Visit: Yes Status: Acute Plan to address problem: Improved. Patient resting on room air. O2 saturation 99%. Recommend ABGs on room air. (2) Coronavirus infection Current Visit: Yes Status: Acute Plan to address problem: Management as per infectious diseases. Patient was on solumedrol and S/C heparin. (3) 2019 novel coronavirus-infected pneumonia (NCIP) Current Visit: Yes Status: Acute Plan to address problem: Patient presently on ceftriaxone. Antibiotics as per ID. (4) Acute metabolic encephalopathy Current Visit: Yes Status: Acute Plan to address problem: Management as per primary care. Subjective Date of service: 05/06/21 Principal diagnosis: Septic shock; COVID positive; JENY; AMS; AHRF; HCAP; Transaminitis Interval history: 65 YO Male Jail Facility Resident at [facility] with MDD, GERD, HLD, Quadraplegia S/P Spine Injury, Seborrheic Dermatitis, Encephalopathy presents to ED for evaluation. Patient has diminished cognition at the time of my evaluation and is unable to provide h istory. patient has experienced increased weakness and decreased responsiveness over the past 3 days. Patient was found to be febrile to 103 F. EMS was notified and upon arrival the patient was found to be in distress and subsequent transported to [facility] for further care and evaluation of the afor ementioned symptoms. The patient was seen and evaluated in the emergency department. All lab and imaging studies reviewed. The patient was found to have a pulse oximetry of 84% on nonrebreather mask which is consistent with acute hypoxemic respiratory failure. Chest x-ray reveals evidence of pneumonia. Patient also found to have sepsis complicated by shock as well as shock liver, acute kidney injury, metabolic acidosis, toxic metabolic encephalopathy. Patient found to be critically ill and admitted to ICU and initiated on sepsis protocol, pneumonia protocol as well as coronavirus protocol. No further history is obtainable. According to the chart, No history of smoking, alcohol or drug abuse. Patients laguna virus PCR Positive. D dimer 6397. Ferritin 812 LDH 346 CRP 27. Patient awake. weak. confused. No acute respiratory distrss on room air. O2 saturation 99%. Afebrile. No leukocytosis. Blood pressure 134/87, Pulse 106, respirations 24 Chest xray done 04/23/21 reported There are patchy airspace opacities noted in the lung bases. There is mild venous congestion. No pneumothorax. Nuclear medicine perfusion lung scan done 04/26/21 reported low probabilty for pulmonary emboli. Bilateral lower extremity Duplex studies reported No sonographic evidence for DVT in either lower extremity. Patient is on ceftriaxone and S/C Heparin , albuterol inhaler. Patient was on dexamethasone, cefepime and vancomycin Objective Vital Signs - 12hr 05/06/21 05/06/21 05:39 10:33 Temperature 98.7 F 98.9 F Pulse Rate 102 H 106 H Respiratory 18 24 Rate Blood Pressure 148/100 134/87 O2 Sat by Pulse 97 99 Oximetry Constitutional: no acute distress, alert, other (chronically ill looking male with normal respiratory effort at rest) Eyes: non-icteric ENT: oropharynx dry Neck: supple, no lymphadenopathy, no JVD Effort: mildly labored Ascultation: Bilateral: diminished breath sounds Percussion: Bilateral: not dull Cardiovascular: regular rate and rhythm, other (S1,S2) Gastrointestinal: normoactive bowel sounds, soft, non-tender, non-distended Integumentary: normal Extremities: no cyanosis, no edema, other (bilateral hand splints) Neurologic: normal mental status, non-focal exam, pupils equal and round, other (bilateral lower extemity and upper extremity weakness) Psychiatric: depressed CBC and BMP: 05/04/21 06:25 05/06/21 07:00 ABG, PT/INR, D-dimer: PT/INR, D-dimer PT 15.6 Sec. (12.2-14.9) H 04/23/21 15:58 INR 1.12 (0.87-1.13) 04/23/21 15:58 D-Dimer 6397.32 ng/mlDDU (0-234) H 04/23/21 17:30 Abnormal lab findings: Abnormal Labs 04/23/21 04/23/21 04/23/21 15:58 15:58 15:58 WBC 17.9 H RBC Hgb Hct MCV 81 L MCH 26 L MCHC RDW 15.5 H Plt Count 96 L Lymph % (Auto) Gulf % (Auto) Gulf # (Auto) Seg Neutrophils % Seg Neuts % (Manual) 88.0 H Lymphocytes % (Manual) 2.0 L Seg Neutrophils # Seg Neutrophils # Man 15.8 H Lymphocytes # (Manual) 0.4 L PT 15.6 H D-Dimer Sodium Potassium Chloride Carbon Dioxide BUN Creatinine Glucose Lactic Acid 2.50 H* Ferritin Total Bilirubin AST ALT Alkaline Phosphatase Lactate Dehydrogenase Total Creatine Kinase Troponin T C-Reactive Protein Albumin Urine pH Urine WBC (Auto) Coronavirus (PCR) 04/23/21 04/23/21 04/23/21 15:58 17:30 17:30 WBC RBC Hgb Hct MCV MCH MCHC RDW Plt Count Lymph % (Auto) Gulf % (Auto) Gulf # (Auto) Seg Neutrophils % Seg Neuts % (Manual) Lymphocytes % (Manual) Seg Neutrophils # Seg Neutrophils # Man Lymphocytes # (Manual) PT D-Dimer 6397.32 H Sodium Potassium 3.4 L Chloride Carbon Dioxide BUN 38 H Creatinine 2.8 H Glucose 117 H 116 H Lactic Acid Ferritin Total Bilirubin 3.10 H AST 340 H ALT 360 H Alkaline Phosphatase 345 H Lactate Dehydrogenase 346 H Total Creatine Kinase 1763 H Troponin T 0.124 H* C-Reactive Protein 27.00 H Albumin 3.4 L Urine pH Urine WBC (Auto) Coronavirus (PCR) 04/23/21 04/23/21 04/24/21 17:30 Unknown 04:48 WBC 19.7 H RBC Hgb 10.9 L Hct MCV 81 L MCH 25 L MCHC 31 L RDW 15.9 H Plt Count 93 L Lymph % (Auto) Gulf % (Auto) Gulf # (Auto) Seg Neutrophils % Seg Neuts % (Manual) 99.0 H Lymphocytes % (Manual) 1.0 L Seg Neutrophils # Seg Neutrophils # Man 19.5 H Lymphocytes # (Manual) 0.2 L PT D-Dimer Sodium Potassium Chloride Carbon Dioxide BUN Creatinine Glucose Lactic Acid Ferritin 812.8 H Total Bilirubin AST ALT Alkaline Phosphatase Lactate Dehydrogenase Total Creatine Kinase Troponin T C-Reactive Protein Albumin Urine pH 8.0 H Urine WBC (Auto) > 182.0 H Coronavirus (PCR) 04/24/21 04/24/21 04/25/21 04:48 07:54 08:50 WBC 15.7 H RBC Hgb 11.4 L Hct MCV 81 L MCH 25 L MCHC 31 L RDW 15.9 H Plt Count 106 L Lymph % (Auto) Gulf % (Auto) Gulf # (Auto) Seg Neutrophils % Seg Neuts % (Manual) 93.0 H Lymphocytes % (Manual) 6.0 L Seg Neutrophils # Seg Neutrophils # Man 14.6 H Lymphocytes # (Manual) 0.9 L PT D-Dimer Sodium 148 H Potassium 3.3 L Chloride 109.7 H Carbon Dioxide 19 L BUN 45 H Creatinine 3.0 H Glucose 123 H Lactic Acid Ferritin Total Bilirubin 2.70 H AST 171 H ALT 233 H Alkaline Phosphatase 294 H Lactate Dehydrogenase Total Creatine Kinase Troponin T C-Reactive Protein Albumin 3.4 L Urine pH Urine WBC (Auto) Coronavirus (PCR) Positive A 04/25/21 04/26/21 04/26/21 08:50 05:15 05:15 WBC 16.8 H RBC Hgb Hct MCV 82 L MCH 25 L MCHC 31 L RDW 15.5 H Plt Count 110 L Lymph % (Auto) Gulf % (Auto) Gulf # (Auto) Seg Neutrophils % Seg Neuts % (Manual) 96.0 H Lymphocytes % (Manual) 2.0 L Seg Neutrophils # Seg Neutrophils # Man 16.1 H Lymphocytes # (Manual) 0.3 L PT D-Dimer Sodium 153 H 151 H Potassium 3.4 L 3.5 L Chloride 115.3 H 114.7 H Carbon Dioxide 20 L BUN 57 H 55 H Creatinine 1.8 H 1.4 H Glucose 160 H 169 H Lactic Acid Ferritin Total Bilirubin AST ALT Alkaline Phosphatase Lactate Dehydrogenase Total Creatine Kinase Troponin T C-Reactive Protein Albumin Urine pH Urine WBC (Auto) Coronavirus (PCR) 04/27/21 04/27/21 04/28/21 04:00 04:00 06:10 WBC 19.8 H 15.0 H RBC Hgb 11.3 L 11.3 L Hct MCV 81 L 81 L MCH 26 L 25 L MCHC 31 L 31 L RDW 15.5 H 15.7 H Plt Count 84 L 96 L Lymph % (Auto) 11.0 L Gulf % (Auto) Gulf # (Auto) 1.1 H Seg Neutrophils % 81.6 H Seg Neuts % (Manual) 96.0 H Lymphocytes % (Manual) 3.0 L Seg Neutrophils # 12.3 H Seg Neutrophils # Man 19.0 H Lymphocytes # (Manual) 0.6 L PT D-Dimer Sodium 149 H Potassium 3.3 L Chloride 113.0 H Carbon Dioxide BUN 40 H Creatinine Glucose 196 H Lactic Acid Ferritin Total Bilirubin AST ALT Alkaline Phosphatase Lactate Dehydrogenase Total Creatine Kinase Troponin T C-Reactive Protein Albumin Urine pH Urine WBC (Auto) Coronavirus (PCR) 04/28/21 04/29/21 04/29/21 06:10 04:00 06:49 WBC RBC Hgb Hct MCV 82 L MCH 26 L MCHC RDW 15.3 H Plt Count 122 L Lymph % (Auto) Gulf % (Auto) Gulf # (Auto) Seg Neutrophils % Seg Neuts % (Manual) 84.0 H Lymphocytes % (Manual) 11.0 L Seg Neutrophils # Seg Neutrophils # Man 8.7 H Lymphocytes # (Manual) 1.1 L PT D-Dimer Sodium Potassium 3.5 L Chloride Carbon Dioxide BUN 34 H 28 H Creatinine 0.7 L Glucose 110 H Lactic Acid Ferritin Total Bilirubin AST ALT Alkaline Phosphatase Lactate Dehydrogenase Total Creatine Kinase Troponin T C-Reactive Protein Albumin Urine pH Urine WBC (Auto) Coronavirus (PCR) 04/30/21 04/30/21 05/02/21 04:00 04:00 05:45 WBC 11.6 H RBC Hgb 10.7 L Hct 33.7 L MCV 81 L 80 L MCH 26 L 26 L MCHC RDW Plt Count Lymph % (Auto) Gulf % (Auto) 8.6 H Gulf # (Auto) 1.0 H Seg Neutrophils % 73.8 H Seg Neuts % (Manual) 84.0 H Lymphocytes % (Manual) 12.0 L Seg Neutrophils # 8.5 H Seg Neutrophils # Man 8.8 H Lymphocytes # (Manual) PT D-Dimer Sodium Potassium 3.5 L Chloride Carbon Dioxide BUN 21 H Creatinine 0.6 L Glucose 111 H Lactic Acid Ferritin Total Bilirubin AST ALT Alkaline Phosphatase Lactate Dehydrogenase Total Creatine Kinase Troponin T C-Reactive Protein Albumin Urine pH Urine WBC (Auto) Coronavirus (PCR) 05/02/21 05/03/21 05/04/21 05:45 06:04 06:25 WBC RBC 3.54 L Hgb 9.2 L Hct 28.8 L MCV 81 L MCH 26 L MCHC RDW 15.3 H Plt Count Lymph % (Auto) Gulf % (Auto) 8.9 H Gulf # (Auto) Seg Neutrophils % Seg Neuts % (Manual) Lymphocytes % (Manual) Seg Neutrophils # Seg Neutrophils # Man Lymphocytes # (Manual) PT D-Dimer Sodium Potassium 3.0 L 3.3 L Chloride Carbon Dioxide BUN Creatinine 0.6 L 0.5 L Glucose 104 H Lactic Acid Ferritin Total Bilirubin AST ALT Alkaline Phosphatase 164 H Lactate Dehydrogenase Total Creatine Kinase Troponin T C-Reactive Protein Albumin 3.3 L Urine pH Urine WBC (Auto) Coronavirus (PCR) 05/04/21 05/05/21 05/06/21 06:25 06:30 07:00 WBC RBC Hgb Hct MCV MCH MCHC RDW Plt Count Lymph % (Auto) Gulf % (Auto) Gulf # (Auto) Seg Neutrophils % Seg Neuts % (Manual) Lymphocytes % (Manual) Seg Neutrophils # Seg Neutrophils # Man Lymphocytes # (Manual) PT D-Dimer Sodium Potassium 3.5 L Chloride Carbon Dioxide BUN Creatinine 0.6 L 0.6 L 0.6 L Glucose Lactic Acid Ferritin Total Bilirubin AST ALT Alkaline Phosphatase Lactate Dehydrogenase Total Creatine Kinase Troponin T C-Reactive Protein Albumin Urine pH Urine WBC (Auto) Coronavirus (PCR) Allied health notes reviewed: nursing
--- NOTE | 2021-05-06 17:01 | Discharge Summary ---
Providers - Providers Date of Admission: 04/23/21 17:18 Date of discharge: 05/06/21 Attending physician: ANDRE HUANG 04/23/21 17:18 Consult to Physician [CONS] Routine Comment: Consulting Provider: ALVINA MANTILLA Physician Instructions: Reason For Exam: sepsis 04/24/21 08:01 Consult to Physician [CONS] Routine Comment: Consulting Provider: MANNIE TUTTLE Physician Instructions: Reason For Exam: acute kidney injury 04/25/21 08:45 Speech Therapy Evaluation and Treat [CONS] Routine Reason For Exam: dysphagia screen 04/27/21 11:31 Consult to Physician [CONS] Routine Comment: Consulting Provider: HEIDI MCKEON Physician Instructions: Reason For Exam: GNR bacteremia 04/29/21 10:14 Consult to Case Management [CONS] Routine Services Needed at Discharge: Home Health Services Notified:: cm Additional Physician Instructions: Yobani Gallo MD [facility] ([facility]) M: [phone] O: [phone] F: [phone] Outpatient parenteral antibiotic therapy orders Diagnosis: Proteus bacteremia Antibiotic administration: Ceftriaxone 2 g every 24 hours until 05/08/2021 Line: Lab monitoring: CBC with differential, BUN, creatinine, LFTs once per week preferably on Thursday or Thursday For critical labs, call office: [phone] Yobani Gallo 04/30/21 13:04 Consult to Physician [CONS] Routine Comment: Consulting Provider: IVAN LINARES Physician Instructions: Reason For Exam: Severe colonic distention Primary care physician: ANDREW CARTER MD Hospitalization Condition: Critical Hospital course: 65-year-old male who is a resident of a [place] [facility] facility with past medical history GERD, quadriplegia secondary to a spinal injury now with: #Septic shock-resolved #Proteus bacteremia -s/p pressors -Blood cultures 04/23 4 proteus vulgaris ; repeat 04/24 no growth to date -discontinue cefepime, started rocephin to be continued until 05/08/2021 -will need midline prior to discharge -MRSA PCR pending -ID consulted, assistance appreciated -Etiology UTI versus colitis, urine cultures not sent. #Acute kidney injury-resolved -Creatinine 0.6 -Nephrology following, assistance appreciated -Likely secondary to vasomotor nephropathy from hypotension #Acute metabolic encephalopathy -Resolved, likely secondary to shock #Healthcare associated pneumonia #COVID-19 pneumonia -CT chest showed prominence bilaterally with atelectasis -Patient is from longterm -Treated empirically with Vanco and cefepime and discontinued -COVID PCR positive 04/24 #Elevated liver enzymes -Secondary to shock, resolved #Elevated D-dimer -VQ scan low probability for PE and ultrasound negative for a DVT in lower extremities -Likely elevated secondary to COVID-19 infection #Hypokalemia, persistent - replete and monitor Abdominal distention with small bowel and large bowel distention, likely adynamic ileus With significant distention of descending colon: Up to 11 cm and significant thickening of sigmoid and rectum on CT, no previous studies to compare. Significant amount of stool present. Given history of quadriplegia, this could be chronic GI consulted and started on bowel regimen with MiraLAX twice daily and Dulcolax on 05/01, having multiple loose BMs with improvement of abdominal distention and food intake.. GI recommends rectal tube placement since stool is leaking continuously and also for gaseous distention. Abdominal distention resolved with rectal tube in place Persistent hypokalemia This could exacerbate ileus. Replenishing aggressively intravenously #Quadriplegia s/p spinal injury -Bedbound and resident of [facility] Discussed with the patient and RN Disposition: Anticipating discharge back to his longterm tomorrow and he will complete the course of Rocephin through 05/08/2021 Disposition: 04 [facility] Final Discharge Diagnosis (Prints w/discharge instructions): Septic shock. Proteus bacteremia. JENY. Acute metabolic encephalopathy Healthcare associated pneumonia. COVID-19 pneumonia. Elevated liver enzymes. Elevated D-dimer hypokalemia resolved Time spent for discharge: 40 minutes - Discharge Diagnoses (1) Acute metabolic encephalopathy Status: Acute (2) Acute respiratory failure with hypoxia Status: Acute (3) Coronavirus infection Status: Acute (4) HCAP (healthcare-associated pneumonia) Status: Acute Core Measure Documentation - Palliative Care Palliative Care/ Comfort Measures: Not Applicable - Core Measures Any of the following diagnoses?: none Exam - Constitutional Vitals: Temp Pulse Resp BP Pulse Ox 98.9 F 106 H 24 134/87 99 05/06/21 10:33 05/06/21 10:33 05/06/21 10:33 05/06/21 10:33 05/06/21 10:33 General appearance: Present: no acute distress, well-nourished - EENT Eyes: Present: PERRL ENT: hearing intact, clear oral mucosa - Neck Neck: Present: supple, normal ROM - Respiratory Respiratory effort: normal Respiratory: bilateral: CTA - Cardiovascular Heart rate: 78 Rhythm: regular Heart Sounds: Present: S1 & S2. Absent: rub, click - Extremities Extremities: no ischemia, pulses intact, pulses symmetrical, No edema Peripheral Pulses: within normal limits - Abdominal General gastrointestinal: Present: soft, non-tender, non-distended, normal bowel sounds Male genitourinary: Present: normal - Integumentary Integumentary: Present: clear, warm, dry - Musculoskeletal Musculoskeletal: strength equal bilaterally, generalized weakness, other ( quadriparesis) - Psychiatric Psychiatric: appropriate mood/affect, intact judgment & insight - Neurologic Neurologic: CNII-XII intact, other (Quadriparesis) Plan Activity: no restrictions, fall precautions Diet: low salt Follow up with: ANDREW CARTER MD [Primary Care Provider] - 3-5 Days
== END 2021-05-06 18:30 | DRG 871 ==
LOC: ED 15:33 → CC1 17:18 → 4A 04-24 14:12 → 3A 04-24 15:30
PROVIDERS: ADMIT Internal Medicine; ATTEND Internal Medicine
PROC: 02HV33Z Insertion of Infusion Device into Superior Vena Cava, Percutaneous Approach (ICD-10-PCS; principal; 2021-04-23)
PROC: B548ZZA Ultrasonography of Superior Vena Cava, Guidance (ICD-10-PCS; 2021-04-23)
DX: A41.9 Sepsis, unspecified organism (principal); U07.1 COVID-19; J96.01 Acute respiratory failure with hypoxia; G93.41 Metabolic encephalopathy; R65.21 Severe sepsis with septic shock; N17.0 Acute kidney failure with tubular necrosis; J12.82 Pneumonia due to coronavirus disease 2019; I21.4 Non-ST elevation (NSTEMI) myocardial infarction; G82.50 Quadriplegia, unspecified; N39.0 Urinary tract infection, site not specified; E87.0 Hyperosmolality and hypernatremia; K59.39 Other megacolon; K56.7 Ileus, unspecified; E78.5 Hyperlipidemia, unspecified; K21.9 Gastro-esophageal reflux disease without esophagitis; Z83.3 Family history of diabetes mellitus; Z82.49 Family history of ischemic heart disease and other diseases of the circulatory system; E87.6 Hypokalemia; R14.0 Abdominal distension (gaseous)
CPT/HCPCS: 36415; 71045; 71250; 74018; 74176; 78580; 80048; 80053; 80202; 81001; 82140; 82550; 82728; 82947; 83615; 83735; 84132; 84145; 84484; 85007; 85025; 85379; 85610; 85730; 86140; 87040; 87076; 87186; 87641; 93970; G0378; J2354; J3490; Q0162; A9540; J0360; J0692; J0696; J1100; J1170; J1644; J2920; J3370; J3475; J3480; J7030; J7040; J7070; J8540; U0003

== ENCOUNTER 2021-05-15 10:28 | Emergency (ER) | payer MEDICARE ==
[2021-05-15] MEDS ORDERED: SODIUM CHLORIDE 0.9% 1000 ML 1,000 ML IV ONE (10:33)
[2021-05-15] MEDS ORDERED: metroNIDAZOLE/NS 500 MG/100 ML 500 MG/100 ML BAG IV ONE (10:33)
[2021-05-15] MEDS ORDERED: VANCOMYCIN 1,250 MG in SODIUM CHLORIDE 0.9% 500 ML 500 ML IV ONE (10:33)
[2021-05-15] MEDS ORDERED: CEFEPIME/NS 1 GM/100 ML 1 GM/100 ML BAG IV ONE (10:33)
--- NOTE | 2021-05-15 10:49 | Emergency Department Report ---
HPI - General Chief Complaint: Altered Mental Status Time Seen by Provider: 05/15/21 10:30 - HPI HPI: 65-year-old male with history of quadriplegia from spinal cord injury and COVID- 19 PNA in April of this year brought in by EMS from his skilled nursing after he was found unresponsive. According to staff at the skilled nursing, he is normally alert and very verbal. They told EMS that he was last seen normal at 7:30 AM, although they were not 100% sure about the timing. The patient had a fingerstick blood glucose of 147. He was tachycardic in the one twenties, had a normal blood pressure, and was satting 91% on room air. The patient opens his eyes to sternal rub but is nonverbal and not following commands to blink when prompted. Further details of the HPI are highly limited due to the patient's current clinical condition. ED Past Medical Hx - Past Medical History Hx Diabetes: No Additional medical history: Major depressive disorder, quadriplegia, spinal cord injury - Surgical History Additional Surgical History: Spine surgery - Social History Smoking Status: Never Smoker - Medications Home Medications: Home Medications Medication Instructions Recorded Confirmed Last Taken Type Acetaminophen [Aphen] 650 mg PO Q6H PRN 04/30/21 04/30/21 Unknown History Ammonium Lactate [Skin Treatment] 1 appful TP BID 04/30/21 04/30/21 Unknown History AtorvaSTATin [Lipitor] 40 mg PO QHS 04/30/21 04/30/21 Unknown History Baclofen 20 mg PO QID 04/30/21 04/30/21 Unknown History Bisacodyl [Laxative Suppository] 10 mg RC Q24H PRN 04/30/21 04/30/21 Unknown History Carboxymethylcellulose Sodium 2 drops OU QID 04/30/21 04/30/21 Unknown History [Artificial Tears] Cholecalciferol (Vitamin D3) 2,000 unit PO QDAY 04/30/21 04/30/21 Unknown History [Vitamin D3 2,000 UNIT CAP] Docusate Sodium [Colace] 100 mg PO BID 04/30/21 04/30/21 Unknown History Famotidine [Acid-Pep] 20 mg PO BID 04/30/21 04/30/21 Unknown History Furosemide [Lasix TAB] 20 mg PO QDAY 04/30/21 04/30/21 Unknown History Gabapentin 300 mg PO Q8HR 04/30/21 04/30/21 Unknown History Hydrocortisone 2.5% [Hytone 2.5% 1 applic TP BID 04/30/21 04/30/21 Unknown History CREAM] Ketoconazole 1 ml TP Q48H 04/30/21 04/30/21 Unknown History Ketoconazole 2% [Nizoral] 1 applicatio TP BID 04/30/21 04/30/21 Unknown History Mirtazapine 7.5 mg PO QHS 04/30/21 04/30/21 Unknown History Sennosides [Senna] 17.2 mg PO QHS 04/30/21 04/30/21 Unknown History Triamcinolone 0.1% [Kenalog 0.1% 1 applic TP BID 04/30/21 04/30/21 Unknown Hist ory CREAM] ondansetron HCL [Zofran] 4 mg PO TID PRN 04/30/21 04/30/21 Unknown History ALBUTEROL NEB's [Proventil 0.083% 2.5 mg IH Q3HRT PRN nebu 05/06/21 Unknown Rx NEBS] Potassium Bicarb/Citrate [Klor-Con 25 meq PO QDAY tablet.eff 05/06/21 Unknown Rx Eff] ED Review of Systems ROS: Stated complaint: AMS Other details as noted in HPI Comment: Unobtainable due to pts medical conditions Physical Exam - Physical Exam Physical Exam: GENERAL: Elderly -Greek male who is extremely somnolent and opens eyes only to sternal rub. HEAD: Normocephalic. No obvious signs of trauma. ENT: Dry mucous membranes. EYES: Pupils are equal round and reactive to light bilaterally NECK: Supple. Trachea is midline. LUNGS: Tachypneic. Equal chest rise bilaterally. Clear to auscultation bilaterally. CARDIOVASCULAR: Tachycardic but with regular rhythm. No murmurs or rubs. VASCULAR: Cap refill < 2 seconds. There is diffuse anasarca involving all 4 extremities as well as the thorax. 3+ pitting edema of the bilateral lower and upper extremities. There are scattered wounds throughout with necrotic appearing ulcer noted to the dorsal surface of right hand. ABDOMEN: Abdomen is very distended and tympanic. There is no significant firmness or rebound. SKIN: Skin is warm with weeping from anasarca. NEURO: Patient is arousable only to sternal rub and patient does not follow commands to blink or smile when prompted. MUSCULOSKELETAL: Contracted extremities consistent with quadriplegia. No significant tenderness. Normal ROM throughout. ED Medical Decision Making - Lab Data Result diagrams: 05/15/21 11:43 05/15/21 11:43 Lab Results 05/15/21 05/15/21 05/15/21 Range/Units 11:10 11:10 11:10 WBC (4.5-11.0) K/mm3 RBC (3.65-5.03) M/mm3 Hgb (11.8-15.2) gm/dl Hct (35.5-45.6) % MCV (84-94) fl MCH (28-32) pg MCHC (32-34) % RDW (13.2-15.2) % Plt Count (140-440) K/mm3 Lymph % (Auto) (13.4-35.0) % [place] % (Auto) (0.0-7.3) % Eos % (Auto) (0.0-4.3) % Baso % (Auto) (0.0-1.8) % Lymph # (Auto) (1.2-5.4) K/mm3 [place] # (Auto) (0.0-0.8) K/mm3 Eos # (Auto) (0.0-0.4) K/mm3 Baso # (Auto) (0.0-0.1) K/mm3 Seg Neutrophils % (40.0-70.0) % Seg Neutrophils # (1.8-7.7) K/mm3 PT 15.2 H (12.2-14.9) Sec. INR 1.08 (0.87-1.13) APTT 30.6 (24.2-36.6) Sec. Sodium (137-145) mmol/L Potassium (3.6-5.0) mmol/L Chloride (98-107) mmol/L Carbon Dioxide (22-30) mmol/L Anion Gap mmol/L BUN (9-20) mg/dL Creatinine (0.8-1.3) mg/dL Estimated GFR ml/min BUN/Creatinine Ratio % Glucose (75-100) mg/dL Lactic Acid (0.7-2.0) mmol/L Calcium (8.4-10.2) mg/dL Magnesium (1.7-2.3) mg/dL Total Bilirubin (0.1-1.2) mg/dL Direct Bilirubin (0-0.2) mg/dL Indirect Bilirubin mg/dL AST (5-40) units/L ALT (7-56) units/L Alkaline Phosphatase (35-129) units/L Ammonia (25-60) umol/L Troponin T (0.00-0.029) ng/mL Total Protein (6.3-8.2) g/dL Albumin (3.9-5) g/dL Albumin/Globulin Ratio % Triglycerides (2-149) mg/dL Cholesterol (50-199) mg/dL LDL Cholesterol Direct (50-130) mg/dL HDL Cholesterol (40-59) mg/dL Cholesterol/HDL Ratio % Lipase (13-60) units/L TSH 1.710 (0.270-4.200) mlU/mL Salicylates < 0.3 L (2.8-20.0) mg/dL Acetaminophen (10.0-30.0) ug/mL SARS-CoV-2 (PCR) (Negative) 05/15/21 05/15/21 05/15/21 Range/Units 11:10 11:43 11:43 WBC 19.5 H (4.5-11.0) K/mm3 RBC 3.67 (3.65-5.03) M/mm3 Hgb 9.0 L (11.8-15.2) gm/dl Hct 30.4 L (35.5-45.6) % MCV 83 L (84-94) fl MCH 25 L (28-32) pg MCHC 30 L (32-34) % RDW 16.6 H (13.2-15.2) % Plt Count 139 L (140-440) K/mm3 Lymph % (Auto) 5.0 L (13.4-35.0) % [place] % (Auto) 7.4 H (0.0-7.3) % Eos % (Auto) 0.0 (0.0-4.3) % Baso % (Auto) 0.2 (0.0-1.8) % Lymph # (Auto) 1.0 L (1.2-5.4) K/mm3 [place] # (Auto) 1.4 H (0.0-0.8) K/mm3 Eos # (Auto) 0.0 (0.0-0.4) K/mm3 Baso # (Auto) 0.0 (0.0-0.1) K/mm3 Seg Neutrophils % 87.4 H (40.0-70.0) % Seg Neutrophils # 17.1 H (1.8-7.7) K/mm3 PT (12.2-14.9) Sec. INR (0.87-1.13) APTT (24.2-36.6) Sec. Sodium (137-145) mmol/L Potassium (3.6-5.0) mmol/L Chloride (98-107) mmol/L Carbon Dioxide (22-30) mmol/L Anion Gap mmol/L BUN (9-20) mg/dL Creatinine (0.8-1.3) mg/dL Estimated GFR ml/min BUN/Creatinine Ratio % Glucose (75-100) mg/dL Lactic Acid 1.80 (0.7-2.0) mmol/L Calcium (8.4-10.2) mg/dL Magnesium (1.7-2.3) mg/dL Total Bilirubin (0.1-1.2) mg/dL Direct Bilirubin (0-0.2) mg/dL Indirect Bilirubin mg/dL AST (5-40) units/L ALT (7-56) units/L Alkaline Phosphatase (35-129) units/L Ammonia (25-60) umol/L Troponin T (0.00-0.029) ng/mL Total Protein (6.3-8.2) g/dL Albumin (3.9-5) g/dL Albumin/Globulin Ratio % Triglycerides (2-149) mg/dL Cholesterol (50-199) mg/dL LDL Cholesterol Direct (50-130) mg/dL HDL Cholesterol (40-59) mg/dL Cholesterol/HDL Ratio % Lipase (13-60) units/L TSH (0.270-4.200) mlU/mL Salicylates (2.8-20.0) mg/dL Acetaminophen 5.0 L (10.0-30.0) ug/mL SARS-CoV-2 (PCR) (Negative) 05/15/21 05/15/21 05/15/21 Range/Units 11:43 11:43 11:43 WBC (4.5-11.0) K/mm3 RBC (3.65-5.03) M/mm3 Hgb (11.8-15.2) gm/dl Hct (35.5-45.6) % MCV (84-94) fl MCH (28-32) pg MCHC (32-34) % RDW (13.2-15.2) % Plt Count (140-440) K/mm3 Lymph % (Auto) (13.4-35.0) % [place] % (Auto) (0.0-7.3) % Eos % (Auto) (0.0-4.3) % Baso % (Auto) (0.0-1.8) % Lymph # (Auto) (1.2-5.4) K/mm3 [place] # (Auto) (0.0-0.8) K/mm3 Eos # (Auto) (0.0-0.4) K/mm3 Baso # (Auto) (0.0-0.1) K/mm3 Seg Neutrophils % (40.0-70.0) % Seg Neutrophils # (1.8-7.7) K/mm3 PT (12.2-14.9) Sec. INR (0.87-1.13) APTT (24.2-36.6) Sec. Sodium 140 (137-145) mmol/L Potassium 4.3 (3.6-5.0) mmol/L Chloride 103.2 (98-107) mmol/L Carbon Dioxide 24 (22-30) mmol/L Anion Gap 17 mmol/L BUN 32 H (9-20) mg/dL Creatinine 2.3 H (0.8-1.3) mg/dL Estimated GFR 35 ml/min BUN/Creatinine Ratio 14 % Glucose 115 H (75-100) mg/dL Lactic Acid (0.7-2.0) mmol/L Calcium 8.7 (8.4-10.2) mg/dL Magnesium 1.60 L (1.7-2.3) mg/dL Total Bilirubin 0.60 (0.1-1.2) mg/dL Direct Bilirubin < 0.2 (0-0.2) mg/dL Indirect Bilirubin 0.4 mg/dL AST 34 (5-40) units/L ALT 32 (7-56) units/L Alkaline Phosphatase 141 H (35-129) units/L Ammonia 33.0 (25-60) umol/L Troponin T 0.160 H* (0.00-0.029) ng/mL Total Protein 6.2 L (6.3-8.2) g/dL Albumin 3.3 L (3.9-5) g/dL Albumin/Globulin Ratio 1.1 % Triglycerides 60 (2-149) mg/dL Cholesterol 93 (50-199) mg/dL LDL Cholesterol Direct 32 L (50-130) mg/dL HDL Cholesterol 55 (40-59) mg/dL Cholesterol/HDL Ratio 1.69 % Lipase 12 L (13-60) units/L TSH (0.270-4.200) mlU/mL Salicylates (2.8-20.0) mg/dL Acetaminophen (10.0-30.0) ug/mL SARS-CoV-2 (PCR) (Negative) 05/15/21 Range/Units 13:39 WBC (4.5-11.0) K/mm3 RBC (3.65-5.03) M/mm3 Hgb (11.8-15.2) gm/dl Hct (35.5-45.6) % MCV (84-94) fl MCH (28-32) pg MCHC (32-34) % RDW (13.2-15.2) % Plt Count (140-440) K/mm3 Lymph % (Auto) (13.4-35.0) % [place] % (Auto) (0.0-7.3) % Eos % (Auto) (0.0-4.3) % Baso % (Auto) (0.0-1.8) % Lymph # (Auto) (1.2-5.4) K/mm3 [place] # (Auto) (0.0-0.8) K/mm3 Eos # (Auto) (0.0-0.4) K/mm3 Baso # (Auto) (0.0-0.1) K/mm3 Seg Neutrophils % (40.0-70.0) % Seg Neutrophils # (1.8-7.7) K/mm3 PT (12.2-14.9) Sec. INR (0.87-1.13) APTT (24.2-36.6) Sec. Sodium (137-145) mmol/L Potassium (3.6-5.0) mmol/L Chloride (98-107) mmol/L Carbon Dioxide (22-30) mmol/L Anion Gap mmol/L BUN (9-20) mg/dL Creatinine (0.8-1.3) mg/dL Estimated GFR ml/min BUN/Creatinine Ratio % Glucose (75-100) mg/dL Lactic Acid (0.7-2.0) mmol/L Calcium (8.4-10.2) mg/dL Magnesium (1.7-2.3) mg/dL Total Bilirubin (0.1-1.2) mg/dL Direct Bilirubin (0-0.2) mg/dL Indirect Bilirubin mg/dL AST (5-40) units/L ALT (7-56) units/L Alkaline Phosphatase (35-129) units/L Ammonia (25-60) umol/L Troponin T (0.00-0.029) ng/mL Total Protein (6.3-8.2) g/dL Albumin (3.9-5) g/dL Albumin/Globulin Ratio % Triglycerides (2-149) mg/dL Cholesterol (50-199) mg/dL LDL Cholesterol Direct (50-130) mg/dL HDL Cholesterol (40-59) mg/dL Cholesterol/HDL Ratio % Lipase (13-60) units/L TSH (0.270-4.200) mlU/mL Salicylates (2.8-20.0) mg/dL Acetaminophen (10.0-30.0) ug/mL SARS-CoV-2 (PCR) Negative (Negative) - Radiology Data Radiology results: report reviewed - Medical Decision Making 65-year-old male with history of quadriplegia from spinal cord injury brought in by EMS with altered mental status. Was apparently last seen normal this morning but staff were unclear. He was recently hospitalized with Covid pneumonia and was discharged to rehab. The patient is febrile with a temp of 102.6. He is tachycardic in the 120s. His blood pressure is slightly low in the 90s to 100s systolic. He has oxygen saturation of 91% on room air. On physical examination, the patient is extremely somnolent and arousable only to sternal rub. It is difficult to assess GCS given quadriplegia although patient does not follow commands to blink or smile and is not speaking. He is noted to have diffuse anasarca with scattered wounds throughout with at least 1 is necrotic appearing on his right hand. His abdomen is highly distended and tympanic. Lungs are somewhat coarse but clear to auscultation. Given that the patient is febrile and with altered mental status, I suspect that he is suffering from acute metabolic encephalopathy related to sepsis. We will initiate full sepsis order set with labs and cultures and perform CT of the head to assess for evidence of intracranial bleeding versus stroke versus other abnormality to explain the patient's altered mental status. Will obtain stat chest x-ray. We will give broad-spectrum IV vancomycin/cefepime/metronidazole as well as 1 L of IV fluids for now. We will wait on labs to determine whether to perform CT of the abdomen pelvis with or without IV contrast Although the patient only responds to sternal rub, it is difficult to assess his GCS given his quadriplegia and we will reach out to the patient's next of kin/POA regarding whether to proceed with intubation. I spoke with the patient's , Gabi Mcgowan over the telephone at 10:35 AM. We discussed t he patient's current clinical condition and my suspicion for sepsis as well as his altered mental status which may interfere with his ability to protect his airway, especially given history of spinal cord injury. She states that we should hold off on intubation until she arrives and can further assess the situation but if the condition necessitates intubation we should proceed. Given that he is satting 100% we will wait until her arrival. CT of the head shows no acute abnormalities. Chest x-ray shows no acute abnormalities. The patient's arrived and is at the bedside. The patient is now hypotensive with blood pressure in the 80s systolic. Labs reveal leukocytosis of 19.5. Hemoglobin is at his baseline of 9.0 which required review of the patient's past medical records. His creatinine is elevated at 2.3 from baseline of 0.6 on 129 of this year. He is also noted to have elevated troponin of 0.160. I discussed with the patient's the fact that he meets criteria for septic shock. We discussed options for management including possible intubation/mechanical ventilation versus comfort care measures. She states that the patient would not want to be put on a ventilator and would not want to be subjected to aggressive/invasive treatment given low chance of survival. D NR/DNI paperwork were signed and patient's made it clear that the patient should be comfort care only and should only receive medications to treat his symptoms. I have canceled the IV fluids and antibiotics and we will not proceed with CT of the abdomen. We will give morphine for comfort. I spoke with the block and case maker regarding this case and she states that it is possible we may be able to promptly get the patient into hospice from the emergency department, however it also may require admission to the hospital. I spoke with Dr. Macedo, the on-call hospitalist regarding this case and he states that if we are unable to facilitate hospice placement in a timely manner he will admit the patient. Per block and case maker request, Covid test has been ordered. Patient has been signed out to Dr. Hamilton who will assume care. Critical care attestation.: If time is entered above; I have spent that time in minutes in the direct care of this critically ill patient, excluding procedure time. ED Disposition Clinical Impression: Septic shock, Acute respiratory failure with hypoxia, Acute metabolic encephalopathy, Abdominal distention, Multiorgan failure, JENY (acute kidney injury) Disposition: 50 HOSPICE/HOME Is pt being admited?: No Condition: Stable Referrals: PRIMARY CARE, [Primary Care Provider] - 3-5 Days
[2021-05-15] MEDS ORDERED: VANCOMYCIN 1,500 MG in SODIUM CHLORIDE 0.9% 500 ML 500 ML IV ONE (11:00)
[2021-05-15] MEDS ORDERED: ACETAMINOPHEN 650 MG RECT SUPP PR ONE (11:20)
--- NOTE | 2021-05-15 11:24 | XRay Report ---
CHEST 1 VIEW 05/15/2021 10:49 AM INDICATION / CLINICAL INFORMATION: sepsis. COMPARISON: 04/23/2021 FINDINGS: SUPPORT DEVICES: None. HEART / MEDIASTINUM: No significant abnormality. LUNGS / PLEURA: No significant pulmonary or pleural abnormality. No pneumothorax. ADDITIONAL FINDINGS: No significant additional findings. IMPRESSION: 1. No acute findings. Signer Name: Ashish Sweet MD Signed: 05/15/2021 11:20 AM Workstation Name: [id number]
--- NOTE | 2021-05-15 11:33 | Cat Scan Report ---
CT head/brain wo con INDICATION / CLINICAL INFORMATION: 65 years Male; AMS. TECHNIQUE: Routine CT head without contrast. All CT scans at this location are performed using CT dos e reduction for ALARA by means of automated exposure control. COMPARISON: None. 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 It might be difficult to evaluate for small areas of adan-infarct ischemia without diffusion imaging by MRI. Otherwise, no acute hemorrhage, mass effect, midline shift, hydrocephalus, or acute, large territori al infarct. No significant atrophy appreciated. There are mild areas of decreased attenuation in the white matter of the cerebral hemispheres. These are nonspecific findings and may be related to microangiopathy (hypertension, diabetes, atheroscleros is), given the patient's age. It might be difficult to evaluate for small areas of ischemia without d iffusion imaging by MRI. CRANIOCERVICAL JUNCTION: No significant abnormality. ORBITS: No significant abnormality of visualized orbits. SINUSES / MASTOIDS: Visualized paranasal sinuses and mastoid air cells are essentially clear. 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 Atherosclerotic disease is seen in the anterior circulation. IMPRESSION: 1. No focal mass, hemorrhage, hydrocephalus, or acute, large territorial infarct. Follow-up with diff usion imaging by MRI, as clinically warranted. Signer Name: Oscar Wang MD, III Signed: 05/15/2021 11:28 AM Workstation Name: [id number]
[2021-05-15 11:58] LABS: INR 1.08 (0.87-1.13)
[2021-05-15 11:59] LABS: Partial Thromboplastin Time 30.6 Sec. (24.2-36.6)
[2021-05-15 12:01] LABS: Basophils % (Auto) 0.2 % (0.0-1.8); Mean Corpuscular HGB Conc 30 % (32-34); Mean Corpuscular Volume 83 fl (84-94); Monocytes # (Auto) 1.4 K/mm3 (0.0-0.8); Monocytes % (Auto) 7.4 % (0.0-7.3); Platelet Count 139 K/mm3 (140-440); Red Blood Count 3.67 M/mm3 (3.65-5.03); Red Cell Distribution Width 16.6 % (13.2-15.2)
[2021-05-15 12:05] LABS: Hematocrit 30.4 % (35.5-45.6)
[2021-05-15 12:25] LABS: Alanine Aminotransferase 32 units/L (7-56); Albumin 3.3 g/dL (3.9-5); BUN/Creatinine Ratio 14; Blood Urea Nitrogen 32 mg/dL (9-20); Calcium 8.7 mg/dL (8.4-10.2); Hemolysis Index 4
[2021-05-15 12:33] LABS: Bilirubin,Direct < 0.2 mg/dL (0-0.2)
[2021-05-15 13:21] LABS: Chol/HDL Ratio 1.69 %
[2021-05-15] MEDS ORDERED: MORPHINE 4 MG/1 ML INJ IV ONE (14:34)
[2021-05-15 15:03] VITALS: BP 88/64
[2021-05-16] MEDS ORDERED: MORPHINE 4 MG/1 ML INJ ONE (02:40)
[2021-05-16] MEDS ORDERED: MORPHINE 2 MG/1 ML INJ ONE (03:18)
== END 2021-05-16 02:29 | disposition hospice, home (50) ==
LOC: ED 10:28
DX: J96.01 Acute respiratory failure with hypoxia (principal); R65.21 Severe sepsis with septic shock; G93.41 Metabolic encephalopathy; R14.0 Abdominal distension (gaseous); N17.9 Acute kidney failure, unspecified; Z98.890 Other specified postprocedural states; Z20.822 Contact with and (suspected) exposure to COVID-19
CPT/HCPCS: 36415; 70450; 71045; 80048; 80061; 80076; 82140; 83690; 83735; 84443; 84484; 85025; 85610; 85730; 87040; 87076; 87186; 96365; 96366; 96368; 96375; 99285; J0692; J2270; J3370; J7030; J7040; J7517; U0003; 80320; Q0162; G0480

== ENCOUNTER 2021-11-05 11:57 | Inpatient (IN) | payer MEDICARE ==
[2021-11-05] MEDS ORDERED: SODIUM CHLORIDE 0.9% 1000 ML 1,000 ML IV ONE ×3 (15:55→19:54)
--- NOTE | 2021-11-05 16:16 | Emergency Department Report ---
HPI - General Chief Complaint: Altered Mental Status Time Seen by Provider: 11/05/21 15:45 - HPI HPI: 66-year-old male, DNR/DNI per family members report, history of quadriplegia, hypertension, prior COVID-19 infection in April 2021, depression, sent from [facility] for altered mental status. Patient's niece is present and she is providing HPI. Patient is currently altered and therefore he is unable to contribute to HPI at this time. She states that on October 23 the patient underwent a surgical procedure to have "kidney stones broken up" in the setting of the patient having nephrostomy tubes, which she states a lot of been present for the past 5 to 6 months. She states he was ordered for antibiotics but this was not started until several days after he was discharged from [facility]. ED Past Medical Hx - Past Medical History Previous Medical History?: Yes Hx Diabetes: No Additional medical history: Major depressive disorder, quadriplegia, spinal cord injury - Surgical History Additional Surgical History: Spine surgery - Social History Smoking Status: Never Smoker Substance Use Type: Other (Unable to obtain information) - Medications Home Medications: Home Medications Medication Instructions Recorded Confirmed Last Taken Type Acetaminophen [Aphen] 650 mg PO Q6H PRN 04/30/21 04/30/21 Unknown History Ammonium Lactate [Skin Treatment] 1 appful TP BID 04/30/21 04/30/21 Unknown History AtorvaSTATin [Lipitor] 40 mg PO QHS 04/30/21 04/30/21 Unknown History Baclofen 20 mg PO QID 04/30/21 04/30/21 Unknown History Bisacodyl [Laxative Suppository] 10 mg RC Q24H PRN 04/30/21 04/30/21 Unknown History Carboxymethylcellulose Sodium 2 drops OU QID 04/30/21 04/30/21 Unknown History [Artificial Tears] Cholecalciferol (Vitamin D3) 2,000 unit PO QDAY 04/30/21 04/30/21 Unknown History [Vitamin D3 2,000 UNIT CAP] Docusate Sodium [Colace] 100 mg PO BID 04/30/21 04/30/21 Unknown History Famotidine [Acid-Pep] 20 mg PO BID 04/30/21 04/30/21 Unknown History Furosemide [Lasix TAB] 20 mg PO QDAY 04/30/21 04/30/21 Unknown History Gabapentin 300 mg PO Q8HR 04/30/21 04/30/21 Unknown History Hydrocortisone 2.5% [Hytone 2.5% 1 applic TP BID 04/30/21 04/30/21 Unknown History CREAM] Ketoconazole 1 ml TP Q48H 04/30/21 04/30/21 Unknown History Ketoconazole 2% [Nizoral] 1 applicatio TP BID 04/30/21 04/30/21 Unknown History Mirtazapine 7.5 mg PO QHS 04/30/21 04/30/21 Unknown History Sennosides [Senna] 17.2 mg PO QHS 04/30/21 04/30/21 Unknown History Triamcinolone 0.1% [Kenalog 0.1% 1 applic TP BID 04/30/21 04/30/21 Unknown History CREAM] ondansetron HCL [Zofran] 4 mg PO TID PRN 04/30/21 04/30/21 Unknown History ALBUTEROL NEB's [Proventil 0.083% 2.5 mg IH Q3HRT PRN nebu 05/06/21 Unknown Rx NEBS] Potassium Bicarb/Citrate [Klor-Con 25 meq PO QDAY tablet.eff 05/06/21 Unknown Rx Eff] ED Review of Systems ROS: Stated complaint: ALTERED MENTAL Other details as noted in HPI Comment: Unobtainable due to pts medical conditions Physical Exam - Physical Exam Vital Signs: Vital Signs 11/05/21 13:14 Temperature 98.1 F Pulse Rate 90 Respiratory 18 Rate Blood Pressure 128/96 [Left] O2 Sat by Pulse 100 Oximetry General: Gen chronically ill-appearing elderly male, 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, asleep, intermittently snoring, minimally arousable HEENT: Normocephalic atraumatic pupils equally round and reactive to light extraocular muscles intact sclera anicteric Neck: Full range of motion, no midline spinal tenderness palpation, no JVD, no carotid bruits, no nuchal rigidity CVS: S1-S2 regular rate and rhythm with no gallops rubs or murmurs, chest wall nontender Pulmonary: Clear to auscultation bilaterally, no wheezes rales or rhonchi Abdomen: Soft nondistended nontender no guarding or rebound tenderness, no palpable deformities or step-offs, normal active bowel sounds, no hepatosplenomegaly, no pulsatile masses : pt;s rectum covered in what appears to be fresh feces; no obvious blood in stool, patient has indwelling nephrostomy tubes with dark-colored urine, no o bvious blood or hemorrhaging Extremities: No cyanosis no clubbing no edema, intact distal peripheral pulses, Integumentary: Skin normal, no petechia no purpura no abscess no lacerations no evidence of trauma no evidence of infection Neuro: Patient is quadriplegic, GCS unable to be tested as pt is quadriplegic; pt asleep but arousable Psych:pt asleep but arousable ED Course Vital Signs 11/05/21 13:14 Temperature 98.1 F Pulse Rate 90 Respiratory 18 Rate Blood Pressure 128/96 [Left] O2 Sat by Pulse 100 Oximetry - Central Line Placement Right Femoral Consent Obtained: written consent Time Out Performed: Yes Patient Placed on Monitor/Pulse Ox: Yes MD Prep: mask, gown, gloves Central Line Prep: Povidone-Iodine 1%, Chlorhexidine scrub, sterile drapes applied Local Anesthesia Used: Lidocaine 1% Amount of Anesthesia Used (mls): 8 Ultrasound Used for Placement: Yes Central Line Lumen Inserted: triple Reason for Insertion: Volume Resuscitation Bloods Obtained for Lab: Yes (via pt's ED RN) Central Line Position: good blood return, all ports aspirated, flus, sutured in place with 2-0 Dressing Applied: Tegaderm Post Procedure X-Ray: tip of catheter in good p Patient Tolerated Procedure: well, no complications Complications: none ED Medical Decision Making - Lab Data Result diagrams: 11/05/21 18:21 11/05/21 18:21 - EKG Data -: EKG Interpreted by Ia EKG shows normal: sinus rhythm Rate: normal - EKG Data When compared to previous EKG there are: no significant change Interpretation: no acute changes - Radiology Data Radiology results: report reviewed - Medical Decision Making 66-year-old male, DNR/DNI per family report, quadriplegic, other significant medical comorbidities, brought in for altered mental status hypotension UTI. Right central venous catheter placed in right femoral vein. Patient started on Levophed drip after blood pressure remained persistently low after 2 L of normal saline. He was given 1 g of cefepime. Case reviewed with admitting hospitalist, Dr. Palomo. Pt has been accepted by him for admission to the medical intensive care unit for further management. Critical Care Time: Yes Critical care time in (mins) excluding proc time.: 30 Critical care attestation.: If time is entered above; I have spent that time in minutes in the direct care of this critically ill patient, excluding procedure time. ED Disposition Clinical Impression: Sepsis, UTI (urinary tract infection) Disposition: 09 ADMITTED INPATIENT Is pt being admited?: Yes Does the pt Need Aspirin: No Condition: Stable
--- NOTE | 2021-11-05 16:37 | XRay Report ---
CHEST 1 VIEW 11/05/2021 3:25 PM INDICATION / CLINICAL INFORMATION: altered mental status. COMPARISON: 05/15/2021 FINDINGS: SUPPORT DEVICES: None. HEART / MEDIASTINUM: No significant abnormality. LUNGS / PLEURA: No significant pulmonary or pleural abnormality. No pneumothorax. ADDITIONAL FINDINGS: No significant additional findings. IMPRESSION: 1. No acute findings. Signer Name: Kirby Gates Jr, MD Signed: 11/05/2021 4:32 PM Workstation Name: [id number]
[2021-11-05 18:35] LABS: Albumin 3.5 g/dL (3.9-5); Calcium 9.2 mg/dL (8.4-10.2)
[2021-11-05 19:15] LABS: Chol/HDL Ratio 1.86 %
[2021-11-05] MEDS ORDERED: CEFEPIME/NS 1 GM/100 ML 1 GM/100 ML BAG IV ONE (19:32)
[2021-11-05 19:47] LABS: Basophils % (Auto) 0.3 % (0.0-1.8); Eosinophils % (Auto) 0.2 % (0.0-4.3); Hematocrit 28.1 % (35.5-45.6); Hemoglobin 8.9 gm/dl (11.8-15.2); Lymphocytes # (Auto) 1.1 K/mm3 (1.2-5.4); Lymphocytes % (Auto) 12.2 % (13.4-35.0); Mean Corpuscular HGB Conc 32 % (32-34); Mean Corpuscular Volume 79 fl (84-94); Monocytes # (Auto) 0.6 K/mm3 (0.0-0.8); Monocytes % (Auto) 6.5 % (0.0-7.3); Platelet Count 189 K/mm3 (140-440); Red Blood Count 3.55 M/mm3 (3.65-5.03); Red Cell Distribution Width 18.6 % (13.2-15.2)
[2021-11-05] MEDS ORDERED: NORepinephrine/NS 8 MG-250 ML 8 MG/250 ML INFUS..BTL IV SCH (20:00)
[2021-11-05 21:19] LABS: Bacteria,Urine 4+ /HPF (Negative); Mucus,Urine 1+ /HPF
[2021-11-05 21:21] LABS: WBC,Urine > 182.0 /HPF (0.0-6.0)
[2021-11-05 21:51] LABS: Bilirubin,Urine Negative (Negative); Blood,Urine Large (Negative); Color,Urine Yellow (Yellow); Urobilinogen,Urine < 2.0 mg/dL (<2.0)
[2021-11-05] MEDS ORDERED: MAGNESIUM HYDROXIDE (MOM) ORAL LIQD UDC PO PRN (22:15)
[2021-11-05] MEDS ORDERED: ONDANSETRON 4 MG/2 ML INJ IV PRN (22:15)
[2021-11-05] MEDS ORDERED: SODIUM CHLORIDE 0.9% 1000 ML 1,000 ML IV SCH (22:15)
[2021-11-05] MEDS ORDERED: ACETAMINOPHEN 650 MG RECT SUPP PR PRN (22:15)
[2021-11-05] MEDS ORDERED: MORPHINE 4 MG/1 ML INJ IV PRN (22:15)
--- NOTE | 2021-11-05 22:26 | History and Physical Report ---
History of Present Illness Date of examination: 11/05/21 Date of admission: 11/05/2021 Chief complaint: Altered Mental Status History of present illness: 66-year-old -[place] male with known history of quadriplegia, depression, hypertension, history of COVID 19 infection in April 2021 who is a resident of [facility] brought into the emergency room today for evaluation of changes in mental status. Patient unable to give any history at this time. Most of the history was obtained from daughter and granddaughter who was by the bedside. According to family members, patient had a nephrostomy tube placement at [facility] on October 31, 2021 for kidney stones. He was subsequently started on antibiotics however they indicated that antibiotics was not started until several days after discharge from the hospital. Has been no fever or chills, no nausea or vomiting. Work-up in the emergency room today, labs significant for hemoglobin of 8.9 hematocrit of 28.1. BUN of 26 and creatinine of 1.8. Troponin of 0.122. Urinalysis is significant for UTI. Chest x-ray has been unremarkable. He was found to be hypotensive and therefore was placed on a pressor in the emergency room after boluses of IV fluid. Patient has also been started on empiric IV antibiotics and IV fluid. Past History Past Medical History: other (Major Depressive disorder,Quadriplegia,Spinal Cord Injury) Past Surgical History: Other (Spine surgery) Social history: no significant social history Family history: no significant family history Medications and Allergies Allergies Allergy/AdvReac Type Severity Reaction Status Date / Time No Known Allergies Allergy Verified 11/05/21 13:17 Home Medications Medication Instructions Recorded Confirmed Last Taken Type Acetaminophen [Aphen] 650 mg PO Q6H PRN 04/30/21 04/30/21 Unknown History Ammonium Lactate [Skin Treatment] 1 appful TP BID 04/30/21 04/30/21 Unknown History AtorvaSTATin [Lipitor] 40 mg PO QHS 04/30/21 04/30/21 Unknown History Baclofen 20 mg PO QID 04/30/21 04/30/21 Unknown History Bisacodyl [Laxative Suppository] 10 mg RC Q24H PRN 04/30/21 04/30/21 Unknown History Carboxymethylcellulose Sodium 2 drops OU QID 04/30/21 04/30/21 Unknown History [Artificial Tears] Cholecalciferol (Vitamin D3) 2,000 unit PO QDAY 04/30/21 04/30/21 Unknown History [Vitamin D3 2,000 UNIT CAP] Docusate Sodium [Colace] 100 mg PO BID 04/30/21 04/30/21 Unknown History Famotidine [Acid-Pep] 20 mg PO BID 04/30/21 04/30/21 Unknown History Furosemide [Lasix TAB] 20 mg PO QDAY 04/30/21 04/30/21 Unknown History Gabapentin 300 mg PO Q8HR 04/30/21 04/30/21 Unknown History Hydrocortisone 2.5% [Hytone 2.5% 1 applic TP BID 04/30/21 04/30/21 Unknown History CREAM] Ketoconazole 1 ml TP Q48H 04/30/21 04/30/21 Unknown History Ketoconazole 2% [Nizoral] 1 applicatio TP BID 04/30/21 04/30/21 Unknown History Mirtazapine 7.5 mg PO QHS 04/30/21 04/30/21 Unknown History Sennosides [Senna] 17.2 mg PO QHS 04/30/21 04/30/21 Unknown History Triamcinolone 0.1% [Kenalog 0.1% 1 applic TP BID 04/30/21 04/30/21 Unknown History CREAM] ondansetron HCL [Zofran] 4 mg PO TID PRN 04/30/21 04/30/21 Unknown History ALBUTEROL NEB's [Proventil 0.083% 2.5 mg IH Q3HRT PRN nebu 05/06/21 Unknown Rx NEBS] Potassium Bicarb/Citrate [Klor-Con 25 meq PO QDAY tablet.eff 05/06/21 Unknown Rx Eff] Active Meds: Active Medications NORepinephrine/NS 8 MG-250 ML (Norepinephrine/Ns 8 Mg-250 Ml (Double Conc)) 8 mg in 250 mls @ 3.75 mls/hr IV TITRATE [facility]; Protocol Review of Systems ROS unobtainable: due to mental status Exam - Constitutional Vitals: Temp Pulse Resp BP Pulse Ox 98.1 F 89 17 145/82 98 11/05/21 13:14 11/05/21 21:15 11/05/21 21:15 11/05/21 21:15 11/05/21 21:15 General appearance: Present: no acute distress, well-nourished, other (Dry oral Mucosa) - EENT Eyes: Present: PERRL, EOM intact. Absent: scleral icterus ENT: hearing intact, clear oral mucosa, dentition normal - Neck Neck: Present: supple, normal ROM - Respiratory Respiratory effort: normal Respiratory: bilateral: CTA - Cardiovascular Rhythm: regular Heart Sounds: Present: S1 & S2. Absent: gallop, systolic murmur, diastolic murmur, rub, click - Extremities Extremities: no ischemia, pulses intact, pulses symmetrical, normal temperature, normal color, abnormal (Contractures in hands) Extremity abnormal: edema (Trace bilateral ankle edema) Peripheral Pulses: within normal limits - Integumentary Integumentary: Present: clear, warm, dry, normal turgor. Absent: rash - Musculoskeletal Musculoskeletal: other (Quadriplegic) - Psychiatric Psychiatric: cooperative - Neurologic Neurologic: other (Quadriplegic) HEART Score - HEART Score Troponin: Troponin T 0.122 ng/mL (0.00-0.029) H* 11/05/21 18:21 Results - Labs CBC & Chem 7: 11/05/21 18:21 11/05/21 18:21 Labs: Abnormal lab results 11/05/21 11/05/21 11/05/21 Range/Units 15:52 18:21 18:21 RBC 3.55 L (3.65-5.03) M/mm3 Hgb 8.9 L (11.8-15.2) gm/dl Hct 28.1 L (35.5-45.6) % MCV 79 L (84-94) fl MCH 25 L (28-32) pg RDW 18.6 H (13.2-15.2) % Lymph % (Auto) 12.2 L (13.4-35.0) % Lymph # (Auto) 1.1 L (1.2-5.4) K/mm3 Seg Neutrophils % 80.8 H (40.0-70.0) % BUN 26 H (9-20) mg/dL Creatinine 1.8 H (0.8-1.3) mg/dL Ammonia 23.0 L (25-60) umol/L Troponin T (0.00-0.029) ng/mL Albumin 3.5 L (3.9-5) g/dL LDL Cholesterol Direct (50-130) mg/dL HDL Cholesterol (40-59) mg/dL Urine Blood (Negative) Urine WBC (Auto) (0.0-6.0) /HPF 11/05/21 11/05/21 Range/Units 18:21 19:05 RBC (3.65-5.03) M/mm3 Hgb (11.8-15.2) gm/dl Hct (35.5-45.6) % MCV (84-94) fl MCH (28-32) pg RDW (13.2-15.2) % Lymph % (Auto) (13.4-35.0) % Lymph # (Auto) (1.2-5.4) K/mm3 Seg Neutrophils % (40.0-70.0) % BUN (9-20) mg/dL Creatinine (0.8-1.3) mg/dL Ammonia (25-60) umol/L Troponin T 0.122 H* (0.00-0.029) ng/mL Albumin (3.9-5) g/dL LDL Cholesterol Direct 44 L (50-130) mg/dL HDL Cholesterol 61 H (40-59) mg/dL Urine Blood Large A (Negative) Urine WBC (Auto) > 182.0 H (0.0-6.0) /HPF Assessment and Plan Assessment: 1.UTI 2.Sepsis 3.JENY 4.Quadriplegic Plan: 1.Placed on Empiric IV antibiotics 2.Started on Levophed 3.Monitor Vital signs closely 4. DVT Prophylaxis: SQ Heparin Code Status : DNR/DNI
[2021-11-06] MEDS: cefTRIAXone/NS 1 GM/50 ML 1 GM/50 ML BAG IV SCH ×2 (00:22→23:15)
[2021-11-06] MEDS: MORPHINE 2 MG/1 ML INJ IV PRN ×2 (02:47→13:12)
[2021-11-06 04:57] LABS: BUN/Creatinine Ratio 22; Blood Urea Nitrogen 22 mg/dL (9-20); Calcium 9.1 mg/dL (8.4-10.2); Hemolysis Index 12
[2021-11-06] MEDS: HEPARIN 5,000 UNIT/1 ML VIAL SUB-Q SCH ×3 (06:30→21:06)
--- NOTE | 2021-11-06 09:17 | Consultation ---
History of Present Illness Consult date: 11/06/21 Requesting physician: ERICKA VIZCAINO History of present illness: HISTORY PER MEDICAL RECORDS 66-year-old -[place] male with known history of quadriplegia, depression, hypertension, history of COVID 19 infection in April 2021 who is a resident of [facility] brought into the emergency room today for evaluation of changes in mental status. Patient unable to give any history at this time. Most of the history was obtained from daughter and granddaughter who was by the bedside. According to family members, patient had a nephrostomy tube placement at [facility] on October 31, 2021 for kidney stones. He was subsequently started on antibiotics however they indicated that antibiotics was not started until several days after discharge from the hospital. Has been no fever or chills, no nausea or vomiting. Work-up in the emergency room today, labs significant for hemoglobin of 8.9 hematocrit of 28.1. BUN of 26 and creatinine of 1.8. Troponin of 0.122. Urinalysis is significant for UTI. Chest x-ray has been unremarkable. He was found to be hypotensive and therefore was placed on a pressor in the emergency room after boluses of IV fluid. Patient has also been started on empiric IV antibiotics and IV fluid. A critical care consult was placed. Patient seen and examined. Vitals, labs, medications, chart reviewed. He is currently awake and alert. He does not remember the events that led to him being brought to the hospital He denies any chest pain, or shortness of breath. he states he has generalized aches and pains with stiffness Past History Past Medical History: other (Major Depressive disorder,Quadriplegia,Spinal Cord Injury) Past Surgical History: Other (Spine surgery) Social history: no significant social history Family history: no significant family history Medications and Allergies Allergies Allergy/AdvReac Type Severity Reaction Status Date / Time No Known Allergies Allergy Verified 11/05/21 13:17 Home Medications Medication Instructions Recorded Confirmed Last Taken Type Ammonium Lactate [Skin Treatment] 1 appful TP BID 04/30/21 11/07/21 Unknown History AtorvaSTATin [Lipitor] 40 mg PO QHS 04/30/21 11/07/21 Unknown History Baclofen 20 mg PO TID 04/30/21 11/07/21 Unknown History Carboxymethylcellulose Sodium 2 drops OU Q12HR PRN 04/30/21 11/07/21 Unknown History [Artificial Tears] Cholecalciferol (Vitamin D3) 50 mcg PO QDAY 04/30/21 11/07/21 Unknown History [Vitamin D3 2,000 UNIT CAP] Famotidine [Acid-Pep] 20 mg PO BID 04/30/21 11/07/21 Unknown History Gabapentin 300 mg PO QHS 04/30/21 11/07/21 Unknown History Ketoconazole 1 ml TP Q48H 04/30/21 11/07/21 Unknown History Ketoconazole 2% [Nizoral] 1 applicatio TP BID 04/30/21 11/07/21 Unknown History Sennosides [Senna] 17.2 mg PO DAILY 04/30/21 11/07/21 Unknown History Triamcinolone 0.1% [Kenalog 0.1% 1 applic TP BID 04/30/21 11/07/21 Unknown History CREAM] ondansetron HCL [Zofran] 4 mg PO TID PRN 04/30/21 11/07/21 Unknown History traMADoL [Ultram 50 MG tab] 50 mg PO Q12HR PRN 11/07/21 11/07/21 Unknown History Active Meds: Active Medications Acetaminophen (Acetaminophen 650 Mg Rect Supp) 650 mg NV Q6H PRN PRN Reason: Pain MILD(1-3)/Fever >100.5/JACOB Last Admin: 11/06/21 03:15 Dose: 650 mg Atorvastatin Calcium (Atorvastatin 40 Mg Tab) 40 mg PO QHS [facility] Baclofen (Baclofen 10 Mg Tab) 20 mg PO BID [facility] Docusate Sodium (Docusate Sodium 100 Mg Cap) 100 mg PO BID [facility] Famotidine (Famotidine 20 Mg Tab) 20 mg PO BID [facility] Gabapentin (Gabapentin 100 Mg Cap) 100 mg PO Q8HR [facility] Heparin Sodium (Porcine) (Heparin 5,000 Unit/1 Ml Vial) 5,000 unit SUB-Q Q8HR [facility] Last Admin: 11/06/21 06:30 Dose: 5,000 unit Sodium Chloride (Nacl 0.9% 1000 Ml) 1,000 mls @ 75 mls/hr IV DIRECT [facility] Stop: 11/07/21 11:34 Ceftriaxone Sodium (Rocephin/Ns 1 Gm/50 Ml) 1 gm in 50 mls @ 100 mls/hr IV Q24H [facility]; Protocol Last Admin: 11/06/21 00:22 Dose: 100 mls/hr Magnesium Hydroxide (Magnesium Hydroxide (Mom) Oral Liqd Udc) 30 ml PO Q4H PRN PRN Reason: Constipation Mirtazapine (Mirtazapine 15 Mg Tab) 7.5 mg PO QHS [facility] Morphine Sulfate (Morphine 2 Mg/1 Ml Inj) 2 mg IV Q4H PRN PRN Reason: Pain, Moderate (4-6) Last Admin: 11/06/21 02:47 Dose: 2 mg Ondansetron HCl (Ondansetron 4 Mg/2 Ml Inj) 4 mg IV Q8H PRN PRN Reason: Nausea And Vomiting Senna (Sennosides 8.6 Mg Tab) 17.2 mg PO QHS [facility] Sodium Chloride (Sodium Chloride 0.9% 10 Ml Flush Syringe) 10 ml IV BID [facility] Sodium Chloride (Sodium Chloride 0.9% 10 Ml Flush Syringe) 10 ml IV PRN PRN PRN Reason: LINE FLUSH Review of Systems Constitutional: no weight loss, no weight gain, no fever, no chills Cardiovascular: no chest pain, no orthopnea, no palpitations, no shortness of breath Respiratory: no cough, no hemoptysis, no shortness of breath, no dyspnea on exertion Gastrointestinal: no abdominal pain, no nausea, no vomiting Physical Examination Vital signs: Vital Signs Temp Pulse Resp BP Pulse Ox 98.1 F 90 18 128/96 100 11/05/21 13:14 11/05/21 13:14 11/05/21 13:14 11/05/21 13:14 11/05/21 13:14 General appearance: Present: no acute distress, chronically ill looking - EENT Eyes: Present: PERRL ENT: hearing intact - Neck Neck: Present: normal ROM - Respiratory Respiratory effort: normal Respiratory: bilateral: diminished - Cardiovascular Rhythm: regular Heart Sounds: Present: S1 & S2 - Extremities Extremities: no ischemia, pulses intact, pulses symmetrical, abnormal (Quadriplegic ) Multiple pressure ulcers, spastic upper limbs Peripheral Pulses: within normal limits - Abdominal General gastrointestinal: soft, non-distended, normal bowel sounds - Integumentary Integumentary: Present: warm, dry - Psychiatric Psychiatric: appropriate mood/affect, cooperative - Neurologic Neurologic: other (AAO, quadriplegic) Results - Laboratory Findings CBC and BMP: 11/07/21 05:59 11/07/21 05:59 Abnormal lab findings: Abnormal Labs 11/05/21 11/05/21 11/05/21 15:52 18:21 18:21 RBC 3.55 L Hgb 8.9 L Hct 28.1 L MCV 79 L MCH 25 L RDW 18.6 H Lymph % (Auto) 12.2 L Lymph # (Auto) 1.1 L Seg Neutrophils % 80.8 H Chloride BUN 26 H Creatinine 1.8 H Ammonia 23.0 L Troponin T Albumin 3.5 L LDL Cholesterol Direct HDL Cholesterol Urine Blood Urine WBC (Auto) 11/05/21 11/05/21 11/06/21 18:21 19:05 04:23 RBC Hgb Hct MCV MCH RDW Lymph % (Auto) Lymph # (Auto) Seg Neutrophils % Chloride 107.3 H BUN 22 H Creatinine Ammonia Troponin T 0.122 H* Albumin LDL Cholesterol Direct 44 L HDL Cholesterol 61 H Urine Blood Large A Urine WBC (Auto) > 182.0 H Assessment and Plan Sepsis Urinary Tract Infection(UTI) - presented with hypotension and tachycardia Acute Kidney Injury(JENY) most likely ATN Acute Metabolic Encephalopathy-improvin Quadriplegic Pressure wounds- present on admission -Continue to monitor hemodynamics closely, keep MAP>65 -Continue with antibiotics ( Rocephin) , trend temperature curve and WCC -Follow cultures and de-escalate antibiotics based on culture data - Avoid nephrotoxic medications; Renally dose medications - Monitor and replace electrolytes as needed - Mobility, off loading frequent turning per protocol to prevent new pressure u lcers -Wound care -Analgesia and muscle relaxants -Chronic home medications as clinically indicated - Maintenance of sleep-wake cycle, avoid delirium -Bedside swallow evaluation, initiate diet - Heparin SubQ for VTE prophylaxis - SCDs to bilateral lower extremities while in bed Advance Care Planning Patient is DNR/DNI.
[2021-11-06] MEDS: DOCUSATE SODIUM 100 MG CAP PO SCH ×2 (09:25→21:05)
[2021-11-06] MEDS: FAMOTIDINE 20 MG TAB PO SCH ×2 (09:25→21:05)
[2021-11-06] MEDS: BACLOFEN 10 MG TAB PO SCH ×2 (09:25→21:05)
[2021-11-06] MEDS: ACETAMINOPHEN 325 MG TAB PO PRN ×2 (10:05→21:04)
--- NOTE | 2021-11-06 11:05 | Progress Note ---
<ALBIN WEINSTEIN - Last Filed: 11/06/21 16:19> Assessment and Plan Assessment and plan: This is a 66-year-old AA male with known past medical history of quadriplegia, depression, hypertension, and history of COVID 19 infection in April 2021 admitted for sepsis most likely secondary to UTI Hospital Course to Date: 11/06: Mentation improved this am. BP improved post IVF bolus, Levophed gtt was never started. Vital signs remains stable. Patient remains afebrile, with no leukocytosis, Blood cultures and urine culture pending. Continue current empiric IV ABx for now. [facility] is also following. Patient is stable for transfer to Telemetry. Possible discharge back the SNF facility in the next 24hrs to 48hrs if patient remains stable. Assessment and Plan #Sepsis #Urinary Tract Infection(UTI) - presented with hypotension and tachycardia - BP and tachycardia improved post IVF bolus, Levophed gtt was never started - UA consistent with UTI, Blood cultures and urine culture pending - Patient remains afebrile, with no leukocytosis - Continue current empiric IV Abx- Rocephin - Continue blood pressure monitor per protocol - Maintain MAP above 65 and SBP less than 160 - F/U on cultures - Daily CBC monitor #Acute Kidney Injury(JENY) most likely ATN - secondary to sepsis/hypoperfusion - Baseline renal function unknown - Scr. normalized post IVF hydration - Strict intake and output - Avoid nephrotoxic medications; Renally dose medications - Monitor and replace electrolytes as needed #Acute Metabolic Encephalopathy #Quadriplegic - most like due to infectious process - mentation improved this am - Verbal prompting, and verbal reorientation as needed - Frequent Repositioning per protocol - Aspiration precaution - PRN Analgesia for pain control - Maintenance of sleep-wake cycle #GI/DVT Prophylaxis - PPI- Pepcid - Heparin SubQ - SCDs to bilateral lower extremities while in bed #Advance Care Planning - Disease education data, care plan, diagnoses, and prognosis were discussed with patient and his POA, Juany Morrison at the bedside. Patient is DNR/DNI. They acknowledged understanding and agreed with current care plan. The high probability of a clinically significant, sudden or life threatening deterioration of the [multiple] system(s) required my full and direct attention, intervention and personal management. The aggregate critical care time was [60] minutes. This time is in addition to time spent performing reported procedures but includes the following: [x] Data Review and interpretation [x] Patient assessment and monitoring of vital signs [x] Documentation [x] Medication orders and management Disposition Plan: Transfer to floor Total Time Spent with Patient (Minutes): 60 History Interval history: Patient seen and examined at the bedside. Fully AAO, on 2L NC, complaining of generalized bodyache. No respiratory distress noted. SR noted on the monitor, VSS. JEANNE overnight Hospitalist Physical - Constitutional Vitals: Temp Pulse Resp BP Pulse Ox 97.7 F 83 11 L 133/82 100 11/06/21 04:00 11/06/21 07:00 11/06/21 10:05 11/06/21 07:00 11/06/21 07:00 General appearance: Present: no acute distress, well-nourished, other - EENT Eyes: Present: PERRL ENT: hearing intact - Neck Neck: Present: normal ROM - Respiratory Respiratory effort: normal Respiratory: bilateral: diminished - Cardiovascular Rhythm: regular Heart Sounds: Present: S1 & S2 - Extremities Extremities: no ischemia, pulses intact, pulses symmetrical, abnormal (Quadriplegic ) Peripheral Pulses: within normal limits - Abdominal General gastrointestinal: soft, non-distended, normal bowel sounds - Integumentary Integumentary: Present: warm, dry - Psychiatric Psychiatric: appropriate mood/affect, cooperative - Neurologic Neurologic: other (AAO, quadriplegic) - Allied Health Allied health notes reviewed: nursing HEART Score - HEART Score Troponin: Troponin T 0.122 ng/mL (0.00-0.029) H* 11/05/21 18:21 Results - Labs CBC & Chem 7: 11/05/21 18:21 11/06/21 04:23 Labs: Laboratory Last Values WBC 9.2 K/mm3 (4.5-11.0) 11/05/21 18:21 RBC 3.55 M/mm3 (3.65-5.03) L 11/05/21 18:21 Hgb 8.9 gm/dl (11.8-15.2) L 11/05/21 18:21 Hct 28.1 % (35.5-45.6) L 11/05/21 18:21 MCV 79 fl (84-94) L 11/05/21 18:21 MCH 25 pg (28-32) L 11/05/21 18:21 MCHC 32 % (32-34) 11/05/21 18:21 RDW 18.6 % (13.2-15.2) H 11/05/21 18:21 Plt Count 189 K/mm3 (140-440) 11/05/21 18:21 Lymph % (Auto) 12.2 % (13.4-35.0) L 11/05/21 18:21 [place] % (Auto) 6.5 % (0.0-7.3) 11/05/21 18:21 Eos % (Auto) 0.2 % (0.0-4.3) 11/05/21 18:21 Baso % (Auto) 0.3 % (0.0-1.8) 11/05/21 18:21 Lymph # (Auto) 1.1 K/mm3 (1.2-5.4) L 11/05/21 18:21 [place] # (Auto) 0.6 K/mm3 (0.0-0.8) 11/05/21 18:21 Eos # (Auto) 0.0 K/mm3 (0.0-0.4) 11/05/21 18:21 Baso # (Auto) 0.0 K/mm3 (0.0-0.1) 11/05/21 18:21 Seg Neutrophils % 80.8 % (40.0-70.0) H 11/05/21 18:21 Seg Neutrophils # 7.4 K/mm3 (1.8-7.7) 11/05/21 18:21 Sodium 145 mmol/L (137-145) 11/06/21 04:23 Potassium 4.0 mmol/L (3.6-5.0) 11/06/21 04:23 Chloride 107.3 mmol/L (98-107) H 11/06/21 04:23 Carbon Dioxide 24 mmol/L (22-30) 11/06/21 04:23 Anion Gap 18 mmol/L 11/06/21 04:23 BUN 22 mg/dL (9-20) H 11/06/21 04:23 Creatinine 1.0 mg/dL (0.8-1.3) 11/06/21 04:23 Estimated GFR > 60 ml/min 11/06/21 04:23 BUN/Creatinine Ratio 22 % 11/06/21 04:23 Glucose 92 mg/dL (75-100) 11/06/21 04:23 Lactic Acid 1.70 mmol/L (0.7-2.0) 11/05/21 18:21 Calcium 9.1 mg/dL (8.4-10.2) 11/06/21 04:23 Total Bilirubin 0.60 mg/dL (0.1-1.2) 11/05/21 18:21 AST 14 units/L (5-40) 11/05/21 18:21 ALT 9 units/L (7-56) 11/05/21 18:21 Alkaline Phosphatase 110 units/L (35-129) 11/05/21 18:21 Ammonia 23.0 umol/L (25-60) L 11/05/21 15:52 Troponin T 0.122 ng/mL (0.00-0.029) H* 11/05/21 18:21 Total Protein 6.7 g/dL (6.3-8.2) 11/05/21 18:21 Albumin 3.5 g/dL (3.9-5) L 11/05/21 18:21 Albumin/Globulin Ratio 1.1 % 11/05/21 18:21 Triglycerides 77 mg/dL (2-149) 11/05/21 18:21 Cholesterol 114 mg/dL (50-199) 11/05/21 18:21 LDL Cholesterol Direct 44 mg/dL (50-130) L 11/05/21 18:21 HDL Cholesterol 61 mg/dL (40-59) H 11/05/21 18:21 Cholesterol/HDL Ratio 1.86 % 11/05/21 18:21 TSH 0.810 mlU/mL (0.270-4.200) 11/05/21 18:21 Urine Color Yellow (Yellow) 11/05/21 19:05 Urine Turbidity Cloudy (Clear) 11/05/21 19:05 Urine pH 7.0 (5.0-7.0) 11/05/21 19:05 Ur Specific [place] 1.015 (1.003-1.030) 11/05/21 19:05 Urine Protein 100 mg/dl mg/dL (Negative) 11/05/21 19:05 Urine Glucose (UA) Negative mg/dL (Negative) 11/05/21 19:05 Urine Ketones Negative mg/dL (Negative) 11/05/21 19:05 Urine Blood Large (Negative) A 11/05/21 19:05 Urine Nitrite Negative (Negative) 11/05/21 19:05 Ur Reducing Substances Not Reportable 11/05/21 19:05 Urine Bilirubin Negative (Negative) 11/05/21 19:05 Urine Ictotest Not Reportable 11/05/21 19:05 Urine Urobilinogen < 2.0 mg/dL (<2.0) 11/05/21 19:05 Ur Leukocyte Esterase Moderate (Negative) 11/05/21 19:05 Urine WBC (Auto) > 182.0 /HPF (0.0-6.0) H 11/05/21 19:05 Urine RBC (Auto) 92.0 /HPF (0.0-6.0) 11/05/21 19:05 U Epithel Cells (Auto) 3.0 /HPF (0-13.0) 11/05/21 19:05 Urine Bacteria (Auto) 4+ /HPF (Negative) 11/05/21 19:05 Urine WBC Clumps 3+ /HPF 11/05/21 19:05 Urine Mucus 1+ /HPF 11/05/21 19:05 Urine Yeast (Budding) 3+ /HPF 11/05/21 19:05 Microbiology: Microbiology 11/05/21 18:21 Peripheral/Venous Blood Culture - Preliminary Culture in Progress 11/05/21 18:21 Peripheral/Venous Blood Culture - Preliminary Culture in Progress Bobby/IV: Voiding Method Condom Catheter Active Medications - Current Medications Current Medications: Generic Name Dose Route Start Last Admin Trade Name Freq PRN Reason Stop Dose Admin Acetaminophen 650 mg 11/06/21 10:00 11/06/21 10:05 Acetaminophen 325 Mg Tab PO 650 mg Q6H PRN Administration Pain MILD(1-3)/Fever >100.5/JACOB Atorvastatin Calcium 40 mg 11/06/21 22:00 Atorvastatin 40 Mg Tab PO QHS CARROL Baclofen 20 mg 11/06/21 10:00 11/06/21 09:25 Baclofen 10 Mg Tab PO 20 mg BID CARROL Administration Docusate Sodium 100 mg 11/06/21 10:00 11/06/21 09:25 Docusate Sodium 100 Mg Cap PO 100 mg BID CARROL Administration Famotidine 20 mg 11/06/21 10:00 11/06/21 09:25 Famotidine 20 Mg Tab PO 20 mg BID CARROL Administration Gabapentin 100 mg 11/06/21 14:00 Gabapentin 100 Mg Cap PO Q8HR [facility] Heparin Sodium (Porcine) 5,000 unit 11/06/21 06:00 11/06/21 06:30 Heparin 5,000 Unit/1 Ml Vial SUB-Q 5,000 unit Q8HR CARROL Administration Ceftriaxone Sodium 1 gm in 50 mls @ 100 mls/hr 11/05/21 23:45 11/06/21 00:22 Rocephin/Ns 1 Gm/50 Ml IV 100 mls/hr Q24H CARROL Administration Protocol Magnesium Hydroxide 30 ml 11/05/21 22:15 Magnesium Hydroxide (Mom) Oral Liqd Udc PO Q4H PRN Constipation Mirtazapine 7.5 mg 11/06/21 22:00 Mirtazapine 15 Mg Tab PO QHS [facility] Morphine Sulfate 2 mg 11/05/21 22:15 11/06/21 02:47 Morphine 2 Mg/1 Ml Inj IV 2 mg Q4H PRN Administration Pain, Moderate (4-6) Ondansetron HCl 4 mg 11/05/21 22:15 Ondansetron 4 Mg/2 Ml Inj IV Q8H PRN Nausea And Vomiting Senna 17.2 mg 11/06/21 22:00 Sennosides 8.6 Mg Tab PO QHS [facility] Sodium Chloride 10 ml 11/06/21 10:00 11/06/21 09:26 Sodium Chloride 0.9% 10 Ml Flush Syringe IV 10 ml BID CARROL Administration Sodium Chloride 10 ml 11/05/21 22:15 Sodium Chloride 0.9% 10 Ml Flush Syringe IV PRN PRN LINE FLUSH <ROX GODWIN - Last Filed: 11/07/21 07:32> Assessment and Plan Assessment and plan: I saw and evaluated the patient. I agree with the findings and the plan of care as documented in the Nurse Practitioner's~note, with the following corrections and additions. Hospitalist Physical - Constitutional Vitals: Temp Pulse Resp BP Pulse Ox 98.0 F 88 18 140/81 97 11/06/21 23:52 11/06/21 23:52 11/07/21 02:16 11/06/21 23:52 08/03/22 23:52 HEART Score - HEART Score Troponin: Troponin T 0.061 ng/mL (0.00-0.029) H 11/06/21 16:25 Results - Labs CBC & Chem 7: 11/07/21 05:59 11/07/21 05:59 Labs: Laboratory Last Values WBC 6.6 K/mm3 (4.5-11.0) 11/07/21 05:59 RBC 4.05 M/mm3 (3.65-5.03) 11/07/21 05:59 Hgb 10.1 gm/dl (11.8-15.2) L 11/07/21 05:59 Hct 31.5 % (35.5-45.6) L 11/07/21 05:59 MCV 78 fl (84-94) L 11/07/21 05:59 MCH 25 pg (28-32) L 11/07/21 05:59 MCHC 32 % (32-34) 11/07/21 05:59 RDW 18.1 % (13.2-15.2) H 11/07/21 05:59 Plt Count 185 K/mm3 (140-440) 11/07/21 05:59 Lymph % (Auto) 12.2 % (13.4-35.0) L 11/05/21 18:21 [place] % (Auto) 6.5 % (0.0-7.3) 11/05/21 18:21 Eos % (Auto) 0.2 % (0.0-4.3) 11/05/21 18:21 Baso % (Auto) 0.3 % (0.0-1.8) 11/05/21 18:21 Lymph # (Auto) 1.1 K/mm3 (1.2-5.4) L 11/05/21 18:21 [place] # (Auto) 0.6 K/mm3 (0.0-0.8) 11/05/21 18:21 Eos # (Auto) 0.0 K/mm3 (0.0-0.4) 11/05/21 18:21 Baso # (Auto) 0.0 K/mm3 (0.0-0.1) 11/05/21 18:21 Seg Neutrophils % 80.8 % (40.0-70.0) H 11/05/21 18:21 Seg Neutrophils # 7.4 K/mm3 (1.8-7.7) 11/05/21 18:21 Sodium 143 mmol/L (137-145) 11/07/21 05:59 Potassium 4.2 mmol/L (3.6-5.0) 11/07/21 05:59 Chloride 107.6 mmol/L (98-107) H 11/07/21 05:59 Carbon Dioxide 26 mmol/L (22-30) 11/07/21 05:59 Anion Gap 14 mmol/L 11/07/21 05:59 BUN 13 mg/dL (9-20) 11/07/21 05:59 Creatinine 0.7 mg/dL (0.8-1.3) L 11/07/21 05:59 Estimated GFR > 60 ml/min 11/07/21 05:59 BUN/Creatinine Ratio 19 % 11/07/21 05:59 Glucose 87 mg/dL (75-100) 11/07/21 05:59 POC Glucose 73 mg/dL (70-105) 11/06/21 12:00 Lactic Acid 1.70 mmol/L (0.7-2.0) 11/05/21 18:21 Calcium 9.4 mg/dL (8.4-10.2) 11/07/21 05:59 Total Bilirubin 0.60 mg/dL (0.1-1.2) 11/05/21 18:21 AST 14 units/L (5-40) 11/05/21 18:21 ALT 9 units/L (7-56) 11/05/21 18:21 Alkaline Phosphatase 110 units/L (35-129) 11/05/21 18:21 Ammonia 23.0 umol/L (25-60) L 11/05/21 15:52 Troponin T 0.061 ng/mL (0.00-0.029) H 11/06/21 16:25 Total Protein 6.7 g/dL (6.3-8.2) 11/05/21 18:21 Albumin 3.5 g/dL (3.9-5) L 11/05/21 18:21 Albumin/Globulin Ratio 1.1 % 11/05/21 18:21 Triglycerides 77 mg/dL (2-149) 11/05/21 18:21 Cholesterol 114 mg/dL (50-199) 11/05/21 18:21 LDL Cholesterol Direct 44 mg/dL (50-130) L 11/05/21 18:21 HDL Cholesterol 61 mg/dL (40-59) H 11/05/21 18:21 Cholesterol/HDL Ratio 1.86 % 11/05/21 18:21 TSH 0.810 mlU/mL (0.270-4.200) 11/05/21 18:21 Urine Color Yellow (Yellow) 11/05/21 19:05 Urine Turbidity Cloudy (Clear) 11/05/21 19:05 Urine pH 7.0 (5.0-7.0) 11/05/21 19:05 Ur Specific [place] 1.015 (1.003-1.030) 11/05/21 19:05 Urine Protein 100 mg/dl mg/dL (Negative) 11/05/21 19:05 Urine Glucose (UA) Negative mg/dL (Negative) 11/05/21 19:05 Urine Ketones Negative mg/dL (Negative) 11/05/21 19:05 Urine Blood Large (Negative) A 11/05/21 19:05 Urine Nitrite Negative (Negative) 11/05/21 19:05 Ur Reducing Substances Not Reportable 11/05/21 19:05 Urine Bilirubin Negative (Negative) 11/05/21 19:05 Urine Ictotest Not Reportable 11/05/21 19:05 Urine Urobilinogen < 2.0 mg/dL (<2.0) 11/05/21 19:05 Ur Leukocyte Esterase Moderate (Negative) 11/05/21 19:05 Urine WBC (Auto) > 182.0 /HPF (0.0-6.0) H 11/05/21 19:05 Urine RBC (Auto) 92.0 /HPF (0.0-6.0) 11/05/21 19:05 U Epithel Cells (Auto) 3.0 /HPF (0-13.0) 11/05/21 19:05 Urine Bacteria (Auto) 4+ /HPF (Negative) 11/05/21 19:05 Urine WBC Clumps 3+ /HPF 11/05/21 19:05 Urine Mucus 1+ /HPF 11/05/21 19:05 Urine Yeast (Budding) 3+ /HPF 11/05/21 19:05 Microbiology: Microbiology 11/05/21 18:21 Peripheral/Venous Blood Culture - Preliminary NO GROWTH AFTER 24 HOURS 11/05/21 18:21 Peripheral/Venous Blood Culture - Preliminary NO GROWTH AFTER 24 HOURS Bobby/IV: Voiding Method Condom Catheter Active Medications - Current Medications Current Medications: Generic Name Dose Route Start Last Admin Trade Name Freq PRN Reason Stop Dose Admin Acetaminophen 650 mg 11/06/21 10:00 11/06/21 21:04 Acetaminophen 325 Mg Tab PO 650 mg Q6H PRN Administration Pain MILD(1-3)/Fever >100.5/JACOB Atorvastatin Calcium 40 mg 11/06/21 22:00 11/06/21 21:05 Atorvastatin 40 Mg Tab PO 40 mg QHS CARROL Administration Baclofen 20 mg 11/06/21 10:00 11/06/21 21:05 Baclofen 10 Mg Tab PO 20 mg BID CARROL Administration Docusate Sodium 100 mg 11/06/21 10:00 11/06/21 21:05 Docusate Sodium 100 Mg Cap PO 100 mg BID CARROL Administration Famotidine 20 mg 11/06/21 10:00 11/06/21 21:05 Famotidine 20 Mg Tab PO 20 mg BID CARROL Administration Gabapentin 100 mg 11/06/21 14:00 11/07/21 06:25 Gabapentin 100 Mg Cap PO 100 mg Q8HR CARROL Administration Heparin Sodium (Porcine) 5,000 unit 11/06/21 06:00 11/07/21 06:25 Heparin 5,000 Unit/1 Ml Vial SUB-Q 5,000 unit Q8HR CARROL Administration Ceftriaxone Sodium 1 gm in 50 mls @ 100 mls/hr 11/05/21 23:45 11/07/21 06:24 Rocephin/Ns 1 Gm/50 Ml IV Infused Q24H CARROL Infusion Protocol Magnesium Hydroxide 30 ml 11/05/21 22:15 Magnesium Hydroxide (Mom) Oral Liqd Udc PO Q4H PRN Constipation Mirtazapine 7.5 mg 11/06/21 22:00 11/06/21 21:04 Mirtazapine 15 Mg Tab PO 7.5 mg QHS CARROL Administration Morphine Sulfate 2 mg 11/05/21 22:15 11/07/21 02:16 Morphine 2 Mg/1 Ml Inj IV 2 mg Q4H PRN Administration Pain, Moderate (4-6) Ondansetron HCl 4 mg 11/05/21 22:15 Ondansetron 4 Mg/2 Ml Inj IV Q8H PRN Nausea And Vomiting Senna 17.2 mg 11/06/21 22:00 11/06/21 21:05 Sennosides 8.6 Mg Tab PO 17.2 mg QHS CARROL Administration Sodium Chloride 10 ml 11/06/21 10:00 11/06/21 22:36 Sodium Chloride 0.9% 10 Ml Flush Syringe IV Not Given BID CARROL Sodium Chloride 10 ml 11/05/21 22:15 Sodium Chloride 0.9% 10 Ml Flush Syringe IV PRN PRN LINE FLUSH Nutrition/Malnutrition Assess - Dietary Evaluation Nutrition/Malnutrition Findings: Nutrition Notes Start: 11/06/21 12:12 Freq: Status: Active Protocol: Document 11/06/21 12:12 CATIE (Rec: 11/06/21 12:22 CATIE [id number]) Nutrition Notes Need for Assessment generated from: MD Order,Education Initial or Follow up Brief Note Current Diagnosis Acute Kidney Injury,Sepsis, Hypertension Other Pertinent Diagnosis UTI, Anemia, Depression, Quadriplegia. Current Diet Cardiac Diet (since L 11/06). Labs/Tests 11/06: Cl 107.3, BUN 22. Pertinent Medications 11/06: Nutritionally unremarkable. 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 Weight Status Appropriate Subjective/Other Information RD consult for risk of malnutrition and nutrition education assessment. No reports available on Pt's PO intake of meals at the time , will assess at F/U. Pt is on Nasal Cannula, O2 saturation @ 100%, according to Physical Assessment History notes. Pt has missing teeth, according to Physical Assessment History notes. Pt shows no signs of concern for risk of malnutrition at the time, according to Physical Assessment History notes. Pt has an spinal cord injury and is quadriplegic, according to History & Physical notes. Pt is a SNF resident, according to Progress notes. Pt needs total assistance with ADL activities, not a candidate for Nutrition Education. Percent of energy/protein needs met: Prescribed Cardiac Diet provides for energy/protein needs (2,230 Kcal/85 g) during LOS. 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 No Is Patient Ambulatory and/or Out of Bed No REE-([place]-confined to bed) 1950.680 Kcal/Kg value to use for calculation 28 Approximate Energy Requirements Using 2237 kcal/Kg Calculation Used for Recommendations Kcal/kg Additional Notes Protein: 1-1.2 g/Kg ABW; 80-96 g/day. Fluids: 1 ml/Kcal, or as per MD. Nutrition Intervention Change Diet Order: Continue Cardiac Diet as tolerated. Follow-Up By: 11/13/21 Additional Comments Continue monitoring food tolerance, %PO intake of meals , and BM.
[2021-11-06] MEDS: GABAPENTIN 100 MG CAP PO SCH ×2 (13:11→21:06)
[2021-11-06] MEDS: MIRTAZAPINE 15 MG TAB PO SCH (21:04)
[2021-11-06] MEDS: SENNOSIDES 8.6 MG TAB PO SCH (21:05)
[2021-11-07] MEDS: MORPHINE 2 MG/1 ML INJ IV PRN ×2 (02:16→09:20)
[2021-11-07 06:22] LABS: Hematocrit 31.5 % (35.5-45.6); Hemoglobin 10.1 gm/dl (11.8-15.2); Mean Corpuscular HGB Conc 32 % (32-34); Mean Corpuscular Volume 78 fl (84-94); Platelet Count 185 K/mm3 (140-440); Red Blood Count 4.05 M/mm3 (3.65-5.03); Red Cell Distribution Width 18.1 % (13.2-15.2)
[2021-11-07] MEDS: GABAPENTIN 100 MG CAP PO SCH ×3 (06:25→21:33)
[2021-11-07] MEDS: HEPARIN 5,000 UNIT/1 ML VIAL SUB-Q SCH ×3 (06:25→21:33)
[2021-11-07 06:36] LABS: BUN/Creatinine Ratio 19; Blood Urea Nitrogen 13 mg/dL (9-20); Calcium 9.4 mg/dL (8.4-10.2); Hemolysis Index 0
[2021-11-07] MEDS: BACLOFEN 10 MG TAB PO SCH ×2 (09:19→21:32)
[2021-11-07] MEDS: DOCUSATE SODIUM 100 MG CAP PO SCH ×2 (09:19→21:32)
[2021-11-07] MEDS: FAMOTIDINE 20 MG TAB PO SCH ×2 (09:20→21:33)
--- NOTE | 2021-11-07 10:57 | Progress Note ---
Assessment and Plan Assessment and plan: This is a 66-year-old AA male with known past medical history of quadriplegia, depression, hypertension, and history of COVID 19 infection in April 2021 admitted for sepsis most likely secondary to UTI #Sepsis #Urinary Tract Infection(UTI) - presented with hypotension and tachycardia - BP and tachycardia improved post IVF bolus, Levophed gtt was never started - UA consistent with UTI, Blood cultures and urine culture pending - Patient remains afebrile, with no leukocytosis - Continue current empiric IV Abx- Rocephin - Continue blood pressure monitor per protocol - Maintain MAP above 65 and SBP less than 160 - F/U on cultures - Daily CBC monitor #Acute Kidney Injury(JENY) most likely ATN-resolved - secondary to sepsis/hypoperfusion - Baseline renal function unknown, initial creatinine 1.8 now normalized - Scr. normalized post IVF hydration - Strict intake and output - Avoid nephrotoxic medications; Renally dose medications - Monitor and replace electrolytes as needed #Toxic metabolic Encephalopathy #Quadriplegic - most like due to infectious process - mentation improved - Verbal prompting, and verbal reorientation as needed - Frequent Repositioning per protocol - Aspiration precaution - PRN Analgesia for pain control - Maintenance of sleep-wake cycle #GI/DVT Prophylaxis - PPI- Pepcid - Heparin SubQ - SCDs to bilateral lower extremities while in bed Hospital Course to Date: 11/06: Mentation improved this am. BP improved post IVF bolus, Levophed gtt was never started. Vital signs remains stable. Patient remains afebrile, with no leukocytosis, Blood cultures and urine culture pending. Continue current empiric IV ABx for now. [facility] is also following. Patient is stable for transfer to Telemetry. Possible discharge back the SNF facility in the next 24hrs to 48hrs if patient remains stable. 11/07: Patient back to baseline with mentation. Blood and urine culture thus far negative but will continue to follow. Mobility protocols per nursing. Aspir ation precautions History Interval history: No new issues overnight Hospitalist Physical - Constitutional Vitals: Temp Pulse Resp BP Pulse Ox 98.0 F 88 18 140/81 97 11/06/21 23:52 11/06/21 23:52 11/07/21 02:16 11/06/21 23:52 11/06/21 23:52 General appearance: Present: no acute distress, well-nourished, other - EENT Eyes: Present: PERRL, EOM intact ENT: hearing intact, clear oral mucosa, dentition normal - Neck Neck: Present: supple, normal ROM - Respiratory Respiratory effort: normal Respiratory: bilateral: CTA - Cardiovascular Rhythm: regular Heart Sounds: Present: S1 & S2. Absent: gallop, rub - Extremities Extremities: no ischemia, No edema, Full ROM - Abdominal General gastrointestinal: soft, non-tender, non-distended, normal bowel sounds - Integumentary Integumentary: Present: clear, warm, dry - Neurologic Neurologic: CNII-XII intact, moves all extremities HEART Score - HEART Score Troponin: Troponin T 0.061 ng/mL (0.00-0.029) H 11/06/21 16:25 Results - Labs CBC & Chem 7: 11/07/21 05:59 11/07/21 05:59 Labs: Laboratory Last Values WBC 6.6 K/mm3 (4.5-11.0) 11/07/21 05:59 RBC 4.05 M/mm3 (3.65-5.03) 11/07/21 05:59 Hgb 10.1 gm/dl (11.8-15.2) L 11/07/21 05:59 Hct 31.5 % (35.5-45.6) L 11/07/21 05:59 MCV 78 fl (84-94) L 11/07/21 05:59 MCH 25 pg (28-32) L 11/07/21 05:59 MCHC 32 % (32-34) 11/07/21 05:59 RDW 18.1 % (13.2-15.2) H 11/07/21 05:59 Plt Count 185 K/mm3 (140-440) 11/07/21 05:59 Lymph % (Auto) 12.2 % (13.4-35.0) L 11/05/21 18:21 [place] % (Auto) 6.5 % (0.0-7.3) 11/05/21 18:21 Eos % (Auto) 0.2 % (0.0-4.3) 11/05/21 18:21 Baso % (Auto) 0.3 % (0.0-1.8) 11/05/21 18:21 Lymph # (Auto) 1.1 K/mm3 (1.2-5.4) L 11/05/21 18:21 [place] # (Auto) 0.6 K/mm3 (0.0-0.8) 11/05/21 18:21 Eos # (Auto) 0.0 K/mm3 (0.0-0.4) 11/05/21 18:21 Baso # (Auto) 0.0 K/mm3 (0.0-0.1) 11/05/21 18:21 Seg Neutrophils % 80.8 % (40.0-70.0) H 11/05/21 18:21 Seg Neutrophils # 7.4 K/mm3 (1.8-7.7) 11/05/21 18:21 Sodium 143 mmol/L (137-145) 11/07/21 05:59 Potassium 4.2 mmol/L (3.6-5.0) 11/07/21 05:59 Chloride 107.6 mmol/L (98-107) H 11/07/21 05:59 Carbon Dioxide 26 mmol/L (22-30) 11/07/21 05:59 Anion Gap 14 mmol/L 11/07/21 05:59 BUN 13 mg/dL (9-20) 11/07/21 05:59 Creatinine 0.7 mg/dL (0.8-1.3) L 11/07/21 05:59 Estimated GFR > 60 ml/min 11/07/21 05:59 BUN/Creatinine Ratio 19 % 11/07/21 05:59 Glucose 87 mg/dL (75-100) 11/07/21 05:59 POC Glucose 73 mg/dL (70-105) 11/06/21 12:00 Lactic Acid 1.70 mmol/L (0.7-2.0) 11/05/21 18:21 Calcium 9.4 mg/dL (8.4-10.2) 11/07/21 05:59 Total Bilirubin 0.60 mg/dL (0.1-1.2) 11/05/21 18:21 AST 14 units/L (5-40) 11/05/21 18:21 ALT 9 units/L (7-56) 11/05/21 18:21 Alkaline Phosphatase 110 units/L (35-129) 11/05/21 18:21 Ammonia 23.0 umol/L (25-60) L 11/05/21 15:52 Troponin T 0.061 ng/mL (0.00-0.029) H 11/06/21 16:25 Total Protein 6.7 g/dL (6.3-8.2) 11/05/21 18:21 Albumin 3.5 g/dL (3.9-5) L 11/05/21 18:21 Albumin/Globulin Ratio 1.1 % 11/05/21 18:21 Triglycerides 77 mg/dL (2-149) 11/05/21 18:21 Cholesterol 114 mg/dL (50-199) 11/05/21 18:21 LDL Cholesterol Direct 44 mg/dL (50-130) L 11/05/21 18:21 HDL Cholesterol 61 mg/dL (40-59) H 11/05/21 18:21 Cholesterol/HDL Ratio 1.86 % 11/05/21 18:21 TSH 0.810 mlU/mL (0.270-4.200) 11/05/21 18:21 Urine Color Yellow (Yellow) 11/05/21 19:05 Urine Turbidity Cloudy (Clear) 11/05/21 19:05 Urine pH 7.0 (5.0-7.0) 11/05/21 19:05 Ur Specific [place] 1.015 (1.003-1.030) 11/05/21 19:05 Urine Protein 100 mg/dl mg/dL (Negative) 11/05/21 19:05 Urine Glucose (UA) Negative mg/dL (Negative) 11/05/21 19:05 Urine Ketones Negative mg/dL (Negative) 11/05/21 19:05 Urine Blood Large (Negative) A 11/05/21 19:05 Urine Nitrite Negative (Negative) 11/05/21 19:05 Ur Reducing Substances Not Reportable 11/05/21 19:05 Urine Bilirubin Negative (Negative) 11/05/21 19:05 Urine Ictotest Not Reportable 11/05/21 19:05 Urine Urobilinogen < 2.0 mg/dL (<2.0) 11/05/21 19:05 Ur Leukocyte Esterase Moderate (Negative) 11/05/21 19:05 Urine WBC (Auto) > 182.0 /HPF (0.0-6.0) H 11/05/21 19:05 Urine RBC (Auto) 92.0 /HPF (0.0-6.0) 11/05/21 19:05 U Epithel Cells (Auto) 3.0 /HPF (0-13.0) 11/05/21 19:05 Urine Bacteria (Auto) 4+ /HPF (Negative) 11/05/21 19:05 Urine WBC Clumps 3+ /HPF 11/05/21 19:05 Urine Mucus 1+ /HPF 11/05/21 19:05 Urine Yeast (Budding) 3+ /HPF 11/05/21 19:05 Microbiology: Microbiology 11/06/21 10:30 Urine,Clean Catch Urine Culture - Preliminary 11/05/21 18:21 Peripheral/Venous Blood Culture - Preliminary NO GROWTH AFTER 24 HOURS 11/05/21 18:21 Peripheral/Venous Blood Culture - Preliminary NO GROWTH AFTER 24 HOURS Bobby/IV: Voiding Method Condom Catheter Active Medications - Current Medications Current Medications: Generic Name Dose Route Start Last Admin Trade Name Freq PRN Reason Stop Dose Admin Acetaminophen 650 mg 11/06/21 10:00 11/06/21 21:04 Acetaminophen 325 Mg Tab PO 650 mg Q6H PRN Administration Pain MILD(1-3)/Fever >100.5/JACOB Atorvastatin Calcium 40 mg 11/06/21 22:00 11/06/21 21:05 Atorvastatin 40 Mg Tab PO 40 mg QHS CARROL Administration Baclofen 20 mg 11/06/21 10:00 11/07/21 09:19 Baclofen 10 Mg Tab PO 20 mg BID CARROL Administration Docusate Sodium 100 mg 11/06/21 10:00 11/07/21 09:19 Docusate Sodium 100 Mg Cap PO 100 mg BID CARROL Administration Famotidine 20 mg 11/06/21 10:00 11/07/21 09:20 Famotidine 20 Mg Tab PO 20 mg BID CARROL Administration Gabapentin 100 mg 11/06/21 14:00 11/07/21 06:25 Gabapentin 100 Mg Cap PO 100 mg Q8HR CARROL Administration Heparin Sodium (Porcine) 5,000 unit 11/06/21 06:00 11/07/21 06:25 Heparin 5,000 Unit/1 Ml Vial SUB-Q 5,000 unit Q8HR CARROL Administration Ceftriaxone Sodium 1 gm in 50 mls @ 100 mls/hr 11/05/21 23:45 11/07/21 06:24 Rocephin/Ns 1 Gm/50 Ml IV Infused Q24H CARROL Infusion Protocol Magnesium Hydroxide 30 ml 11/05/21 22:15 Magnesium Hydroxide (Mom) Oral Liqd Udc PO Q4H PRN Constipation Mirtazapine 7.5 mg 11/06/21 22:00 11/06/21 21:04 Mirtazapine 15 Mg Tab PO 7.5 mg QHS CARROL Administration Morphine Sulfate 2 mg 11/05/21 22:15 11/07/21 09:20 Morphine 2 Mg/1 Ml Inj IV 2 mg Q4H PRN Administration Pain, Moderate (4-6) Ondansetron HCl 4 mg 11/05/21 22:15 11/07/21 09:20 Ondansetron 4 Mg/2 Ml Inj IV 4 mg Q8H PRN Administration Nausea And Vomiting Senna 17.2 mg 11/06/21 22:00 11/06/21 21:05 Sennosides 8.6 Mg Tab PO 17.2 mg QHS CARROL Administration Sodium Chloride 10 ml 11/06/21 10:00 11/07/21 09:20 Sodium Chloride 0.9% 10 Ml Flush Syringe IV 10 ml BID CARROL Administration Sodium Chloride 10 ml 11/05/21 22:15 Sodium Chloride 0.9% 10 Ml Flush Syringe IV PRN PRN LINE FLUSH Nutrition/Malnutrition Assess - Dietary Evaluation Nutrition/Malnutrition Findings: Nutrition Notes Start: 11/06/21 12:12 Freq: Status: Active Protocol: Document 11/06/21 12:12 CATIE (Rec: 11/06/21 12:22 CATIE [id number]) Nutrition Notes Need for Assessment generated from: MD Order,Education Initial or Follow up Brief Note Current Diagnosis Acute Kidney Injury,Sepsis, Hypertension Other Pertinent Diagnosis UTI, Anemia, Depression, Quadriplegia. Current Diet Cardiac Diet (since L 11/06). Labs/Tests 11/06: Cl 107.3, BUN 22. Pertinent Medications 11/06: Nutritionally unremarkable. 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 Weight Status Appropriate Subjective/Other Information RD consult for risk of malnutrition and nutrition education assessment. No reports available on Pt's PO intake of meals at the time , will assess at F/U. Pt is on Nasal Cannula, O2 saturation @ 100%, according to Physical Assessment History notes. Pt has missing teeth, according to Physical Assessment History notes. Pt shows no signs of concern for risk of malnutrition at the time, according to Physical Assessment History notes. Pt has an spinal cord injury and is quadriplegic, according to History & Physical notes. Pt is a SNF resident, according to Progress notes. Pt needs total assistance with ADL activities, not a candidate for Nutrition Education. Percent of energy/protein needs met: Prescribed Cardiac Diet provides for energy/protein needs (2,230 Kcal/85 g) during LOS. Burn Absent Trauma Absent GI Symptoms None Food Allergy No Minimum of two criteria No Fluid Accumulation N/A Reduced Clinical Data Analyst Strength N/A (non-severe) Protein-Calorie Malnutrition N\A #1 Nutrition Diagnosis No nutrition diagnosis at this time Is patient on ventilator? No Is Patient Ambulatory and/or Out of Bed No REE-([facility]-confined to bed) 1951.680 Kcal/Kg value to use for calculation 28 Approximate Energy Requirements Using 2237 kcal/Kg Calculation Used for Recommendations Kcal/kg Additional Notes Protein: 1-1.2 g/Kg ABW; 80-96 g/day. Fluids: 1 ml/Kcal, or as per MD. Nutrition Intervention Change Diet Order: Continue Cardiac Diet as tolerated. Follow-Up By: 11/13/21 Additional Comments Continue monitoring food tolerance, %PO intake of meals , and BM.
--- NOTE | 2021-11-07 12:08 | Progress Note ---
Assessment and Plan 66-year-old -[place] male with known history of quadriplegia, depression, hypertension, history of COVID 19 infection in April 2021 who is a resident of [facility] brought into the emergency room for evaluation of changes in mental status. Patient unable to give any history at this time. Most of the history was obt ained from daughter and granddaughter . According to family members, patient had a nephrostomy tube placement at [facility] on October 31, 2021 for kidney stones. He was subsequently started on antibiotics however they indicated that antibiotics was not started until several days after discharge from the hospital. Has been no fever or chills, no nausea or vomiting. Patient has no history of smoking, alcohol or drug abuse. 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 No known drug allergies. Work-up in the emergency room , labs significant for hemoglobin of 8.9 hematocrit of 28.1. BUN of 26 and creatinine of 1.8. Troponin of 0.122. Urinalysis is significant for UTI. Chest x-ray has been unremarkable. He was found to be hypotensive and therefore was placed on a pressor in the emergency room after boluses of IV fluid. Patient has also been started on empiric IV antibiotic ceftriaxone and IV fluids. Patient sleeping . Patient is on room air. O2 saturation 100%. No acute respiratory distress. Patient afebrile. No Leukocytosis , Blood pressure 184/114 , Pulse 92 , respirations 18. Recommend stop I/V fluids. Monitor blood pressure. Blood pressure management as per primary care. Patient presently on Ceftriaxone, S/C Heparine, Famotidine and Albuterol inhaler. I spent critical care time of 40 minutes, reviewing the chart. examine the patient, review chest xray, lab results, talking to the nursing staff and work up plan of treatment in this critically ill patient. - Patient Problems (1) Sepsis Current Visit: Yes Status: Acute Plan to address problem: Patient presently on ceftriaxone. Blood pressure improved. (2) UTI (urinary tract infection) Current Visit: Yes Status: Acute Plan to address problem: Patient is on ceftriaxone. (3) 2019 novel coronavirus-infected pneumonia (NCIP) Current Visit: No Status: Acute Plan to address problem: Patient had [place] virus infection last april. Chest xray clear. No pneumonia at this time. (4) Acute metabolic encephalopathy Current Visit: No Status: Acute Plan to address problem: Management as per primary care and neurology. (5) Quadriplegia Current Visit: Yes Status: Acute Plan to address problem: History of quadriplegia. Management as per primary care and neurology. Subjective Date of service: 11/07/21 Interval history: 66-year-old -[place] male with known history of quadriplegia, depression, hypertension, history of COVID 19 infection in April 2021 who is a resident of [facility] brought into the emergency room for evaluation of changes in mental status. Patient unable to give any history at this time. Most of the history was obtained from daughter and granddaughter . According to family members, patient had a nephrostomy tube placement at [facility] on October 31, 2021 for kidney stones. He was subsequently started on antibiotics however they indicated that antibiotics was not started until several days after discharge from the hospital. Has been no fever or chills, no nausea or vomiting. Patient has no history of smoking, alcohol or drug abuse. 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 No known drug allergies. Work-up in the emergency room , labs significant for hemoglobin of 8.9 hematocrit of 28.1. BUN of 26 and creatinine of 1.8. Troponin of 0.122. Urinalysis is significant for UTI. Chest x-ray has been unremarkable. He was found to be hypotensive and therefore was placed on a pressor in the emergency room after boluses of IV fluid. Patient has also been started on empiric IV antibiotic ceftriaxone and IV fluids. Patient sleeping . Patient is on room air. O2 saturation 100%. No acute respiratory distress. Patient afebrile. No Leukocytosis , Blood pressure 184/114 , Pulse 92 , respirations 18. Recommend stop I/V fluids. Monitor blood pressure. Blood pressure management as per primary care. Patient presently on Ceftriaxone, S/C Heparine, Famotidine and Albuterol inhaler. Objective Vital Signs - 12hr 11/07/21 11/07/21 02:16 10:00 Respiratory 18 16 Rate O2 Sat by Pulse 100 Oximetry Constitutional: no acute distress, asleep Eyes: non-icteric ENT: oropharynx moist Neck: supple, no lymphadenopathy Ascultation: Bilateral: clear Cardiovascular: regular rate and rhythm Gastrointestinal: normoactive bowel sounds, soft, non-tender Integumentary: normal Extremities: no cyanosis, no edema Neurologic: pupils equal and round, unable to assess, other (Quadreplegic.) Psychiatric: other (Unable to assess due to mental status.) CBC and BMP: 11/07/21 05:59 11/07/21 05:59 Abnormal lab findings: Abnormal Labs 11/05/21 11/05/21 11/05/21 15:52 18:21 18:21 RBC 3.55 L Hgb 8.9 L Hct 28.1 L MCV 79 L MCH 25 L RDW 18.6 H Lymph % (Auto) 12.2 L Lymph # (Auto) 1.1 L Seg Neutrophils % 80.8 H Chloride BUN 26 H Creatinine 1.8 H Ammonia 23.0 L Troponin T Albumin 3.5 L LDL Cholesterol Direct HDL Cholesterol Urine Blood Urine WBC (Auto) 11/05/21 11/05/21 11/06/21 18:21 19:05 04:23 RBC Hgb Hct MCV MCH RDW Lymph % (Auto) Lymph # (Auto) Seg Neutrophils % Chloride 107.3 H BUN 22 H Creatinine Ammonia Troponin T 0.122 H* Albumin LDL Cholesterol Direct 44 L HDL Cholesterol 61 H Urine Blood Large A Urine WBC (Auto) > 182.0 H 11/06/21 11/06/21 11/07/21 10:30 16:25 05:59 RBC Hgb 10.1 L Hct 31.5 L MCV 78 L MCH 25 L RDW 18.1 H Lymph % (Auto) Lymph # (Auto) Seg Neutrophils % Chloride BUN Creatinine Ammonia Troponin T 0.068 H D 0.061 H Albumin LDL Cholesterol Direct HDL Cholesterol Urine Blood Urine WBC (Auto) 11/07/21 05:59 RBC Hgb Hct MCV MCH RDW Lymph % (Auto) Lymph # (Auto) Seg Neutrophils % Chloride 107.6 H BUN Creatinine 0.7 L Ammonia Troponin T Albumin LDL Cholesterol Direct HDL Cholesterol Urine Blood Urine WBC (Auto) Chest x-ray: report reviewed, image reviewed Additional Studies: CHEST 1 VIEW 11/05/2021 3:25 PM INDICATION / CLINICAL INFORMATION: altered mental status. COMPARISON: 05/15/2021 FINDINGS: SUPPORT DEVICES: None. HEART / MEDIASTINUM: No significant abnormality. LUNGS / PLEURA: No significant pulmonary or pleural abnormality. No pneumothorax. ADDITIONAL FINDINGS: No significant additional findings. IMPRESSION: 1. No acute findings.
[2021-11-07] MEDS ORDERED: ALBUTEROL 2.5 MG/3 ML NEBU IH PRN (13:51)
[2021-11-07] MEDS: HYPROMELLOSE 0.5% OPHTH SOLN 15 ML OU PRN ×2 (14:21→21:53)
--- NOTE | 2021-11-07 18:18 | Electrocardiograph Report ---
[facility] Test Date: 2021-11-05 Test Time: 17:22:06 Pat Name: NEO RABAGO Department: Room: A487 Gender: M Communications Manager: LEANN : [id number] Requested By: ZAC TURNER Order Number: [id number] Reading MD: Latricia Mcintyre Measurements Intervals [place] Rate: 68 P: 119 WY: 158 QRS: 159 QRSD: 83 T: 100 QT: 406 QTc: 432 Interpretive Statements Suspect right and left arm electrode reversal, interpretation assumes no reversal Sinus rhythm Probable right ventricular hypertrophy Probable lateral infarct, age indeterminate No previous ECG available for comparison Electronically Signed On 11-07-2021 18:17:42 EDT by Latricia Mcintyre
[2021-11-07] MEDS: MIRTAZAPINE 15 MG TAB PO SCH (21:32)
[2021-11-07] MEDS: SENNOSIDES 8.6 MG TAB PO SCH (21:32)
[2021-11-07] MEDS: cefTRIAXone/NS 1 GM/50 ML 1 GM/50 ML BAG IV SCH (23:35)
[2021-11-08] MEDS: GABAPENTIN 100 MG CAP PO SCH (05:40)
[2021-11-08] MEDS: HEPARIN 5,000 UNIT/1 ML VIAL SUB-Q SCH (05:40)
--- NOTE | 2021-11-08 08:21 | Discharge Summary ---
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 The patient presented with hypotension and tachycardia. Blood pressure and tachycardia improved status post IV fluid bolus. There was some consideration to start pressors with Levophed but it was not needed after IV fluid bolus. Urinalysis was consistent with UTI. Patient was admitted with diagnosis of sepsis, UTI, acute kidney injury secondary to ATN from sepsis, toxic metabolic encephalopathy, history of quadriplegia. Blood and urine cultures were obtained and found to be negative. Patient was initially admitted to ICU for hypotension. However, blood pressure resolved imm ediately with IV fluid hydration and patient was later transferred to the floor. With regards to the acute kidney injury, patient had creatinine of 1.8 which quickly resolved to normal range. Mental status also improved and immediately returned back to baseline. Patient was treated with IV antibiotics of Rocephin. Patient is felt to have see maximal hospital benefit and will be discharged back to [facility]. Dedicated discharge time 34 minutes Disposition: 01 HOME / SELF CARE / HOMELESS Final Discharge Diagnosis (Prints w/discharge instructions): Sepsis, UTI, history of quadriplegia, acute kidney injury, ATN, toxic metabolic encephalopathy Core Measure Documentation - Palliative Care Palliative Care/ Comfort Measures: Not Applicable - Core Measures Any of the following diagnoses?: none Exam - Constitutional Vitals: Temp Pulse Resp BP Pulse Ox 98.9 F 88 18 116/67 96 11/08/21 08:03 11/08/21 08:03 11/08/21 04:05 11/08/21 08:03 11/08/21 08:03 General appearance: Present: no acute distress, well-nourished - EENT Eyes: Present: PERRL ENT: hearing intact, clear oral mucosa - Neck Neck: Present: supple, normal ROM - Respiratory Respiratory effort: normal Respiratory: bilateral: CTA - Cardiovascular Heart Sounds: Present: S1 & S2. Absent: rub, click - Extremities Extremities: pulses symmetrical, No edema Peripheral Pulses: within normal limits - Abdominal General gastrointestinal: Present: soft, non-tender, non-distended, normal bowel sounds Male genitourinary: Present: normal - Integumentary Integumentary: Present: clear, warm, dry - Musculoskeletal Musculoskeletal: gait normal, strength equal bilaterally - Psychiatric Psychiatric: appropriate mood/affect, intact judgment & insight - Neurologic Neurologic: CNII-XII intact, moves all extremities Plan Activity: advance as tolerated Weight Bearing Status: Weight Bear as Tolerated Diet: regular Follow up with: PRIMARY CARE, [Primary Care Provider] - 3-5 Days
--- NOTE | 2021-11-08 08:39 | Progress Note ---
Assessment and Plan 66-year-old -[place] male with known history of quadriplegia, depression, hypertension, history of COVID 19 infection in April 2021 who is a resident of [facility] brought into the emergency room for evaluation of changes in mental status. Patient unable to give any history at this time. Most of the history was obt ained from daughter and granddaughter . According to family members, patient had a nephrostomy tube placement at [facility] on October 31, 2021 for kidney stones. He was subsequently started on antibiotics however they indicated that antibiotics was not started until several days after discharge from the hospital. Has been no fever or chills, no nausea or vomiting. Patient has no history of smoking, alcohol or drug abuse. 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 No known drug allergies. Work-up in the emergency room , labs significant for hemoglobin of 8.9 hematocrit of 28.1. BUN of 26 and creatinine of 1.8. Troponin of 0.122. Urinalysis is significant for UTI. Chest x-ray has been unremarkable. He was found to be hypotensive and therefore was placed on a pressor in the emergency room after boluses of IV fluid. Patient has also been started on empiric IV antibiotic ceftriaxone and IV fluids. Patient sleeping . Patient is on room air. O2 saturation 98%. No acute respiratory distress. Patient afebrile. No Leukocytosis , Blood pressure 128/81 , Pulse 82 , respirations 18. Patient presently on Ceftriaxone, S/C Heparine, Famotidine and Albuterol inhaler. - Patient Problems (1) Sepsis Status: Acute Plan to address problem: Patient presently on ceftriaxone. Blood pressure improved. (2) UTI (urinary tract infection) Status: Acute Plan to address problem: Patient is on ceftriaxone. (3) 2019 novel coronavirus-infected pneumonia (NCIP) Status: Acute Plan to address problem: Patient had [place] virus infection last april. Chest xray clear. No pneumonia at this time. (4) Acute metabolic encephalopathy Status: Acute Plan to address problem: Management as per primary care and neurology. (5) Quadriplegia Status: Acute Plan to address problem: History of quadriplegia. Management as per primary care and neurology. Subjective Date of service: 11/08/21 Interval history: 66-year-old -[place] male with known history of quadriplegia, depression, hypertension, history of COVID 19 infection in April 2021 who is a resident of [facility] brought into the emergency room for evaluation of changes in mental status. Patient unable to give any history at this time. Most of the history was obtained from daughter and granddaughter . According to family members, patient had a nephrostomy tube placement at [facility] on October 31, 2021 for kidney stones. He was subsequently started on antibiotics however they indicated that antibiotics was not started until several days after discharge from the hospital. Has been no fever or chills, no nausea or vomiting. Patient has no history of smoking, alcohol or drug abuse. 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 No known drug allergies. Work-up in the emergency room , labs significant for hemoglobin of 8.9 hematocrit of 28.1. BUN of 26 and creatinine of 1.8. Troponin of 0.122. Urinalysis is significant for UTI. Chest x-ray has been unremarkable. He was found to be hypotensive and therefore was placed on a pressor in the emergency room after boluses of IV fluid. Patient has also been started on empiric IV antibiotic ceftriaxone and IV fluids. Patient sleeping . Patient is on room air. O2 saturation 98%. No acute respiratory distress. Patient afebrile. No Leukocytosis , Blood pressure 128/81 , Pulse 82 , respirations 18. Patient presently on Ceftriaxone, S/C Heparine, Famotidine and Albuterol inhaler. Objective Vital Signs - 12hr 11/07/21 11/08/21 11/08/21 23:05 04:05 08:03 Temperature 99.2 F 98.9 F 98.9 F Pulse Rate 107 H 98 H 88 Respiratory 18 18 Rate Blood Pressure 135/79 123/78 116/67 O2 Sat by Pulse 97 93 96 Oximetry Constitutional: no acute distress, asleep Eyes: non-icteric ENT: oropharynx moist Neck: supple, no lymphadenopathy Ascultation: Bilateral: clear Cardiovascular: regular rate and rhythm Gastrointestinal: normoactive bowel sounds, soft, non-tender Integumentary: normal Extremities: no cyanosis, no edema Neurologic: pupils equal and round, unable to assess, other (Quadreplegic.) Psychiatric: other (Unable to assess due to mental status.) CBC and BMP: 11/07/21 05:59 11/07/21 05:59 Abnormal lab findings: Abnormal Labs 11/05/21 11/05/21 11/05/21 15:52 18:21 18:21 RBC 3.55 L Hgb 8.9 L Hct 28.1 L MCV 79 L MCH 25 L RDW 18.6 H Lymph % (Auto) 12.2 L Lymph # (Auto) 1.1 L Seg Neutrophils % 80.8 H Chloride BUN 26 H Creatinine 1.8 H Ammonia 23.0 L Troponin T Albumin 3.5 L LDL Cholesterol Direct HDL Cholesterol Urine Blood Urine WBC (Auto) 11/05/21 11/05/21 11/06/21 18:21 19:05 04:23 RBC Hgb Hct MCV MCH RDW Lymph % (Auto) Lymph # (Auto) Seg Neutrophils % Chloride 107.3 H BUN 22 H Creatinine Ammonia Troponin T 0.122 H* Albumin LDL Cholesterol Direct 44 L HDL Cholesterol 61 H Urine Blood Large A Urine WBC (Auto) > 182.0 H 11/06/21 11/06/21 11/07/21 10:30 16:25 05:59 RBC Hgb 10.1 L Hct 31.5 L MCV 78 L MCH 25 L RDW 18.1 H Lymph % (Auto) Lymph # (Auto) Seg Neutrophils % Chloride BUN Creatinine Ammonia Troponin T 0.068 H D 0.061 H Albumin LDL Cholesterol Direct HDL Cholesterol Urine Blood Urine WBC (Auto) 11/07/21 05:59 RBC Hgb Hct MCV MCH RDW Lymph % (Auto) Lymph # (Auto) Seg Neutrophils % Chloride 107.6 H BUN Creatinine 0.7 L Ammonia Troponin T Albumin LDL Cholesterol Direct HDL Cholesterol Urine Blood Urine WBC (Auto)
[2021-11-08] MEDS: FAMOTIDINE 20 MG TAB PO SCH (09:54)
[2021-11-08] MEDS: BACLOFEN 10 MG TAB PO SCH (09:54)
[2021-11-08] MEDS: DOCUSATE SODIUM 100 MG CAP PO SCH (09:54)
[2021-11-08] MEDS ORDERED: SULFAMETHOXAZOLE/TRIMETHOPRIM 800/160MG DS TAB PO SCH (10:00)
[2021-11-08 11:56] VITALS: BP 128/81
== END 2021-11-08 13:16 | DRG 871 ==
LOC: ED 11:57 → EDBD 11:57 → CC1 22:15 → 4A 11-06 18:43
PROVIDERS: ADMIT Internal Medicine Geriatric Medicine; ATTEND Hospitalist
PROC: 06HY33Z Insertion of Infusion Device into Lower Vein, Percutaneous Approach (ICD-10-PCS; principal; 2021-11-05)
PROC: B54BZZA Ultrasonography of Right Lower Extremity Veins, Guidance (ICD-10-PCS; 2021-11-05)
DX: A41.9 Sepsis, unspecified organism (principal); G82.50 Quadriplegia, unspecified; G92.8 Other toxic encephalopathy; N17.0 Acute kidney failure with tubular necrosis; N39.0 Urinary tract infection, site not specified; Z66 Do not resuscitate; I10 Essential (primary) hypertension; F32.9 Major depressive disorder, single episode, unspecified; Z86.16 Personal history of COVID-19
CPT/HCPCS: 36415; 71045; 80048; 80053; 80061; 81001; 82140; 82962; 84443; 84484; 85025; 85027; 87040; 87086; 93005; G0378; J0692; J0696; J1644; J2270; J2405; J7030